=== PATIENT | male | born 1930 | race Hispanic/Latino ===

== ENCOUNTER 2017-02-25 09:17 | Emergency (ER) | payer MEDICARE, OTHER ==
[2017-02-25 09:44] VITALS: RESP 18; TEMP 98.2; BMI 28.3
--- NOTE | 2017-02-25 10:00 | ED PDOC ---
Arrival/HPI - General Chief Complaint: Abnormal Skin Integrity Time Seen by Provider: 02/25/17 09:42 Historian: Patient - History of Present Illness Narrative History of Present Illness (Text): 02/25/17 09:57 Patient presents to the emergency room complaining of a large mass to the posterior aspect of his neck which she has had for the past 50 years, states that initially the mass was small however over the years has grown to a significant size, currently it is the size of a baseball. He is here today in the emergency room because this morning he noticed that it is leaking of yellow serosanguineous fluid. Denies any fever, chills, headache, nausea, vomiting, trauma. Has no other complaints otherwise. Patient states that his PMD advised him to come to the emergency room and that Dr. Guzman, the surgeon, will evaluate him in the ER. PMD : Arsenio Seymour Past Medical History - Provider Review Nursing Documentation Reviewed: Yes - Infectious Disease Hx of Infectious Diseases: None - Tetanus Immunization Tetanus Immunization: Unknown - Cardiac Hx Hypertension: Yes - Pulmonary Hx Chronic Obstructive Pulmonary Disease (COPD): No - Neurological HX Cerebrovascular Accident: No - HEENT Hx Glaucoma: Yes (L) - Renal Hx Renal Failure: No - Endocrine/Metabolic Hx Diabetes Mellitus Type 1: No Hx Diabetes Mellitus Type 2: No - Hematological/Oncological Hx Blood Transfusions: Yes Hx Blood Transfusion Reaction: No - Integumentary Hx Dermatological Disorder: No - Musculoskeletal/Rheumatological Hx Arthritis: Yes Hx Rheumatoid Arthritis: No - Gastrointestinal Hx Gastroesophageal Reflux: No - Genitourinary/Gynecological Hx Genitourinary Disorders: No - Psychiatric Hx Depression: No Hx Emotional Abuse: No Hx Physical Abuse: No Hx Substance Use: No - Surgical History Other/Comment: left upper arm port removal - Anesthesia Hx Anesthesia: Yes Hx Anesthesia Reactions: No Hx Malignant Hyperthermia: No - Suicidal Assessment Feels Threatened In Home Enviroment: No Family/Social History - Physician Review Nursing Documentation Reviewed: Yes Family/Social History: No Known Family HX Smoking Status: Never Smoked Hx Alcohol Use: No Hx Substance Use: No Hx Substance Use Treatment: No Allergies/Home Meds Allergies/Adverse Reactions: Allergies No Known Allergies Allergy (Verified 11/28/16 18:05) Home Medications: Home Meds Medication Instructions Recorded Confirmed Carvedilol [Coreg] 6.25 mg PO DAILY 10/22/12 02/25/17 Levothyroxine [Synthroid] 0.025 mg PO DAILY 10/22/12 02/25/17 Tamsulosin [Flomax] 0.4 mg PO DAILY 10/22/12 02/25/17 Allopurinol [Zyloprim] 100 mg PO BID 02/25/17 02/25/17 Paricalcitol 1 mcg PO DAILY 02/25/17 02/25/17 Review of Systems - Review of Systems Constitutional: Normal. absent: Fatigue, Weight Change, Fevers ENT: Normal. absent: Hearing Changes, Tinnitus, TMJ Pain Respiratory: Normal. absent: SOB, Cough, Sputum Cardiovascular: Normal. absent: Chest Pain, Palpitations, Edema Musculoskeletal: Normal. absent: Arthralgias, Back Pain, Neck Pain Skin: Normal, Other (cyst to posterior neck x 50 years. ). absent: Rash, Pruritis, Skin Lesions Physical Exam - Physical Exam Narrative Physical Exam (Text): GENERAL APPEARANCE: Patient is awake, alert, oriented x 3, in mild painful distress. Skin: warm and dry, 10x10 cm large non-tender mass with no erythema, with areas of fluctuance, no d/c noted at this time, with no surrounding cellulitis to the posterior neck. Pulmonary: lungs clear, no rhonchi, no wheezing. Cardiac: regular rate and rhythm, no murmur, no gallop. Abdomen: soft nontender. Extremities: no deformity, full range of motion, no tenderness. Vital Signs Temp Pulse Resp BP Pulse Ox 02/25/17 13:00 84 18 143/92 H 95 02/25/17 11:13 85 18 137/66 95 02/25/17 09:20 98.2 F 84 18 140/90 94 L Medical Decision Making ED Course and Treatment: 02/25/17 10:03 86 yo M c/o large mass to the posterior neck x 50 years with d/c today. Case d/w Dr. Barnett, recommends that we call Dr. Devlin as Dr. Guzman is not available. Case d/w Dr. Devlin, who will evaluate the patient in the ER. Patient seen and evaluated by Dr. Devlin, prior imaging studies of the patient 's head and brain reviewed by him. Considering patient's PMH, will do an I&D at the bedside. Wound culture sent. Based on history, exam and diagnostic results plan will be for outpatient f/u with Dr. Devlin. Patient states he fully agrees with and understands discharge instructions. States that he agrees with the plan and disposition. Verbalized and repeated discharge instructions and plan. I have given the patient opportunity to ask any additional questions. Follow up with Dr. Devlin in 2 days without fail. Return to the emergency room at any time for any new or worsening symptoms. - Lab Interpretations Lab Results: 02/25/17 10:50 Lab Results 02/25/17 10:50: PT 15.5 H, INR 1.44 H, APTT 37.4 H 02/25/17 10:50: WBC 8.6, RBC 4.62, Hgb 12.9 L, Hct 40.4 L, MCV 87.4, MCH 27.9, MCHC 31.9, RDW 15.7 H, Plt Count 176, MPV 8.2, Gran % 70.8 H, Lymph % (Auto) 19.3 L, [place] % (Auto) 6.5 H, Eos % (Auto) 3.1, Baso % (Auto) 0.3, Gran # 6.07, Lymph # 1.7, [place] # 0.6, Eos # 0.3, Baso # 0.03 I have reviewed the lab results: Yes - RAD Interpretation Narrative RAD Interpretations (Text): 02/25/17 11:49 CXR : cardiomegaly, otherwise NAD, as read by [facility] Radiology Orders: 02/25/17 10:27 CHEST PORTABLE [RAD] Stat - EKG Interpretation EKG Interpretation (Text): 02/25/17 11:49 EKG: SR at 71 bpm w/ PVCs, (-) acute ST changes, as read by PA - Medication Orders Current Medication Orders: Discontinued Medications Lidocaine HCl (Lidocaine 1% (20ml)) Confirm Administered Dose 20 ml .ROUTE .STK- MED ONE Stop: 02/25/17 11:17 Last Admin: 02/25/17 11:31 Dose: - PA / BOTTOM WHEELER / Resident Statement / has reviewed & agrees with the documentation as recorded. Disposition/Present on Arrival - Present on Arrival Any Indicators Present on Arrival: No History of DVT/PE: No History of Uncontrolled Diabetes: No Urinary Catheter: No History of Decub. Ulcer: No History Surgical Site Infection Following: None - Disposition Have Diagnosis and Disposition been Completed?: Yes Diagnosis: Sebaceous cyst Disposition: HOME/ ROUTINE Disposition Time: 11:30 Patient Plan: Discharge Condition: GOOD Discharge Instructions (ExitCare): Incision and Drainage (ED), Cyst (ED) Print Language: DIVEHI Additional Instructions: Thank you for letting us take care of you today. You were treated for the patient's cyst status post incision and drainage. The emergency medical care you received today was directed at your acute symptoms. Return to the Emergency Department if your symptoms worsen, do not improve, or if you have any other problems. Please contact Dr. Devlin in 2 days for re-evaluation and follow up. Bring any paperwork you were given at discharge with you along with any medications you are taking to your follow up visit. Our treatment cannot replace ongoing medical care by a primary care provider (PCP) outside of the emergency department. Thank you for allowing the [facility] team to be part of your care today. Referrals: Arsenio Seymour MD [Primary Care Provider] - Follow up with primary Mart Devlin MD [Staff Provider] - Follow up with primary
[2017-02-25 10:59] LABS: ADD MANUAL DIFF? NO
[2017-02-25 11:04] LABS: BASO # 0.03 K/mm3 (0.0-2.0); BASO % 0.3 % (0.0-3.0); EOS # 0.3 (0.0-0.7); EOS % 3.1 % (1.5-5.0); GRAN # 6.07 (1.4-6.5); GRAN % 70.8 % (50.0-68.0); HEMATOCRIT 40.4 % (42.0-52.0); LYMPH # 1.7 (1.2-3.4); LYMPH % 19.3 % (22.0-35.0); MEAN CELL VOLUME 87.4 fL (80.0-105.0); MEAN CORPUSCULAR HEMOGLOBIN 27.9 pg (25.0-35.0); MEAN CORPUSCULAR HGB CONC 31.9 g/dl (31.0-37.0); MEAN PLATELET VOLUME 8.2 fl (7.0-11.0); MONO # 0.6 (0.1-0.6); MONO % 6.5 % (1.0-6.0); PLATELET COUNT 176 10^3/uL (120.0-450.0); RED CELL DISTRIBUTION WIDTH 15.7 % (11.5-14.5); WHITE BLOOD COUNT 8.6 10^3/ul (4.5-11.0)
[2017-02-25 11:13] VITALS: O2SAT 95
[2017-02-25] MEDS ORDERED: Lidocaine 1% Inj (20ml) ONE (11:16)
[2017-02-25 11:31] LABS: INR 1.44 (0.93-1.08); PARTIAL THROMBOPLASTIN TIME 37.4 Seconds (23.7-30.8)
--- NOTE | 2017-02-25 12:40 | RAD ---
HISTORY: for pre-op COMPARISON: 11/28/2016 FINDINGS: LUNGS: No active pulmonary disease. PLEURA: No significant pleural effusion identified, no pneumothorax apparent. CARDIOVASCULAR: Normal. OSSEOUS STRUCTURES: No significant abnormalities. VISUALIZED UPPER ABDOMEN: Normal. OTHER FINDINGS: Left-sided central line terminates in SVC IMPRESSION: No active disease.
[2017-02-25 14:18] VITALS: BP 143/92; PULSE 84
--- NOTE | 2017-02-25 22:02 | CARD ---
APPROVED REPORT EKG Measurement Heart [id number] [id number] <Conclusion> Sinus rhythm with premature supraventricular complexes Left axis deviation Pulmonary disease pattern Inferior infarct, age undetermined Abnormal ECG
== END 2017-02-25 12:35 | disposition home or self-care (01) ==
LOC: ED 09:17
DX: L72.3 Sebaceous cyst (principal); I10 Essential (primary) hypertension

== ENCOUNTER 2017-03-03 05:20 | Inpatient (IN) | payer MEDICARE, OTHER ==
[2017-03-03 05:37] VITALS: BMI 28.3
--- NOTE | 2017-03-03 05:40 | ED PDOC ---
Arrival/HPI - General Time Seen by Provider: 03/03/17 05:27 Historian: Patient - History of Present Illness Narrative History of Present Illness (Text): 03/03/17 05:40 Rey Sanchez is an 86 year old male, who past medical history includes hypertension, renal insufficiency, anemia, colon cancer, and Gout, who presents to the ED complaining of a large posterior head mass. Patient states he has had a mass to the posterior side of his head for the last 50 years, gradually worsening over the past few years. Patient was seen in the ED on 02/25/2017 for similar complaint and had an I&D done by surgery in the ER. Patient states the mass is now draining fluid with associated discomfort. Patient denies any fever , chills, headache, dizziness, chest pain, shortness of breath, nausea, vomiting , or any other complaints. PMD: Dr. Seymour Surgeon: Dr. Guzman Symptom Onset: Gradual Symptom Course: Unchanged Activities at Onset: Rest, Light Context: Home Past Medical History - Provider Review Nursing Documentation Reviewed: Yes - Infectious Disease Hx of Infectious Diseases: None - Tetanus Immunization Tetanus Immunization: Unknown - Cardiac Hx Hypertension: Yes - Pulmonary Hx Chronic Obstructive Pulmonary Disease (COPD): No - Neurological HX Cerebrovascular Accident: No - HEENT Hx Glaucoma: Yes (L) - Renal Hx Renal Failure: No - Endocrine/Metabolic Hx Diabetes Mellitus Type 1: No Hx Diabetes Mellitus Type 2: No - Hematological/Oncological Hx Blood Transfusions: Yes Hx Blood Transfusion Reaction: No - Integumentary Hx Dermatological Disorder: No - Musculoskeletal/Rheumatological Hx Arthritis: Yes Hx Rheumatoid Arthritis: No - Gastrointestinal Hx Gastroesophageal Reflux: No - Genitourinary/Gynecological Hx Genitourinary Disorders: No - Psychiatric Hx Depression: No Hx Emotional Abuse: No Hx Physical Abuse: No Hx Substance Use: No - Surgical History Other/Comment: left upper arm port removal - Anesthesia Hx Anesthesia: Yes Hx Anesthesia Reactions: No Hx Malignant Hyperthermia: No - Suicidal Assessment Feels Threatened In Home Enviroment: No Family/Social History - Physician Review Nursing Documentation Reviewed: Yes Family/Social History: No Known Family HX Smoking Status: Never Smoked Hx Alcohol Use: No Hx Substance Use: No Hx Substance Use Treatment: No Allergies/Home Meds Allergies/Adverse Reactions: Allergies No Known Allergies Allergy (Verified 03/03/17 05:37) Home Medications: Home Meds Medication Instructions Recorded Confirmed Carvedilol [Coreg] 6.25 mg PO DAILY 10/22/12 03/03/17 Levothyroxine [Synthroid] 0.025 mg PO DAILY 10/22/12 03/03/17 Tamsulosin [Flomax] 0.4 mg PO DAILY 10/22/12 03/03/17 Allopurinol [Zyloprim] 100 mg PO BID 02/25/17 03/03/17 Paricalcitol 1 mcg PO DAILY 02/25/17 03/03/17 Furosemide [Lasix] 40 mg PO DAILY 03/03/17 03/03/17 Potassium Chloride [K-Dur 20 mEq 20 meq PO DAILY 03/03/17 03/03/17 ER Tab] Review of Systems - Physician Review All systems were reviewed & negative as marked: Yes - Review of Systems Constitutional: Normal. absent: Fevers Eyes: Normal ENT: Normal Respiratory: Normal. absent: SOB, Cough Cardiovascular: Normal. absent: Chest Pain Gastrointestinal: Normal. absent: Abdominal Pain, Diarrhea, Nausea, Vomiting Genitourinary Male: Normal. absent: Frequency, Hematuria, Urinary Output Changes Musculoskeletal: Normal. absent: Back Pain, Neck Pain Skin: Other (+large posterior head mass) Neurological: Normal. absent: Headache, Dizziness Endocrine: Normal Hemo/Lymphatic: Normal Psychiatric: Normal Physical Exam Vital Signs Reviewed: Yes Vital Signs Temp Pulse Resp BP Pulse Ox 03/03/17 05:53 92 H 16 125/69 93 L 03/03/17 05:36 98.5 F Temperature: Afebrile Blood Pressure: Normal Pulse: Regular Respiratory Rate: Normal Appearance: Positive for: Well-Appearing, Non-Toxic, Comfortable Pain Distress: None Mental Status: Positive for: Alert and Oriented X 3 - Systems Exam Head: Present: Atraumatic, Other (Large mass to posterior head) Pupils: Present: PERRL Extroacular Muscles: Present: EOMI Conjunctiva: Present: Normal Mouth: Present: Moist Mucous Membranes Neck: Present: Normal Range of Motion Respiratory/Chest: Present: Clear to Auscultation, Good Air Exchange. No: Respiratory Distress, Accessory Muscle Use Cardiovascular: Present: Regular Rate and Rhythm, Normal S1, S2. No: Murmurs Abdomen: Present: Normal Bowel Sounds. No: Tenderness, Distention, Peritoneal Signs Upper Extremity: Present: Normal Inspection. No: Cyanosis, Edema Lower Extremity: Present: Normal Inspection. No: Edema Neurological: Present: GCS=15, CN II-XII Intact, Speech Normal Skin: Present: Warm, Dry, Normal Color. No: Rashes Psychiatric: Present: Alert, Oriented x 3, Normal Insight, Normal Concentration Medical Decision Making ED Course and Treatment: 03/03/17 05:40 Impression: 86 year old male c/o large posterior head mass with drainage and discomfort to the area. Plan: -- Labs, blood cultures - Reassess and disposition Progress Notes: Case discussed with Dr. Seymour, who is aware and agrees with plan. Accepts pt in to his service. Requests Dr. Guzman on consult. - Lab Interpretations Microbiology Results: Microbiology Results 03/03/17 06:00 Blood-Venous Blood Culture - Preliminary NO GROWTH AFTER 48 HOURS 03/03/17 06:00 Blood-Venous Blood Culture - Preliminary NO GROWTH AFTER 48 HOURS 03/04/17 14:30 Neck Gram Stain - Final Lab Results: 03/04/17 07:30 03/04/17 07:30 Lab Results 03/04/17 07:30: Sodium 140, Potassium 4.3, Chloride 101, Carbon Dioxide 34 H, Anion Gap 9 L, BUN 28 H, Creatinine 1.3, Est GFR ( Amer) > 60, Est GFR ( Non-Af Amer) 52, Random Glucose 90, Calcium 8.9, Total Bilirubin 0.6, AST 26, ALT 27, Alkaline Phosphatase 60, Total Protein 6.0, Albumin 2.9 L, Globulin 3.1 , Albumin/Globulin Ratio 0.9 L 03/04/17 07:30: WBC 7.5, RBC 4.15, Hgb 11.5 L, Hct 36.4 L, MCV 87.7, MCH 27.7, MCHC 31.6, RDW 15.7 H, Plt Count 193, MPV 7.9, Gran % 71.2 H, Lymph % (Auto) 17.8 L, [place] % (Auto) 6.8 H, Eos % (Auto) 3.9, Baso % (Auto) 0.3, Gran # 5.32, Lymph # 1.3, [place] # 0.5, Eos # 0.3, Baso # 0.02 03/04/17 07:30: Iron 30 L, TIBC 188 L, % Saturation 16 L 03/03/17 06:00: Sodium 139, Potassium 4.3, Chloride 100, Carbon Dioxide 33, Anion Gap 10, BUN 29 H, Creatinine 1.1, Est GFR ( Amer) > 60, Est GFR ( Non-Af Amer) > 60, Random Glucose 112 H, Calcium 9.3, Total Bilirubin 0.5, AST 26, ALT 26, Alkaline Phosphatase 72, Total Protein 6.5, Albumin 3.2, Globulin 3.3, Albumin/Globulin Ratio 1.0 L 03/03/17 06:00: WBC 8.8, RBC 4.55, Hgb 12.8 L, Hct 39.6 L, MCV 87.0, MCH 28.1, MCHC 32.3, RDW 15.4 H, Plt Count 207, MPV 8.1, Gran % 70.0 H, Lymph % (Auto) 18.4 L, [place] % (Auto) 8.0 H, Eos % (Auto) 3.4, Baso % (Auto) 0.2, Gran # 6.13, Lymph # 1.6, [place] # 0.7 H, Eos # 0.3, Baso # 0.02 - Medication Orders Current Medication Orders: Acetaminophen (Tylenol 325mg Tab) 650 mg PO Q4H PRN PRN Reason: Fever >100.5 F Allopurinol (Zyloprim) 100 mg PO BID [facility] Last Admin: 03/05/17 17:14 Dose: 100 mg Carvedilol (Coreg) 6.25 mg PO DAILY [facility] Last Admin: 03/05/17 09:07 Dose: 6.25 mg Furosemide (Lasix) 40 mg PO DAILY [facility] Last Admin: 03/05/17 09:07 Dose: 40 mg Heparin Sodium (Porcine) (Heparin) 5,000 units SC Q12 [facility] PRN Reason: Protocol Last Admin: 03/05/17 09:06 Dose: 5,000 units Linezolid (Zyvox 600mg/300ml D5w) 600 mg in 300 mls @ 200 mls/hr IVPB Q12 [facility] PRN Reason: Protocol Stop: 03/11/17 22:01 Last Admin: 03/05/17 09:06 Dose: 200 mls/hr Piperacillin Sod/Tazobactam Sod (Zosyn 3.375 In Ns 100ml) 100 mls @ 200 mls/hr IVPB Q6 [facility] PRN Reason: Protocol Stop: 03/11/17 18:01 Last Admin: 03/05/17 17:14 Dose: 200 mls/hr Latanoprost (Xalatan Opht) 0 ml OU HS [facility] Last Admin: 03/04/17 22:56 Dose: 2.5 ml Levothyroxine Sodium (Synthroid) 25 mcg PO ACB [facility] Last Admin: 03/05/17 08:55 Dose: 25 mcg Potassium Chloride (K-Dur 20 Meq Er Tab) 20 meq PO DAILY [facility] Last Admin: 03/05/17 09:08 Dose: 20 meq Tamsulosin HCl (Flomax) 0.4 mg PO DAILY [facility] Last Admin: 03/05/17 09:08 Dose: 0.4 mg Discontinued Medications Piperacillin Sod/Tazobactam Sod (Zosyn 3.375 In Ns 100ml) 100 mls @ 200 mls/hr IVPB STAT STA PRN Reason: Protocol Stop: 03/03/17 06:58 Last Admin: 03/03/17 07:00 Dose: 200 mls/hr Piperacillin Sod/Tazobactam Sod (Zosyn 3.375 In Ns 100ml) 100 mls @ 200 mls/hr IVPB Q6 [facility] PRN Reason: Protocol Stop: 03/04/17 00:29 Last Admin: 03/03/17 23:33 Dose: 200 mls/hr Pneumococcal Polyvalent Vaccine (Pneumovax 23 Vaccine) 0.5 ml IM .ONCE ONE Stop: 03/03/17 15:37 - Scribe Statement The provider has reviewed the documentation as recorded by the Cam Fagan Provider Attestation: All medical record entries made by the Cam were at my direction and personally dictated by me. I have reviewed the chart and agree that the record accurately reflects my personal performance of the history, physical exam, medical decision making, and the department course for this patient. I have also personally directed, reviewed, and agree with the discharge instructions and disposition. Disposition/Present on Arrival - Present on Arrival Any Indicators Present on Arrival: No History of DVT/PE: No History of Uncontrolled Diabetes: No Urinary Catheter: No History Surgical Site Infection Following: None - Disposition Have Diagnosis and Disposition been Completed?: Yes Diagnosis: Neck mass Disposition: HOSPITALIZED Disposition Time: 07:15 Condition: FAIR
[2017-03-03 06:18] LABS: ADD MANUAL DIFF? NO
[2017-03-03 06:23] LABS: BASO # 0.02 K/mm3 (0.0-2.0); BASO % 0.2 % (0.0-3.0); EOS # 0.3 (0.0-0.7); EOS % 3.4 % (1.5-5.0); GRAN # 6.13 (1.4-6.5); HEMATOCRIT 39.6 % (42.0-52.0); LYMPH # 1.6 (1.2-3.4); LYMPH % 18.4 % (22.0-35.0); MEAN CORPUSCULAR HEMOGLOBIN 28.1 pg (25.0-35.0); MEAN CORPUSCULAR HGB CONC 32.3 g/dl (31.0-37.0); MEAN PLATELET VOLUME 8.1 fl (7.0-11.0); MONO # 0.7 (0.1-0.6); PLATELET COUNT 207 10^3/uL (120.0-450.0); RED CELL DISTRIBUTION WIDTH 15.4 % (11.5-14.5); WHITE BLOOD COUNT 8.8 10^3/ul (4.5-11.0)
[2017-03-03] MEDS ORDERED: Piperacillin/Tazobact 3.375 gm 100 ML IVPB STA (06:29)
[2017-03-03 06:38] LABS: ALKALINE PHOSPHATASE 72 U/L (38-133); ALT/SGPT 26 U/L (7-56); AST/SGOT 26 U/L (15-59); BILIRUBIN,TOTAL 0.5 mg/dL (0.2-1.3); BLOOD UREA NITROGEN 29 mg/dL (7-21); CALCIUM 9.3 mg/dL (8.4-10.5); CARBON DIOXIDE 33 mmol/L (21-33); CHLORIDE 100 mmol/L (95-110); GFR AFRICAN-AMERICAN > 60; GLUCOSE,RANDOM 112 mg/dL (70-110); POTASSIUM 4.3 mmol/L (3.6-5.0); SODIUM 139 mmol/L (132-148); TOTAL PROTEIN 6.5 g/dL (5.8-8.3)
--- NOTE | 2017-03-03 07:34 | HP ---
HISTORY OF PRESENT ILLNESS: The patient is seen in the Emergency Room at [facility] in [place]. He has intractable pain in the back of his neck. He has a lump which seems to be the cause of the pain. It is a lump that he has had for many years, but apparently it is infected at this time and enlarging, with it being tense is causing the pain. The patient has no fever, but he has all other clinical signs of an infection in the site. ALLERGIES: The patient has no known allergies. ADVANCED DIRECTIVE: He does not have any advanced directive. PAST MEDICAL HISTORY: Significant. He has history of atherosclerotic heart disease, coronary artery disease, hypothyroidism, gout, benign prostatic hyperplasia, congestive heart failure, glaucoma, vitamin D deficiency. PHYSICAL EXAMINATION: The patient is seen in the Emergency Room. VITAL SIGNS: At the time of evaluation, pulse is 92, blood pressure 125/69, respirations are 16, O2 sat 93% on room air. HEAD: Normocephalic. The hair on the head is sparse. NECK: Within normal limit. Thyroid is not clinically enlarged. The carotid pulses are present. HEART: Normal sinus rhythm. S1, S2 present. ABDOMEN: Soft. Liver, spleen not palpable. No tenderness. LUNGS: Trachea central. Breath sounds vesicular. No adventitious sounds. CENTRAL NERVOUS SYSTEM: He has weakness of both legs, unable to walk. He has been in a wheelchair and bedridden for more than a year. LABORATORY DATA: The patient's blood work done in the Emergency Room: His white count is 8000, hemoglobin 12.8. Chemistries: The patient's BUN is 29, creatinine 1.1. His GFR is greater than 60. The patient's blood sugar 112. His sodium is 139, potassium is 4.3. The patient's admission is based on the fact that the patient has this lump in the back of the neck which is causing extreme pain as well as appears to be infected at this time. We will put him on antibiotic. Dr. Ulices Guzman, general surgeon, is going to evaluate the patient. This definitely has to be removed apparently from what it looks like. The patient's medications will be placed. He is going to be placed on the Synthroid that he was taking. He is going to be on Lasix 40 mg daily, potassium chloride 20 mEq daily. The patient is going to be on all his maintenance medications a this time. The patient is going to be on allopurinol 100 mg b.i.d. and Coreg 6.25 mg b.i.d. The patient' s condition is stable clinically, but he is being admitted and treated for the condition that is a localized problem. Will follow up. Ju Seymour MD cc: [id number] TT: 03/03/2017 07:33:43 sharmila OSULLIVAN
--- NOTE | 2017-03-03 09:48 | CP.PCM.CON ---
History of Present Illness - History of Present Illness History of Present Illness: General surgery consult note for Juan Carlos Corrigan PGY1 cc: Neck mass HPI: Patient is an 86yo male with past medical history of hypothyroidism, CAD, BPH, gout, history of colon ca that presents to the ED c/o posterior neck mass. Patient reports that he has a small lump on the back of his neck for the past 50 years however within the last year the mass has significantly grown. He reports that within the last couple months the mass have started to drain serosangenous fluid and been associated with significant pain, difficulty sleeping and difficuly with neck mobility. Patient stated that he was previously seen in the ED for the same complaint and was seen by Dr. Devlin who had drained a portion of the mass and instructed the patient to follow up in his office as an outpatient. The patient reports that he was unable to follow up due to difficulty ambulating. He denies fevers, chill, nausea, vomiting, abdominal pain, diarrhea, chest pain, palpitations, SOB. Surgery consulted for evaluation of posterior neck mass. 12point ROS as per HPI above, otherwise negative PMHx: Gout, BPH, CAD, hypothyroidism, CHF, glaucoma, history of colon ca PSHx: Colon ca s/p partial colectomy Allergies: NKDA Family Hx: Noncontributory Social Hx: Denies alcohol, tobacco and illicit drug use. Past Patient History - Infectious Disease Hx of Infectious Diseases: None - Tetanus Immunizations Tetanus Immunization: Unknown - Past Social History Smoking Status: Never Smoked - CARDIAC Hx Hypertension: Yes - PULMONARY Hx Chronic Obstructive Pulmonary Disease (COPD): No - NEUROLOGICAL HX Cerebrovascular Accident: No - HEENT Hx Glaucoma: Yes (L) - RENAL Hx Renal Failure: No - ENDOCRINE/METABOLIC Hx Diabetes Mellitus Type 1: No Hx Diabetes Mellitus Type 2: No - HEMATOLOGICAL/ONCOLOGICAL Hx Blood Transfusions: Yes Hx Blood Transfusion Reaction: No - INTEGUMENTARY Hx Dermatological Problems: No - MUSCULOSKELETAL/RHEUMATOLOGICAL Hx Arthritis: Yes Hx Rheumatoid Arthritis: No - GASTROINTESTINAL Hx Gastroesophageal Reflux: No - GENITOURINARY/GYNECOLOGICAL Hx Genitourinary Disorders: No - PSYCHIATRIC Hx Depression: No Hx Emotional Abuse: No Hx Physical Abuse: No Hx Substance Use: No - SURGICAL HISTORY Other/Comment: left upper arm port removal - ANESTHESIA Hx Anesthesia: Yes Hx Anesthesia Reactions: No Hx Malignant Hyperthermia: No Meds Allergies/Adverse Reactions: Allergies Allergy/AdvReac Type Severity Reaction Status Date / Time No Known Allergies Allergy Verified 03/03/17 05:37 - Medications Medications: Current Medications Acetaminophen (Tylenol 325mg Tab) 650 mg PO Q4H PRN PRN Reason: Fever >100.5 F Physical Exam - Constitutional Appears: Non-toxic, No Acute Distress - Head Exam Head Exam: ATRAUMATIC, NORMAL INSPECTION, NORMOCEPHALIC - Eye Exam Eye Exam: EOMI, PERRL - Neck Exam Additional comments: posterior [id number] fluctuant neck mass; - Respiratory Exam Respiratory Exam: Clear to Auscultation Bilateral. absent: Rales, Rhonchi, Wheezes - Cardiovascular Exam Cardiovascular Exam: RRR, +S1, +S2. absent: Gallop, Rubs - GI/Abdominal Exam GI & Abdominal Exam: Soft. absent: Distended, Firm, Guarding, Rebound, Tenderness - Neurological Exam Neurological exam: Alert, Oriented x3 - Skin Skin Exam: Dry, Intact, Normal Color, Warm Results - Vital Signs Recent Vital Signs: Last Vital Signs Temp 98.5 F 03/03/17 05:36 Pulse 92 H 03/03/17 05:53 Resp 16 03/03/17 05:53 BP 125/69 03/03/17 05:53 Pulse Ox 93 L 03/03/17 05:53 - Labs Result Diagrams: 03/03/17 06:00 03/04/17 07:30 Assessment & Plan - Assessment and Plan (Free Text) Plan: 86yo male with history of colon ca s/p partial colectomy, gout, hypothyroidism, CAD that presents c/o posterior 10cm x 12cm fluctuant neck mass -Fluctuant [id number] posterior neck mass -Patient to be evaluated by Dr. Guzman, pending further recommendations -Continue medical management as per primary team -afebrile, no leukocytosis Case discussed with attending, Dr. Thomas Campoverde PGY1 - Date & Time Date: 03/03/17 Time: 10:05
[2017-03-03] MEDS ORDERED: Pneumococcal 23-Valent Vaccine IM ONE (15:36)
[2017-03-03] MEDS: Piperacillin/Tazobact 3.375 gm 100 ML IVPB SCH ×2 (18:27→23:33)
[2017-03-03] MEDS: Latanoprost 2.5 ml Opht Soln OU SCH (22:04)
[2017-03-04 08:03] LABS: ADD MANUAL DIFF? NO
[2017-03-04] MEDS: Levothyroxine 25 MCG TAB PO SCH (08:13)
[2017-03-04 08:14] LABS: BASO # 0.02 K/mm3 (0.0-2.0); BASO % 0.3 % (0.0-3.0); EOS # 0.3 (0.0-0.7); EOS % 3.9 % (1.5-5.0); GRAN # 5.32 (1.4-6.5); GRAN % 71.2 % (50.0-68.0); HEMATOCRIT 36.4 % (42.0-52.0); LYMPH # 1.3 (1.2-3.4); LYMPH % 17.8 % (22.0-35.0); MEAN CELL VOLUME 87.7 fL (80.0-105.0); MEAN CORPUSCULAR HEMOGLOBIN 27.7 pg (25.0-35.0); MEAN CORPUSCULAR HGB CONC 31.6 g/dl (31.0-37.0); MEAN PLATELET VOLUME 7.9 fl (7.0-11.0); MONO # 0.5 (0.1-0.6); MONO % 6.8 % (1.0-6.0); PLATELET COUNT 193 10^3/uL (120.0-450.0); RED CELL DISTRIBUTION WIDTH 15.7 % (11.5-14.5); WHITE BLOOD COUNT 7.5 10^3/ul (4.5-11.0)
[2017-03-04 08:23] LABS: ALB/GLOB RATIO 0.9 (1.1-1.8); ALKALINE PHOSPHATASE 60 U/L (38-133); ALT/SGPT 27 U/L (7-56); AST/SGOT 26 U/L (15-59); BILIRUBIN,TOTAL 0.6 mg/dL (0.2-1.3); BLOOD UREA NITROGEN 28 mg/dL (7-21); CALCIUM 8.9 mg/dL (8.4-10.5); CARBON DIOXIDE 34 mmol/L (21-33); CHLORIDE 101 mmol/L (98-107); GFR AFRICAN-AMERICAN > 60; GLUCOSE,RANDOM 90 mg/dL (70-110); POTASSIUM 4.3 mmol/L (3.6-5.0); SODIUM 140 mmol/L (132-148)
[2017-03-04 08:47] LABS: IRON 30 ug/dL (45-180)
--- NOTE | 2017-03-04 09:05 | PN ---
DATE: 03/04/2017 The patient is in the [facility] in [place] in room 367, bed 1. The patient was admitted with a painful lump in the back of the neck, a large lump, about 20 cm in diameter. It was hard and indurated with tenderness on touch. The patient had evidence of clinical inflammation, infection. His past history is significant in that he has atherosclerotic heart disease. The patient has hypertension, hypothyroidism, gout. 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 He is bedridden and also mobile only by wheelchair. PHYSICAL EXAMINATION: VITAL SIGNS: This morning, his pulse is 89, blood pressure 147/85, respirations 20. The patient's temperature 97.3, O2 sat 97% on room air. HEENT: The patient's head is normocephalic. The lump is draining. It is open and it was excised and drained by Dr. Ulices Guzman. LUNGS: Clear. HEART: Normal sinus rhythm. ABDOMEN: Soft. Liver, spleen not palpable. CENTRAL NERVOUS SYSTEM: There is no focal neurological deficit. LABORATORY DATA: The patient's blood work shows that the hemoglobin is 12.8 and differential shows 70% granulocytes. The patient's chemistry shows blood sugar 112 and BUN of 29, potassium of 4.3. The patient is getting local treatment. Consultation has been placed with infectious disease. The patient's condition is clinically improving. We will follow up. Ju Seymour MD cc: [phone] TT: 03/04/2017 09:04:10 Confirmation # [id number] Dictation # [id number] rosaura OSULLIVAN
[2017-03-04] MEDS: Potassium Chloride 20 mEq ER Tab PO SCH (09:13)
--- NOTE | 2017-03-04 09:15 | CP.PCM.PN ---
Subjective - Date & Time of Evaluation Date of Evaluation: 03/04/17 Time of Evaluation: 08:38 - Subjective Subjective: General surgery progress note for Juan Carlos Corrigan PGY1 Patient seen and examined this morning in conjunction with surgical team. No acute overnight events or new complaints reported. Patient had some fluid drained at bedside yesterday by Dr. Guzman. Denies chest pain, palpitations, SOB. Objective - Vital Signs/Intake and Output Vital Signs (last 24 hours): Temp Pulse Resp BP Pulse Ox 97.3 F L 89 20 147/85 96 03/03/17 16:00 03/03/17 16:00 03/03/17 16:00 03/03/17 16:00 03/03/17 16:00 Intake and Output: 03/04/17 03/04/17 06:59 18:59 Intake Total 920 Balance 920 - Medications Medications: Current Medications Acetaminophen (Tylenol 325mg Tab) 650 mg PO Q4H PRN PRN Reason: Fever >100.5 F Allopurinol (Zyloprim) [address] [facility] Last Admin: 03/03/17 19:50 Dose: 100 mg Carvedilol (Coreg) 6.[address] [facility] Furosemide (Lasix) 40 mg PO DAILY [facility] Latanoprost (Xalatan Opht) [address] [facility] Last Admin: 03/03/17 22:04 Dose: 2.5 ml Levothyroxine Sodium (Synthroid) [address] [facility] Potassium Chloride (K-Dur 20 Meq Er Tab) 20 meq PO DAILY [facility] Tamsulosin HCl (Flomax) 0.[address] [facility] - Labs Labs: 03/04/17 07:30 - Constitutional Appears: Well, Non-toxic, No Acute Distress - Head Exam Head Exam: ATRAUMATIC, NORMAL INSPECTION, NORMOCEPHALIC - Eye Exam Eye Exam: EOMI, PERRL - ENT Exam ENT Exam: Mucous Membranes Moist - Neck Exam Additional comments: posterior fluctuant neck mass measuring ~[id number] - Respiratory Exam Respiratory Exam: Clear to Ausculation Bilateral. absent: Rales, Rhonchi, Wheezes - Cardiovascular Exam Cardiovascular Exam: RRR, +S1, +S2. absent: Gallop, Rubs - GI/Abdominal Exam GI & Abdominal Exam: Soft. absent: Distended, Firm, Guarding, Rigid, Tenderness , Rebound - Neurological Exam Neurological Exam: Alert, Awake, Oriented x3 - Skin Skin Exam: Dry, Intact, Normal Color, Warm Assessment and Plan - Assessment and Plan (Free Text) Plan: 86yo male with history of colon ca s/p partial colectomy, gout, hypothyroidism, CAD that presents c/o posterior 10cm x 12cm fluctuant neck mass -Fluctuant [id number] posterior neck mass, drained yesterday at bedside -Patient scheduled for OR intervention on 03/08/2017 -Continue medical management as per primary team -afebrile, no leukocytosis Case discussed with attending, Dr. Thomas Campoverde PGY1
--- NOTE | 2017-03-04 14:22 | CP.PCM.CON ---
History of Present Illness - History of Present Illness History of Present Illness: 86 year old male with PMH of left arm cellulitis probably related to venous catheter S/P removal, gout, history of subarachnoid hemorrhage, hypothyroidism, colon cancer S/P hemicolectomy, HTN, osteoarthritis, history of healthcare- associated pneumonia, osteoporosis was brought in to [facility] because of pain along his posterior neck area, associated with a fluctuant mass. Apparently the mass has been there for many decades now, but over the past year it has significantly grown and has become painful in the past 3-4 days , with some serosanguinous discharge from the area. He does not recall insect bites, no animal contacts. He also denies fever or chills, no nausea or vomiting , no chest pain, no SOB<no headache or dizziness, no abdominal pain, no cough or colds, no diarrhea or dysuria. Yesterday, surgery drained some serosanguinous fluid and Infectious Diseases consult is requested to further evaluate and manage. Review of Systems - Review of Systems All systems: reviewed and no additional remarkable complaints except (as per HPI ) Past Patient History - Infectious Disease Hx of Infectious Diseases: None - Tetanus Immunizations Tetanus Immunization: Unknown - Past Social History Smoking Status: Never Smoked - CARDIAC Hx Hypertension: Yes - PULMONARY Hx Bronchitis: Yes - NEUROLOGICAL Hx Neurological Disorder: Yes (hand tremors) - HEENT Hx HEENT Problems: Yes (eyeglasses) Hx Glaucoma: Yes (L) - RENAL Hx Renal Failure: No - ENDOCRINE/METABOLIC Hx Diabetes Mellitus Type 1: No Hx Diabetes Mellitus Type 2: No - HEMATOLOGICAL/ONCOLOGICAL Hx Anemia: Yes (blood transfusion) Hx Cancer: Yes (colon ca dx 2004) Hx Chemotherapy: Yes (and radiation completed) - INTEGUMENTARY Other/Comment: multiple age spots to back and chest, large 8cm x 7cm growth to back of neck red in color and draining bloody fluid was drained in ed today and i&d'd in er 02/25/17, multiple eccymotic skin discolorations to both arms,2cm x 2cm round hard brown growth to rfa, buttocks reddened, dry skin both feet - MUSCULOSKELETAL/RHEUMATOLOGICAL Hx Arthritis: Yes Hx Falls: Yes (fell 09/22/2016) Hx Fractures: Yes (r leg as a child) Hx Osteoporosis: Yes Hx Unsteady Gait: Yes Other/Comment: pt stated "I can't walk since I fell 09/22/16" fx r rib, 7 stiches to head went from [facility] back to [facility] then to [facility]." pt's uses a lift to get him oob to chair every day. pt used to use a cane/ walker. pt - GASTROINTESTINAL Hx Gastroesophageal Reflux: No - GENITOURINARY/GYNECOLOGICAL Hx Incontinence: Yes (urine and stool) - PSYCHIATRIC Hx Depression: No Hx Emotional Abuse: No Hx Physical Abuse: No Hx Substance Use: No - SURGICAL HISTORY Other/Comment: left upper arm port removal, r great toe hinge placement - ANESTHESIA Hx Anesthesia: Yes Hx Anesthesia Reactions: No Hx Malignant Hyperthermia: No Meds Allergies/Adverse Reactions: Allergies Allergy/AdvReac Type Severity Reaction Status Date / Time No Known Allergies Allergy Verified 03/03/17 05:37 - Medications Medications: Current Medications Acetaminophen (Tylenol 325mg Tab) 650 mg PO Q4H PRN PRN Reason: Fever >100.5 F Allopurinol (Zyloprim) 100 mg PO BID [facility] Carvedilol (Coreg) 6.25 mg PO DAILY [facility] Furosemide (Lasix) 40 mg PO DAILY [facility] Piperacillin Sod/Tazobactam Sod (Zosyn 3.375 In Ns 100ml) 100 mls @ 200 mls/hr IVPB Q6 [facility] PRN Reason: Protocol Stop: 03/04/17 00:29 Latanoprost (Xalatan Opht) 0 ml OU HS [facility] Levothyroxine Sodium (Synthroid) 25 mcg PO ACB [facility] Potassium Chloride (K-Dur 20 Meq Er Tab) 20 meq PO DAILY [facility] Tamsulosin HCl (Flomax) 0.4 mg PO DAILY [facility] Physical Exam - Constitutional Appears: Non-toxic, No Acute Distress - Head Exam Head Exam: NORMAL INSPECTION - ENT Exam ENT Exam: Mucous Membranes Moist - Neck Exam Neck exam: Negative for: Meningismus Additional comments: posterior neck with flucutant mass with dressings in place, noted blood and some serosanguinous fluid on the dressings - Respiratory Exam Respiratory Exam: Decreased Breath Sounds - Cardiovascular Exam Cardiovascular Exam: +S1, +S2 - GI/Abdominal Exam GI & Abdominal Exam: Soft. absent: Tenderness Results - Vital Signs Recent Vital Signs: Last Vital Signs Temp 98.5 F 03/03/17 15:06 Pulse 92 H 03/03/17 15:06 Resp 16 03/03/17 15:06 BP 125/69 03/03/17 15:06 Pulse Ox 93 L 03/03/17 05:53 - Labs Result Diagrams: 03/04/17 07:30 03/04/17 07:30 Assessment & Plan - Assessment and Plan (Free Text) Plan: asssessment left posterior neck mass, R/O bacterial infection R/O fungal or mycobacterial infection history of left arm cellulitis probably related to venous catheter S/P removal history of asymtpmatic bacteriuria with gram negative bacilli gout history of subarachnoid hemorrhage hypothyroidism colon cancer S/P hemicolectomy HTN osteoarthritis history of healthcare-associated pneumonia osteoporosis Plan started patient on Zyvox and Zosyn pending wound cx, blood cx, wound for AFB and fungi; follow up further surgical plans will monitor clinically
[2017-03-04] MEDS: Piperacillin/Tazobact 3.375 gm 100 ML IVPB SCH (17:15)
[2017-03-04] MEDS: Latanoprost 2.5 ml Opht Soln OU SCH (22:56)
[2017-03-04] MEDS: Linezolid 600 mg in D5W 300 ml 600 MG/300 ML BAG IVPB SCH (22:56)
[2017-03-05] MEDS: Piperacillin/Tazobact 3.375 gm 100 ML IVPB SCH ×4 (00:39→17:14)
--- NOTE | 2017-03-05 08:11 | CP.PCM.PN ---
Subjective - Date & Time of Evaluation Date of Evaluation: 03/05/17 Time of Evaluation: 07:45 - Subjective Subjective: Patient is seen this morning. He is feeling better. Less pain in the back of the neck. Objective - Vital Signs/Intake and Output Vital Signs (last 24 hours): Temp Pulse Resp BP Pulse Ox 97 F L 76 22 126/80 98 03/04/17 16:00 03/04/17 16:00 03/04/17 16:00 03/04/17 16:00 03/04/17 16:00 Intake and Output: 03/05/17 03/05/17 06:59 18:59 Intake Total 1020 Balance 1020 - Medications Medications: Current Medications Acetaminophen (Tylenol 325mg Tab) 650 mg PO Q4H PRN PRN Reason: Fever >100.5 F Allopurinol (Zyloprim) 100 mg PO BID [facility] Last Admin: 03/04/17 17:11 Dose: 100 mg Carvedilol (Coreg) 6.25 mg PO DAILY [facility] Last Admin: 03/04/17 09:13 Dose: 6.25 mg Furosemide (Lasix) 40 mg PO DAILY [facility] Last Admin: 03/04/17 09:13 Dose: 40 mg Heparin Sodium (Porcine) (Heparin) 5,000 units SC Q12 [facility] PRN Reason: Protocol Last Admin: 03/04/17 22:56 Dose: 5,000 units Linezolid (Zyvox 600mg/300ml D5w) 600 mg in 300 mls @ 200 mls/hr IVPB Q12 [facility] PRN Reason: Protocol Stop: 03/11/17 22:01 Last Admin: 03/04/17 22:56 Dose: 200 mls/hr Piperacillin Sod/Tazobactam Sod (Zosyn 3.375 In Ns 100ml) 100 mls @ 200 mls/hr IVPB Q6 [facility] PRN Reason: Protocol Stop: 03/11/17 18:01 Last Admin: 03/05/17 05:34 Dose: 200 mls/hr Latanoprost (Xalatan Opht) 0 ml OU HS [facility] Last Admin: 03/04/17 22:56 Dose: 2.5 ml Levothyroxine Sodium (Synthroid) 25 mcg PO ACB [facility] Last Admin: 03/04/17 08:13 Dose: 25 mcg Potassium Chloride (K-Dur 20 Meq Er Tab) 20 meq PO DAILY [facility] Last Admin: 03/04/17 09:13 Dose: 20 meq Tamsulosin HCl (Flomax) 0.4 mg PO DAILY [facility] Last Admin: 03/04/17 09:13 Dose: 0.4 mg - Constitutional Appears: No Acute Distress - Head Exam Head Exam: ATRAUMATIC, NORMOCEPHALIC - Respiratory Exam Respiratory Exam: Clear to Ausculation Bilateral, NORMAL BREATHING PATTERN - Cardiovascular Exam Cardiovascular Exam: +S1, +S2 - GI/Abdominal Exam GI & Abdominal Exam: Soft, Normal Bowel Sounds. absent: Tenderness - Neurological Exam Neurological Exam: Alert, Awake, Oriented x3 Assessment and Plan - Assessment and Plan (Free Text) Assessment: s/p drainage of neck mass HTN BPH Arthritis Muscle weakness with inability to walk hypothyroidism Plan: Patient is feeling better. Wound culture and pathology are pending. Infectious disease consult appreciated. Patient is currently on IV Zosyn and Zyvox PT evaluation
[2017-03-05] MEDS: Levothyroxine 25 MCG TAB PO SCH (08:55)
[2017-03-05] MEDS: Linezolid 600 mg in D5W 300 ml 600 MG/300 ML BAG IVPB SCH ×2 (09:06→23:48)
[2017-03-05] MEDS: Potassium Chloride 20 mEq ER Tab PO SCH (09:08)
--- NOTE | 2017-03-05 10:56 | CP.PCM.PN ---
Subjective - Date & Time of Evaluation Date of Evaluation: 03/05/17 Time of Evaluation: 08:00 - Subjective Subjective: Surgery: Dr. Guzman Pt seen and examined. No acute overnight events. States he feels better now that the neck mass isn't as big. Denies other complaints at this time. No F/C overnight. Objective - Vital Signs/Intake and Output Vital Signs (last 24 hours): Temp Pulse Resp BP Pulse Ox 98.1 F 69 22 136/71 96 03/05/17 04:00 03/05/17 09:07 03/05/17 04:00 03/05/17 09:07 03/05/17 04:00 Intake and Output: 03/05/17 03/05/17 06:59 18:59 Intake Total 1020 Balance 1020 - Medications Medications: Current Medications Acetaminophen (Tylenol 325mg Tab) 650 mg PO Q4H PRN PRN Reason: Fever >100.5 F Allopurinol (Zyloprim) 100 mg PO BID [facility] Last Admin: 03/05/17 09:07 Dose: 100 mg Carvedilol (Coreg) 6.25 mg PO DAILY [facility] Last Admin: 03/05/17 09:07 Dose: 6.25 mg Furosemide (Lasix) 40 mg PO DAILY [facility] Last Admin: 03/05/17 09:07 Dose: 40 mg Heparin Sodium (Porcine) (Heparin) 5,000 units SC Q12 [facility] PRN Reason: Protocol Last Admin: 03/05/17 09:06 Dose: 5,000 units Linezolid (Zyvox 600mg/300ml D5w) 600 mg in 300 mls @ 200 mls/hr IVPB Q12 [facility] PRN Reason: Protocol Stop: 03/11/17 22:01 Last Admin: 03/05/17 09:06 Dose: 200 mls/hr Piperacillin Sod/Tazobactam Sod (Zosyn 3.375 In Ns 100ml) 100 mls @ 200 mls/hr IVPB Q6 [facility] PRN Reason: Protocol Stop: 03/11/17 18:01 Last Admin: 03/05/17 05:34 Dose: 200 mls/hr Latanoprost (Xalatan Opht) 0 ml OU HS [facility] Last Admin: 03/04/17 22:56 Dose: 2.5 ml Levothyroxine Sodium (Synthroid) 25 mcg PO ACB [facility] Last Admin: 03/05/17 08:55 Dose: 25 mcg Potassium Chloride (K-Dur 20 Meq Er Tab) 20 meq PO DAILY [facility] Last Admin: 03/05/17 09:08 Dose: 20 meq Tamsulosin HCl (Flomax) 0.4 mg PO DAILY [facility] Last Admin: 03/05/17 09:08 Dose: 0.4 mg - Constitutional Appears: Well, No Acute Distress - Head Exam Head Exam: ATRAUMATIC, NORMOCEPHALIC - ENT Exam ENT Exam: Mucous Membranes Moist - Neck Exam Additional comments: 8x10 cm posterior neck mass, s/p drainage with packing in place - Respiratory Exam Respiratory Exam: NORMAL BREATHING PATTERN - Cardiovascular Exam Cardiovascular Exam: RRR - GI/Abdominal Exam GI & Abdominal Exam: Soft - Extremities Exam Extremities Exam: absent: Tenderness - Neurological Exam Neurological Exam: Alert, Awake, Oriented x3 - Skin Skin Exam: Dry, Warm Assessment and Plan - Assessment and Plan (Free Text) Assessment: 86M with posterior neck mass; likely sebaceous cyst Plan: - mass is likely not infectious in nature since no purulent output has been noted. No fevers or white count - if pt is still in the hospital on tuesday; will schedule for mass/cyst removal in OR - d/w Dr. Thomas Brown, PGY-2 Surgery
--- NOTE | 2017-03-05 14:13 | PN ---
DATE: 03/05/2017 The patient is in bed in no acute distress. PHYSICAL EXAMINATION: VITAL SIGNS: Temperature is 98, blood pressure is 130/70, respiratory rate of 16. HEENT: Unremarkable. NECK: Supple. LUNGS: Decreased breath sounds. HEART: Normal S1, S2. ABDOMEN: Soft, nontender. LABORATORY DATA: Reveals a white count of 7.5, hemoglobin 11, platelets of 193. BUN of 28, creatini ne of 1.3. Microbiology reveals the blood cultures are negative. Neck cultures are pending. Review of the orders reveals the patient to be on Zosyn and linezolid. ASSESSMENT AND PLAN: This is an 86-year-old male who is admitted now with a posterior neck mass. It has been there for many, many years. He states now it has gotten worse over the last few years and now with a possible bacterial superinfection, on Zyvox and Zosyn. Will check on the cultures. The p atient did have sepsis by definition, and respiratory rate of 22, heart rate of 94 and site of infect ion which was the neck, awaiting for culture results. Jonathan Wilkins MD cc: [id number] TT: 03/05/2017 14:12:51 Confirmation # [id number] Dictation # [id number] sophy
[2017-03-05] MEDS: Latanoprost 2.5 ml Opht Soln OU SCH (22:39)
[2017-03-06] MEDS: Piperacillin/Tazobact 3.375 gm 100 ML IVPB SCH ×4 (02:19→17:32)
--- NOTE | 2017-03-06 08:33 | CP.PCM.PN ---
Subjective - Date & Time of Evaluation Date of Evaluation: 03/06/17 Time of Evaluation: 08:00 - Subjective Subjective: Patient is seen this morning. He is feeling better since part of neck mass was drained. He is currently on antibiotics for superimposed infection. Objective - Vital Signs/Intake and Output Vital Signs (last 24 hours): Temp Pulse Resp BP Pulse Ox 98.1 F 69 22 136/71 96 03/05/17 04:00 03/05/17 09:07 03/05/17 04:00 03/05/17 09:07 03/05/17 04:00 Intake and Output: 03/06/17 03/06/17 06:59 18:59 Intake Total 600 Balance 600 - Medications Medications: Current Medications Acetaminophen (Tylenol 325mg Tab) 650 mg PO Q4H PRN PRN Reason: Fever >100.5 F Allopurinol (Zyloprim) 100 mg PO BID [facility] Last Admin: 03/05/17 17:14 Dose: 100 mg Carvedilol (Coreg) 6.25 mg PO DAILY [facility] Last Admin: 03/05/17 09:07 Dose: 6.25 mg Furosemide (Lasix) 40 mg PO DAILY [facility] Last Admin: 03/05/17 09:07 Dose: 40 mg Heparin Sodium (Porcine) (Heparin) 5,000 units SC Q12 [facility] PRN Reason: Protocol Last Admin: 03/05/17 22:39 Dose: 5,000 units Linezolid (Zyvox 600mg/300ml D5w) 600 mg in 300 mls @ 200 mls/hr IVPB Q12 [facility] PRN Reason: Protocol Stop: 03/11/17 22:01 Last Admin: 03/05/17 23:48 Dose: 200 mls/hr Piperacillin Sod/Tazobactam Sod (Zosyn 3.375 In Ns 100ml) 100 mls @ 200 mls/hr IVPB Q6 [facility] PRN Reason: Protocol Stop: 03/11/17 18:01 Last Admin: 03/06/17 06:10 Dose: 200 mls/hr Latanoprost (Xalatan Opht) 0 ml OU HS [facility] Last Admin: 03/05/17 22:39 Dose: 5 ml Levothyroxine Sodium (Synthroid) 25 mcg PO ACB [facility] Last Admin: 03/05/17 08:55 Dose: 25 mcg Potassium Chloride (K-Dur 20 Meq Er Tab) 20 meq PO DAILY [facility] Last Admin: 03/05/17 09:08 Dose: 20 meq Tamsulosin HCl (Flomax) 0.4 mg PO DAILY [facility] Last Admin: 03/05/17 09:08 Dose: 0.4 mg - Constitutional Appears: No Acute Distress - Neck Exam Additional comments: + posterior neck mass - Respiratory Exam Respiratory Exam: Clear to Ausculation Bilateral, NORMAL BREATHING PATTERN - Cardiovascular Exam Cardiovascular Exam: +S1, +S2 - GI/Abdominal Exam GI & Abdominal Exam: Soft, Normal Bowel Sounds. absent: Tenderness - Neurological Exam Neurological Exam: Alert, Awake, Oriented x3 Assessment and Plan - Assessment and Plan (Free Text) Assessment: s/p drainage of posterior neck mass BPH H/O colon CA HTN Hypothyroidism Arthritis inability to walk Plan: Patient with posterior neck mass with possible superimposed bacterial infection s/p drainage and now on IV Zosyn and Zyvox as per ID removal of neck mass possible Tuesday
[2017-03-06] MEDS: Levothyroxine 25 MCG TAB PO SCH (08:39)
--- NOTE | 2017-03-06 08:56 | CP.PCM.PN ---
Subjective - Date & Time of Evaluation Date of Evaluation: 03/06/17 Time of Evaluation: 08:54 - Subjective Subjective: Surgery: Dr. Guzman Pt seen and examined. No acute overnight events. States he feels fine and denies any pain. Tolerating diet, denies F/C overnight. Objective - Vital Signs/Intake and Output Vital Signs (last 24 hours): Temp Pulse Resp BP Pulse Ox 98.1 F 69 22 136/71 96 03/05/17 04:00 03/05/17 09:07 03/05/17 04:00 03/05/17 09:07 03/05/17 04:00 Intake and Output: 03/06/17 03/06/17 06:59 18:59 Intake Total 600 Balance 600 - Medications Medications: Current Medications Acetaminophen (Tylenol 325mg Tab) 650 mg PO Q4H PRN PRN Reason: Fever >100.5 F Allopurinol (Zyloprim) 100 mg PO BID [facility] Last Admin: 03/05/17 17:14 Dose: 100 mg Carvedilol (Coreg) 6.25 mg PO DAILY [facility] Last Admin: 03/05/17 09:07 Dose: 6.25 mg Furosemide (Lasix) 40 mg PO DAILY [facility] Last Admin: 03/05/17 09:07 Dose: 40 mg Heparin Sodium (Porcine) (Heparin) 5,000 units SC Q12 [facility] PRN Reason: Protocol Last Admin: 03/05/17 22:39 Dose: 5,000 units Linezolid (Zyvox 600mg/300ml D5w) 600 mg in 300 mls @ 200 mls/hr IVPB Q12 [facility] PRN Reason: Protocol Stop: 03/11/17 22:01 Last Admin: 03/05/17 23:48 Dose: 200 mls/hr Piperacillin Sod/Tazobactam Sod (Zosyn 3.375 In Ns 100ml) 100 mls @ 200 mls/hr IVPB Q6 [facility] PRN Reason: Protocol Stop: 03/11/17 18:01 Last Admin: 03/06/17 06:10 Dose: 200 mls/hr Latanoprost (Xalatan Opht) 0 ml OU HS [facility] Last Admin: 03/05/17 22:39 Dose: 5 ml Levothyroxine Sodium (Synthroid) 25 mcg PO ACB [facility] Last Admin: 03/06/17 08:39 Dose: 25 mcg Potassium Chloride (K-Dur 20 Meq Er Tab) 20 meq PO DAILY [facility] Last Admin: 03/05/17 09:08 Dose: 20 meq Tamsulosin HCl (Flomax) 0.4 mg PO DAILY [facility] Last Admin: 03/05/17 09:08 Dose: 0.4 mg - Constitutional Appears: Well, No Acute Distress - Eye Exam Eye Exam: Normal appearance - ENT Exam ENT Exam: Mucous Membranes Moist - Neck Exam Additional comments: minimal serosanguinous drainage from posterior neck cyst/mass; packing pulled out - Respiratory Exam Respiratory Exam: NORMAL BREATHING PATTERN - Cardiovascular Exam Cardiovascular Exam: RRR - GI/Abdominal Exam GI & Abdominal Exam: Soft. absent: Distended, Tenderness - Extremities Exam Extremities Exam: absent: Tenderness - Neurological Exam Neurological Exam: Alert, Awake, Oriented x3 - Skin Skin Exam: Dry, Warm Assessment and Plan - Assessment and Plan (Free Text) Assessment: 86M with posterior neck mass, likely sebaceous cyst Plan: - OR on tues for cyst excision - pre-op tomorrow night - d/w Dr. Thomas Brown, PGY-2 Surgery
[2017-03-06] MEDS: Linezolid 600 mg in D5W 300 ml 600 MG/300 ML BAG IVPB SCH ×2 (09:33→21:36)
[2017-03-06] MEDS: Potassium Chloride 20 mEq ER Tab PO SCH (09:34)
[2017-03-06 10:42] LABS: ADD MANUAL DIFF? NO
[2017-03-06 10:45] LABS: BASO # 0.02 K/mm3 (0.0-2.0); BASO % 0.3 % (0.0-3.0); EOS # 0.3 (0.0-0.7); EOS % 5.2 % (1.5-5.0); GRAN # 4.47 (1.4-6.5); GRAN % 70.9 % (50.0-68.0); HEMATOCRIT 35.9 % (42.0-52.0); LYMPH # 1.2 (1.2-3.4); LYMPH % 18.4 % (22.0-35.0); MEAN CELL VOLUME 87.6 fL (80.0-105.0); MEAN CORPUSCULAR HEMOGLOBIN 27.3 pg (25.0-35.0); MEAN CORPUSCULAR HGB CONC 31.2 g/dl (31.0-37.0); MEAN PLATELET VOLUME 8.2 fl (7.0-11.0); MONO # 0.3 (0.1-0.6); MONO % 5.2 % (1.0-6.0); PLATELET COUNT 179 10^3/uL (120.0-450.0); RED CELL DISTRIBUTION WIDTH 15.4 % (11.5-14.5); WHITE BLOOD COUNT 6.3 10^3/ul (4.5-11.0)
--- NOTE | 2017-03-06 11:11 | PN ---
DATE: 03/06/2017 The patient is in bed, in no acute distress, nontoxic. PHYSICAL EXAMINATION: VITAL SIGNS: Temperature is 98, blood pressure is 116/60, respiratory rate of 16. HEENT: Unremarkable. NECK: Supple. LUNGS: Have decreased breath sounds. HEART: Normal S1, S2. ABDOMEN: Soft, nontender. LABORATORY EXAMINATION: Reveals a white count of 7.5, hemoglobin of 11, platelets of 193. Chemistri es reveals the BUN of 28, creatinine of 1.3. Microbiology reveals the patient's blood cultures are n o growth and neck culture is still pending. The patient is currently on linezolid IV and Zosyn. note is reviewed. Dr. Seymour's no te is also reviewed. ASSESSMENT AND PLAN: An 86-year-old male admitted with a posterior neck mass and status post drainag e. However, patient is scheduled for OR on Tuesday. Case discussed with Dr. Guzman AT length. The patient with sepsis with neck infection and currently on Zyvox and Zosyn. Waiting for the OR on Tue morning. Jonathan Wilkins MD cc: 350 TT: 03/06/2017 11:11:05 Confirmation # [id number] Dictation # [id number]
[2017-03-06] MEDS: Latanoprost 2.5 ml Opht Soln OU SCH (21:58)
[2017-03-07] MEDS: Piperacillin/Tazobact 3.375 gm 100 ML IVPB SCH ×4 (01:45→17:19)
[2017-03-07 07:20] LABS: HEMATOCRIT 36.4 % (42.0-52.0); MEAN CELL VOLUME 87.5 fL (80.0-105.0); MEAN CORPUSCULAR HEMOGLOBIN 27.4 pg (25.0-35.0); MEAN CORPUSCULAR HGB CONC 31.3 g/dl (31.0-37.0); MEAN PLATELET VOLUME 8.2 fl (7.0-11.0); RED CELL DISTRIBUTION WIDTH 15.4 % (11.5-14.5); WHITE BLOOD COUNT 6.3 10^3/ul (4.5-11.0)
[2017-03-07 07:31] LABS: INR 1.14 (0.93-1.08); PARTIAL THROMBOPLASTIN TIME 35.2 Seconds (23.7-30.8)
[2017-03-07] MEDS: Levothyroxine 25 MCG TAB PO SCH (07:48)
[2017-03-07 07:50] LABS: BLOOD UREA NITROGEN 22 mg/dL (7-21); CALCIUM 8.6 mg/dL (8.4-10.5); CARBON DIOXIDE 28 mmol/L (21-33); CHLORIDE 102 mmol/L (98-107); GFR AFRICAN-AMERICAN > 60; GLUCOSE,RANDOM 88 mg/dL (70-110); POTASSIUM 3.7 mmol/L (3.6-5.0); SODIUM 135 mmol/L (132-148)
--- NOTE | 2017-03-07 07:54 | CP.PCM.PN ---
Subjective - Date & Time of Evaluation Date of Evaluation: 03/07/17 Time of Evaluation: 07:35 - Subjective Subjective: Patient is seen this morning. He has no complaints of pain. Objective - Vital Signs/Intake and Output Vital Signs (last 24 hours): Temp Pulse Resp BP Pulse Ox 98.0 F 74 20 116/63 96 03/06/17 06:00 03/06/17 09:34 03/06/17 06:00 03/06/17 09:34 03/06/17 06:00 Intake and Output: 03/07/17 03/07/17 06:59 18:59 Intake Total 720 Balance 720 - Medications Medications: Current Medications Acetaminophen (Tylenol 325mg Tab) 650 mg PO Q4H PRN PRN Reason: Fever >100.5 F Allopurinol (Zyloprim) 100 mg PO BID [facility] Last Admin: 03/06/17 17:32 Dose: 100 mg Carvedilol (Coreg) 6.25 mg PO DAILY [facility] Last Admin: 03/06/17 09:34 Dose: 6.25 mg Furosemide (Lasix) 40 mg PO DAILY [facility] Last Admin: 03/06/17 09:34 Dose: 40 mg Heparin Sodium (Porcine) (Heparin) 5,000 units SC Q12 [facility] PRN Reason: Protocol Last Admin: 03/06/17 21:35 Dose: 5,000 units Linezolid (Zyvox 600mg/300ml D5w) 600 mg in 300 mls @ 200 mls/hr IVPB Q12 [facility] PRN Reason: Protocol Stop: 03/11/17 22:01 Last Admin: 03/06/17 21:36 Dose: 200 mls/hr Piperacillin Sod/Tazobactam Sod (Zosyn 3.375 In Ns 100ml) 100 mls @ 200 mls/hr IVPB Q6 [facility] PRN Reason: Protocol Stop: 03/11/17 18:01 Last Admin: 03/07/17 05:49 Dose: 200 mls/hr Latanoprost (Xalatan Opht) 0 ml OU HS [facility] Last Admin: 03/06/17 21:58 Dose: 2.5 ml Levothyroxine Sodium (Synthroid) 25 mcg PO ACB [facility] Last Admin: 03/07/17 07:48 Dose: 25 mcg Potassium Chloride (K-Dur 20 Meq Er Tab) 20 meq PO DAILY [facility] Last Admin: 03/06/17 09:34 Dose: 20 meq Tamsulosin HCl (Flomax) 0.4 mg PO DAILY [facility] Last Admin: 03/06/17 09:34 Dose: 0.4 mg - Labs Labs: 03/07/17 06:00 PT 12.3 Seconds (9.9-11.8) H 03/07/17 06:00 INR 1.14 (0.93-1.08) H 03/07/17 06:00 APTT 35.2 Seconds (23.7-30.8) H 03/07/17 06:00 - Constitutional Appears: No Acute Distress - Respiratory Exam Respiratory Exam: Clear to Ausculation Bilateral, NORMAL BREATHING PATTERN - Cardiovascular Exam Cardiovascular Exam: +S1, +S2 - GI/Abdominal Exam GI & Abdominal Exam: Soft, Normal Bowel Sounds. absent: Tenderness - Neurological Exam Neurological Exam: Alert, Awake, Oriented x3 Assessment and Plan - Assessment and Plan (Free Text) Assessment: Posterior Neck mass HTN BPH Arthritis Hypothyroidism Plan: Wound culture growing gram positive cocci. continue antibiotics as per infectious disease for removal of posterior neck mass tomorrow labs are pending
--- NOTE | 2017-03-07 08:58 | CP.PCM.PN ---
Subjective - Date & Time of Evaluation Date of Evaluation: 03/07/17 Time of Evaluation: 08:55 - Subjective Subjective: General Surgery Progress note for Dr. Guzman This 86M was seen and examined this morning at bedside. He reports no acute overnight events. States he feels fine and denies any pain. Tolerating diet, denies F/C overnight. His nurse reports continued drainage from his cyst. Objective - Vital Signs/Intake and Output Vital Signs (last 24 hours): Temp Pulse Resp BP Pulse Ox 98.0 F 74 20 116/63 96 03/06/17 06:00 03/06/17 09:34 03/06/17 06:00 03/06/17 09:34 03/06/17 06:00 Intake and Output: 03/07/17 03/07/17 06:59 18:59 Intake Total 720 Balance 720 - Medications Medications: Current Medications Acetaminophen (Tylenol 325mg Tab) 650 mg PO Q4H PRN PRN Reason: Fever >100.5 F Allopurinol (Zyloprim) 100 mg PO BID [facility] Last Admin: 03/06/17 17:32 Dose: 100 mg Carvedilol (Coreg) 6.25 mg PO DAILY [facility] Last Admin: 03/06/17 09:34 Dose: 6.25 mg Furosemide (Lasix) 40 mg PO DAILY [facility] Last Admin: 03/06/17 09:34 Dose: 40 mg Heparin Sodium (Porcine) (Heparin) 5,000 units SC Q12 [facility] PRN Reason: Protocol Last Admin: 03/06/17 21:35 Dose: 5,000 units Linezolid (Zyvox 600mg/300ml D5w) 600 mg in 300 mls @ 200 mls/hr IVPB Q12 [facility] PRN Reason: Protocol Stop: 03/11/17 22:01 Last Admin: 03/06/17 21:36 Dose: 200 mls/hr Piperacillin Sod/Tazobactam Sod (Zosyn 3.375 In Ns 100ml) 100 mls @ 200 mls/hr IVPB Q6 [facility] PRN Reason: Protocol Stop: 03/11/17 18:01 Last Admin: 03/07/17 05:49 Dose: 200 mls/hr Latanoprost (Xalatan Opht) 0 ml OU HS [facility] Last Admin: 03/06/17 21:58 Dose: 2.5 ml Levothyroxine Sodium (Synthroid) 25 mcg PO ACB [facility] Last Admin: 03/07/17 07:48 Dose: 25 mcg Potassium Chloride (K-Dur 20 Meq Er Tab) 20 meq PO DAILY [facility] Last Admin: 03/06/17 09:34 Dose: 20 meq Tamsulosin HCl (Flomax) 0.4 mg PO DAILY [facility] Last Admin: 03/06/17 09:34 Dose: 0.4 mg - Labs Labs: 03/07/17 06:00 03/07/17 06:00 PT 12.3 Seconds (9.9-11.8) H 03/07/17 06:00 INR 1.14 (0.93-1.08) H 03/07/17 06:00 APTT 35.2 Seconds (23.7-30.8) H 03/07/17 06:00 - Constitutional Appears: Well, No Acute Distress - Eye Exam Eye Exam: Normal appearance - ENT Exam ENT Exam: Mucous Membranes Moist - Neck Exam Additional comments: minimal serosanguinous drainage from posterior neck cyst/mass - Respiratory Exam Respiratory Exam: NORMAL BREATHING PATTERN - Cardiovascular Exam Cardiovascular Exam: RRR - GI/Abdominal Exam GI & Abdominal Exam: Soft. absent: Distended, Tenderness - Extremities Exam Extremities Exam: absent: Tenderness - Neurological Exam Neurological Exam: Alert, Awake, Oriented x3 - Skin Skin Exam: Dry, Warm
[2017-03-07] MEDS: Linezolid 600 mg in D5W 300 ml 600 MG/300 ML BAG IVPB SCH ×2 (09:50→21:29)
[2017-03-07] MEDS: Potassium Chloride 20 mEq ER Tab PO SCH (09:53)
--- NOTE | 2017-03-07 13:09 | PN ---
DATE: 03/07/2017 The patient is in bed in no acute distress, seen earlier this morning. PHYSICAL EXAMINATION: VITAL SIGNS: Temperature is 97, blood pressure is 140/80, respiratory rate of 16. HEENT: Unremarkable. NECK: Supple. LUNGS: Have decreased breath sounds. HEART: Normal S1, S2. ABDOMEN: Soft, nontender. LABORATORY DATA: Reveals the patient's white count of 6.3, hemoglobin of 11, platelets of 143. BUN of 22, creatinine of 1.3. Microbiology is noted. The neck culture is Staph haemolyticus, most proba kate a colonizer, not a pathogen. ASSESSMENT AND PLAN: This is an 86-year-old male admitted with a posterior neck mass status post flaca inage with Staphylococcus haemolyticus, most likely a colonizer. The patient is scheduled for OR georgette orrow for neck surgery. Currently on Zyvox and Zosyn, awaiting for OR tomorrow. Recommend sending O R specimen for AFB smears and cultures, fungal smears and cultures, Gram stain and routine cultures i n addition to pathology. Jonathan Wilkins MD cc: 350 TT: 03/07/2017 13:08:13 Confirmation # [id number] Dictation # [id number]
[2017-03-07] MEDS: Latanoprost 2.5 ml Opht Soln OU SCH (21:30)
[2017-03-08] MEDS: Piperacillin/Tazobact 3.375 gm 100 ML IVPB SCH ×4 (00:43→18:03)
[2017-03-08 07:14] LABS: ADD MANUAL DIFF? NO
[2017-03-08 07:26] LABS: BASO # 0.02 K/mm3 (0.0-2.0); BASO % 0.3 % (0.0-3.0); EOS # 0.3 (0.0-0.7); EOS % 3.8 % (1.5-5.0); GRAN # 4.86 (1.4-6.5); GRAN % 70.7 % (50.0-68.0); HEMATOCRIT 34.2 % (42.0-52.0); LYMPH # 1.3 (1.2-3.4); LYMPH % 18.8 % (22.0-35.0); MEAN CELL VOLUME 86.4 fL (80.0-105.0); MEAN CORPUSCULAR HEMOGLOBIN 28.3 pg (25.0-35.0); MEAN CORPUSCULAR HGB CONC 32.7 g/dl (31.0-37.0); MEAN PLATELET VOLUME 7.9 fl (7.0-11.0); MONO # 0.4 (0.1-0.6); MONO % 6.4 % (1.0-6.0); PLATELET COUNT 162 10^3/uL (120.0-450.0); RED CELL DISTRIBUTION WIDTH 14.9 % (11.5-14.5); WHITE BLOOD COUNT 6.9 10^3/ul (4.5-11.0)
[2017-03-08 07:33] LABS: INR 1.1 (0.93-1.08); PARTIAL THROMBOPLASTIN TIME 34.7 Seconds (23.7-30.8)
[2017-03-08 07:41] LABS: ALB/GLOB RATIO 0.9 (1.1-1.8); ALKALINE PHOSPHATASE 45 U/L (38-133); ALT/SGPT 28 U/L (7-56); AST/SGOT 24 U/L (15-59); BILIRUBIN,TOTAL 0.5 mg/dL (0.2-1.3); BLOOD UREA NITROGEN 19 mg/dL (7-21); CALCIUM 8.4 mg/dL (8.4-10.5); CARBON DIOXIDE 32 mmol/L (21-33); CHLORIDE 99 mmol/L (98-107); GFR AFRICAN-AMERICAN > 60; GLUCOSE,RANDOM 85 mg/dL (70-110); POTASSIUM 3.9 mmol/L (3.6-5.0); SODIUM 136 mmol/L (132-148); TOTAL PROTEIN 5.8 g/dL (5.8-8.3)
--- NOTE | 2017-03-08 08:42 | PN ---
DATE: 03/08/2017 The patient is in the [facility] in [place], room 367, bed 1. The patient was admitted with an infected lump in the back of the neck which is large and also extruding purulent fluid. The patient was treated with antibiotic and part of the lump was drained by Dr. Ulices Guzman, general surgeon. PHYSICAL EXAMINATION: VITAL SIGNS: This morning, the pulse is 65, blood pressure 115/75, respirations are 19. The patient's temperature 99.2. LUNGS: Clear. HEART: Normal sinus rhythm. ABDOMEN: Soft. Liver, spleen not palpable. CENTRAL NERVOUS SYSTEM: There is no focal deficit. The patient's lump is draining. He is scheduled for surgery today to excise the lump. The procedure will be done in the operating room. MEDICATIONS: Consists of carvedilol 6.25 mg daily. The patient is on Flomax 0.4 mg daily. The patient is on heparin for prophylaxis, Lasix 40 mg daily, Synthroid 25 mcg daily. The patient is on eyedrops for glaucoma and the patient is also being treated with Zosyn 3.375 mg q. 6 hours and Zyvox 600 mg daily, allopurinol 100 mg for gout. The patient's condition is clinically stable now, waiting for the surgery. After the surgery, plans will be made for the patient's followup. Ju Seymour MD cc: [phone] TT: 03/08/2017 08:41:34 Confirmation # [id number] Dictation # [id number]
--- NOTE | 2017-03-08 09:10 | RAD ---
HISTORY: PreOp COMPARISON: 02/25/2017 FINDINGS: LUNGS: No active pulmonary disease. PLEURA: There is pleural thickening on the right. This is unchanged CARDIOVASCULAR: Mild cardiomegaly OSSEOUS STRUCTURES: No significant abnormalities. VISUALIZED UPPER ABDOMEN: Normal. OTHER FINDINGS: None. IMPRESSION: No active disease.
[2017-03-08] MEDS: Linezolid 600 mg in D5W 300 ml 600 MG/300 ML BAG IVPB SCH ×2 (11:37→22:19)
[2017-03-08] MEDS ORDERED: Lidocaine 1% Inj (20ml) ONE (12:39)
[2017-03-08] MEDS ORDERED: Bupivacaine 0.5% Inj(30mL) ONE (12:39)
[2017-03-08] MEDS ORDERED: Midazolam 2 MG/2 ML VIAL ONE (13:24)
--- NOTE | 2017-03-08 13:51 | CP.PCM.PN ---
Subjective - Date & Time of Evaluation Date of Evaluation: 03/08/17 Time of Evaluation: 10:50 - Subjective Subjective: Comfortable, afebrile. Patient is for OR today. Objective - Vital Signs/Intake and Output Vital Signs (last 24 hours): Temp Pulse Resp BP Pulse Ox 97.6 F 76 20 130/65 93 L 03/08/17 13:13 03/08/17 13:13 03/08/17 13:13 03/08/17 13:13 03/08/17 13:13 Intake and Output: 03/08/17 03/08/17 06:59 18:59 Intake Total 1100 1000 Balance 1100 1000 - Medications Medications: Current Medications Acetaminophen (Tylenol 325mg Tab) 650 mg PO Q4H PRN PRN Reason: Fever >100.5 F Allopurinol (Zyloprim) 100 mg PO BID [facility] Last Admin: 03/08/17 11:38 Dose: Not Given Carvedilol (Coreg) 6.25 mg PO DAILY [facility] Last Admin: 03/08/17 11:32 Dose: 6.25 mg Furosemide (Lasix) 40 mg PO DAILY [facility] Last Admin: 03/07/17 09:52 Dose: 40 mg Heparin Sodium (Porcine) (Heparin) 5,000 units SC Q12 [facility] PRN Reason: Protocol Last Admin: 03/07/17 21:27 Dose: 5,000 units Linezolid (Zyvox 600mg/300ml D5w) 600 mg in 300 mls @ 200 mls/hr IVPB Q12 [facility] PRN Reason: Protocol Stop: 03/11/17 22:01 Last Admin: 03/08/17 11:37 Dose: 200 mls/hr Piperacillin Sod/Tazobactam Sod (Zosyn 3.375 In Ns 100ml) 100 mls @ 200 mls/hr IVPB Q6 [facility] PRN Reason: Protocol Stop: 03/11/17 18:01 Last Admin: 03/08/17 12:51 Dose: 200 mls/hr Latanoprost (Xalatan Opht) 0 ml OU HS [facility] Last Admin: 03/07/17 21:30 Dose: 2.5 ml Levothyroxine Sodium (Synthroid) 25 mcg PO ACB [facility] Last Admin: 03/07/17 07:48 Dose: 25 mcg Potassium Chloride (K-Dur 20 Meq Er Tab) 20 meq PO DAILY [facility] Last Admin: 03/07/17 09:53 Dose: 20 meq Tamsulosin HCl (Flomax) 0.4 mg PO DAILY [facility] Last Admin: 03/07/17 09:53 Dose: 0.4 mg - Labs Labs: 03/08/17 06:45 03/08/17 06:45 PT 11.9 Seconds (9.9-11.8) H 03/08/17 06:45 INR 1.10 (0.93-1.08) H 03/08/17 06:45 APTT 34.7 Seconds (23.7-30.8) H 03/08/17 06:45 - Constitutional Appears: Non-toxic, No Acute Distress - Head Exam Head Exam: NORMAL INSPECTION - ENT Exam ENT Exam: Mucous Membranes Moist - Neck Exam Neck Exam: absent: Lymphadenopathy, Meningismus - Respiratory Exam Respiratory Exam: Decreased Breath Sounds - Cardiovascular Exam Cardiovascular Exam: +S1, +S2 - GI/Abdominal Exam GI & Abdominal Exam: Soft. absent: Tenderness Assessment and Plan - Assessment and Plan (Free Text) Plan: asssessment left posterior neck mass, R/O bacterial infection R/O fungal or mycobacterial infection history of left arm cellulitis probably related to venous catheter S/P removal history of asymtpmatic bacteriuria with gram negative bacilli gout history of subarachnoid hemorrhage hypothyroidism colon cancer S/P hemicolectomy HTN osteoarthritis history of healthcare-associated pneumonia osteoporosis Plan continue Zyvox and Zosyn; patient is for OR today and should follow up OR pathology and wound cx for bacteria, AFB and fungi (we have put the orders in and will await for the samples) will continue to monitor clinically
[2017-03-08] MEDS ORDERED: Lactated Ringer's 1,000 ML IV SCH (14:33)
[2017-03-08] MEDS ORDERED: Morphine 2 mg/ml ISec IVP PRN (14:33)
--- NOTE | 2017-03-08 14:36 | PCM.SURG1 ---
Surgeon's Initial Post Op Note - Surgeon's Notes Surgeon: Dr. Guzman Client Support Manager: Dr. Brown PGY-2 Type of Anesthesia: IV Sedation Anesthesia Administered By: Dr. Leo Pre-Operative Diagnosis: Posterior neck mass Operative Findings: See operative report Post-Operative Diagnosis: Posterior neck sebaceous cyst Operation Performed: Excision of posterior neck sebaceous cyst Specimen/Specimens Removed: sebaceous cyst Estimated Blood Loss: EBL {In ML}: 20 Blood Products Given: N/A Drains Used: No Drains Post-Op Condition: Good Date of Surgery/Procedure: 03/08/17 Time of Surgery/Procedure: 14:35
[2017-03-08] MEDS: Potassium Chloride 20 mEq ER Tab PO SCH (18:00)
[2017-03-08] MEDS: Levothyroxine 25 MCG TAB PO SCH (18:01)
[2017-03-08] MEDS: Oxycodone/Acetaminophen 5/325 mg Tab PO PRN (22:19)
[2017-03-08] MEDS: Latanoprost 2.5 ml Opht Soln OU SCH (22:20)
[2017-03-09] MEDS: Piperacillin/Tazobact 3.375 gm 100 ML IVPB SCH ×3 (00:23→11:38)
--- NOTE | 2017-03-09 01:42 | CARD ---
APPROVED REPORT EKG Measurement Heart [id number] <Conclusion> Sinus rhythm with premature atrial complexes Inferior infarct, age undetermined Abnormal ECG
[2017-03-09] MEDS: Oxycodone/Acetaminophen 5/325 mg Tab PO PRN ×2 (05:38→14:48)
[2017-03-09 07:23] LABS: ADD MANUAL DIFF? NO
[2017-03-09 07:30] LABS: BASO # 0.03 K/mm3 (0.0-2.0); BASO % 0.3 % (0.0-3.0); EOS # 0.3 (0.0-0.7); EOS % 2.9 % (1.5-5.0); GRAN % 82.3 % (50.0-68.0); HEMATOCRIT 35.5 % (42.0-52.0); LYMPH % 9.5 % (22.0-35.0); MEAN CELL VOLUME 87.7 fL (80.0-105.0); MEAN CORPUSCULAR HEMOGLOBIN 27.7 pg (25.0-35.0); MEAN CORPUSCULAR HGB CONC 31.5 g/dl (31.0-37.0); MEAN PLATELET VOLUME 8.1 fl (7.0-11.0); MONO # 0.5 (0.1-0.6); PLATELET COUNT 164 10^3/uL (120.0-450.0); RED CELL DISTRIBUTION WIDTH 15.1 % (11.5-14.5); WHITE BLOOD COUNT 10.4 10^3/ul (4.5-11.0)
--- NOTE | 2017-03-09 08:12 | CP.PCM.PN ---
Subjective - Date & Time of Evaluation Date of Evaluation: 03/09/17 Time of Evaluation: 07:45 - Subjective Subjective: Patient seen this morning. Posterior neck mass removed yesterday. Patient says early this morning, he had some pain which was relieved with pain medication. Objective - Vital Signs/Intake and Output Vital Signs (last 24 hours): Temp Pulse Resp BP Pulse Ox 98 F 80 19 112/55 L 96 03/09/17 07:53 03/09/17 07:53 03/09/17 07:53 03/09/17 07:53 03/09/17 07:53 Intake and Output: 03/09/17 03/09/17 06:59 18:59 Intake Total 300 650 Balance 300 650 - Medications Medications: Current Medications Acetaminophen (Tylenol 325mg Tab) 650 mg PO Q4H PRN PRN Reason: Fever >100.5 F Last Admin: 03/09/17 00:23 Dose: 650 mg Allopurinol (Zyloprim) 100 mg PO BID [facility] Last Admin: 03/08/17 18:01 Dose: 100 mg Carvedilol (Coreg) 6.25 mg PO DAILY [facility] Last Admin: 03/08/17 11:32 Dose: 6.25 mg Furosemide (Lasix) 40 mg PO DAILY [facility] Last Admin: 03/08/17 18:01 Dose: 40 mg Heparin Sodium (Porcine) (Heparin) 5,000 units SC Q12 [facility] PRN Reason: Protocol Last Admin: 03/07/17 21:27 Dose: 5,000 units Linezolid (Zyvox 600mg/300ml D5w) 600 mg in 300 mls @ 200 mls/hr IVPB Q12 [facility] PRN Reason: Protocol Stop: 03/11/17 22:01 Last Admin: 03/08/17 22:19 Dose: 200 mls/hr Piperacillin Sod/Tazobactam Sod (Zosyn 3.375 In Ns 100ml) 100 mls @ 200 mls/hr IVPB Q6 [facility] PRN Reason: Protocol Stop: 03/11/17 18:01 Last Admin: 03/09/17 05:39 Dose: 200 mls/hr Latanoprost (Xalatan Opht) 0 ml OU HS [facility] Last Admin: 03/08/17 22:20 Dose: 2.5 ml Levothyroxine Sodium (Synthroid) 25 mcg PO ACB [facility] Last Admin: 03/08/17 18:01 Dose: 25 mcg Metoclopramide HCl (Reglan) 10 mg IV ONCE PRN PRN Reason: Nausea/Vomiting Oxycodone/Acetaminophen (Percocet 5/325 Mg Tab) 1 tab PO Q4H PRN PRN Reason: Pain, moderate (4-7) Stop: 03/11/17 14:33 Last Admin: 03/09/17 05:38 Dose: 1 tab Potassium Chloride (K-Dur 20 Meq Er Tab) 20 meq PO DAILY [facility] Last Admin: 03/08/17 18:00 Dose: 20 meq Tamsulosin HCl (Flomax) 0.4 mg PO DAILY [facility] Last Admin: 03/08/17 18:00 Dose: 0.4 mg - Labs Labs: 03/09/17 07:00 03/08/17 06:45 PT 11.9 Seconds (9.9-11.8) H 03/08/17 06:45 INR 1.10 (0.93-1.08) H 03/08/17 06:45 APTT 34.7 Seconds (23.7-30.8) H 03/08/17 06:45 - Constitutional Appears: No Acute Distress - Head Exam Head Exam: ATRAUMATIC, NORMOCEPHALIC - Respiratory Exam Respiratory Exam: Clear to Ausculation Bilateral, NORMAL BREATHING PATTERN - Cardiovascular Exam Cardiovascular Exam: +S1, +S2 - GI/Abdominal Exam GI & Abdominal Exam: Soft, Normal Bowel Sounds. absent: Tenderness - Neurological Exam Neurological Exam: Alert, Awake, Oriented x3 Assessment and Plan - Assessment and Plan (Free Text) Assessment: Posterior neck mass HTN BPH Arthritis Plan: Patient had posterior neck mass removed yesterday. Surgical wound is covered; some blood is evident through the bandage. Patient is currently on Zyvox and Zosyn for superimposed bacterial infection Wound culture growing Staph Patient to be discharged home once cleared by surgery and infectious disease
--- NOTE | 2017-03-09 08:51 | CP.PCM.PN ---
Subjective - Date & Time of Evaluation Date of Evaluation: 03/09/17 Time of Evaluation: 07:00 - Subjective Subjective: Surgery: Dr. Guzman Pt seen and examined. No acute overnight events. States he had some incisional pain but otherwise denies complaints. Tolerating diet. Denies F/C. Objective - Vital Signs/Intake and Output Vital Signs (last 24 hours): Temp Pulse Resp BP Pulse Ox 98 F 80 19 112/55 L 96 03/09/17 07:53 03/09/17 07:53 03/09/17 07:53 03/09/17 07:53 03/09/17 07:53 Intake and Output: 03/09/17 03/09/17 06:59 18:59 Intake Total 300 650 Balance 300 650 - Medications Medications: Current Medications Acetaminophen (Tylenol 325mg Tab) 650 mg PO Q4H PRN PRN Reason: Fever >100.5 F Last Admin: 03/09/17 00:23 Dose: 650 mg Allopurinol (Zyloprim) 100 mg PO BID [facility] Last Admin: 03/08/17 18:01 Dose: 100 mg Carvedilol (Coreg) 6.25 mg PO DAILY [facility] Last Admin: 03/08/17 11:32 Dose: 6.25 mg Furosemide (Lasix) 40 mg PO DAILY [facility] Last Admin: 03/08/17 18:01 Dose: 40 mg Heparin Sodium (Porcine) (Heparin) 5,000 units SC Q12 [facility] PRN Reason: Protocol Last Admin: 03/07/17 21:27 Dose: 5,000 units Linezolid (Zyvox 600mg/300ml D5w) 600 mg in 300 mls @ 200 mls/hr IVPB Q12 [facility] PRN Reason: Protocol Stop: 03/11/17 22:01 Last Admin: 03/08/17 22:19 Dose: 200 mls/hr Piperacillin Sod/Tazobactam Sod (Zosyn 3.375 In Ns 100ml) 100 mls @ 200 mls/hr IVPB Q6 [facility] PRN Reason: Protocol Stop: 03/11/17 18:01 Last Admin: 03/09/17 05:39 Dose: 200 mls/hr Latanoprost (Xalatan Opht) 0 ml OU HS [facility] Last Admin: 03/08/17 22:20 Dose: 2.5 ml Levothyroxine Sodium (Synthroid) 25 mcg PO ACB [facility] Last Admin: 03/08/17 18:01 Dose: 25 mcg Metoclopramide HCl (Reglan) 10 mg IV ONCE PRN PRN Reason: Nausea/Vomiting Oxycodone/Acetaminophen (Percocet 5/325 Mg Tab) 1 tab PO Q4H PRN PRN Reason: Pain, moderate (4-7) Stop: 03/11/17 14:33 Last Admin: 03/09/17 05:38 Dose: 1 tab Potassium Chloride (K-Dur 20 Meq Er Tab) 20 meq PO DAILY [facility] Last Admin: 03/08/17 18:00 Dose: 20 meq Tamsulosin HCl (Flomax) 0.4 mg PO DAILY [facility] Last Admin: 03/08/17 18:00 Dose: 0.4 mg - Labs Labs: 03/09/17 07:00 03/08/17 06:45 PT 11.9 Seconds (9.9-11.8) H 03/08/17 06:45 INR 1.10 (0.93-1.08) H 03/08/17 06:45 APTT 34.7 Seconds (23.7-30.8) H 03/08/17 06:45 - Constitutional Appears: Well, No Acute Distress - ENT Exam ENT Exam: Mucous Membranes Moist - Neck Exam Additional comments: Posterior neck incision with guy and sutures in place; packing slightly pulled out. New dressing applied - Respiratory Exam Respiratory Exam: NORMAL BREATHING PATTERN - Cardiovascular Exam Cardiovascular Exam: RRR - GI/Abdominal Exam GI & Abdominal Exam: Soft. absent: Tenderness - Extremities Exam Extremities Exam: absent: Tenderness - Neurological Exam Neurological Exam: Alert, Awake, Oriented x3 - Skin Skin Exam: Dry, Intact, Warm Assessment and Plan - Assessment and Plan (Free Text) Assessment: 86M with large posterior neck sebaceous cyst s/p excision; POD#1 Plan: - dressing changes PRN - Ok to DC from surgical standpoint; packing, guy & sutures can be removed outpt - d/w Dr. Thomas Brown, PGY-2 Surgery
[2017-03-09] MEDS: Levothyroxine 25 MCG TAB PO SCH (09:07)
[2017-03-09] MEDS: Potassium Chloride 20 mEq ER Tab PO SCH (09:07)
[2017-03-09] MEDS: Linezolid 600 mg in D5W 300 ml 600 MG/300 ML BAG IVPB SCH (09:08)
[2017-03-09 18:07] VITALS: BP 109/61; PULSE 54; RESP 20; TEMP 98.7; O2SAT 97
--- NOTE | 2017-03-09 18:55 | CP.PCM.PN ---
Subjective - Date & Time of Evaluation Date of Evaluation: 03/09/17 Time of Evaluation: 11:10 - Subjective Subjective: Comfortable, afebrile, had the removal of the sebaceous cyst from his posterior neck yesterday. Objective - Vital Signs/Intake and Output Vital Signs (last 24 hours): Temp Pulse Resp BP Pulse Ox 98.7 F 54 L 20 109/61 97 03/09/17 16:00 03/09/17 16:00 03/09/17 16:00 03/09/17 16:00 03/09/17 16:00 Intake and Output: 03/09/17 03/09/17 06:59 18:59 Intake Total 300 1450 Balance 300 1450 - Labs Labs: 03/09/17 07:00 03/08/17 06:45 PT 11.9 Seconds (9.9-11.8) H 03/08/17 06:45 INR 1.10 (0.93-1.08) H 03/08/17 06:45 APTT 34.7 Seconds (23.7-30.8) H 03/08/17 06:45 - Constitutional Appears: Non-toxic, No Acute Distress - Head Exam Head Exam: NORMAL INSPECTION - ENT Exam ENT Exam: Mucous Membranes Moist - Neck Exam Neck Exam: absent: Lymphadenopathy, Meningismus Additional comments: posterior neck with dry dressings in place - Respiratory Exam Respiratory Exam: Decreased Breath Sounds - Cardiovascular Exam Cardiovascular Exam: +S1, +S2 - GI/Abdominal Exam GI & Abdominal Exam: Soft. absent: Tenderness Assessment and Plan - Assessment and Plan (Free Text) Plan: asssessment left posterior neck mass, sebaceous cyst S/P surgical excision POD #1 history of left arm cellulitis probably related to venous catheter S/P removal history of asymtpmatic bacteriuria with gram negative bacilli gout history of subarachnoid hemorrhage hypothyroidism colon cancer S/P hemicolectomy HTN osteoarthritis history of healthcare-associated pneumonia osteoporosis Plan as discussed with Surgery, the sebaceous cyst did not look infected and the Staph that was isolated previously is a skin colonizer - will d/c antibiotics and observe off antibiotics while the patient is in the hospital
--- NOTE | 2017-03-18 07:54 | OP ---
PROCEDURE DATE: 03/08/2017 PREOPERATIVE DIAGNOSIS: Abscess of the back of the neck and scalp. POSTOPERATIVE DIAGNOSIS: Abscess of the back of the neck and scalp. OPERATION PERFORMED: Excision debridement and partial closure. DESCRIPTION OF PROCEDURE: In the operating room, the patient was identified by name, number, procedu re, laterality, my milady and with IV sedation the area was shaved. It seemed to be a massive sebaceou s cyst, bigger than I have ever actually seen. It is already draining some sebaceous material. An e llipse was made which was excised later and the ellipse from the sac. Blunt dissection wa s used to excise this mass from the scalp. The wall was circumferentially dissected. There was a fa ir amount of bleeding that required cautery pressure and a suture with cautery. The area was packed. The skin was trimmed down. There was considerable amount of bleeding that required cautery. The s kin was then closed with mattress stitches 0 Vicryl, packed and pressure dressing applied. The patie nt taken to recovery room in good condition after sponge and needle counts declared correct. Ulices Guzman MD cc: [phone] TT: 03/17/2017 21:59:20 jn
--- NOTE | 2017-03-22 17:02 | DS ---
BRIEF HISTORY: This is an 86-year-old male with history of atherosclerotic heart disease, coronary artery disease, hypothyroidism, gout, BPH, chronic systolic and diastolic congestive heart failure, glaucoma, and vitamin D deficiency, who presented with intractable pain in the back of his neck. The patient has a lump on the back of his neck which had been present for many years, but was now draining discharge and appeared to be infected. PHYSICAL EXAMINATION: VITAL SIGNS: On admission, pulse 92, blood pressure 125/69, respirations 16, oxygen saturation 98% on room air. HEAD: Normocephalic. HEART: Normal sinus rhythm. S1, S2 present. ABDOMEN: Soft. Liver, spleen not palpable. LUNGS: Breath sounds vesicular. No adventitious sounds. CENTRAL NERVOUS SYSTEM: Weakness of both legs, unable to walk. The patient has been in a wheelchair and bedridden for more than a year. LABORATORY DATA: White count was 8000, hemoglobin 12.8, BUN 29, creatinine 1.1 , sodium 139, potassium 4.3. HOSPITAL COURSE: Dr. Guzman who is a general surgeon was called to evaluate the patient. He was also placed on IV antibiotics and continued on his maintenance medications. A large mass on the neck was drained and sent for culture and to the pathologist for analysis. Wound cultures grew Staph haemolyticus. The patient was also seen by infectious disease, Dr. Warren and Dr. Wilkins. He was started on IV Zosyn and Zyvox. The patient was taken to the operating room to remove the rest of the cyst. Upon surgery, it was seen that it was a sebaceous cyst. Patient was then discharged home in improved condition. He no longer complained of pain and was able to lie down. DISCHARGE DIAGNOSES: Sebaceous cyst, neck pain, hypertension, chronic congestive heart failure, BPH, glaucoma. DISCHARGE MEDICATIONS: Coreg 6.25 mg once a day, Flomax 0.4 mg once a day, potassium 20 mEq daily, Lasix 40 mg once a day, paricalcitol 1 mcg daily, Synthroid 25 mcg daily, allopurinol 100 mg twice a day, Xalatan eyedrops to the right eye at night. FOLLOWUP: The patient will be followed up as a house call. Zamzam Seymour MD cc: [phone] TT: 03/22/2017 17:02:41 ln ABRAN
--- NOTE | 2017-05-04 15:34 | OP ---
Dr. Guzman Preoperative Diagnosis: Sebaceous cyst to the posterior neck Postoperative Diagnosis: Sebaceous cyst to the posterior neck Procedure: Excision and IV Sedation Operative findings: In the operating room, patient identified with name number, laterality, planned operation and his name, number, and wristband. The area that was previously marked was mapped out in lips. The area was prepped with xylocaine and the entire lips removed with the sebaceous cyst attached. Subcutaneous tissues were irrigated and dried using heavy use of Xylocaine. The wound was approximated with vicryl followed by subcuticular biosyn. Light dressings applied over the terminal bump. Patient was taken to recovery room in good condition. Count was correct. MTDD
== END 2017-03-09 18:12 | disposition home health service (06) | DRG 571 ==
LOC: ED 05:20 → ERH 06:40 → 3RNO 09:35 → OBSVTOIN 03-04 15:30
PROVIDERS: ADMIT Internal Medicine; ATTEND Internal Medicine
PROC: 0HB4XZZ Excision of Neck Skin, External Approach (ICD-10-PCS; principal; 2017-03-08 14:30)
DX: L72.3 Sebaceous cyst (principal); L02.11 Cutaneous abscess of neck; I50.9 Heart failure, unspecified; D64.9 Anemia, unspecified; I11.0 Hypertensive heart disease with heart failure; L02.811 Cutaneous abscess of head [any part, except face]; N40.0 Benign prostatic hyperplasia without lower urinary tract symptoms; I25.10 Atherosclerotic heart disease of native coronary artery without angina pectoris; E03.9 Hypothyroidism, unspecified; E55.9 Vitamin D deficiency, unspecified; M81.0 Age-related osteoporosis without current pathological fracture; M19.90 Unspecified osteoarthritis, unspecified site; R26.2 Difficulty in walking, not elsewhere classified; M10.9 Gout, unspecified; N28.9 Disorder of kidney and ureter, unspecified; M62.81 Muscle weakness (generalized); H40.9 Unspecified glaucoma; Z85.038 Personal history of other malignant neoplasm of large intestine; Z74.01 Bed confinement status; Z99.3 Dependence on wheelchair; Z90.49 Acquired absence of other specified parts of digestive tract

== ENCOUNTER 2017-03-15 18:02 | Inpatient (IN) | payer MEDICARE, OTHER ==
--- NOTE | 2017-03-15 18:31 | ED PDOC ---
Arrival/HPI - General Chief Complaint: Shortness Of Breath Time Seen by Provider: 03/15/17 18:04 Historian: Patient - History of Present Illness Narrative History of Present Illness (Text): 03/15/17 18:21 A 86 year old male, who past medical history includes CAD, CHF, hypertension, renal insufficiency, anemia, colon cancer, and gout, presents to the emergency department complaining of a non productive cough for the past week. He states the cough worsened today. Patient denies any chest pain, shortness of breath, fever, nausea, vomiting, headache, dizziness, appetite changes, abdominal pain, lower extremity swelling, or any other complaints at this time. PMD: Dr. Seymour Time/Duration: 1 week Symptom Onset: Gradual Symptom Course: Worsening Quality: Other Activities at Onset: Rest Context: Home Past Medical History - Provider Review Nursing Documentation Reviewed: Yes - Infectious Disease Hx of Infectious Diseases: None - Tetanus Immunization Tetanus Immunization: Unknown - Cardiac Hx Cardiac Disorders: Yes (CAD) Hx Congestive Heart Failure: Yes Hx Hypertension: Yes - Pulmonary Hx Chronic Obstructive Pulmonary Disease (COPD): No - Neurological HX Cerebrovascular Accident: No - HEENT Hx Glaucoma: Yes (L) - Renal Hx Renal Failure: No - Endocrine/Metabolic Hx Diabetes Mellitus Type 1: No Hx Diabetes Mellitus Type 2: No - Hematological/Oncological Hx Blood Transfusions: Yes Hx Blood Transfusion Reaction: No - Integumentary Hx Dermatological Disorder: No - Musculoskeletal/Rheumatological Hx Musculoskeletal Disorders: Yes (RT FOOT TOE WITH HINGE PLACEMENT) - Gastrointestinal Hx Gastroesophageal Reflux: No - Genitourinary/Gynecological Hx Genitourinary Disorders: No - Psychiatric Hx Emotional Abuse: No Hx Physical Abuse: No Hx Substance Use: No - Surgical History Other/Comment: Unspecified neck skin surgery - Anesthesia Hx Anesthesia: No Hx Anesthesia Reactions: No Hx Malignant Hyperthermia: No - Suicidal Assessment Feels Threatened In Home Enviroment: No Family/Social History - Physician Review Nursing Documentation Reviewed: Yes Family/Social History: Unknown Family HX Smoking Status: Never Smoked Hx Alcohol Use: No Hx Substance Use: No Hx Substance Use Treatment: No Allergies/Home Meds Allergies/Adverse Reactions: Allergies No Known Allergies Allergy (Verified 03/15/17 18:10) Home Medications: Home Meds Medication Instructions Recorded Confirmed Carvedilol [Coreg] 6.25 mg PO DAILY 10/22/12 03/15/17 Levothyroxine [Synthroid] 0.025 mg PO DAILY 10/22/12 03/15/17 Tamsulosin [Flomax] 0.4 mg PO DAILY 10/22/12 03/15/17 Allopurinol [Zyloprim] 100 mg PO BID 02/25/17 03/15/17 Paricalcitol 1 mcg PO DAILY 02/25/17 03/15/17 Furosemide [Lasix] 40 mg PO DAILY 03/03/17 03/15/17 Potassium Chloride [K-Dur 20 mEq 20 meq PO DAILY 03/03/17 03/15/17 ER Tab] Review of Systems - Physician Review All systems were reviewed & negative as marked: Yes - Review of Systems Constitutional: absent: Fevers Eyes: absent: Vision Changes Respiratory: Cough. absent: SOB, Sputum Cardiovascular: absent: Chest Pain Gastrointestinal: absent: Abdominal Pain, Diarrhea, Nausea, Vomiting, Appetite Changes Genitourinary Male: absent: Dysuria Neurological: absent: Dizziness Physical Exam Vital Signs Reviewed: Yes (intermittent hypoxia) Vital Signs Temp Pulse Resp BP Pulse Ox 03/15/17 18:16 98.3 F 86 18 142/77 96 03/15/17 18:10 18 Temperature: Afebrile Blood Pressure: Normal Pulse: Regular Respiratory Rate: Tachypneic (on exertion) Appearance: Positive for: Well-Appearing, Non-Toxic, Comfortable Pain Distress: None Mental Status: Positive for: Alert and Oriented X 3 - Systems Exam Head: Present: Atraumatic, Normocephalic Pupils: Present: PERRL Conjunctiva: Present: Normal Mouth: Present: Moist Mucous Membranes Pharnyx: Present: Normal. No: ERYTHEMA, EXUDATE Neck: Present: Normal Range of Motion Respiratory/Chest: Present: Good Air Exchange, Wheezes (diffuse). No: Respiratory Distress, Accessory Muscle Use Cardiovascular: Present: Regular Rate and Rhythm, Normal S1, S2. No: Murmurs Abdomen: Present: Normal Bowel Sounds. No: Tenderness, Distention, Peritoneal Signs Back: Present: Normal Inspection Upper Extremity: Present: Normal Inspection. No: Cyanosis, Edema Lower Extremity: Present: Normal Inspection. No: Edema Neurological: Present: GCS=15, CN II-XII Intact, Speech Normal Skin: Present: Warm, Dry, Normal Color. No: Rashes Psychiatric: Present: Alert, Oriented x 3, Normal Insight, Normal Concentration Medical Decision Making ED Course and Treatment: 03/15/17 18:21 Impression: A 86 year old male with a non productive cough. Differential Diagnosis included but are not limited to: Bronchitis vs. Pneumonia vs CHF Plan: -- EKG -- Chest X-ray -- Bilateral lower extremity duplex -- Labs -- Urinalysis -- Xopenex, Solu-Medrol, Robitussin, and Atrovent -- Reassess and disposition Prior Visits: Notes and results from previous visits were reviewed. The patient last presented to the emergency department on 03/03/17 for evaluation of lare posterior head mass. Progress Notes: 03/15/17 18:31 Patient with noted history who comes to the emergency department with cough and diffuse wheezing on exam - findings concerning for above. Given steroids and nebs and feeling much better though hypoxia continuing to be intermittent. Labs showing elevated BNP consistent with CHF and troponin is above normal suggesting possible nstemi. Will give asa and lasix additionally. Patient with no chest pain. Given recent surgery and hospitalization, concern for PE exists. LE doppler will be done. Will also start lovenox to cover for nstemi and possible PE. 03/15/17 20:49 Case was discussed with Dr. Watts for placement on his service. - Lab Interpretations Lab Results: 03/15/17 17:56 03/15/17 19:31 Lab Results 03/15/17 19:31: Sodium 137, Potassium 4.4, Chloride 100, Carbon Dioxide 33, Anion Gap 8 L, BUN 33 H, Creatinine 1.4, Est GFR ( Amer) 58, Est GFR (Non -Af Amer) 48, Random Glucose 115 H, Calcium 8.6, Magnesium 2.1, Total Bilirubin 0.4, AST 29, ALT 33, Alkaline Phosphatase 56, Lactate Dehydrogenase 470, Total Creatine Kinase < 20 L, Troponin I 0.45 H*, NT-Pro-B Natriuret Pep 72467 H, Total Protein 6.1, Albumin 2.9 L, Globulin 3.2, Albumin/Globulin Ratio 0.9 L, Lipase 30 03/15/17 17:56: PT 11.9 H, INR 1.10 H, APTT 31.5 H 03/15/17 17:56: WBC 11.3 H, RBC 4.23, Hgb 11.8 L, Hct 37.4 L, MCV 88.4, MCH 27.9 , MCHC 31.6, RDW 16.2 H, Plt Count 188, MPV 8.2, Gran % 74.5 H, Lymph % (Auto) 13.1 L, Williams % (Auto) 9.3 H, Eos % (Auto) 2.8, Baso % (Auto) 0.3, Gran # 8.39 H , Lymph # 1.5, Williams # 1.1 H, Eos # 0.3, Baso # 0.03 I have reviewed the lab results: Yes - RAD Interpretation Narrative RAD Interpretations (Text): 03/15/17 20:50 CXR: nad Radiology Orders: 03/15/17 18:32 DUPLEX LOWER EXTRM VEIN BILAT [US] Stat 03/15/17 18:33 CHEST PORTABLE [RAD] Stat - EKG Interpretation EKG Interpretation (Text): 03/15/17 20:50 NSR @ 88; no ST/T changes; borderline left axis. Normal intervals. No change compared with previous on 03/08/17. Interpreted by ED Physician: Yes Type: 12 lead EKG Comparison: Similar to previous EKG - Medication Orders Current Medication Orders: Discontinued Medications Aspirin (Aspirin Chewable) 324 mg PO STAT STA Stop: 03/15/17 20:11 Enoxaparin Sodium (Lovenox) 75 mg SC ONCE STA PRN Reason: Protocol Stop: 03/15/17 20:11 Furosemide (Lasix) 40 mg IVP STAT STA Stop: 03/15/17 20:10 Guaifenesin (Robitussin) 400 mg PO ONCE STA Stop: 03/15/17 18:36 Ipratropium [place] (Atrovent) 0.5 mg IH STAT STA Stop: 03/15/17 18:37 Ipratropium [place] (Atrovent) 0.5 mg IH STAT STA Stop: 03/15/17 18:37 Levalbuterol HCl (Xopenex) 1.25 mg IH STAT STA Stop: 03/15/17 18:36 Levalbuterol HCl (Xopenex) 1.25 mg IH STAT STA Stop: 03/15/17 18:37 Methylprednisolone (Solu-Medrol) 125 mg IVP STAT STA Stop: 03/15/17 18:36 - Scribe Statement The provider has reviewed the documentation as recorded by the Scribe Dimpal Cervantes Provider Cam Attestation: All medical record entries made by the Cam were at my direction and personally dictated by me. I have reviewed the chart and agree that the record accurately reflects my personal performance of the history, physical exam, medical decision making, and the department course for this patient. I have also personally directed, reviewed, and agree with the discharge instructions and disposition. Disposition/Present on Arrival - Present on Arrival Any Indicators Present on Arrival: No History of DVT/PE: No History of Uncontrolled Diabetes: No Urinary Catheter: No History of Decub. Ulcer: No History Surgical Site Infection Following: None - Disposition Have Diagnosis and Disposition been Completed?: Yes Diagnosis: Cough, Congestive heart failure (CHF) Disposition: HOSPITALIZED Disposition Time: 20:10 Patient Plan: Admission, Telemetry Condition: FAIR
[2017-03-15] MEDS ORDERED: Levalbuterol 1.25 MG/3 ML Inhal Soln UD IH STA ×2 (18:35→18:36)
[2017-03-15] MEDS ORDERED: guaiFENesin 200 mg/10 ml Syrup UD PO STA (18:35)
[2017-03-15] MEDS ORDERED: Ipratropium 0.02% Inhal Soln (0.5 mg/2.5 ml) UD IH STA ×2 (18:36)
[2017-03-15 19:51] LABS: ALB/GLOB RATIO 0.9 (1.1-1.8); ALKALINE PHOSPHATASE 56 U/L (38-133); ALT/SGPT 33 U/L (7-56); AST/SGOT 29 U/L (15-59); BILIRUBIN,TOTAL 0.4 mg/dL (0.2-1.3); BLOOD UREA NITROGEN 33 mg/dL (7-21); CALCIUM 8.6 mg/dL (8.4-10.5); CARBON DIOXIDE 33 mmol/L (21-33); CHLORIDE 100 mmol/L (98-107); GFR AFRICAN-AMERICAN 58; GLUCOSE,RANDOM 115 mg/dL (70-110); LIPASE 30 U/L (23-300); MAGNESIUM 2.1 mg/dL (1.7-2.2); POTASSIUM 4.4 mmol/L (3.6-5.0); SODIUM 137 mmol/L (132-148); TOTAL PROTEIN 6.1 g/dL (5.8-8.3)
[2017-03-15 20:03] LABS: ADD MANUAL DIFF? NO
[2017-03-15 20:04] LABS: TROPONIN I 0.45 ng/mL
[2017-03-15] MEDS ORDERED: Enoxaparin 80 mg Syringe SC STA (20:10)
[2017-03-15 20:11] LABS: BASO # 0.03 K/mm3 (0.0-2.0); BASO % 0.3 % (0.0-3.0); EOS # 0.3 (0.0-0.7); EOS % 2.8 % (1.5-5.0); GRAN # 8.39 (1.4-6.5); GRAN % 74.5 % (50.0-68.0); HEMATOCRIT 37.4 % (42.0-52.0); LYMPH # 1.5 (1.2-3.4); LYMPH % 13.1 % (22.0-35.0); MEAN CELL VOLUME 88.4 fL (80.0-105.0); MEAN CORPUSCULAR HEMOGLOBIN 27.9 pg (25.0-35.0); MEAN CORPUSCULAR HGB CONC 31.6 g/dl (31.0-37.0); MEAN PLATELET VOLUME 8.2 fl (7.0-11.0); MONO # 1.1 (0.1-0.6); MONO % 9.3 % (1.0-6.0); PLATELET COUNT 188 10^3/uL (120.0-450.0); RED CELL DISTRIBUTION WIDTH 16.2 % (11.5-14.5); WHITE BLOOD COUNT 11.3 10^3/ul (4.5-11.0)
[2017-03-15 20:18] LABS: INR 1.1 (0.93-1.08); PARTIAL THROMBOPLASTIN TIME 31.5 Seconds (23.7-30.8)
--- NOTE | 2017-03-15 20:51 | HP ---
HISTORY OF PRESENT ILLNESS: I am seeing a patient in the [facility] here in [place] in the Emergency Room. The patient is seen. He was brought in by ambulance for shortness of breath and cough. The patient's history is significant. He has no chest pain. PAST MEDICAL HISTORY: History significant in that he has had recent surgery on the back of his neck for a large sebaceous cyst. He has past history of inability to walk, weakness of both legs. He is bedridden and he has a wheelchair. The patient also has past history of congestive heart failure, atherosclerotic heart disease, gout. The patient has history of hypothyroidism , history of cellulitis, and sepsis in the past. PHYSICAL EXAMINATION: GENERAL: The patient is being examined and treated in the Emergency Room and patient needs to be admitted for further treatment and evaluation for respiratory distress, wheezing, bronchitis, possible pneumonia. VITAL SIGNS: The pulse of 86, temperature 98.3, patient's blood pressure 142/ 77 at the time of admission, the patient's O2 sat is 96% on room air, respiratory rate is 18. HEAD: Normocephalic. There is a marked recession of the hair on the head. NECK: The patient's neck is short and constricted. He has evidence of prior surgery on a lump that was removed from the back of his neck. The neck does not show any lymph nodes in the anterior clavicular fossa. LUNGS: Trachea central. The patient has wheezing and diminished breath sounds with occasional crepitations. HEART: Normal sinus rhythm, sinus tachycardia. ABDOMEN: Soft. Liver, spleen not palpable. The patient has no tenderness, no masses. CENTRAL NERVOUS SYSTEM: He is conscious. He is being treated with respiratory treatments with a mask to give him bronchodilators and steroid. MEDICATIONS: The patient's home medications consist of Synthroid. The patient is on 25 mcg of Synthroid. The patient is on Flomax for BPH. The patient is on vitamin D, Lasix 40 mg daily. The patient is on latanoprost for glaucoma, Coreg 6.25 mg for atherosclerotic heart disease, hypertension, and Zyloprim 100 mg b.i.d. for gout. LABORATORY DATA: Is not ready at this time. PLAN: However, the patient will be treated with frequent respiratory treatments. The patient will be provided with antibiotic and we will have the patient evaluated by the assembly leader in the morning and his wound in the back of the neck will be cared for in the hospital by the surgeon who operated on the patient for the cyst. Ju Seymour MD cc: [phone] TT: 03/15/2017 20:50:21 brenton OSULLIVAN
[2017-03-16 00:41] VITALS: BMI 29.0
[2017-03-16] MEDS: Albuterol-Ipratrop 3 mg / 0.5 (3 ml) UD IH SCH ×4 (02:30→19:55)
--- NOTE | 2017-03-16 07:28 | RAD ---
HISTORY: shortness of breath COMPARISON: 03/08/2017 FINDINGS: LUNGS: Shallow lung volumes as before. Visualization of the left lung base is limited. No interval change here is perceived PLEURA: The right and probably lesser left inferolateral pleural thickening is similar in appearance in comment small pleural effusions are not excluded. No change here is perceived CARDIOVASCULAR: Cardiomegaly -left ventricular enlargement -unchanged. Aortic knob atherosclerotic vascular calcifications. The relative prominence to the right hilum similar in appearance this may be due to crowding of vessels in this exam shallow lung volumes. Pulmonary vasculature probably top-normal OSSEOUS STRUCTURES: Thoracic spondylosis VISUALIZED UPPER ABDOMEN: Normal. OTHER FINDINGS: Left PICC line tip in/near superior vena cava IMPRESSION: Limited exam-shallow lung volumes -especially limit evaluation of the left lung base. Cardiomegaly-left ventricular enlargement -as before Pleural thickening right greater than left similar in appearance
--- NOTE | 2017-03-16 08:04 | CP.PCM.PN ---
Subjective - Date & Time of Evaluation Date of Evaluation: 03/16/17 Time of Evaluation: 07:40 - Subjective Subjective: Patient is seen this morning. He says his breathing is much better. He was brought to the ER last night for SOB and cough. Objective - Vital Signs/Intake and Output Vital Signs (last 24 hours): Temp Pulse Resp BP Pulse Ox 98.4 F 88 20 141/73 94 L 03/16/17 06:00 03/16/17 06:00 03/16/17 06:00 03/16/17 06:00 03/16/17 06:00 Intake and Output: 03/16/17 03/16/17 06:59 18:59 Intake Total 0 Balance 0 - Medications Medications: Current Medications Albuterol/Ipratropium (Duoneb 3 Mg/0.5 Mg (3 Ml) Ud) 3 ml IH [id number] TRACY Last Admin: 03/16/17 02:30 Dose: 3 ml Allopurinol (Zyloprim) 100 mg PO DAILY TRACY Carvedilol (Coreg) 6.25 mg PO BID TRACY Furosemide (Lasix) 40 mg PO BID TRACY Latanoprost (Xalatan Opht) 0 ml OU HS TRACY Levothyroxine Sodium (Synthroid) 25 mcg PO ACB TRACY Nystatin (Nystop Topical Powder) 0 gm TOP BID TRACY Potassium Chloride (Klor-Con 10) 10 meq PO BRK TRACY Tamsulosin HCl (Flomax) 0.4 mg PO DAILY TRACY - Labs Labs: PT 11.9 Seconds (9.9-11.8) H 03/15/17 17:56 INR 1.10 (0.93-1.08) H 03/15/17 17:56 APTT 31.5 Seconds (23.7-30.8) H 03/15/17 17:56 - Constitutional Appears: No Acute Distress - Head Exam Head Exam: ATRAUMATIC, NORMOCEPHALIC - Respiratory Exam Respiratory Exam: Decreased Breath Sounds, NORMAL BREATHING PATTERN - Cardiovascular Exam Cardiovascular Exam: +S1, +S2 - GI/Abdominal Exam GI & Abdominal Exam: Soft, Normal Bowel Sounds. absent: Tenderness - Neurological Exam Neurological Exam: Alert, Awake, Oriented x3 Assessment and Plan - Assessment and Plan (Free Text) Assessment: Congestive Heart Failure Elevated troponin s/p removal of sebaceous cyst HTN Hypothyroidism Arthritis Generalized weakness H/O colon cancer Plan: Patient came in last night with SOB and BNP found to be over 10,000 with troponin of 0.45 Patient was given extra dose of Lasix last night. Consult Dr. Ferguson, cardiology. continue respiratory treatments and oxygen continue synthroid for hypothyroidism U/S LE pending
[2017-03-16] MEDS: Levothyroxine 25 MCG TAB PO SCH (09:13)
[2017-03-16] MEDS: Potassium Chloride 10 mEq ER Tab PO SCH (09:13)
[2017-03-16] MEDS: Nystatin 100,000 Units/gm Topical Pow(15 gm) TOP SCH (09:28)
--- NOTE | 2017-03-16 09:51 | US ---
HISTORY: Leg pain and swelling. Evaluate for DVT PHYSICIAN(S): Parth Courtney MD. TECHNIQUE: Duplex sonography and color-flow Doppler with graded compression were used to evaluate the deep venous systems of both lower extremities. The exam is limited by edema. FINDINGS: The visualized deep venous systems of both lower extremities are sonographically normal and compressible. Normal wave forms and augmentation are seen. There is no sonographic evidence for deep venous thrombosis in the visualized segments of both lower extremities. IMPRESSION: No sonographic evidence for deep venous thrombosis in the visualized segments of both lower extremities.
--- NOTE | 2017-03-16 14:29 | CARD ---
APPROVED REPORT EKG Measurement Heart [id number] <Conclusion> Normal sinus rhythm Inferior infarct, age undetermined PRWP STTW changes
--- NOTE | 2017-03-16 17:10 | CON ---
DATE: 03/16/2017 REQUESTING PHYSICIAN: Dr. Seymour. REASON FOR CONSULTATION: Cough, dyspnea. HISTORY OF PRESENT ILLNESS: This is an 86-year-old man known to us from prior admissions with a history of hypertension, who was brought to the Emergency Room via ambulance with complaints of cough and dyspnea. He was admitted for evaluation. He denies any chest pain. He is currently lying in bed on telemetry. He has had no chest pain. His cough is improved. He was treated with bronchodilators and diuretic therapy in the Emergency Room. PAST MEDICAL HISTORY: He does have a history of coronary artery disease and remote congestive heart failure, as well as recent surgery for a large sebaceous cyst on his neck. He has undergone prior foot surgery, as well. He has a history of anemia, colon cancer, and renal insufficiency, as well as gout. MEDICATIONS: At home include carvedilol 6.25 mg b.i.d., Synthroid, Flomax, Zyloprim, Lasix 40 mg daily, and potassium supplement. ALLERGIES: He has no reported allergies. SOCIAL HISTORY: He does not smoke or drink. FAMILY HISTORY: Both parents , cause unknown. REVIEW OF SYSTEMS: Ten-point review of systems is notable mainly for the problems mentioned above. He is extremely debilitated and gets around with the use of a wheelchair at home. He lives with his . PHYSICAL EXAMINATION: GENERAL: He is a frail-appearing, very elderly man. VITAL SIGNS: His blood pressure is 146/90 with a pulse of 80, in sinus, respirations are 16. He is afebrile. HEENT: Mild temporal wasting noted. NECK: A large dressing is present on his posterior scalp. No JVD noted. CHEST: Bilateral coarse rhonchi heard. HEART: PMI displaced laterally with a systolic murmur in the left sternal border. ABDOMEN: Soft, nontender, normoactive bowel sounds. EXTREMITIES: Mild stasis changes noted. No edema present. SKIN: Warm and dry. PSYCHIATRIC: Normal mood and affect. NEUROLOGIC: No gross motor or sensory deficits appreciable, although generalized weakness is present. DIAGNOSTIC DATA: White count is 11.3; hemoglobin and hematocrit 11.8 and 37.4; with a platelet count of 188,000. PT and PTT 11.9 and 31.5. Potassium 4.4, BUN and creatinine are 33 and 1.4, glucose 115. CK negative. Troponin 0.45. BNP 10,200. Electrocardiogram reveals sinus rhythm with nonspecific ST and T abnormalities. Chest x-ray reveals a poor inspiratory effort with cardiac silhouette enlargement and mild congestive changes. IMPRESSION: 1. Cough, dyspnea. May have some component of decompensating congestive heart failure, although chest x-ray is fairly unimpressive. 2. Coronary artery disease, details unavailable. 3. Status post recent sebaceous cyst removal. 4. Rest of problems as noted. 5. Elevated troponin with negative CK and no complaints of chest pain or EKG changes. Probably of no significance. RECOMMENDATIONS: Telemetry monitoring will continue. Followup enzymes will be obtained. Electrocardiogram will be repeated, as well. An echocardiogram has been ordered, as well. Bronchodilator therapy should continue, as well. His diuretic dose has been increased to b.i.d. dosing and his clinical status will be monitored. We will be happy to follow him through his hospital course and make further recommendations as appropriate. Kike Arias MD cc: [id number] TT: 03/16/2017 17:08:56 Confirmation # [id number] Dictation # [id number] brenton OSULLIVAN
[2017-03-16] MEDS: Latanoprost 2.5 ml Opht Soln OU SCH (21:33)
[2017-03-17] MEDS: Albuterol-Ipratrop 3 mg / 0.5 (3 ml) UD IH SCH ×4 (02:21→20:12)
[2017-03-17 06:46] LABS: ADD MANUAL DIFF? NO
[2017-03-17 07:07] LABS: BASO # 0.01 K/mm3 (0.0-2.0); BASO % 0.1 % (0.0-3.0); EOS % 0.3 % (1.5-5.0); GRAN # 7.62 (1.4-6.5); GRAN % 79.9 % (50.0-68.0); HEMATOCRIT 31.5 % (42.0-52.0); LYMPH # 1.2 (1.2-3.4); LYMPH % 12.7 % (22.0-35.0); MEAN CELL VOLUME 87.7 fL (80.0-105.0); MEAN CORPUSCULAR HEMOGLOBIN 27.6 pg (25.0-35.0); MEAN CORPUSCULAR HGB CONC 31.4 g/dl (31.0-37.0); MEAN PLATELET VOLUME 7.9 fl (7.0-11.0); MONO # 0.7 (0.1-0.6); PLATELET COUNT 194 10^3/uL (120.0-450.0); RED CELL DISTRIBUTION WIDTH 16.2 % (11.5-14.5); WHITE BLOOD COUNT 9.5 10^3/ul (4.5-11.0)
[2017-03-17 07:11] LABS: BILIRUBIN,TOTAL 0.3 mg/dL (0.2-1.3); CALCIUM 8.4 mg/dL (8.4-10.5); TOTAL PROTEIN 5.3 g/dL (5.8-8.3)
--- NOTE | 2017-03-17 08:19 | CP.PCM.PN ---
Subjective - Date & Time of Evaluation Date of Evaluation: 03/17/17 Time of Evaluation: 08:00 - Subjective Subjective: Patient is seen this morning. He is complaining of cough. SOB improved. Objective - Vital Signs/Intake and Output Vital Signs (last 24 hours): Temp Pulse Resp BP Pulse Ox 98 F 82 20 112/68 96 03/16/17 18:00 03/17/17 02:00 03/16/17 18:00 03/16/17 18:00 03/16/17 18:00 Intake and Output: 03/17/17 03/17/17 06:59 18:59 Intake Total 420 Balance 420 - Medications Medications: Current Medications Albuterol/Ipratropium (Duoneb 3 Mg/0.5 Mg (3 Ml) Ud) 3 ml IH [id number] [facility] Last Admin: 03/17/17 02:21 Dose: Not Given Allopurinol (Zyloprim) 100 mg PO DAILY [facility] Last Admin: 03/16/17 09:27 Dose: 100 mg Carvedilol (Coreg) 6.25 mg PO BID TRACY Last Admin: 03/16/17 18:05 Dose: 6.25 mg Furosemide (Lasix) 40 mg PO DAILY TRACY Latanoprost (Xalatan Opht) 0 ml OU HS TRACY Last Admin: 03/16/17 21:33 Dose: 2.5 ml Levothyroxine Sodium (Synthroid) 25 mcg PO ACB TRACY Last Admin: 03/16/17 09:13 Dose: 25 mcg Methylprednisolone (Solu-Medrol) 20 mg IVP Q12 TRACY Nystatin (Nystop Topical Powder) 0 gm TOP BID TRACY Last Admin: 03/16/17 09:28 Dose: 1 % Potassium Chloride (Klor-Con 10) 10 meq PO BRK TRACY Last Admin: 03/16/17 09:13 Dose: 10 meq Tamsulosin HCl (Flomax) 0.4 mg PO DAILY [facility] Last Admin: 03/16/17 09:27 Dose: 0.4 mg - Labs Labs: 03/17/17 05:30 03/17/17 05:30 PT 11.9 Seconds (9.9-11.8) H 03/15/17 17:56 INR 1.10 (0.93-1.08) H 03/15/17 17:56 APTT 31.5 Seconds (23.7-30.8) H 03/15/17 17:56 - Constitutional Appears: No Acute Distress - Head Exam Head Exam: ATRAUMATIC, NORMOCEPHALIC - Respiratory Exam Respiratory Exam: Wheezes - Cardiovascular Exam Cardiovascular Exam: +S1, +S2 - GI/Abdominal Exam GI & Abdominal Exam: Soft, Normal Bowel Sounds. absent: Tenderness - Neurological Exam Neurological Exam: Alert, Awake, Oriented x3 Assessment and Plan - Assessment and Plan (Free Text) Assessment: SOB - CHF vs Bronchitis Elevated troponin HTN Hypothyroidism Generalized weakness H/O colon cancer Plan: Patient's SOB is improving, but he still complains of cough and wheezing is heard on auscultation. Will add Solumedrol 20mg IV Q12h, continue respiratory treatments, repeat CXR Appreciate cardiology consult. continue diuresis, strict I's and O's Echocardiogram is pending OOB to chair with assistance
--- NOTE | 2017-03-17 08:20 | CP.PCM.PN ---
Subjective - Date & Time of Evaluation Date of Evaluation: 03/17/17 Time of Evaluation: 07:00 - Subjective Subjective: Stable on 2R. Still cough. No CP or SOB. V/S noted. RSR PE: Lungs: clear Cor.: S1S2 Abd.: soft Ext.: no edema Neuro.: alert Labs noted: H/H 9.9/31.5 BC x2 NG at 24 hrs. Objective - Vital Signs/Intake and Output Vital Signs (last 24 hours): Temp Pulse Resp BP Pulse Ox 98 F 82 20 112/68 96 03/16/17 18:00 03/17/17 02:00 03/16/17 18:00 03/16/17 18:00 03/16/17 18:00 Intake and Output: 03/17/17 03/17/17 06:59 18:59 Intake Total 420 Balance 420 - Medications Medications: Current Medications Albuterol/Ipratropium (Duoneb 3 Mg/0.5 Mg (3 Ml) Ud) 3 ml IH [id number] [facility] Last Admin: 03/17/17 02:21 Dose: Not Given Allopurinol (Zyloprim) 100 mg PO DAILY [facility] Last Admin: 03/16/17 09:27 Dose: 100 mg Carvedilol (Coreg) 6.25 mg PO BID [facility] Last Admin: 03/16/17 18:05 Dose: 6.25 mg Furosemide (Lasix) 40 mg PO BID [facility] Last Admin: 03/16/17 18:00 Dose: 40 mg Latanoprost (Xalatan Opht) 0 ml OU HS [facility] Last Admin: 03/16/17 21:33 Dose: 2.5 ml Levothyroxine Sodium (Synthroid) 25 mcg PO ACB [facility] Last Admin: 03/16/17 09:13 Dose: 25 mcg Nystatin (Nystop Topical Powder) 0 gm TOP BID [facility] Last Admin: 03/16/17 09:28 Dose: 1 % Potassium Chloride (Klor-Con 10) 10 meq PO BRK [facility] Last Admin: 03/16/17 09:13 Dose: 10 meq Tamsulosin HCl (Flomax) 0.4 mg PO DAILY [facility] Last Admin: 03/16/17 09:27 Dose: 0.4 mg - Labs Labs: 03/17/17 05:30 03/17/17 05:30 PT 11.9 Seconds (9.9-11.8) H 03/15/17 17:56 INR 1.10 (0.93-1.08) H 03/15/17 17:56 APTT 31.5 Seconds (23.7-30.8) H 03/15/17 17:56 Assessment and Plan - Assessment and Plan (Free Text) Plan: Assessment: Dyspnea/Cough + trop/Uncertain significance HBP CAD CHF S/P surgery for sebaceous cyst/neck Anemia Colon cancer s/p resection/XRT/Chemo CKD Gout Hypothyroidism CVD Plan: Reduce Lasix to daily. Check ECG and trop today Echo Pulm tx. Surg. F/U OOB to chair as rohan.
[2017-03-17] MEDS: Levothyroxine 25 MCG TAB PO SCH (09:03)
--- NOTE | 2017-03-17 09:15 | RAD ---
HISTORY: cough, SOB COMPARISON: 03/15/2017 FINDINGS: LUNGS: No active pulmonary disease. PLEURA: No significant pleural effusion identified, no pneumothorax apparent. CARDIOVASCULAR: Mild cardiomegaly. Mild vascular congestion OSSEOUS STRUCTURES: No significant abnormalities. VISUALIZED UPPER ABDOMEN: Normal. OTHER FINDINGS: None. IMPRESSION: No active disease.
[2017-03-17] MEDS: Potassium Chloride 10 mEq ER Tab PO SCH (09:22)
[2017-03-17] MEDS: MethylPREDNISolone 40 mg Vial IVP SCH ×2 (09:27→23:15)
[2017-03-17] MEDS: Nystatin 100,000 Units/gm Topical Pow(15 gm) TOP SCH ×2 (10:02→17:02)
--- NOTE | 2017-03-17 13:27 | CARD ---
APPROVED REPORT EKG Measurement Heart [id number] AL [id number] [id number] <Conclusion> Normal sinus rhythm PRWP Inferior infarct, age undetermined NSSTW changes
[2017-03-17] MEDS ORDERED: Promethazine 6.25 MG/5 ML CUP PO PRN (16:49)
[2017-03-17] MEDS: Latanoprost 2.5 ml Opht Soln OU SCH (23:15)
[2017-03-18] MEDS: Albuterol-Ipratrop 3 mg / 0.5 (3 ml) UD IH SCH ×4 (01:06→20:07)
[2017-03-18 06:10] LABS: ADD MANUAL DIFF? NO
[2017-03-18 06:37] LABS: CALCIUM 8.4 mg/dL (8.4-10.5); POTASSIUM 4.5 mmol/L (3.6-5.0)
[2017-03-18 06:39] LABS: BASO # 0.01 K/mm3 (0.0-2.0); BASO % 0.1 % (0.0-3.0); EOS % 0.1 % (1.5-5.0); GRAN # 6.89 (1.4-6.5); GRAN % 88.7 % (50.0-68.0); HEMATOCRIT 33.3 % (42.0-52.0); LYMPH # 0.8 (1.2-3.4); LYMPH % 9.8 % (22.0-35.0); MEAN CELL VOLUME 89.3 fL (80.0-105.0); MEAN CORPUSCULAR HEMOGLOBIN 27.6 pg (25.0-35.0); MEAN CORPUSCULAR HGB CONC 30.9 g/dl (31.0-37.0); MEAN PLATELET VOLUME 7.8 fl (7.0-11.0); MONO # 0.1 (0.1-0.6); MONO % 1.3 % (1.0-6.0); PLATELET COUNT 200 10^3/uL (120.0-450.0); RED CELL DISTRIBUTION WIDTH 16.6 % (11.5-14.5); WHITE BLOOD COUNT 7.8 10^3/ul (4.5-11.0)
--- NOTE | 2017-03-18 07:49 | CP.PCM.PN ---
Subjective - Date & Time of Evaluation Date of Evaluation: 03/18/17 Time of Evaluation: 07:00 - Subjective Subjective: Stable on 2R. Still cough. No CP or SOB. V/S noted. RSR PE: Lungs: few rhonchi Cor.: S1S2 Abd.: soft Ext.: no edema Neuro.: alert Labs noted: Cr.= 1.4, K+= 4.5. trop. 03/17 = 0.25 BC x2 NG at 48 hrs. CXR 03/17 noted. NAD Echo 10/26 noted. ECG 03/17: RSR, IMI, old, NSSTW changes Objective - Vital Signs/Intake and Output Vital Signs (last 24 hours): Temp Pulse Resp BP Pulse Ox 97.8 F 80 20 134/82 96 03/18/17 05:26 03/18/17 05:26 03/18/17 05:26 03/18/17 05:26 03/18/17 05:26 Intake and Output: 03/18/17 03/18/17 06:59 18:59 Intake Total 420 Output Total 400 Balance 20 - Medications Medications: Current Medications Albuterol/Ipratropium (Duoneb 3 Mg/0.5 Mg (3 Ml) Ud) 3 ml IH [id number] [facility] Last Admin: 03/18/17 01:06 Dose: 3 ml Allopurinol (Zyloprim) 100 mg PO DAILY [facility] Last Admin: 03/17/17 09:22 Dose: 100 mg Carvedilol (Coreg) 6.25 mg PO BID [facility] Last Admin: 03/17/17 17:23 Dose: 6.25 mg Furosemide (Lasix) 40 mg PO DAILY [facility] Last Admin: 03/17/17 09:21 Dose: 40 mg Latanoprost (Xalatan Opht) 0 ml OU HS [facility] Last Admin: 03/17/17 23:15 Dose: 2.5 ml Levothyroxine Sodium (Synthroid) 25 mcg PO ACB [facility] Last Admin: 03/17/17 09:03 Dose: 25 mcg Methylprednisolone (Solu-Medrol) 20 mg IVP Q12 [facility] Last Admin: 03/17/17 23:15 Dose: 20 mg Nystatin (Nystop Topical Powder) 0 gm TOP BID [facility] Last Admin: 03/17/17 17:02 Dose: 1 applic Potassium Chloride (Klor-Con 10) 10 meq PO BRK [facility] Last Admin: 03/17/17 09:22 Dose: 10 meq Promethazine HCl (Phenergan Syrup) 6.25 mg PO Q6H PRN PRN Reason: Cough Last Admin: 03/17/17 17:23 Dose: 6.25 mg Tamsulosin HCl (Flomax) 0.4 mg PO DAILY [facility] Last Admin: 03/17/17 09:23 Dose: 0.4 mg - Labs Labs: 03/18/17 05:15 03/18/17 05:15 PT 11.9 Seconds (9.9-11.8) H 03/15/17 17:56 INR 1.10 (0.93-1.08) H 03/15/17 17:56 APTT 31.5 Seconds (23.7-30.8) H 03/15/17 17:56 Assessment and Plan - Assessment and Plan (Free Text) Plan: Assessment: Dyspnea/Cough + trop/Uncertain significance, R/O DE HBP CAD CHF S/P surgery for sebaceous cyst/neck Anemia Colon cancer s/p resection/XRT/Chemo CKD Gout Hypothyroidism CVD Plan: Continue PO Lasix. Pulm tx. Surg. F/U OOB to chair as rohan. PT TCU eval.
--- NOTE | 2017-03-18 08:23 | CP.PCM.PN ---
Subjective - Date & Time of Evaluation Date of Evaluation: 03/18/17 Time of Evaluation: 08:00 - Subjective Subjective: Patient is seen this morning. He is still complaining of cough. Objective - Vital Signs/Intake and Output Vital Signs (last 24 hours): Temp Pulse Resp BP Pulse Ox 97.8 F 80 20 134/82 96 03/18/17 05:26 03/18/17 05:26 03/18/17 05:26 03/18/17 05:26 03/18/17 05:26 Intake and Output: 03/18/17 03/18/17 06:59 18:59 Intake Total 420 Output Total 400 Balance 20 - Medications Medications: Current Medications Albuterol/Ipratropium (Duoneb 3 Mg/0.5 Mg (3 Ml) Ud) 3 ml IH [id number] [facility] Last Admin: 03/18/17 01:06 Dose: 3 ml Allopurinol (Zyloprim) 100 mg PO DAILY [facility] Last Admin: 03/17/17 09:22 Dose: 100 mg Benzonatate (Tessalon Perles) 100 mg PO TID PRN PRN Reason: Cough Carvedilol (Coreg) 6.25 mg PO BID [facility] Last Admin: 03/17/17 17:23 Dose: 6.25 mg Furosemide (Lasix) 40 mg PO DAILY [facility] Last Admin: 03/17/17 09:21 Dose: 40 mg Latanoprost (Xalatan Opht) 0 ml OU HS [facility] Last Admin: 03/17/17 23:15 Dose: 2.5 ml Levothyroxine Sodium (Synthroid) 25 mcg PO ACB [facility] Last Admin: 03/17/17 09:03 Dose: 25 mcg Methylprednisolone (Solu-Medrol) 20 mg IVP Q12 [facility] Last Admin: 03/17/17 23:15 Dose: 20 mg Nystatin (Nystop Topical Powder) 0 gm TOP BID [facility] Last Admin: 03/17/17 17:02 Dose: 1 applic Potassium Chloride (Klor-Con 10) 10 meq PO BRK [facility] Last Admin: 03/17/17 09:22 Dose: 10 meq Tamsulosin HCl (Flomax) 0.4 mg PO DAILY [facility] Last Admin: 03/17/17 09:23 Dose: 0.4 mg - Labs Labs: 03/18/17 05:15 03/18/17 05:15 PT 11.9 Seconds (9.9-11.8) H 03/15/17 17:56 INR 1.10 (0.93-1.08) H 03/15/17 17:56 APTT 31.5 Seconds (23.7-30.8) H 03/15/17 17:56 - Constitutional Appears: No Acute Distress - Head Exam Head Exam: ATRAUMATIC, NORMOCEPHALIC - Respiratory Exam Respiratory Exam: Wheezes, NORMAL BREATHING PATTERN - Cardiovascular Exam Cardiovascular Exam: +S1, +S2 - GI/Abdominal Exam GI & Abdominal Exam: Soft, Normal Bowel Sounds. absent: Tenderness - Neurological Exam Neurological Exam: Alert, Awake, Oriented x3 Assessment and Plan - Assessment and Plan (Free Text) Assessment: CHF elevated troponin Hypothyroidism Arthritis H/O colon cancer Plan: Patient still complains of cough. He does not like the taste of the cough medicine. Will discontinue phenergan and start Tessalon perles. continue IV Solumedrol and respiratory treatments. OOB to chair once a day; PT evaluation ordered to mobilize patient. TRCU Evaluation echocardiogram pending
[2017-03-18] MEDS: Levothyroxine 25 MCG TAB PO SCH (09:20)
[2017-03-18] MEDS: Potassium Chloride 10 mEq ER Tab PO SCH (09:20)
[2017-03-18] MEDS: MethylPREDNISolone 40 mg Vial IVP SCH ×2 (09:21→22:21)
[2017-03-18] MEDS: Nystatin 100,000 Units/gm Topical Pow(15 gm) TOP SCH ×2 (10:27→17:25)
[2017-03-18] MEDS: Latanoprost 2.5 ml Opht Soln OU SCH (22:37)
[2017-03-19] MEDS: Albuterol-Ipratrop 3 mg / 0.5 (3 ml) UD IH SCH ×4 (02:20→20:00)
[2017-03-19] MEDS: Levothyroxine 25 MCG TAB PO SCH (07:55)
[2017-03-19] MEDS: Potassium Chloride 10 mEq ER Tab PO SCH (08:55)
--- NOTE | 2017-03-19 09:23 | PN ---
DATE: 03/19/2017 The patient is in room 365, bed 2. The patient was admitted with symptoms of shortness of breath, cough, weakness, and patient had respiratory difficulty associated with congestive heart failure. This morning he is lying in bed, comfortable. PHYSICAL EXAMINATION: VITAL SIGNS: His pulse is 73, blood pressure 133/82, O2 sat is 96%, respirations are 20. HEAD: Normocephalic. He has scarce hair on scalp. NECK: Within normal limits, except for the wound in the back of his neck. He had a surgical procedure to remove a large cyst. HEART: Normal sinus rhythm. S1, S2 present. No murmurs. ABDOMEN: Soft. Liver, spleen not palpable. No tenderness. LUNGS: Trachea central. Breath sounds vesicular. Crepitations are present bilaterally. Breath sounds are diminished. The patient also has rhonchi. CENTRAL NERVOUS SYSTEM: Conscious. He has weakness of his muscles in both legs and unable to walk. He needs a total assistance to get out of bed. He has a hoist system in the house to get him out of bed into the chair. MEDICATIONS: Consists of carvedilol 6.25 mg b.i.d. He is on albuterol, DuoNeb treatment q. 6 hours. He is on Flomax 0.4 mg daily, potassium chloride 10 mEq daily, Lasix 40 mg daily, p.o. daily, methylprednisone 20 mg IV q. 12, Synthroid 25 mcg daily. He is on a heart healthy diet, but he can only eat thickened food. He is not able to eat solid pieces of food because he had difficulty in swallowing. The patient's condition is improving slowly and his congestive failure is also improving. The patient is getting current treatment for acute congestive heart failure and respiratory infection. He has a cough and it seems to subside with the current management. We will continue current, present treatment and his overall condition is stable, but the overall prognosis is guarded. Ju Seymour MD cc: [phone] TT: 03/19/2017 09:22:52 Confirmation # [id number] Dictation # [id number] jn MTDD
[2017-03-19] MEDS: MethylPREDNISolone 40 mg Vial IVP SCH ×2 (09:52→21:24)
[2017-03-19] MEDS: Nystatin 100,000 Units/gm Topical Pow(15 gm) TOP SCH ×2 (09:56→17:46)
[2017-03-19] MEDS: Latanoprost 2.5 ml Opht Soln OU SCH (21:25)
[2017-03-20] MEDS: Albuterol-Ipratrop 3 mg / 0.5 (3 ml) UD IH SCH ×4 (01:05→20:45)
[2017-03-20] MEDS: Potassium Chloride 10 mEq ER Tab PO SCH (08:19)
[2017-03-20] MEDS: Levothyroxine 25 MCG TAB PO SCH (08:19)
[2017-03-20] MEDS: Nystatin 100,000 Units/gm Topical Pow(15 gm) TOP SCH ×2 (10:18→17:51)
--- NOTE | 2017-03-20 10:51 | PN ---
DATE: 03/20/2017 The patient is in the [facility] in [place], room 265, bed 2. The patient was admitted with congestive heart failure, asthmatic bronchitis, and shortness of breath. The patient is seen this morning. He is on the 3rd floor, room 265 as mentioned. He is comfortable. He is able to converse, and he has no fever. PHYSICAL EXAMINATION: VITAL SIGNS: The pulse is 65, blood pressure 120/67. Respirations are 20. O2 sat is 93% on room air. LUNGS: There are diminished breath sounds and occasional rhonchi. HEART: Normal sinus rhythm. S1, S2 present. ABDOMEN: Soft. Liver and spleen not palpable. No tenderness. CENTRAL NERVOUS SYSTEM: He is conscious, rational, oriented. He has difficulty in swallowing. He has to eat food that is pureed and thickened liquids. LABORATORY DATA: His blood work is stable. MEDICATIONS: Respiratory treatment with DuoNeb. The patient is on prednisone, which will be made oral 10 mg today daily. The patient is going to be on Lasix 40 mg daily, potassium chloride 10 mEq daily, Flomax 0.4 mg daily, carvedilol 6.25 mg b.i.d. DIET: A 2-gram sodium heart-healthy diet. The patient's progress is much improved. We will follow up with the surgeon. Surgery has not removed the guy on the lesion on the back of the neck, and if conditions are stable by tomorrow, we will be able to plan for discharge. Ju Seymour MD cc: [phone] TT: 03/20/2017 10:50:40 Confirmation # [id number] Dictation # [id number] jn MTDD
--- NOTE | 2017-03-20 17:10 | CP.PCM.CON ---
<AldenTanisha - Last Filed: 03/20/17 17:11> History of Present Illness - History of Present Illness History of Present Illness: GENERAL SURGERY CONSULT NOTE FOR DR. DEVLIN (covering for Dr. Guzman) 86yo M with PMHx of CAD, CHF, HTN, renal insufficiency, anemia, colon cancer, gout presented to the ED on 03/15 for cough for 1 week. He was wheezing and had elevated BNP and elevated troponin. Dr. Guzman removed a sebaceous cyst from the back of the neck on 03/08/17. Surgery is consulted for possible staple removal. Patient reports that there was some drainage from the wound when he came into the hospital. Review of Systems - Review of Systems All systems: reviewed and no additional remarkable complaints except (as per HPI ) Past Patient History - Infectious Disease Hx of Infectious Diseases: None - Tetanus Immunizations Tetanus Immunization: Unknown - Past Social History Smoking Status: Never Smoked - CARDIAC Hx Cardiac Disorders: Yes (CAD) Hx Congestive Heart Failure: Yes Hx Hypertension: Yes - PULMONARY Hx Chronic Obstructive Pulmonary Disease (COPD): No - NEUROLOGICAL HX Cerebrovascular Accident: No - HEENT Hx Glaucoma: Yes (L) - RENAL Hx Renal Failure: No - ENDOCRINE/METABOLIC Hx Diabetes Mellitus Type 1: No Hx Diabetes Mellitus Type 2: No - HEMATOLOGICAL/ONCOLOGICAL Hx Anemia: Yes (blood transfusion) Hx Cancer: Yes (colon ca dx 2004) Hx Chemotherapy: Yes (and radiation completed) - INTEGUMENTARY Hx Dermatological Problems: No - MUSCULOSKELETAL/RHEUMATOLOGICAL Hx Musculoskeletal Disorders: Yes (RT FOOT TOE WITH HINGE PLACEMENT) Hx Arthritis: Yes (left arm) Hx Falls: Yes - GASTROINTESTINAL Hx Gastroesophageal Reflux: No - GENITOURINARY/GYNECOLOGICAL Hx Prostate Problems: Yes Other/Comment: bph - PSYCHIATRIC Hx Emotional Abuse: No Hx Physical Abuse: No - SURGICAL HISTORY Hx Surgeries: Yes Other/Comment: Unspecified neck skin surgery--last week,colon surgery - ANESTHESIA Hx Anesthesia: No Hx Anesthesia Reactions: No Hx Malignant Hyperthermia: No Meds Allergies/Adverse Reactions: Allergies Allergy/AdvReac Type Severity Reaction Status Date / Time No Known Allergies Allergy Verified 03/15/17 18:10 - Medications Medications: Current Medications Albuterol/Ipratropium (Duoneb 3 Mg/0.5 Mg (3 Ml) Ud) 3 ml IH [id number] [facility] Last Admin: 03/20/17 14:03 Dose: 3 ml Allopurinol (Zyloprim) 100 mg PO DAILY [facility] Last Admin: 03/20/17 10:17 Dose: 100 mg Benzonatate (Tessalon Perles) 100 mg PO TID PRN PRN Reason: Cough Carvedilol (Coreg) 6.25 mg PO BID [facility] Last Admin: 03/20/17 10:29 Dose: 6.25 mg Furosemide (Lasix) 40 mg PO DAILY [facility] Last Admin: 03/20/17 10:17 Dose: 40 mg Latanoprost (Xalatan Opht) 0 ml OU HS [facility] Last Admin: 03/19/17 21:25 Dose: 2.5 ml Levothyroxine Sodium (Synthroid) 25 mcg PO ACB [facility] Last Admin: 03/20/17 08:19 Dose: 25 mcg Nystatin (Nystop Topical Powder) 0 gm TOP BID [facility] Last Admin: 03/20/17 10:18 Dose: 1 applic Potassium Chloride (Klor-Con 10) 10 meq PO BRK [facility] Last Admin: 03/20/17 08:19 Dose: 10 meq Prednisone (Prednisone Tab) 10 mg PO DAILY [facility] Last Admin: 03/20/17 10:17 Dose: 10 mg Tamsulosin HCl (Flomax) 0.4 mg PO DAILY [facility] Last Admin: 03/20/17 10:17 Dose: 0.4 mg Physical Exam - Constitutional Appears: Well, Non-toxic, No Acute Distress - Head Exam Head Exam: ATRAUMATIC, NORMAL INSPECTION - Eye Exam Eye Exam: EOMI, Normal appearance - Neck Exam Additional comments: Posterior neck incision with sutures in place, no erythema or tenderness - Respiratory Exam Respiratory Exam: NORMAL BREATHING PATTERN. absent: Respiratory Distress - Cardiovascular Exam Cardiovascular Exam: +S1, +S2 - GI/Abdominal Exam GI & Abdominal Exam: Soft. absent: Diminished Bowel Sounds, Tenderness - Neurological Exam Neurological exam: Alert, CN II-XII Intact, Oriented x3 - Psychiatric Exam Psychiatric exam: Normal Affect, Normal Mood - Skin Skin Exam: Dry, Normal Color, Warm Results - Vital Signs Recent Vital Signs: Last Vital Signs Temp 98.5 F 03/20/17 06:00 Pulse 67 03/20/17 10:29 Resp 18 03/20/17 06:00 BP 110/68 03/20/17 10:29 Pulse Ox 95 03/20/17 06:00 - Labs Result Diagrams: 03/18/17 05:15 06/09/17 05:15 Assessment & Plan - Assessment and Plan (Free Text) Assessment: 86yo M with PMHx of CAD, CHF, HTN, renal insufficiency, anemia, colon cancer, gout presented to the ED on 03/15 for cough. He is s/p sebaceous cyst removal from posterior neck on 03/08/17. - Will leave guy in for at least a couple more days - Discussed plan with Dr. Claus Ruano PGY-2 <Mart Devlin - Last Filed: 03/20/17 21:56> Meds - Medications Medications: Current Medications Albuterol/Ipratropium (Duoneb 3 Mg/0.5 Mg (3 Ml) Ud) 3 ml IH [id number] [facility] Last Admin: 03/20/17 20:45 Dose: 3 ml Allopurinol (Zyloprim) 100 mg PO DAILY [facility] Last Admin: 03/20/17 10:17 Dose: 100 mg Benzonatate (Tessalon Perles) 100 mg PO TID PRN PRN Reason: Cough Carvedilol (Coreg) 6.25 mg PO BID [facility] Last Admin: 03/20/17 17:49 Dose: 6.25 mg Furosemide (Lasix) 40 mg PO DAILY [facility] Last Admin: 03/20/17 10:17 Dose: 40 mg Latanoprost (Xalatan Opht) 0 ml OU HS [facility] Last Admin: 03/20/17 21:36 Dose: 2.5 ml Levothyroxine Sodium (Synthroid) 25 mcg PO ACB [facility] Last Admin: 03/20/17 08:19 Dose: 25 mcg Nystatin (Nystop Topical Powder) 0 gm TOP BID [facility] Last Admin: 03/20/17 17:51 Dose: 1 applic Potassium Chloride (Klor-Con 10) 10 meq PO BRK [facility] Last Admin: 03/20/17 08:19 Dose: 10 meq Prednisone (Prednisone Tab) 10 mg PO DAILY [facility] Last Admin: 03/20/17 10:17 Dose: 10 mg Tamsulosin HCl (Flomax) 0.4 mg PO DAILY [facility] Last Admin: 03/20/17 10:17 Dose: 0.4 mg Results - Vital Signs Recent Vital Signs: Last Vital Signs Temp 97.8 F 03/20/17 17:00 Pulse 69 03/20/17 17:49 Resp 17 03/20/17 17:00 BP 130/81 03/20/17 17:49 Pulse Ox 95 03/20/17 17:00 - Labs Result Diagrams: 03/18/17 05:15 03/18/17 05:15 Assessment & Plan - Assessment and Plan (Free Text) Plan: Dx: Recent NSTEMI-(Troponins dropping w/o SOB-angina) Recent giant inflamed post neck cyst w drainage Dysphagia-will get new swallowing eval-Pt very anxious to restart some solid foods This consultarion done under my direct supervision Elvia Devlin MD FACS
[2017-03-20] MEDS: Latanoprost 2.5 ml Opht Soln OU SCH (21:36)
[2017-03-21] MEDS: Albuterol-Ipratrop 3 mg / 0.5 (3 ml) UD IH SCH ×4 (04:08→20:03)
[2017-03-21 08:34] VITALS: RESP 18; O2SAT 96
[2017-03-21] MEDS: Levothyroxine 25 MCG TAB PO SCH (09:20)
[2017-03-21] MEDS: Nystatin 100,000 Units/gm Topical Pow(15 gm) TOP SCH ×2 (09:20→17:10)
[2017-03-21] MEDS: Potassium Chloride 10 mEq ER Tab PO SCH (09:20)
--- NOTE | 2017-03-21 10:59 | PN ---
DATE: 03/21/2017 The patient was admitted to the hospital for shortness of breath, cough, congestive heart failure. The patient has past history of hypothyroidism, degenerative arthritis, weakness of both legs, inability to walk, benign prostatic hyperplasia, chronic lung disease. The patient is currently being treated for the respiratory difficulty and the congestive heart failure. He also has a post-surgical wound on the back of his neck. A large cyst was removed. The patient is not on any antibiotic currently. PHYSICAL EXAMINATION: VITAL SIGNS: His pulse is 69, blood pressure 130/80. The patient's O2 sat 95% on room air. His temperature 97.8. LUNGS: Clear. Occasional rhonchi heard. Crepitations also present. HEART: NSR. S1, S2 present. No murmurs. ABDOMEN: Soft. Liver, spleen not palpable. CENTRAL NERVOUS SYSTEM: He is conscious, rational, oriented, but he has weakness of his muscles of the lower leg and the patient has difficulty in walking. At home, he has a hoist to lift him out of bed into the wheelchair. Currently, the patient is being followed up regarding the respiratory status and request for a swallowing evaluation has been done because the patient had difficulty in swallowing. He also has wound care for the neck wound on the back of his neck. MEDICATIONS: Consist of Flomax 0.4 mg daily. He is on respiratory treatment with DuoNeb, Coreg 6.25 mg b.i.d., Lasix 40 mg daily. The patient is on prednisone 10 mg daily and Synthroid 25 mcg daily. He is on a heart healthy diet, which is thickened so that he can swallow. The patient's overall prognosis is guarded. Condition is improving. We will continue current management. Ju Seymour MD cc: [phone] TT: 03/21/2017 10:58:11 Confirmation # [id number] Dictation # [id number] MTDD
--- NOTE | 2017-03-21 16:04 | CP.PCM.PCO ---
Physician Communication Note - Physician Communication Note Physician Communication Note: Dysphagia 3 diet started-leaving sutures in for now
[2017-03-21 18:51] VITALS: BP 116/72; PULSE 66; TEMP 98
--- NOTE | 2017-03-22 11:08 | PQF CHF ---
03/22/17 Dr. Barnett, You document CHF in one of your notes. Please indicate whether this is acte/ chronic, diastolic, systolic, or both. Thank you. Clarification of your documentation is requested to better reflect the severity of illness and intensity of treatment of your patient. Indicators present [x] Diagnosis of CHF and/or history of CHF [x] BNP > 200 [] Imaging Finding of Pulmonary Edema /Pleural Effusions [] Fluid/Volume Overload [] Pitting edema [] Ejection Fraction < 40% (Indicative of Systolic Heart Failure) [x] Ejection Fraction > 40% (Indicative of Diastolic Heart Failure) [x] Dyspnea / Orthopenea / Paroxysmal Nocturnal Dyspnea [] Other: Location in the medical record that reflects the above clinical findings: [ Patient was admitted with SOB, high BNP, and vascular congestion on CXR. ] Treatment Provided: [Patient's Lasix was increased to twice a day. ] PHYSICIAN'S RESPONSE Based on your medical judgment of the clinical indicators outlined above, are you treating this patient for a known or suspected: [] Acute CHF [] Systolic [] Diastolic [] Combined [] Chronic CHF [] Systolic [] Diastolic [] Combined [x] Acute on Chronic CHF []Systolic [] Diastolic [x] Combined [] CHF due hypertension [] Acute systolic []Chronic systolic [] Acute/ chronic systolic [] Other, please indicate: [] [] If Unable to Determine, please check the box, sign and date. Present On Admission (POA) Indicator: [x] Present at the time of admission [] Not present at the time of admission [] Clinically Undetermined In responding to this query, please exercise your independent professional judgment. The fact that a question is asked does not imply that any particular answer is desired or expected. Thank you for your clarification on this documentation. If you have any questions please call:[ ] * Thank you, [ ] seamless tube drawer ABRAN
--- NOTE | 2017-03-22 17:45 | DS ---
This is an 86-year-old male with history of recent surgery on the back of his neck for a la rge sebaceous cyst, inability to walk, weakness of both legs, congestive heart failure, atherosclerot ic heart disease, gout and hypothyroidism who presented to the hospital with severe shortness of donna th and cough. The patient was unable to catch his breath and was brought to the Emergency Room by levi dunbar. PHYSICAL EXAMINATION: VITAL SIGNS: Pulse 86, temperature 98.3, blood pressure 142/77, 96% on room air. HEAD: Normocephalic. NECK: The patient's neck is short and restricted. LUNGS: Trachea central. Positive wheezing. Diminished breath sounds with occasional crepitations. HEART: Normal sinus rhythm, sinus tachycardia. ABDOMEN: Soft. Liver, spleen not palpable. No tenderness, no masses. CENTRAL NERVOUS SYSTEM: The patient is conscious. HOSPITAL COURSE: The patient was admitted for shortness of breath, rule out acute bronchitis, COPD v ersus congestive heart failure. Cardiology with Dr. Ferguson and Dr. Arias was consulted. The paul ent's chest x-ray did show venous congestion. His Lasix was increased to twice a day. With this, th e patient did diurese well. Extremity ultrasound was done, which was negative for DVT. The patient also was started on respiratory treatments. He stilled complained of a cough and was started on IV S madalyn-Medrol. With this, his cough did seem to subside. He was tapered off the steroids to prednisone and discharged home in improved condition. DISCHARGE DIAGNOSES: Chronic obstructive pulmonary disease, acute diastolic heart failure, hypothyro idism, BPH and arthritis. DISCHARGE MEDICATIONS: Coreg 6.25 mg once a day, Flomax 0.4 mg once a day, potassium chloride 20 mEq daily, Lasix 40 mg once a day, Synthroid 25 mcg daily, allopurinol 100 mg twice a day, levothyroxine 25 mcg daily, DuoNeb q. 6 hours. Zamzam Seymour MD cc: [phone] TT: 03/22/2017 17:44:25 sharmila
== END 2017-03-21 21:00 | disposition home or self-care (01) | DRG 291 ==
LOC: ED 18:02 → ERH 20:12 → 2RNO 23:00 → 3RNO 03-18 14:30
PROVIDERS: ADMIT Internal Medicine; ATTEND Internal Medicine
DX: I13.0 Hypertensive heart and chronic kidney disease with heart failure and stage 1 through stage 4 chronic kidney disease, or unspecified chronic kidney disease (principal); I50.43 Acute on chronic combined systolic (congestive) and diastolic (congestive) heart failure; D64.9 Anemia, unspecified; R13.10 Dysphagia, unspecified; E03.9 Hypothyroidism, unspecified; N18.9 Chronic kidney disease, unspecified; H40.9 Unspecified glaucoma; I25.10 Atherosclerotic heart disease of native coronary artery without angina pectoris; J45.909 Unspecified asthma, uncomplicated; M10.9 Gout, unspecified; M19.90 Unspecified osteoarthritis, unspecified site; N40.0 Benign prostatic hyperplasia without lower urinary tract symptoms; Z85.038 Personal history of other malignant neoplasm of large intestine; Z92.3 Personal history of irradiation; Z92.21 Personal history of antineoplastic chemotherapy; I25.2 Old myocardial infarction; R40.2412 Glasgow coma scale score 13-15, at arrival to emergency department; R53.1 Weakness; J98.8 Other specified respiratory disorders; R26.2 Difficulty in walking, not elsewhere classified

== ENCOUNTER 2017-08-29 10:09 | Inpatient (IN) | payer MEDICARE, OTHER ==
[2017-08-29 10:16] VITALS: BMI 35.5
--- NOTE | 2017-08-29 11:16 | ED PDOC ---
Arrival/HPI - General Chief Complaint: Shortness Of Breath Time Seen by Provider: 08/29/17 10:20 Historian: Patient, Family, EMS - History of Present Illness Narrative History of Present Illness (Text): 08/29/17 11:05 Rey Sanchez is an 86 year old male, whose past medical history includes CHF , COPD, CAD, hypertension, CKD, anemia, and colon cancer, is brought in by EMS for shortness of breath and AMS noticed by his this morning. According to , patient was breathing rapidly and not making sense when asked questions. Patient was placed on oxygen and brought to emergency department and states he now appears improved. Patient is asymptomatic and unsure why he is here. Patient denies fever, chest pain, dysuria, or other complaints. PMD: Dr. Seymour Time/Duration: Prior to Arrival Symptom Onset: Sudden Symptom Course: Improving Past Medical History - Provider Review Nursing Documentation Reviewed: Yes - Infectious Disease Hx of Infectious Diseases: None - Tetanus Immunization Tetanus Immunization: Unknown - Cardiac Hx Cardiac Disorders: Yes - Pulmonary Hx Chronic Obstructive Pulmonary Disease (COPD): No - Neurological HX Cerebrovascular Accident: No - HEENT Hx Glaucoma: Yes (L) - Renal Hx Renal Failure: No - Endocrine/Metabolic Hx Hypothyroidism: Yes - Hematological/Oncological Hx Anemia: Yes (blood transfusion) Hx Cancer: Yes (colon ca dx 2004) Hx Chemotherapy: Yes (and radiation completed) - Integumentary Hx Dermatological Disorder: No - Musculoskeletal/Rheumatological Hx Musculoskeletal Disorders: Yes (RT FOOT TOE WITH HINGE PLACEMENT) Hx Arthritis: Yes (left arm) Hx Falls: Yes - Gastrointestinal Hx Gastroesophageal Reflux: No - Genitourinary/Gynecological Hx Prostate Problems: Yes Other/Comment: bph - Psychiatric Hx Emotional Abuse: No Hx Physical Abuse: No Hx Substance Use: No - Surgical History Other/Comment: Unspecified neck skin surgery--last week,colon surgery - Anesthesia Hx Anesthesia: No Hx Anesthesia Reactions: No Hx Malignant Hyperthermia: No - Suicidal Assessment Feels Threatened In Home Enviroment: No Family/Social History - Physician Review Nursing Documentation Reviewed: Yes Family/Social History: Unknown Family HX Smoking Status: Never Smoked Hx Alcohol Use: No Hx Substance Use: No Hx Substance Use Treatment: No Allergies/Home Meds Allergies/Adverse Reactions: Allergies No Known Allergies Allergy (Verified 03/15/17 18:10) Home Medications: Home Meds Medication Instructions Recorded Confirmed Carvedilol [Coreg] 6.25 mg PO DAILY 10/22/12 08/29/17 Levothyroxine [Synthroid] 25 mcg PO DAILY 10/22/12 08/29/17 Tamsulosin [Flomax] 0.4 mg PO DAILY 10/22/12 08/29/17 Allopurinol [Zyloprim] 100 mg PO BID 02/25/17 08/29/17 Paricalcitol 1 mcg PO DAILY 02/25/17 08/29/17 Furosemide [Lasix] 40 mg PO DAILY 03/03/17 08/29/17 Potassium Chloride [K-Dur 20 mEq 20 meq PO DAILY 03/03/17 08/29/17 ER Tab] Cholecalciferol [Vitamin D] 50,000 unit PO SUN 08/29/17 08/29/17 Review of Systems - Physician Review All systems were reviewed & negative as marked: Yes - Review of Systems Systems not reviewed;Unavailable: Altered Mental Status Constitutional: absent: Fevers Respiratory: SOB Cardiovascular: absent: Chest Pain Physical Exam - Physical Exam Narrative Physical Exam (Text): 08/29/17 Constitutional: No acute distress. Head: Normocephalic. Atraumatic. Eyes: PERRL. ENT: (+) Dry mucous membranes. Neck: Supple. Cardiovascular: Tachycardia Chest: No tenderness. Respiratory: (+) Bibasilar crackles. Pulse oxymetry 80% GI: Soft. Nontender. Nondistended. Back: No CVA tenderness. Musculoskeletal: No tenderness or swelling of extremities. Skin: No rash. Neurologic: Alert, no focal deficit. Vital Signs Reviewed: Yes Vital Signs Temp Pulse Resp BP Pulse Ox 08/29/17 11:53 97 H 27 H 116/75 96 08/29/17 11:43 98 08/29/17 10:16 97.4 F L 104 H 22 99/77 L 91 L Medical Decision Making ED Course and Treatment: 08/29/17 Progress Notes: EKG: Ordered, reviewed, and independently interpreted the EKG. Rate : 114 BPM Rhythm : NSR Interpretation : No obvious ST elevations. Poor baseline. 08/29/17 13:05 Chest X-ray: Creator : Larry Bhatt MD COMPARISON: Comparison is made to 03/17/2017 FINDINGS: LUNGS: Interval worsening of heterogeneous densities at the lower lungs left more than right. The differential diagnosis includes pulmonary congestion/ edema. The possibility of pneumonia in the left lower lobe is not totally excluded. PLEURA: Small bilateral pleural effusions are noted. CARDIOVASCULAR: Cardiomegaly is again noted. OSSEOUS STRUCTURES: No significant abnormalities. VISUALIZED UPPER ABDOMEN: Normal. OTHER FINDINGS: None. IMPRESSION: Cardiomegaly and pulmonary vascular congestion. Heterogeneous opacities at the lower lobes larger on the left. Correlate clinically for pneumonia. Small bilateral pleural effusions. Aspirin, Lasix administered. Dr. Barnett accepts patient to telemetry. Evaluated by ICU, not recommended for ICU admission at this time. Will add antibiotics for CXR opacities despite no fever or leukocytosis. Will place on slow IV hydration given history of CHF. Will send for CT for transaminitis, Dr. Barnett will follow up. On re-examination, no abdominal tenderness and patient denies abdominal pain. - Lab Interpretations Lab Results: 08/29/17 11:55 08/29/17 11:55 Lab Results 08/29/17 12:49: Urine Color Yellow, Urine Appearance Cloudy, Urine pH 5.5, Ur Specific [place] >= 1.030, Urine Protein 30 H, Urine Glucose (UA) Negative, Urine Ketones Trace H, Urine Blood Large H, Urine Nitrate Negative, Urine Bilirubin Negative, Urine Urobilinogen 0.2, Ur Leukocyte Esterase Negative, Urine RBC 2 - 5, Urine WBC Negative, Ur Epithelial Cells 3 - 4, Urine Bacteria Trace 08/29/17 11:55: PT 12.8 H, INR 1.16 H, APTT 23.9 L 08/29/17 11:55: WBC 7.8, RBC 4.89, Hgb 13.8 L, Hct 45.8, MCV 93.7, MCH 28.2, MCHC 30.1 L, RDW 17.4 H, Plt Count 167, MPV 8.8, Gran % 81.1 H, Lymph % (Auto) 12.6 L, [place] % (Auto) 6.1 H, Eos % (Auto) 0.1 L, Baso % (Auto) 0.1, Gran # 6.29 , Lymph # 1.0 L, [place] # 0.5, Eos # 0.0, Baso # 0.01 08/29/17 11:55: Sodium 143, Potassium 5.9 H* D, Chloride 99, Carbon Dioxide 37 H , Anion Gap 13, BUN 44 H, Creatinine 1.8 H, Est GFR ( Amer) 43, Est GFR ( Non-Af Amer) 36, Random Glucose 115 H, Calcium 9.7, Total Bilirubin 0.8, AST 694 H, ALT 532 H, Alkaline Phosphatase 72, Total Creatine Kinase 30 L, Troponin I 0.46 H* D, NT-Pro-B Natriuret Pep 70618 H, Total Protein 7.5, Albumin 3.8, Globulin 3.7, Albumin/Globulin Ratio 1.0 L, Lipase 42 I have reviewed the lab results: Yes - RAD Interpretation Radiology Orders: 08/29/17 11:12 CHEST PORTABLE [RAD] Stat [place] Soaping Machine Operator: Radiologist - EKG Interpretation Interpreted by ED Physician: Yes Type: 12 lead EKG - Medication Orders Current Medication Orders: Allopurinol (Zyloprim) 100 mg PO BID TRACY Carvedilol (Coreg) 6.25 mg PO DAILY TRACY Sodium Chloride (Sodium Chloride 0.9%) 1,000 mls @ 60 mls/hr IV .[id number] STA Stop: 08/30/17 06:25 Last Admin: 08/29/17 14:55 Dose: 60 mls/hr eMAR Start Stop Document 08/29/17 14:55 LA (Rec: 08/29/17 14:55 LA [id number]) Intravenous Solution Start Date 08/29/17 Start Time 14:55 Latanoprost (Xalatan Opht) 0 ml OU HS TRACY Levothyroxine Sodium (Synthroid) 25 mcg PO DAILY TRACY Tamsulosin HCl (Flomax) 0.4 mg PO DAILY TRACY Discontinued Medications Aspirin (Aspirin) 325 mg PO STAT STA Stop: 08/29/17 12:53 Furosemide (Lasix) 20 mg IVP STAT STA Stop: 08/29/17 12:54 Ceftriaxone Sodium (Rocephin 1 Gram Ivpb) 1 gm in 100 mls @ 200 mls/hr IVPB STAT STA PRN Reason: Protocol Stop: 08/29/17 14:16 Last Admin: 08/29/17 14:54 Dose: 200 mls/hr eMAR Start Stop Document 08/29/17 14:54 LA (Rec: 08/29/17 14:54 LA [id number]) Intravenous Solution Start Date 08/29/17 Start Time 14:54 Azithromycin (Zithromax 500mg In Ns) 500 mg in 250 mls @ 167 mls/hr IVPB STAT STA PRN Reason: Protocol Stop: 08/29/17 15:16 - Scribe Statement The provider has reviewed the documentation as recorded by the Scribe Marie Ackerman Provider Scribe Attestation: All medical record entries made by the Scribe were at my direction and personally dictated by me. I have reviewed the chart and agree that the record accurately reflects my personal performance of the history, physical exam, medical decision making, and the department course for this patient. I have also personally directed, reviewed, and agree with the discharge instructions and disposition. Disposition/Present on Arrival - Present on Arrival Any Indicators Present on Arrival: No History of DVT/PE: No History of Uncontrolled Diabetes: No Urinary Catheter: No History of Decub. Ulcer: No History Surgical Site Infection Following: None - Disposition Have Diagnosis and Disposition been Completed?: Yes Diagnosis: CHF exacerbation, NSTEMI (non-ST elevated myocardial infarction), Dehydration, Transaminitis Disposition: HOSPITALIZED Disposition Time: 12:54 Patient Plan: Admission, Telemetry Condition: GUARDED
[2017-08-29 12:14] LABS: BASO # 0.01 K/mm3 (0.0-2.0); BASO % 0.1 % (0.0-3.0); EOS % 0.1 % (1.5-5.0); GRAN # 6.29 (1.4-6.5); GRAN % 81.1 % (50.0-68.0); HEMATOCRIT 45.8 % (42.0-52.0); LYMPH % 12.6 % (22.0-35.0); MEAN CELL VOLUME 93.7 fl (80.0-105.0); MEAN CORPUSCULAR HEMOGLOBIN 28.2 pg (25.0-35.0); MEAN CORPUSCULAR HGB CONC 30.1 g/dl (31.0-37.0); MEAN PLATELET VOLUME 8.8 fl (7.0-11.0); MONO # 0.5 (0.1-0.6); MONO % 6.1 % (1.0-6.0); RED CELL DISTRIBUTION WIDTH 17.4 % (11.5-14.5); WHITE BLOOD COUNT 7.8 10^3/ul (4.5-11.0)
[2017-08-29 12:22] LABS: INR 1.16 (0.93-1.08); PARTIAL THROMBOPLASTIN TIME 23.9 Seconds (25.1-36.5)
[2017-08-29 12:36] LABS: BILIRUBIN,TOTAL 0.8 mg/dL (0.2-1.3); CALCIUM 9.7 mg/dL (8.4-10.5); TOTAL PROTEIN 7.5 g/dL (5.8-8.3)
[2017-08-29 12:51] LABS: POTASSIUM 5.9 mmol/L (3.6-5.0)
--- NOTE | 2017-08-29 13:02 | RAD ---
HISTORY: dyspnea, hypoxia COMPARISON: Comparison is made to 03/17/2017 FINDINGS: LUNGS: Interval worsening of heterogeneous densities at the lower lungs left more than right. The differential diagnosis includes pulmonary congestion/ edema. The possibility of pneumonia in the left lower lobe is not totally excluded. PLEURA: Small bilateral pleural effusions are noted. CARDIOVASCULAR: Cardiomegaly is again noted. OSSEOUS STRUCTURES: No significant abnormalities. VISUALIZED UPPER ABDOMEN: Normal. OTHER FINDINGS: None. IMPRESSION: Cardiomegaly and pulmonary vascular congestion. Heterogeneous opacities at the lower lobes larger on the left. Correlate clinically for pneumonia. Small bilateral pleural effusions.
[2017-08-29 13:06] LABS: TROPONIN I 0.46 ng/mL
[2017-08-29 13:31] LABS: PH,URINE 5.5 (4.7-8.0); URINE BILIRUBIN NEGATIVE (NEGATIVE); URINE BLOOD LARGE (NEGATIVE); URINE GLUCOSE (UA) NEGATIVE (NEGATIVE); URINE KETONE TRACE mg/dL (NEGATIVE); URINE LEUKOCYTE ESTERASE NEGATIVE Leu/uL (NEGATIVE); URINE PROTEIN 30 mg/dL (<30 mg/dL); URINE UROBILINOGEN 0.2 E.U./dL (<1 E.U./dL)
[2017-08-29 13:33] LABS: URINE APPEARANCE CLOUDY (CLEAR); URINE COLOR YELLOW (YELLOW)
[2017-08-29] MEDS ORDERED: Sodium Chloride 0.9% 1,000 ML IV STA (13:46)
[2017-08-29] MEDS ORDERED: cefTRIAXone 1 gm 1 GM/100 ML BAG IVPB STA (13:47)
[2017-08-29] MEDS ORDERED: Azithromycin 500MG/NS 250ml 500 MG/250 ML BAG IVPB STA (13:47)
[2017-08-29 13:56] LABS: URINE BACTERIA TRACE (NEG); URINE WBC NEGATIVE /hpf (0-6)
--- NOTE | 2017-08-29 14:51 | CP.PCM.CON ---
History of Present Illness - History of Present Illness History of Present Illness: MICU Consult Note HPI:Pt is 86yo male with PMHx of CHF, COPD, CAD, HTN, CKD, baseline Cr 1.2, anemia, colon ca, brought in by EMS for SOB and AMS. As per the this morning she noted him to be SOB and confused. Pt's denies fever, chills, chest pain, palpitations AGUILA, dizziness. Pt endorses cough dry non productive for 2-3 days, with associated SOB. No other constitutional symptoms. As per the patient is currently at baseline, conversing. In the ER aferile, HD stable, comfortable on 2LNC, sat 99%. PMHx as above PSHx as above Allergies NKDA Meds as per EMR ROS as above FHx NC Review of Systems - Review of Systems Review of Systems: as per HPI Past Patient History - Infectious Disease Hx of Infectious Diseases: None - Tetanus Immunizations Tetanus Immunization: Unknown - Past Social History Smoking Status: Never Smoked - CARDIAC Hx Cardiac Disorders: Yes - PULMONARY Hx Chronic Obstructive Pulmonary Disease (COPD): No - NEUROLOGICAL HX Cerebrovascular Accident: No - HEENT Hx Glaucoma: Yes (L) - RENAL Hx Renal Failure: No - ENDOCRINE/METABOLIC Hx Hypothyroidism: Yes - HEMATOLOGICAL/ONCOLOGICAL Hx Anemia: Yes (blood transfusion) Hx Cancer: Yes (colon ca dx 2004) Hx Chemotherapy: Yes (and radiation completed) - INTEGUMENTARY Hx Dermatological Problems: No - MUSCULOSKELETAL/RHEUMATOLOGICAL Hx Musculoskeletal Disorders: Yes (RT FOOT TOE WITH HINGE PLACEMENT) Hx Arthritis: Yes (left arm) Hx Falls: Yes - GASTROINTESTINAL Hx Gastroesophageal Reflux: No - GENITOURINARY/GYNECOLOGICAL Hx Prostate Problems: Yes Other/Comment: bph - PSYCHIATRIC Hx Emotional Abuse: No Hx Physical Abuse: No Hx Substance Use: No - SURGICAL HISTORY Other/Comment: Unspecified neck skin surgery--last week,colon surgery - ANESTHESIA Hx Anesthesia: No Hx Anesthesia Reactions: No Hx Malignant Hyperthermia: No Meds Allergies/Adverse Reactions: Allergies Allergy/AdvReac Type Severity Reaction Status Date / Time No Known Allergies Allergy Verified 03/15/17 18:10 - Medications Medications: Current Medications Sodium Chloride (Sodium Chloride 0.9%) 1,000 mls @ 60 mls/hr IV .[id number] STA Stop: 08/30/17 06:25 Azithromycin (Zithromax 500mg In Ns) 500 mg in 250 mls @ 167 mls/hr IVPB STAT STA PRN Reason: Protocol Stop: 08/29/17 15:16 Physical Exam - Head Exam Head Exam: ATRAUMATIC, NORMAL INSPECTION - Eye Exam Eye Exam: EOMI, Normal appearance - ENT Exam ENT Exam: Mucous Membranes Dry - Neck Exam Neck exam: Positive for: Normal Inspection - Respiratory Exam Respiratory Exam: NORMAL BREATHING PATTERN Additional comments: decreased breath sounds at bases L>R - Cardiovascular Exam Cardiovascular Exam: REGULAR RHYTHM, +S1, +S2 - GI/Abdominal Exam GI & Abdominal Exam: Normal Bowel Sounds, Soft - Extremities Exam Extremities exam: Positive for: full ROM - Neurological Exam Neurological exam: Alert, Oriented x3 Results - Vital Signs Recent Vital Signs: Last Vital Signs Temp 97.4 F L 08/29/17 10:16 Pulse 97 H 08/29/17 11:53 Resp 27 H 08/29/17 11:53 BP 116/75 08/29/17 11:53 Pulse Ox 96 08/29/17 11:53 - Labs Result Diagrams: 08/29/17 11:55 08/29/17 11:55 - Imaging and Cardiology Chest x-ray Status: Image reviewed by me Assessment & Plan - Assessment and Plan (Free Text) Assessment: 86yo male a/w SOB SOB AMS, resolved Acute on CKD Hyperkalemia Cough - currently afebrile, HD stable, comfortable on 2LNC, sat 99%, in no resp distress - on exam has decreased breath sounds at bases, and dry MM - Labs with worsening renal function, elevated, and hyperkalemia - EKG with no acute ischemic changes Recommend: - supp o2 as needed - would treat for CAP, Rocephin, Azithro - Duonebs PRN - would hold off further IV diureses - would gently hydrate, clinically dry, Cr 1.8 - obtain Renal and cardiology consult - FS control - GI ppx, DVT ppx - monitor on telemetry
--- NOTE | 2017-08-29 15:10 | CT ---
PROCEDURE: CT Abdomen and Pelvis without intravenous contrast HISTORY: LFTs COMPARISON: Chest, abdomen and pelvis CT without contrast 11/05/2016. TECHNIQUE: Helical CT of the abdomen and pelvis was performed without oral or intravenous contrast as per referring physician request. Contrast Dose: None. Radiation dose: Total exam DLP = 1880.43 mGy-cm. This CT exam was performed using one or more of the following dose reduction techniques: Automated exposure control, adjustment of the mA and/or kV according to patient size, and/or use of iterative reconstruction technique. FINDINGS: LOWER THORAX: Cardiomegaly is again appreciated with dense coronary artery calcifications and upper limits normal caliber ascending thoracic aorta at 3.9 cm. Mild bilateral pleural effusions are identified exerting compression atelectasis at the bilateral lower lobes. No pericardial effusion. LIVER: Unremarkable. No gross lesion or ductal dilatation. GALLBLADDER AND BILE DUCTS: Cholelithiasis identified within the gallbladder with sludge question within the lumen increased in density in the interval. There may be vicarious excretion of iodinated contrast material if there was a recent intravenous contrast injection. No pericholecystic fluid collection or definitive mural thickening appreciated although the gallbladder does appear distended. No definite dilatation of the common bile duct appreciable. PANCREAS: Unremarkable. No gross lesion or ductal dilatation. SPLEEN: Unremarkable. ADRENALS: Unremarkable. No mass. KIDNEYS AND URETERS: A stable exophytic cyst seen related to the lower pole right kidney and multiple left renal cysts are identified stable in appearance with a dominant cyst remaining for point 6 cm greatest dimension exophytic off the upper pole left kidney. No obstructive uropathy is identified in the interval or significant perinephric reaction. . VASCULATURE: No aortic aneurysm. 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 BOWEL: Surgical clips are identified in the right upper quadrant abdomen once again. The stomach is collapsed completely. There is no bowel obstruction pattern appreciated which surgical clips also identified in the right flank/right lower quadrant. Small bowel loops appear grossly nonfocal. A distal rectosigmoid anastomosis appears unremarkable once again. APPENDIX: A normal appendix is identified. PERITONEUM: Unremarkable. No free fluid. No free air. Multiple tiny supraumbilical ventral abdominal hernias are appreciated containing primarily fat, with the largest and most inferior containing a minimal segment of unincarcerated transverse colon. Prior left abdominal wall hematoma has resolved. LYMPH NODES: Unremarkable. No enlarged lymph nodes. BLADDER: A decompressed urinary bladder is appreciated with somewhat inhomogeneous mural density which could reflect cystitis. Clinically correlate. Prior Decker catheter has been removed. REPRODUCTIVE: Prostate gland remains normal size. BONES: No acute fracture. OTHER FINDINGS: None. IMPRESSION: 1. No overt CT sign of biliary tree dilatation with cholecystitis again seen in the gallbladder. No overt CT sign of cholecystitis, however, increased sludge or vicarious excretion of iodinated contrast material is seen in the lumen separate from the calculi. 2. Stable bilateral renal cystic changes. 3. Postop changes seen in the an including the right flank surgical clips and a retrocolic anastomosis, which appears stable once again. 4. Resolution of prior left abdominal wall hematoma. Further, multiple small ventral abdominal hernia is are identified with not and concentrated segment of mid transverse colon again seen involved in the most inferior. 5. Lesser additional findings as discussed above including incidental bilateral pleural effusion exerting compression atelectasis at the bilateral lower lobes.
[2017-08-29 16:06] LABS: VENOUS BLOOD PH 7.24 (7.32-7.43)
--- NOTE | 2017-08-29 17:54 | CT ---
PROCEDURE: CT scan brain dated 08/29/2017 HISTORY: sudden altered mental status COMPARISON: Comparison made with prior study dated 09/19/2016. TECHNIQUE: Axial computed tomography images were obtained through the head/brain without intravenous contrast. Radiation dose: Total exam DLP = 726.57 mGy-cm. This CT exam was performed using one or more of the following dose reduction techniques: Automated exposure control, adjustment of the mA and/or kV according to patient size, and/or use of iterative reconstruction technique. FINDINGS: HEMORRHAGE: No acute parenchymal, subarachnoid or extra-axial hemorrhage. Previously noted small amount of hemorrhage that was seen layering in the occipital horns on prior exam has resolved. BRAIN: Moderate to significant diffuse/confluent chronic white matter ischemic changes seen extending peripherally into the deep and subcortical white matter both cerebral hemispheres. Significant volume loss. Vascular calcifications are again seen. VENTRICLES: No obstructive hydrocephalus. Previously noted small amount CALVARIUM: There are no acute calvarial fractures. PARANASAL SINUSES: Unremarkable as visualized. No significant inflammatory changes. MASTOID AIR CELLS: Unremarkable as visualized. No inflammatory changes. OTHER FINDINGS: Interval removal large elliptical shaped soft tissue mass within the mid and right parasagittal subcutaneous soft tissues. IMPRESSION: No acute intracranial hemorrhage. Moderate to significant chronic white matter ischemic changes. Significant volume loss
[2017-08-29] MEDS ORDERED: Influenza Vaccine 60 mcg/0.5 mL SYR (4YR UP) IM ONE (18:03)
[2017-08-29] MEDS ORDERED: Pneumococcal 23-Valent Vaccine IM ONE (18:03)
[2017-08-30] MEDS: Latanoprost 2.5 ml Opht Soln OU SCH ×2 (00:15→21:51)
--- NOTE | 2017-08-30 00:50 | CP.PCM.PN ---
Subjective - Date & Time of Evaluation Date of Evaluation: 08/29/17 Time of Evaluation: 09:45 - Subjective Subjective: Patient seen at the request of his RN who stated pt came to the ER for c/o SOB and change in mental status.She requested me to evaluate and document NIHSS scale for pt. Chart reviewed,Code Stroke was activated in the ER when pt was noted to unresponsive,appropriate work up was done. Subsequenly,pt woke up with a sternal rub and was not able to recall what happened. He was admitted for NSTEMI and CHF,however there is no documentation of NIHSS scale. Pt seen,he is comfortable in bed,offers no complaints. VS:BP 100/65 P 80 RR 21 T 97.4 O2 sat 92% on 2l/Min by NC. PMH: CHF,COPD,CAD,ANEMIA COLON CA,CKD. Objective - Vital Signs/Intake and Output Vital Signs (last 24 hours): Temp Pulse Resp BP Pulse Ox 97.4 F L 86 16 123/76 98 08/29/17 10:16 08/29/17 22:00 08/29/17 20:49 08/29/17 20:49 08/29/17 20:49 - Medications Medications: Current Medications Allopurinol (Zyloprim) 100 mg PO BID [facility] Last Admin: 08/29/17 20:39 Dose: Not Given Carvedilol (Coreg) 6.25 mg PO DAILY [facility] Sodium Chloride (Sodium Chloride 0.9%) 1,000 mls @ 60 mls/hr IV .[id number] STA Stop: 08/30/17 06:25 Last Admin: 08/29/17 14:55 Dose: 60 mls/hr Ceftriaxone Sodium (Rocephin 1 Gram Ivpb) 1 gm in 100 mls @ 100 mls/hr IVPB DAILY [facility] PRN Reason: Protocol Azithromycin (Zithromax 500mg In Ns) 500 mg in 250 mls @ 167 mls/hr IVPB DAILY [facility] PRN Reason: Protocol Latanoprost (Xalatan Opht) 0 ml OU HS [facility] Last Admin: 08/30/17 00:15 Dose: 2.5 ml Levothyroxine Sodium (Synthroid) 25 mcg PO DAILY [facility] Tamsulosin HCl (Flomax) 0.4 mg PO DAILY [facility] - Labs Labs: PT 12.8 SECONDS (9.4-12.5) H 11/20/17 11:55 INR 1.16 (0.93-1.08) H 08/29/17 11:55 APTT 23.9 Seconds (25.1-36.5) L 08/29/17 11:55 - Constitutional Appears: No Acute Distress - Head Exam Head Exam: ATRAUMATIC, NORMAL INSPECTION, NORMOCEPHALIC - Eye Exam Eye Exam: PERRL Pupil Exam: PERRL - ENT Exam ENT Exam: Mucous Membranes Moist - Neck Exam Neck Exam: Normal Inspection - Respiratory Exam Respiratory Exam: Clear to Ausculation Bilateral - Cardiovascular Exam Cardiovascular Exam: REGULAR RHYTHM - GI/Abdominal Exam GI & Abdominal Exam: Soft, Hypoactive Bowel Sounds. absent: Tenderness - Extremities Exam Extremities Exam: absent: Calf Tenderness - Neurological Exam Neurological Exam: Alert, Awake, Oriented x3 Additional comments: Speech clear,no gross deficit. - Psychiatric Exam Psychiatric exam: Normal Affect - Skin Skin Exam: Dry, Normal Color, Warm Assessment and Plan - Assessment and Plan (Free Text) Assessment: CHF NSTEMI Syncope CKD Hyperkalemia Plan: Close observation Neuro watch q 2 h X 2 ,then Q 4 h x 5. Labs ordered for the AM Cardiology consult was requested. Neuro was consulted. NIHSS Scale ([place]) Time Performed: 21:45 - How Severe is the Stoke Baseline Level of Consciousness: 0=Alert LOC to Questions: 0=Both comments correct LOC to commands: 0=Obeys both correctly Best Gaze: 0=Normal Visual: 0=No visual loss Facial: 0=Normal Motor Arm - Left: 0=No drift Motor Arm - Right: 0=No drift Motor Leg - Left: 0=No drift Motor Leg - Right: 0=No drift Limb Ataxia: 0=Absent Sensory: 0=Normal Best Language: 0=No aphasia Dysarthia: 0=Normal articulation Extinction & Inattention (Neglect): 0=Normal, no object Score: 0 Risk Level: No Stroke Risk - Notes Notes: pt is not considered a candidate for TPA,as he has no evidence of ischemic stroke.
--- NOTE | 2017-08-30 02:13 | CON ---
DATE: I was asked to see the consult, but looking at the electronic record, the patient was seen by Dr. Ferguson in 03/2017, so we will transfer the care to Dr. Ferguson. I will write the consult for Dr. Ferguson. I will sign off for myself and inform Dr. Seymour. Asmita Coronado MD
--- NOTE | 2017-08-30 03:40 | HP ---
HISTORY OF PRESENT ILLNESS: This is an 86-year-old white male. The patient is seen in the emergency room. He was found by his this morning. He was unresponsive, breathing shallow respirations. The patient's color was rosado. The patient's called the emergency services 911 and the patient was brought to the emergency room by ambulance. The patient was unresponsive to start with. The patient was checked in the emergency room and put on oxygen. The patient was given IV fluids and the patient regained somewhat his activity, his breathing improved and his O2 saturation remained 90% on room air. When I saw the patient in the Emergency Room, he was still not responsive. He was not able to answer questions. PAST MEDICAL HISTORY: The patient's past history is significant. The patient has had history of similar event in the past. The patient had history of being treated for syncope in the past and head injury in the past. The patient has had history of atherosclerotic heart disease with congestive heart failure. The patient has history of degenerative arthritis with nonfunctioning lower extremities. The patient has been bed-ridden and from bed to wheelchair in the house. The patient also has past history of colorectal cancer for which he has had surgery and radiation, chemotherapy. The patient has history of benign prostatic hyperplasia and hyperuricemia. The patient has history of sepsis in the past. The patient had been treated with antibiotics and subsequently in skilled nursing care for infection. ALLERGIES: THE PATIENT HAS NO ALLERGIES FAR THE RECORDS REFLECT. PHYSICAL EXAMINATION: GENERAL: The patient is evaluated in the emergency room. He is not responsive when I saw the patient. He opens his eyes, but he does not respond verbally. The patient's color is pink. He is on oxygen. VITAL SIGNS: His pulse is 97, blood pressure 116/75, respirations are 27, and his O2 saturation is 96% on 5 liters of oxygen. CHEST: On clinical exam, there are some adventitious sounds, but no localizing signs. ABDOMEN: Soft and tender on the right side of the abdomen. No localizing signs and no rebound tenderness. EXTREMITIES: The patient's examination of the legs, there is evidence of weakness, but no other pathology is noted at this time. CENTRAL NERVOUS SYSTEM: The patient is unresponsive somewhat. There are no focal neurological deficits that I can elicit that will contribute to stroke-like event. LABORATORY DATA: The patient's blood work that is done in the hospital shows a white count of 7800, differential shows 81% neutrophils, there is shift to the left consistent with septic process. Chemistry: The potassium is 5.9, questionable hemolysis. The patient's BUN is 44, creatinine is 1.8, and GFR is 43. He has a stage III-IV chronic renal insufficiency. The patient has hypoglycemia with a sugar of 115. His liver enzymes are elevated. His AST is 694, ALT is 532, and his alkaline phosphatase is within normal limits. Troponin is elevated 0.46. His BNP is 23,700 which is consistent with chronic congestive heart disease. ASSESSMENT AND PLAN: The patient will be admitted to telemetry. The patient has possible [id number] elevation myocardial infarction with abnormal troponin. The patient has possible sepsis; elevated liver enzymes, lead to the patient having some hepatitis like process going on. The patient's hemoglobin is stable at this time. The patient will be seen by Cardiology Dr. Ferguson for his cardiac condition. We will have an Infectious Disease consult to see the patient for possible generalized infection, maybe originating in the abdomen. The patient's overall prognosis is guarded. At this time, his clinical condition is unstable. He will be treated with antibiotics, IV fluids and we will have all modalities of treatment afforded to him as needed. The will be aware of and we will talk to her about his condition and further management. ADDENDUM: I am reporting on his chest x-ray. There is evidence of infiltrate in the lung with pleural effusion. The possibility of pneumonia has to be considered seriously. Of course, the patient is being treated with antibiotics at this time. Ju Seymour MD [facility]
[2017-08-30 06:39] LABS: BASO # 0.01 K/mm3 (0.0-2.0); BASO % 0.1 % (0.0-3.0); EOS # 0.1 (0.0-0.7); EOS % 0.6 % (1.5-5.0); GRAN # 6.38 (1.4-6.5); GRAN % 76.2 % (50.0-68.0); HEMATOCRIT 43.4 % (42.0-52.0); LYMPH # 1.3 (1.2-3.4); LYMPH % 15.7 % (22.0-35.0); MEAN CELL VOLUME 96.9 fl (80.0-105.0); MEAN CORPUSCULAR HEMOGLOBIN 27.7 pg (25.0-35.0); MEAN CORPUSCULAR HGB CONC 28.6 g/dl (31.0-37.0); MEAN PLATELET VOLUME 8.7 fl (7.0-11.0); MONO # 0.6 (0.1-0.6); MONO % 7.4 % (1.0-6.0); RED CELL DISTRIBUTION WIDTH 17.4 % (11.5-14.5); WHITE BLOOD COUNT 8.4 10^3/ul (4.5-11.0)
[2017-08-30 07:03] LABS: BILIRUBIN,TOTAL 0.5 mg/dL (0.2-1.3); CALCIUM 9.1 mg/dL (8.4-10.5); POTASSIUM 5.4 mmol/L (3.6-5.0); TOTAL PROTEIN 6.2 g/dL (5.8-8.3); TROPONIN I 0.47 ng/mL
[2017-08-30] MEDS ORDERED: Sod Polystyrene Sulf 15 gm/60 ml Susp PO ONE (08:47)
--- NOTE | 2017-08-30 08:47 | CP.PCM.PN ---
Subjective - Date & Time of Evaluation Date of Evaluation: 08/30/17 Time of Evaluation: 08:20 - Subjective Subjective: Overnight, patient was lethargic and unresponsive. He was admitted yesterday with altered mental state. This morning, he is more awake and alert. Objective - Vital Signs/Intake and Output Vital Signs (last 24 hours): Temp Pulse Resp BP Pulse Ox 98.4 F 92 H 20 103/68 93 L 08/30/17 06:00 08/30/17 06:00 08/30/17 06:00 08/30/17 06:00 08/30/17 06:00 Intake and Output: 08/30/17 08/30/17 06:59 18:59 Intake Total 0 Output Total 0 Balance 0 - Medications Medications: Current Medications Allopurinol (Zyloprim) 100 mg PO BID [facility] Last Admin: 08/29/17 20:39 Dose: Not Given Carvedilol (Coreg) 6.25 mg PO DAILY [facility] Ceftriaxone Sodium (Rocephin 1 Gram Ivpb) 1 gm in 100 mls @ 100 mls/hr IVPB DAILY [facility] PRN Reason: Protocol Azithromycin (Zithromax 500mg In Ns) 500 mg in 250 mls @ 167 mls/hr IVPB DAILY [facility] PRN Reason: Protocol Latanoprost (Xalatan Opht) 0 ml OU HS [facility] Last Admin: 08/30/17 00:15 Dose: 2.5 ml Levothyroxine Sodium (Synthroid) 25 mcg PO DAILY [facility] Tamsulosin HCl (Flomax) 0.4 mg PO DAILY [facility] - Labs Labs: 08/30/17 05:45 08/30/17 05:45 PT 12.8 SECONDS (9.4-12.5) H 08/29/17 11:55 INR 1.16 (0.93-1.08) H 08/29/17 11:55 APTT 23.9 Seconds (25.1-36.5) L 08/29/17 11:55 - Head Exam Head Exam: ATRAUMATIC, NORMOCEPHALIC - Respiratory Exam Respiratory Exam: Decreased Breath Sounds, NORMAL BREATHING PATTERN - Cardiovascular Exam Cardiovascular Exam: +S1, +S2 - GI/Abdominal Exam GI & Abdominal Exam: Soft, Normal Bowel Sounds. absent: Tenderness - Neurological Exam Neurological Exam: Alert, Awake Assessment and Plan - Assessment and Plan (Free Text) Assessment: AMS r/o sepsis, pneumonia elevated troponin acute renal insufficiency chronic heart failure cholelithiasis with sludge Plan: Patient is awake and alert this morning. CT Head shows no acute changes. continue gentle IV hydration as patient has history of heart failure. Repeat troponin still elevated. Awaiting cardiology consultation with Dr. Ferguson. BUN/Cr trending upward despite IV hydration. Will consult nephrology with Dr. Izquierdo. Potassium has come down but still elevated at 5.4. Will order one dose of kayexelate. CT abd/pelvis shows cholelithiasis with gallbladder sludge. Abdomen is nontender this morning. Liver enzymes are still elevated. Will consult Dr. Rehman for GI evaluation. Infectious disease consultation appreciated. continue antibiotics as per ID.
--- NOTE | 2017-08-30 09:09 | CP.PCM.CON ---
<Michelle Cheema - Last Filed: 08/30/17 18:03> History of Present Illness - History of Present Illness History of Present Illness: PGY-2 neurology consult note for Dr. Abraham's service 86yo male with PMHx of CHF, COPD, CAD, HTN, CKD, anemia, colon ca presents to ED for SOB and AMS. Patient does not recall yesterdays events, history was taken from ED note. As per the yesterday morning she noted him to be breathing rapidly and confused. I ED patient was placed on O2. While in ED patient would not follow commends or speak. Code stroke was activated, after CT scan patient was alert and awake and responding to questions. This morning patient is alert and oriented to person, place and time. Pt's denies fever, chills, chest pain, palpitations headache, dizziness. He reports dry cough for 2 -3 days. No other constitutional symptoms. PMH: CHF, COPD, CAD, HTN, CKD, anemia, colon ca PSH: colon surgery social history: denies smoking, alcohol use and illicit drug use Allergies NKDA Meds as per EMR Review of Systems - Review of Systems All systems: reviewed and no additional remarkable complaints except (as stated in HPI) Past Patient History - Infectious Disease Hx of Infectious Diseases: None - Tetanus Immunizations Tetanus Immunization: Unknown - Past Social History Smoking Status: Never Smoked - CARDIAC Hx Cardiac Disorders: Yes (cad) Hx Congestive Heart Failure: Yes Hx Hypertension: Yes Hx Peripheral Edema: Yes (ble +1 pitting) - PULMONARY Hx Chronic Obstructive Pulmonary Disease (COPD): No - NEUROLOGICAL Hx Neurological Disorder: (syncope,weakness,hand tremors) HX Cerebrovascular Accident: No - HEENT Hx HEENT Problems: Yes (eyeglasses) Hx Glaucoma: Yes (L) - RENAL Hx Chronic Kidney Disease: Yes Hx Renal Failure: No - ENDOCRINE/METABOLIC Hx Hypothyroidism: Yes - HEMATOLOGICAL/ONCOLOGICAL Hx Anemia: Yes (blood transfusion) Hx Cancer: Yes (colon ca dx 2004) Hx Chemotherapy: Yes (and radiation completed) - INTEGUMENTARY Hx Dermatological Problems: Yes Other/Comment: dry thin eccymotic skin both arms, dry lips to mouth, right great toe points upward, buttocks reddened, dry skin both feet, multiple age spots to back and chest, neck cyst excised and is healed - MUSCULOSKELETAL/RHEUMATOLOGICAL Hx Falls: Yes (past) - GASTROINTESTINAL Hx Gastrointestinal Disorders: Yes (obese) Hx Gastroesophageal Reflux: No - GENITOURINARY/GYNECOLOGICAL Hx Incontinence: Yes (urine and stool) Hx Prostate Problems: Yes (bph) - PSYCHIATRIC Hx Substance Use: No - SURGICAL HISTORY Other/Comment: Unspecified neck skin surgery--last week,colon surgery - ANESTHESIA Hx Anesthesia: No Hx Anesthesia Reactions: No Hx Malignant Hyperthermia: No Meds Allergies/Adverse Reactions: Allergies Allergy/AdvReac Type Severity Reaction Status Date / Time No Known Allergies Allergy Verified 03/15/17 18:10 - Medications Medications: Current Medications Allopurinol (Zyloprim) 100 mg PO BID [facility] Last Admin: 08/29/17 20:39 Dose: Not Given Carvedilol (Coreg) 6.25 mg PO DAILY [facility] Ceftriaxone Sodium (Rocephin 1 Gram Ivpb) 1 gm in 100 mls @ 100 mls/hr IVPB DAILY [facility] PRN Reason: Protocol Azithromycin (Zithromax 500mg In Ns) 500 mg in 250 mls @ 167 mls/hr IVPB DAILY [facility] PRN Reason: Protocol Latanoprost (Xalatan Opht) 0 ml OU HS [facility] Last Admin: 08/30/17 00:15 Dose: 2.5 ml Levothyroxine Sodium (Synthroid) 25 mcg PO DAILY [facility] Tamsulosin HCl (Flomax) 0.4 mg PO DAILY [facility] Physical Exam - Constitutional Appears: Well, No Acute Distress - Head Exam Head Exam: ATRAUMATIC, NORMAL INSPECTION, NORMOCEPHALIC - ENT Exam ENT Exam: Mucous Membranes Dry - Respiratory Exam Respiratory Exam: Clear to Auscultation Bilateral, NORMAL BREATHING PATTERN. absent: Decreased Breath Sounds, Rales, Rhonchi, Wheezes, Respiratory Distress - Cardiovascular Exam Cardiovascular Exam: REGULAR RHYTHM. absent: Tachycardia, Diastolic murmur, Systolic Murmur - GI/Abdominal Exam GI & Abdominal Exam: Normal Bowel Sounds, Soft. absent: Distended, Firm, Tenderness - Extremities Exam Extremities exam: Positive for: normal inspection. Negative for: pedal edema Additional comments: chronic arthritis in bilateral shoulder - Neurological Exam Neurological exam: Alert, CN II-XII Intact, Oriented x3 - Skin Skin Exam: Dry Results - Vital Signs Recent Vital Signs: Last Vital Signs Temp 98.4 F 08/30/17 06:00 Pulse 92 H 08/30/17 06:00 Resp 20 08/30/17 06:00 BP 103/68 08/30/17 06:00 Pulse Ox 93 L 08/30/17 06:00 - Labs Result Diagrams: 08/30/17 05:45 08/30/17 05:45 Labs: Laboratory Results - last 24 hr 08/29/17 08/29/17 08/29/17 15:44 15:47 17:08 WBC RBC Hgb Hct MCV MCH MCHC RDW Plt Count MPV Gran % Lymph % (Auto) [place] % (Auto) Eos % (Auto) Baso % (Auto) Gran # Lymph # [place] # Eos # Baso # pO2 156 H VBG pH 7.24 L VBG pCO2 94.0 H* VBG HCO3 40.3 H VBG Total CO2 43.2 H VBG O2 Sat (Calc) 99.1 H VBG Base Excess 9.0 H VBG Potassium 5.6 H Sodium 142.0 Chloride 105.0 Glucose 110 Lactate 0.9 FiO2 21.0 Potassium Carbon Dioxide Anion Gap BUN Creatinine Est GFR ( Amer) Est GFR (Non-Af Amer) POC Glucose (mg/dL) 79 Random Glucose Calcium Total Bilirubin AST ALT Alkaline Phosphatase Lactate Dehydrogenase Total Creatine Kinase Troponin I Total Protein Albumin Globulin Albumin/Globulin Ratio Venous Blood Potassium 5.6 H Blood Type A POSITIVE Antibody Screen Negative BBK History Checked Patient has bt 08/30/17 08/30/17 05:45 05:45 WBC 8.4 RBC 4.48 Hgb 12.4 L Hct 43.4 MCV 96.9 D MCH 27.7 MCHC 28.6 L RDW 17.4 H Plt Count 163 MPV 8.7 Gran % 76.2 H Lymph % (Auto) 15.7 L [place] % (Auto) 7.4 H Eos % (Auto) 0.6 L Baso % (Auto) 0.1 Gran # 6.38 Lymph # 1.3 [place] # 0.6 Eos # 0.1 Baso # 0.01 pO2 VBG pH VBG pCO2 VBG HCO3 VBG Total CO2 VBG O2 Sat (Calc) VBG Base Excess VBG Potassium Sodium 144 Chloride 101 Glucose Lactate FiO2 Potassium 5.4 H Carbon Dioxide 36 H Anion Gap 12 BUN 56 H Creatinine 2.2 H Est GFR ( Amer) 34 Est GFR (Non-Af Amer) 28 POC Glucose (mg/dL) Random Glucose 80 Calcium 9.1 Total Bilirubin 0.5 AST 640 H ALT 629 H Alkaline Phosphatase 61 Lactate Dehydrogenase 1557 H Total Creatine Kinase 23 L Troponin I 0.47 H* Total Protein 6.2 Albumin 3.2 Globulin 3.1 Albumin/Globulin Ratio 1.0 L Venous Blood Potassium Blood Type Antibody Screen BBK History Checked Assessment & Plan - Assessment and Plan (Free Text) Assessment: 86yo male with PMHx of CHF, COPD, CAD, HTN, CKD, anemia, colon ca presents to ED for AMS most likely secondary to transient cerebral hypoperfusion with underlying metabolic derangements including electrolyte abnormalities and possible PNE. 1. AMS 2. NSTEMI 3. Hyperkalemia 4. JENNIFER 5. PNE 6. transaminitis - CT head showed no acute infarcts - MRI negative for infarction - avoid systolic blood pressure drops - asa 81 - Lipitor 40 - monitor electrolytes, replace as needed - follow up cardiology recommendation case reviewed and discussed with attending, Dr. Abraham. <Hector Abraham - Last Filed: 08/31/17 09:20> Meds - Medications Medications: Current Medications Allopurinol (Zyloprim) 100 mg PO BID [facility] Last Admin: 08/30/17 17:41 Dose: 100 mg Aspirin (Aspirin Chewable) 81 mg PO DAILY [facility] Atorvastatin Calcium (Lipitor) 40 mg PO DIN [facility] Last Admin: 08/30/17 17:41 Dose: 40 mg Carvedilol (Coreg) 6.25 mg PO DAILY [facility] Last Admin: 08/30/17 10:43 Dose: 6.25 mg Ceftriaxone Sodium (Rocephin 1 Gram Ivpb) 1 gm in 100 mls @ 100 mls/hr IVPB DAILY [facility] PRN Reason: Protocol Last Admin: 08/30/17 10:39 Dose: 100 mls/hr Azithromycin (Zithromax 500mg In Ns) 500 mg in 250 mls @ 167 mls/hr IVPB DAILY [facility] PRN Reason: Protocol Last Admin: 08/30/17 10:38 Dose: 167 mls/hr Latanoprost (Xalatan Opht) 0 ml OU HS [facility] Last Admin: 08/30/17 21:51 Dose: 2.5 ml Levothyroxine Sodium (Synthroid) 25 mcg PO DAILY [facility] Last Admin: 08/30/17 10:43 Dose: 25 mcg Tamsulosin HCl (Flomax) 0.4 mg PO DAILY [facility] Last Admin: 08/30/17 10:43 Dose: 0.4 mg Results - Vital Signs Recent Vital Signs: Last Vital Signs Temp 98 F 08/31/17 06:00 Pulse 82 08/31/17 06:00 Resp 20 08/31/17 06:00 BP 103/57 L 08/31/17 06:00 Pulse Ox 96 08/31/17 06:00 - Labs Result Diagrams: 08/31/17 06:00 08/31/17 06:00 Labs: Laboratory Results - last 24 hr 08/29/17 08/30/17 08/31/17 22:30 23:55 06:00 WBC RBC Hgb Hct MCV MCH MCHC RDW Plt Count MPV Gran % Lymph % (Auto) [place] % (Auto) Eos % (Auto) Baso % (Auto) Gran # Lymph # [place] # Eos # Baso # Sodium Potassium Chloride Carbon Dioxide Anion Gap BUN Creatinine Est GFR ( Amer) Est GFR (Non-Af Amer) Random Glucose Calcium Phosphorus Magnesium Total Bilirubin Direct Bilirubin AST ALT Alkaline Phosphatase Total Protein Albumin Globulin Albumin/Globulin Ratio Procalcitonin 0.16 L Thyroxine (T4) 4.9 L TSH 3rd Generation 3.88 Stool Occult Blood Positive H 08/31/17 08/31/17 06:00 06:00 WBC 10.1 D RBC 4.29 Hgb 11.9 L Hct 41.9 L MCV 97.7 MCH 27.7 MCHC 28.4 L RDW 17.5 H Plt Count 166 MPV 9.0 Gran % 78.8 H Lymph % (Auto) 14.0 L [place] % (Auto) 6.3 H Eos % (Auto) 0.7 L Baso % (Auto) 0.2 Gran # 7.95 H Lymph # 1.4 [place] # 0.6 Eos # 0.1 Baso # 0.02 Sodium 145 Potassium 3.9 Chloride 102 Carbon Dioxide 35 H Anion Gap 12 BUN 67 H Creatinine 2.7 H Est GFR ( Amer) 27 Est GFR (Non-Af Amer) 22 Random Glucose 104 Calcium 8.6 Phosphorus 8.2 H Magnesium 2.5 H Total Bilirubin 0.4 Direct Bilirubin 0.4 AST 268 H D ALT 476 H Alkaline Phosphatase 57 Total Protein 6.1 Albumin 3.1 Globulin 3.0 Albumin/Globulin Ratio 1.0 L Procalcitonin Thyroxine (T4) TSH 3rd Generation Stool Occult Blood Attending/Attestation - Attestation I have personally seen and examined this patient.: Yes I have fully participated in the care of the patient.: Yes I have reviewed all pertinent clinical information: Yes
--- NOTE | 2017-08-30 09:51 | CARD ---
APPROVED REPORT EKG Measurement Heart [id number] <Conclusion> Poor ECG trace with baseline artifact S. tachycardia NSSTW changes Possible IMI, old No change
--- NOTE | 2017-08-30 10:02 | CARD ---
APPROVED REPORT EKG Measurement Heart [id number] <Conclusion> Normal sinus rhythm Inferior infarct, old PRWP Possible septal SD, age unknown NSSTW changes Prolonged QTc No change
[2017-08-30] MEDS: Azithromycin 500MG/NS 250ml 500 MG/250 ML BAG IVPB SCH (10:38)
[2017-08-30] MEDS: cefTRIAXone 1 gm 1 GM/100 ML BAG IVPB SCH (10:39)
[2017-08-30] MEDS: Levothyroxine 25 MCG TAB PO SCH (10:43)
--- NOTE | 2017-08-30 11:41 | CARD ---
APPROVED REPORT EKG Measurement Heart [id number] <Conclusion> Normal sinus rhythm Inferior infarct, age undetermined PRWP Possible septal [place], age unknown NSSTW changes No change
--- NOTE | 2017-08-30 13:37 | CARD ---
APPROVED REPORT EXAM: Two-dimensional and M-mode echocardiogram with Doppler and color Doppler. INDICATION Dyspnea 2D DIMENSIONS IVSd1.7 (0.7-1.1cm)LVDd3.2 (3.9-5.9cm) PWd1.9 (0.7-1.1cm)LVDs2.3 (2.5-4.0cm) FS (%) 29.1 %LVEF (%)57.3 (>50%) M-Mode DIMENSIONS Aortic Root3.20 (2.2-3.7cm)Aortic Cusp Exc.1.20 (1.5-2.0cm) Aortic Valve AoV Peak Tinojrdp184.0cm/[place] Peak GR.10mmHg Mitral Valve MV E Eybdqtrw62.1cm/sMV A Reddyjfj10.8cm/sE/A ratio0.7 TDI E/Lateral E'0.0E/Medial E'0.0 Tricuspid Valve TR Peak [id number] [id number] Peak Gr.40mmHg [id number] LEFT VENTRICLE The left ventricle is normal size. There is moderate concentric left ventricular hypertrophy. The left ventricular function is normal. The left ventricular ejection fraction is within the normal range. There is normal LV segmental wall motion. RIGHT VENTRICLE The right ventricle is normal size. The right ventricular systolic function is normal. ATRIA The left atrium size is normal. The right atrium is mildly dilated. The interatrial septum is intact with no evidence for an atrial septal defect. AORTIC VALVE The aortic valve is moderately calcified. There is mild aortic regurgitation. Hemodynamically significant valvular aortic stenosis cannot be excluded. MITRAL VALVE The mitral valve is normal in structure. There is no mitral valve regurgitation noted. TRICUSPID VALVE The tricuspid valve is normal in structure. There is moderate tricuspid regurgitation. PULMONIC VALVE The pulmonary valve is normal in structure. GREAT VESSELS The aortic root is normal in size. The IVC is normal in size and collapses >50% with inspiration. PERICARDIAL EFFUSION There is no pleural effusion. There is no pericardial effusion. <Conclusion> Dilated LA. Moderate concentric LVH. Normal LV systolic function. Aortic valve is calcified with restricted leaflet excursion. Visualizatin is suboptimal. Probable mild . Mild AI. Moderate TR.
--- NOTE | 2017-08-30 13:56 | MRI ---
PROCEDURE: MRI BRAIN WITHOUT CONTRAST HISTORY: code stroke COMPARISON: None. TECHNIQUE: Multiplanar, multisequence MR images of the brain were obtained without intravenous contrast enhancement. FINDINGS: HEMORRHAGE: None DWI: No evidence of an acute or early subacute infarction. BRAIN PARENCHYMA: No mass effect or edema. Chronic microvascular changes are seen in the periventricular white matter. There is mild to moderate atrophy. VENTRICLES: Unremarkable. No hydrocephalus. CRANIUM: Unremarkable. ORBITS: Grossly unremarkable. PARANASAL SINUSES/MASTOIDS: Clear VASCULAR SYSTEM: Skull base flow voids intact. OTHER FINDINGS: None. IMPRESSION: No acute intracranial findings
--- NOTE | 2017-08-30 18:24 | CP.PCM.CON ---
<Cecilia Marcano - Last Filed: 08/30/17 18:26> History of Present Illness - History of Present Illness History of Present Illness: Seen and examined at bedside earlier this afternoon, chart reviewed. Request for GI consult is for elevated LFT. HPI: This is an 86-year-old male with a PMH of syncope, CHF, atherosclerotic heart disease, degenerative arthritis with nonfunctioning lower extremities, patient is bedridden and wheelchair bound in-house, and h/o colon cancer w/s/p hemicolectomy and chemotherapy. the patient was found by his yesterday morning unresponsive with shallow breathing. The patient was brought to the ER by ambulance, the patient was placed on oxygen, given IV fluids and respiratory status improved but the patient was unresponsive. Currently the patient is awake and alert, he had a CT scan of the head which was negative for acute hemorrhage or infarct. Also, had CT scan of abdomen and pelvis which reports postop changes including right flank surgical and red show red O retro-colic anastomosis that is stable. The patient left abdominal wall hematoma is resolved but does show multiple small ventral abdominal hernia no obstruction, also noted to have cholelithiasis and questionable sl, no dilatation or evidence of cholecystitis. See [facility] for full CT scan report. The patient and review of labs is noted to have elevated LFT, mainly AST/ALT. The patient [place] [address] and elevated troponin and LDH. The patient denies nausea, vomiting, or abdominal pain. No S OB or chest pain. CXR results reviewed: pulmonary/vascular congestion, bilateral infiltrates. PMH: HTN, Colon/rectal cancer w/ chemotherapy, OA, hypothyroid, gout, CHF, AAA, Degenerative arthiritis,atherosclerotic heart disease, gallstones PSH: hemicolectomy, last colon 2-3 years ago Allergies: NKDA Meds: MAR reviewed Family hx: noncontributory Social hx: denies smoking, etoh, drugs ROS: systems reviewed with positive findings, see HPI Past Patient History - Infectious Disease Hx of Infectious Diseases: None - Tetanus Immunizations Tetanus Immunization: Unknown - Past Social History Smoking Status: Never Smoked - CARDIAC Hx Cardiac Disorders: Yes (cad) Hx Congestive Heart Failure: Yes Hx Hypertension: Yes Hx Peripheral Edema: Yes (ble +1 pitting) - PULMONARY Hx Chronic Obstructive Pulmonary Disease (COPD): No - NEUROLOGICAL Hx Neurological Disorder: (syncope,weakness,hand tremors) HX Cerebrovascular Accident: No - HEENT Hx HEENT Problems: Yes (eyeglasses) Hx Glaucoma: Yes (L) - RENAL Hx Chronic Kidney Disease: Yes Hx Renal Failure: No - ENDOCRINE/METABOLIC Hx Hypothyroidism: Yes - HEMATOLOGICAL/ONCOLOGICAL Hx Anemia: Yes (blood transfusion) Hx Cancer: Yes (colon ca dx 2004) Hx Chemotherapy: Yes (and radiation completed) - INTEGUMENTARY Hx Dermatological Problems: Yes Other/Comment: dry thin eccymotic skin both arms, dry lips to mouth, right great toe points upward, buttocks reddened, dry skin both feet, multiple age spots to back and chest, neck cyst excised and is healed - MUSCULOSKELETAL/RHEUMATOLOGICAL Hx Falls: Yes (past) - GASTROINTESTINAL Hx Gastrointestinal Disorders: Yes (obese) Hx Gastroesophageal Reflux: No - GENITOURINARY/GYNECOLOGICAL Hx Incontinence: Yes (urine and stool) Hx Prostate Problems: Yes (bph) - PSYCHIATRIC Hx Substance Use: No - SURGICAL HISTORY Other/Comment: Unspecified neck skin surgery--last week,colon surgery - ANESTHESIA Hx Anesthesia: No Hx Anesthesia Reactions: No Hx Malignant Hyperthermia: No Meds Allergies/Adverse Reactions: Allergies Allergy/AdvReac Type Severity Reaction Status Date / Time No Known Allergies Allergy Verified 03/15/17 18:10 - Medications Medications: Current Medications Allopurinol (Zyloprim) 100 mg PO BID [facility] Last Admin: 08/30/17 17:41 Dose: 100 mg Aspirin (Aspirin Chewable) 81 mg PO DAILY [facility] Atorvastatin Calcium (Lipitor) 40 mg PO DIN [facility] Last Admin: 08/30/17 17:41 Dose: 40 mg Carvedilol (Coreg) 6.25 mg PO DAILY [facility] Last Admin: 08/30/17 10:43 Dose: 6.25 mg Ceftriaxone Sodium (Rocephin 1 Gram Ivpb) 1 gm in 100 mls @ 100 mls/hr IVPB DAILY [facility] PRN Reason: Protocol Last Admin: 08/30/17 10:39 Dose: 100 mls/hr Azithromycin (Zithromax 500mg In Ns) 500 mg in 250 mls @ 167 mls/hr IVPB DAILY [facility] PRN Reason: Protocol Last Admin: 08/30/17 10:38 Dose: 167 mls/hr Latanoprost (Xalatan Opht) 0 ml OU HS [facility] Last Admin: 08/30/17 00:15 Dose: 2.5 ml Levothyroxine Sodium (Synthroid) 25 mcg PO DAILY [facility] Last Admin: 08/30/17 10:43 Dose: 25 mcg Tamsulosin HCl (Flomax) 0.4 mg PO DAILY [facility] Last Admin: 08/30/17 10:43 Dose: 0.4 mg Physical Exam - Constitutional Appears: No Acute Distress - Eye Exam Eye Exam: Normal appearance. absent: Scleral icterus - ENT Exam ENT Exam: Mucous Membranes Moist - Neck Exam Neck exam: Positive for: Normal Inspection - Respiratory Exam Respiratory Exam: Decreased Breath Sounds, NORMAL BREATHING PATTERN. absent: Respiratory Distress - Cardiovascular Exam Cardiovascular Exam: +S1, +S2 - GI/Abdominal Exam GI & Abdominal Exam: Distended, Normal Bowel Sounds, Soft. absent: Guarding, Rebound, Tenderness - Extremities Exam Extremities exam: Positive for: pedal pulses present. Negative for: calf tenderness, pedal edema - Neurological Exam Neurological exam: Alert, Oriented x3 - Skin Skin Exam: Dry, Warm Results - Vital Signs Recent Vital Signs: Last Vital Signs Temp 98.1 F 08/30/17 12:00 Pulse 75 08/30/17 12:00 Resp 18 08/30/17 12:00 BP 88/59 L 08/30/17 12:00 Pulse Ox 93 L 08/30/17 06:00 - Labs Result Diagrams: 08/30/17 05:45 08/30/17 05:45 Labs: Laboratory Results - last 24 hr 08/29/17 08/29/17 08/30/17 15:44 22:30 05:45 WBC 8.4 RBC 4.48 Hgb 12.4 L Hct 43.4 MCV 96.9 D MCH 27.7 MCHC 28.6 L RDW 17.4 H Plt Count 163 MPV 8.7 Gran % 76.2 H Lymph % (Auto) 15.7 L Elbert % (Auto) 7.4 H Eos % (Auto) 0.6 L Baso % (Auto) 0.1 Gran # 6.38 Lymph # 1.3 Elbert # 0.6 Eos # 0.1 Baso # 0.01 Sodium Potassium Chloride Carbon Dioxide Anion Gap BUN Creatinine Est GFR ( Amer) Est GFR (Non-Af Amer) Random Glucose Calcium Total Bilirubin AST ALT Alkaline Phosphatase Lactate Dehydrogenase Total Creatine Kinase Troponin I Total Protein Albumin Globulin Albumin/Globulin Ratio Procalcitonin 0.16 L Blood Type A POSITIVE Antibody Screen Negative 08/30/17 05:45 WBC RBC Hgb Hct MCV MCH MCHC RDW Plt Count MPV Gran % Lymph % (Auto) Elbert % (Auto) Eos % (Auto) Baso % (Auto) Gran # Lymph # Elbert # Eos # Baso # Sodium 144 Potassium 5.4 H Chloride 101 Carbon Dioxide 36 H Anion Gap 12 BUN 56 H Creatinine 2.2 H Est GFR ( Amer) 34 Est GFR (Non-Af Amer) 28 Random Glucose 80 Calcium 9.1 Total Bilirubin 0.5 AST 640 H ALT 629 H Alkaline Phosphatase 61 Lactate Dehydrogenase 1557 H Total Creatine Kinase 23 L Troponin I 0.47 H* Total Protein 6.2 Albumin 3.2 Globulin 3.1 Albumin/Globulin Ratio 1.0 L Procalcitonin Blood Type Antibody Screen Assessment & Plan - Assessment and Plan (Free Text) Assessment: ASSESSMENT: AMS r/o Sepsis Elevated LFT, differentials to consider, hepatic congestion, cholelithiasis,low flow state CHF Cholelithiasis, now s/ sludge Elevated troponin ARF PLAN: trend LFT abdominal US avoid if possible hepatotoxic medication cardiology FU on IV antibiotics as per ID on Aspirin clear liquids, advance as tolerated. Thank you for this consult and for allowing us to participate in your patient care, veronicahter recommendation based upon clinical course. Seen and discussed w/ Dr. Rehman. <Luiza Rehman V - Last Filed: 08/30/17 21:02> Meds - Medications Medications: Current Medications Allopurinol (Zyloprim) 100 mg PO BID [facility] Last Admin: 08/30/17 17:41 Dose: 100 mg Aspirin (Aspirin Chewable) 81 mg PO DAILY [facility] Atorvastatin Calcium (Lipitor) 40 mg PO DIN [facility] Last Admin: 08/30/17 17:41 Dose: 40 mg Carvedilol (Coreg) 6.25 mg PO DAILY [facility] Last Admin: 08/30/17 10:43 Dose: 6.25 mg Ceftriaxone Sodium (Rocephin 1 Gram Ivpb) 1 gm in 100 mls @ 100 mls/hr IVPB DAILY [facility] PRN Reason: Protocol Last Admin: 08/30/17 10:39 Dose: 100 mls/hr Azithromycin (Zithromax 500mg In Ns) 500 mg in 250 mls @ 167 mls/hr IVPB DAILY [facility] PRN Reason: Protocol Last Admin: 08/30/17 10:38 Dose: 167 mls/hr Latanoprost (Xalatan Opht) 0 ml OU HS [facility] Last Admin: 08/30/17 00:15 Dose: 2.5 ml Levothyroxine Sodium (Synthroid) 25 mcg PO DAILY [facility] Last Admin: 08/30/17 10:43 Dose: 25 mcg Tamsulosin HCl (Flomax) 0.4 mg PO DAILY [facility] Last Admin: 08/30/17 10:43 Dose: 0.4 mg Results - Vital Signs Recent Vital Signs: Last Vital Signs Temp 97 F L 08/30/17 18:00 Pulse 80 08/30/17 18:00 Resp 18 08/30/17 18:00 BP 97/57 L 08/30/17 18:00 Pulse Ox 93 L 08/30/17 06:00 - Labs Result Diagrams: 08/30/17 05:45 08/30/17 05:45 Labs: Laboratory Results - last 24 hr 08/29/17 08/30/17 08/30/17 22:30 05:45 05:45 WBC 8.4 RBC 4.48 Hgb 12.4 L Hct 43.4 MCV 96.9 D MCH 27.7 MCHC 28.6 L RDW 17.4 H Plt Count 163 MPV 8.7 Gran % 76.2 H Lymph % (Auto) 15.7 L Elbert % (Auto) 7.4 H Eos % (Auto) 0.6 L Baso % (Auto) 0.1 Gran # 6.38 Lymph # 1.3 Elbert # 0.6 Eos # 0.1 Baso # 0.01 Sodium 144 Potassium 5.4 H Chloride 101 Carbon Dioxide 36 H Anion Gap 12 BUN 56 H Creatinine 2.2 H Est GFR ( Amer) 34 Est GFR (Non-Af Amer) 28 Random Glucose 80 Calcium 9.1 Total Bilirubin 0.5 AST 640 H ALT 629 H Alkaline Phosphatase 61 Lactate Dehydrogenase 1557 H Total Creatine Kinase 23 L Troponin I 0.47 H* Total Protein 6.2 Albumin 3.2 Globulin 3.1 Albumin/Globulin Ratio 1.0 L Procalcitonin 0.16 L Attending/Attestation - Attestation I have personally seen and examined this patient.: Yes I have fully participated in the care of the patient.: Yes I have reviewed all pertinent clinical information: Yes Notes (Text): this is an addendum to the GI consultation report dictated by Cecilia Yeung. on examination abdomen soft nontender A liver liver enzymes are mainly transaminases with a normal alkaline phosphatase, LDH significantly elevated . non-ST segment CT The most likely cause for the elevated LFTs probably secondary to hepatic congestion Follow-up with LFTs and amylase level , history of cholelithiasis. thank you very much for allowing us to precipitate in the care of the patient 08/30/17 21:00
--- NOTE | 2017-08-30 19:28 | CON ---
DATE: 08/30/2017 INDICATIONS: Shortness of breath, cough, altered mental status. HISTORY OF PRESENT ILLNESS: This is an 86-year-old man known to me from prior [facility] admissions, who was admitted through the emergency yesterday. Apparently, he was found to have an altered mental status, lethargic, also complaining of shortness of breath and cough. He came to the emergency room where he was found to be lethargic. A code stroke was called. He was admitted to telemetry after he woke up and his mental status improved. Presumed diagnoses include congestive heart failure and pneumonia based on abnormal chest x-ray. Also his troponin levels were elevated. He denies chest pain. This morning, there was shortness of breath, there was cough. There were no palpitations, claudication, edema, fever, chills, hemoptysis, abdominal pain, nausea, vomiting, diarrhea, constipation, melena. PAST MEDICAL HISTORY: Notable for coronary artery disease, congestive heart failure, hypertension, remote syncope, colon cancer with surgical resection, radiation therapy and chemotherapy, chronic kidney disease, anemia, gout, hypothyroidism. An echocardiogram, 10/2015, revealed normal LV function with left ventricular hypertrophy and aortic sclerosis. MEDICATIONS: At the time of admission, Coreg, Flomax, potassium chloride, Lasix, paricalcitol, Synthroid, vitamin D, Xalatan, and Zyloprim. ALLERGIES: NO MEDICATION ALLERGIES. FAMILY HISTORY: Noncontributory. SOCIAL HISTORY: He lives in home with his . He does not smoke or drink. REVIEW OF SYSTEMS: A 10-point review of systems otherwise unremarkable. PHYSICAL EXAMINATION: GENERAL: He is a well-developed elderly man lying in bed on telemetry, in no acute distress. VITAL SIGNS: He is in sinus rhythm at 92 beats per minute. He is afebrile. Blood pressure 103/68, respirations 16 to 21, O2 sat 92% to 98% on nasal cannula. HEENT: Reveals no neck vein distention, thyromegaly or carotid bruits. Mucous membranes moist. Conjunctivae pink. NECK: Supple. LUNGS: Lung raymundo clear. HEART: Reveals normal first and second heart sounds. There is a soft systolic murmur along the left sternal border. PMI not palpable. ABDOMEN: Soft, bowel sounds present. No mass, organomegaly, tenderness, rebound, guarding, CVA tenderness or palpable abdominal aortic aneurysm. EXTREMITIES: Reveal no cyanosis, clubbing or edema. NEUROLOGIC: He is awake, alert and oriented. SKIN: Warm and dry. No rash or cellulitis. PSYCHIATRIC: Normal as to mood and affect. LABORATORY DATA AND IMAGING: EKG demonstrates sinus rhythm. Poor R wave progression. Baseline artifact. Nonspecific ST-T wave changes. I do not see acute ST changes. Portable chest x-ray reveals cardiomegaly with pulmonary vascular congestion, heterogenous opacities at the lower lobes, larger on the left and small bilateral pleural effusions. Abdomen and pelvis CT is noted. No advanced cholecystitis, etc. CT scan of the head was unremarkable, see report. White count normal. Platelet count normal. Hemoglobin 12.4, hematocrit 43.4. PT 12.8, INR 1.16, and PTT 23.9. Blood gas is noted. Electrolytes initially show a potassium of 5.9, BUN 44, creatinine 1.8. Repeat potassium 5.4, BUN 56, creatinine 2.2. CK 30 and 23. Troponin 0.46 and 0.47. Elevated liver function tests are noted. BNP 23,700. Urinalysis noted. IMPRESSION AND PLAN: Rey Sanchez is an 86-year-old man with shortness of breath, cough and abnormal chest x-ray, alerted mental status, which has improved. History of coronary artery disease. His troponins are elevated, but consistent with renal dysfunction. I do not think that this is due to acute myocardial infarction. He is admitted to telemetry. He will have neurologic evaluation, GI evaluation, ID evaluation, renal evaluation. He is on Coreg, aspirin, Flomax, Rocephin, Synthroid, Xalatan, azithromycin, and Zyloprim. I will repeat his EKG today. I will order an echocardiogram. I will review his old records. We will monitor I's and O's. Stool for occult blood. I will follow along with you and make additional recommendations based on his clinical course. Overall conservative course of cardiac care is anticipated. Robert Ferguson MD [facility]
--- NOTE | 2017-08-30 20:12 | CON ---
DATE: 08/30/2017 LOCATION: The patient is seen early this morning in room 271, bed 2. CHIEF COMPLAINT: Weakness times several days. HISTORY OF PRESENT ILLNESS: This is an 86-year-old male with a history of subarachnoid hemorrhage, hypothyroidism, colon cancer, hypertension, gout with a history of left arm cellulitis secondary to venous catheter, which was removed, history of osteoarthritis, healthcare-associated pneumonia, history of neck mass, and who in 02/2017 had a neck mass biopsy, which was more billing representative of a cyst and a hyperkeratotic material was found who was admitted through the emergency room yesterday, and in the emergency room, the patient was seen by Dr. Kike Bazzi yesterday who states the patient has CHF, COPD, coronary artery disease, colon cancer, and was brought in with shortness of breath, but no fevers or chills. No chest pain. The patient has had a history of chemotherapy and radiation for colon cancer. PAST MEDICAL HISTORY: Significant for subarachnoid hemorrhage, hypothyroidism, chronic obstructive lung disease, congestive heart failure, coronary artery disease, colon cancer with history of chemotherapy and radiation, and osteoarthritis. PAST SURGICAL HISTORY: Significant for right foot surgery. ALLERGIES: THE PATIENT HAS NO KNOWN ALLERGIES. MEDICATIONS AT HOME: Include Flomax, potassium, Synthroid, Lasix, vitamins, Coreg, and allopurinol. PHYSICAL EXAMINATION: GENERAL: The patient is in bed, appearing chronically ill, debilitated, and weak. VITAL SIGNS: Temperature of 97.4, heart rate of 92, which is up to 104, respiratory rate of 21, which is up to 27 with a blood pressure of 100/60, O2 saturation 91% saturation, and the patient has a BMI of 35. HEENT: Unremarkable. NECK: Supple. LUNGS: Have decreased breath sounds. HEART: Normal S1 and S2. ABDOMEN: Soft and nontender. No rebound or guarding. No masses. LABORATORY EXAMINATION: Reveals a white count of 8.4, hemoglobin of 12, and platelets of 163. Chemistries reveals a BUN of 56 and creatinine of 2.2. Alkaline phosphatase is normal. LFTs; AST of 640 and ALT of 629. Troponins are elevated at 0.46 and 0.47. Urinalysis reveals WBCs negative and microbiology is pending. consultation is reviewed and progress note is reviewed and then the patient had a chest x-ray, which is noted. CAT scan of the abdomen and pelvis, cardiomegaly is noted. Cholelithiasis is noted. CAT scan of the head is noted. Blood cultures ordered. Urine cultures are ordered. Sputum cultures are ordered. Urine for Legionella antigen is ordered. Procalcitonin is ordered. EKG results are nonspecific findings, accelerated junctional rhythm. ASSESSMENT AND PLAN: An 86-year-old male with history of subarachnoid hemorrhage, hypothyroidism, colon cancer, history of chemotherapy and radiation, history of coronary artery disease, chronic obstructive lung disease, congestive heart failure, hypertension, gout, osteoarthritis, history of left arm cellulitis, and port that has been removed, now presenting with tachycardia and dyspnea and weakness and found to have systemic inflammatory response syndrome with a non-ST elevation myocardial infarction with elevated troponins and with nonspecific EKG findings with acute kidney injury on chronic kidney disease. The patient's creatinine in March was 1.4 and on admission it was 1.8, which has gone up to 2.2 and we will check on the blood, urine culture, and reviewed the x-rays and currently on ceftriaxone and azithromycin and we will make further recommendations upon availability of initial results. We will follow closely with you. Overall prognosis is quite poor. Pending pancultures, procalcitonin, urine Legionella antigen, and we will make further recommendations. Jonathan Wilkins MD
--- NOTE | 2017-08-31 00:18 | CON ---
DATE: 08/30/2017 REFERRING MD: Dr. Barnett. REASON FOR CONSULTATION: Evaluation of the patient known to me who presents with an increased BUN and creatinine in the setting of CHF, possible pneumonia. HISTORY OF PRESENT ILLNESS: The patient is an 86-year-old white male, nonambulatory, lives at home with his , history of chronic kidney disease stage III with a baseline creatinine in the 1.3 range with a baseline BUN of 20, history of coronary artery disease, history of CHF, history of hypertension, hypothyroidism, history of colorectal cancer status post surgery and radiation therapy, history of severe degenerative osteoarthritis, seen by us earlier this year for left upper extremity wound infection with pseudomonas UTI and acute renal failure. His BUN and creatinine have fallen back to baseline levels. Echocardiogram done shows an ejection fraction of 57%, LVH, possible aortic stenosis with aortic insufficiency and tricuspid regurgitation. The patient was admitted to the hospital after having had a possible unresponsive episode at home according to his . He had become more short of breath. The patient at home had been on Lasix therapy with potassium tablets. He was noted to be mildly hyperkalemic on admission. His BUN on admission was 44 with a creatinine of 1.8. Today's BUN is 56, creatinine of 2.2, potassium was 5.9. It is currently 5.4. He did receive one dose of Kayexalate. The patient remained on mild IV fluid hydration. This was discontinued because his BNP level was 23,700 and his chest x-ray was positive for CHF and pulmonary vascular congestion. The patient at present is not receiving diuretic therapy. He remains on IV antibiotic therapy for possible pneumonia. The patient was evaluated by Neurology. He had a head CT and brain MRI which showed no acute findings. We are asked to evaluate the patient for his rising BUN and creatinine. PAST MEDICAL HISTORY: Significant for that of chronic kidney disease stage III with a baseline creatinine in the mid 1 range. History of ASHD with history of CHF, history of hypertension, history of hypothyroidism, history of colorectal cancer status post surgery and radiation therapy, history of osteoarthritis, DJD, the patient is essentially bedridden. Past history of pseudomonas UTI. History of mild anemia. 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 MEDICATIONS AT HOME: Include that of Flomax, potassium, vitamin D, Synthroid, eyedrops, oral Lasix, Coreg, and Zyloprim. ALLERGIES: THE PATIENT HAS NO KNOWN ALLERGIES TO MEDICATIONS. PRESENT MEDICATIONS IN HOSPITAL: Include that of aspirin, Coreg, Flomax, Lipitor, Rocephin, Synthroid, Xalatan ophthalmic ointment, Zithromax, and Zyloprim. SOCIAL HISTORY: The patient lives at home with his . No history of cigarette smoking. No history of alcohol use. FAMILY HISTORY: Father of old age. Mother of cancer, type unknown to the patient. REVIEW OF SYSTEMS: Mostly supplied by his . GENERAL: The patient's states appetite has been decent and no significant weight loss. ENT: Denies any hearing or visual problems. PULMONARY: Increased shortness of breath as noted above. No history of COPD. No history of emphysema. No history of bronchitis or asthma. CARDIAC: No chest pains. No palpitations. GI: No history of diarrhea. No history of nausea or vomiting. No history of abdominal pain, no history of constipation. : History of chronic kidney disease stage III. ENDOCRINE: No history of diabetes. MUSCULOSKELETAL: According to , joint pains allover, low back pain secondary to osteoarthritis and degenerative joint disease. NEUROLOGIC: No past history of CVA, TIA, seizures, or syncope. HEMATOLOGY/ONCOLOGY: History of mild anemia in the past, history of colorectal cancer. PSYCHIATRIC HISTORY: Negative. PHYSICAL EXAMINATION: GENERAL: The patient is currently seen on telemetry. He is in the room with his . The patient's is doing most of the answering of questions. The patient is responsive but is not answering on a timely manner. VITAL SIGNS: Blood pressure ranging from 88-103 systolic, diastolics ranging from 59-68. Pulse of 75 down from 92. Temperature 98.1. Respiratory rate is 18. HEENT: Exam shows him to be normocephalic, atraumatic. Conjunctivae are pink. Sclerae are nonicteric. Pupils appeared to be equal and reactive to light and accommodation. Posterior pharynx appears normal. NECK: Supple. No neck vein distention or thyromegaly. No lymphadenopathy. No bruits. CHEST: Clear to auscultation and percussion with decreased breath sounds at the bases and scattered basilar rhonchi. No rales or wheezing. CARDIOVASCULAR: Shows irregular rate and rhythm with no audible murmurs. The patient does have /AI/TR. No S3. No S4. No rub. ABDOMEN: Soft. Bowel sounds normal. No rebound, no guarding or masses. EXTREMITIES: Show no pitting edema. No cyanosis or clubbing. Diminished lower extremity pulses bilaterally. BACK: No CVAT. No spinal tenderness. NEUROLOGIC: Shows him to be alert. Orientation is difficult to assess. There are no gross focal motor or sensory deficits. LABORATORY DATA AND IMAGING: Admitting chest x-ray showed mild pulmonary vascular congestion with CHF, left greater than right infiltrates, possible underlying pneumonia with cardiomegaly. Abdominal CT scan showed bilateral renal cysts which appeared to be stable. No obstructive uropathy. Bilateral pleural effusions. Bilateral lower lobe lung infiltrates. Gallstones with sludge. No obstruction of the biliary tract. Head CT showed chronic white matter changes, no acute findings. Brain MRI showed no acute findings. EKG on admission showed a normal sinus rhythm. Labs, CBC, white blood cell count 8.4 today, hemoglobin 12.4 with a platelet count of 163,000. Coags, PT 12.8 with an INR of 1.16, PTT of 23.9. Blood gas on admission, CO2 of 156, venous blood gas pH 7.24, venous blood gas pCO2 of 94 with a bicarb of 40.3. Lactate level was normal at 0.9. This was on room air. Chemistries: On admission sodium was 143, today 144; potassium had dropped from 5.9 to 5.4 with mild hydration and Kayexalate. CO2 was elevated at 36. Chloride is 101. BUN is up from 44 to 56. His baseline BUN is around 20. Creatinine is up from 1.8 to 2.2; baseline creatinine is in the 1.3 to 1.5 range. Glucose is 80. Calcium is 9.1. Mild elevation of his liver enzymes. CPK level was normal. Mild elevation of troponin, but stable. BNP was elevated 22,700. Albumin was 3.2. Microbiology, urine cultures were negative. Blood cultures are negative at 24 hours. ASSESSMENT: 1. Acute renal failure superimposed on chronic kidney disease stage III. This is in the setting of possible pneumonia, congestive heart failure. The patient had been on diuretic therapy at home. During the first 24 hours of his hospitalization, he was given IV fluid hydration which had no positive effect on lowering his BUN and creatinine. Because of the clinical diagnosis of congestive heart failure, IV fluids were discontinued. The patient's family appropriately asked me if his kidney function worsens, what are the options. We did discuss the possibility of dialysis for fluid removal and for lowering his poison levels and for treating his hyperkalemia. There wishes are for him not to have any form of dialysis. The patient is 86 years old, soon to be 87. 2. History of chronic kidney disease stage III. 3. Possible pneumonia. The patient will continue on appropriate IV antibiotic therapy. 4. Congestive heart failure. The patient had been on diuretic therapy at home. I would hold diuretic therapy at this point in time as he appears to be comfortable, and I am worried about significant worsening of his BUN and creatinine. 5. Possible atherosclerotic heart disease. Valvular heart disease. Ejection fraction noted to be 57%. In all likelihood, there is no role here for ionotropic therapy to help improve cardiac output. 6. Elevated liver function tests. The patient had done this before. Evaluation of the biliary tract shows gallstones with sludge. No obstructive findings seen. 7. History of hypertension. The patient's blood pressure is currently in the low normal range, off blood pressure medication but continuing on low-dose Coreg. 8. History of hypothyroidism. The patient is started back on thyroid replacement therapy. 9. Past history of colorectal cancer. This appears to be stable. 10. History of severe osteoarthritis. The patient should avoid using any anti-inflammatories in light of his acute renal failure superimposed on chronic kidney disease stage III. PLAN: 1. As discussed with the patient's family, this is a difficult situation. IV fluid hydration cannot be given liberally in light of the fact that he is in CHF and presented to the hospital in congestive heart failure. The patient's urine output is not being adequately charted; it is charted as 0 mL for the first 24 hours. Presently, the patient does not have a Decker catheter. Perhaps, placement of a Decker catheter to more accurately monitor I's and O's. I will leave that decision up to Dr. Barnett in light of the fact that the patient is an elderly 86, almost 87-year-old patient; and perhaps placement of a catheter would not be accepted by the patient and family. 2. Need to monitor accurate I's and O's. 3. Follow daily labs. 4. Complete course of antibiotic therapy for his possible pneumonia. No evidence of UTI at this point in time. 5. Check thyroid function levels in light of his history of hypothyroidism. 6. Await recommendations of Cardiology. Perhaps, the patient has significant aortic stenosis which is responsible for renal hypoperfusion and low cardiac output. 7. Avoid all nephrotoxic agents. The patient should receive no anti-inflammatories in light of his elevated BUN and creatinine. 8. If over the next 24 hours BUN and creatinine continue to elevate, perhaps a very cautious IV fluid hydration if oral p.o. intake is not adequate. 9. Discussed with family the possibility of dialysis should his hyperkalemia be difficult to treat, CHF be difficult to control, and urine output would remain negligible. They do not want the patient to have any dialysis. Thank you for letting me partake and share in the care of your patient. Oral León MD
[2017-08-31 06:18] LABS: BASO # 0.02 K/mm3 (0.0-2.0); BASO % 0.2 % (0.0-3.0); EOS # 0.1 (0.0-0.7); EOS % 0.7 % (1.5-5.0); GRAN # 7.95 (1.4-6.5); GRAN % 78.8 % (50.0-68.0); HEMATOCRIT 41.9 % (42.0-52.0); LYMPH # 1.4 (1.2-3.4); MEAN CELL VOLUME 97.7 fl (80.0-105.0); MEAN CORPUSCULAR HEMOGLOBIN 27.7 pg (25.0-35.0); MEAN CORPUSCULAR HGB CONC 28.4 g/dl (31.0-37.0); MONO # 0.6 (0.1-0.6); MONO % 6.3 % (1.0-6.0); RED CELL DISTRIBUTION WIDTH 17.5 % (11.5-14.5); WHITE BLOOD COUNT 10.1 10^3/ul (4.5-11.0)
[2017-08-31 06:49] LABS: T4 4.9 ug/dL (5.5-11.0)
[2017-08-31 06:54] LABS: BILIRUBIN,DIRECT 0.4 mg/dL (0.0-0.4); BILIRUBIN,TOTAL 0.4 mg/dL (0.2-1.3); CALCIUM 8.6 mg/dL (8.4-10.5); MAGNESIUM 2.5 mg/dL (1.7-2.2); PHOSPHOROUS 8.2 mg/dL (2.5-4.5); POTASSIUM 3.9 mmol/L (3.6-5.0); TOTAL PROTEIN 6.1 g/dL (5.8-8.3)
[2017-08-31 07:03] LABS: THYROID STIMULATING HORMONE 3.88 mIU/mL (0.46-4.68)
--- NOTE | 2017-08-31 08:18 | CP.PCM.PN ---
Subjective - Date & Time of Evaluation Date of Evaluation: 08/31/17 Time of Evaluation: 07:45 - Subjective Subjective: Patient is seen this morning in room 271 bed 2. He is more awake and alert today. He denies abdominal pain. Objective - Vital Signs/Intake and Output Vital Signs (last 24 hours): Temp Pulse Resp BP Pulse Ox 98 F 82 20 103/57 L 96 08/31/17 06:00 08/31/17 06:00 08/31/17 06:00 08/31/17 06:00 08/31/17 06:00 Intake and Output: 08/31/17 08/31/17 06:59 18:59 Intake Total 670 Balance 670 - Medications Medications: Current Medications Allopurinol (Zyloprim) 100 mg PO BID [facility] Last Admin: 08/30/17 17:41 Dose: 100 mg Aspirin (Aspirin Chewable) 81 mg PO DAILY [facility] Atorvastatin Calcium (Lipitor) 40 mg PO DIN [facility] Last Admin: 08/30/17 17:41 Dose: 40 mg Carvedilol (Coreg) 6.25 mg PO DAILY [facility] Last Admin: 08/30/17 10:43 Dose: 6.25 mg Ceftriaxone Sodium (Rocephin 1 Gram Ivpb) 1 gm in 100 mls @ 100 mls/hr IVPB DAILY [facility] PRN Reason: Protocol Last Admin: 08/30/17 10:39 Dose: 100 mls/hr Azithromycin (Zithromax 500mg In Ns) 500 mg in 250 mls @ 167 mls/hr IVPB DAILY [facility] PRN Reason: Protocol Last Admin: 08/30/17 10:38 Dose: 167 mls/hr Latanoprost (Xalatan Opht) 0 ml OU HS [facility] Last Admin: 08/30/17 21:51 Dose: 2.5 ml Levothyroxine Sodium (Synthroid) 25 mcg PO DAILY [facility] Last Admin: 08/30/17 10:43 Dose: 25 mcg Tamsulosin HCl (Flomax) 0.4 mg PO DAILY [facility] Last Admin: 08/30/17 10:43 Dose: 0.4 mg - Labs Labs: 08/31/17 06:00 08/31/17 06:00 PT 12.8 SECONDS (9.4-12.5) H 08/29/17 11:55 INR 1.16 (0.93-1.08) H 08/29/17 11:55 APTT 23.9 Seconds (25.1-36.5) L 08/29/17 11:55 - Constitutional Appears: No Acute Distress - Head Exam Head Exam: ATRAUMATIC, NORMOCEPHALIC - Respiratory Exam Respiratory Exam: Decreased Breath Sounds, NORMAL BREATHING PATTERN - Cardiovascular Exam Cardiovascular Exam: +S1, +S2 - GI/Abdominal Exam GI & Abdominal Exam: Soft, Normal Bowel Sounds. absent: Tenderness - Neurological Exam Neurological Exam: Alert, Awake Assessment and Plan - Assessment and Plan (Free Text) Assessment: AMS Acute on chronic kidney disease Elevated troponin Acute on chronic diastolic heart failure Elevated LFTs r/o sepsis, pneumonia Hypothyroidism Cholelithiasis with sludge Plan: Patient's mental state has improved. He is awake and alert this morning. Patient's BUN and creatinine are trending upward; however potassium has normalized after dose of kayexelate. Discussed with nurse. Patient is incontinent of urine. We will place a irwin catheter in order to monitor his urine output. continue IV antibiotics as per infectious disease liver enzymes are trending downward. Possibly secondary to hepatic congestion U/S abdomen is pending. Patient received one dose of IV lasix in the ER. He is currently off Lasix due to acute on chronic kidney disease. Patient denies shortness of breath at this time. Elevated troponin likely due to CKD GI, Nephrology, ID, and Cardiology consults appreciated
--- NOTE | 2017-08-31 10:17 | US ---
HISTORY: Elevated LFt h/o gallstone COMPARISON: None. TECHNIQUE: Sonographic evaluation of the abdomen. FINDINGS: LIVER: Measures 13.7 cm. Increased echogenicity of the liver parenchyma. No mass. No intrahepatic bile duct dilatation. GALLBLADDER: Gallstones and sludge in the gallbladder. No focal tenderness or wall thickening COMMON BILE DUCT: Measures 3.3 mm. No stones. No dilatation. PANCREAS: Not visualized due to bowel gas RIGHT KIDNEY: Measures 7.7 x 4.2 x 5.3cm. Normal echogenicity. No calculus, mass, or hydronephrosis. LEFT KIDNEY: Measures 8.4 x 4.2 x 5.2cm. Normal echogenicity. No calculus, mass, or hydronephrosis. There is an upper pole cyst measuring 4 cm. There is a centrally located cyst measuring 3 cm. SPLEEN: Normal in size and contour. No mass. 8.7 x 4.0 x 5.4 cm AORTA: No aneurysmal dilatation. IVC: Unremarkable. OTHER FINDINGS: Left-sided pleural effusion IMPRESSION: Gallstones and sludge in the gallbladder. Left pleural effusion.
[2017-08-31] MEDS: Levothyroxine 25 MCG TAB PO SCH (10:30)
[2017-08-31] MEDS: Azithromycin 500MG/NS 250ml 500 MG/250 ML BAG IVPB SCH (10:31)
[2017-08-31] MEDS: cefTRIAXone 1 gm 1 GM/100 ML BAG IVPB SCH (10:31)
--- NOTE | 2017-08-31 13:17 | PN ---
DATE: 08/31/2017 SUBJECTIVE: The patient is seen sitting in bed on telemetry. He is currently comfortable. He denies any dyspnea at present. CURRENT MEDICATIONS: Include aspirin, carvedilol 6.25 mg daily, Flomax 0.4 mg daily, Lipitor 40 mg daily, Rocephin, Synthroid, Zithromax, Zyloprim, and Xalatan eyedrops. OBJECTIVE: GENERAL: He is a very elderly man who appears comfortable at rest. VITAL SIGNS: His blood pressure is 122/70, pulse of 86 and sinus, respirations are 16. He is afebrile. HEENT: No JVD. CHEST: Few scattered rhonchi heard. HEART: PMI normal position. Systolic murmur is noted at the base as well as at the lower left sternal border. ABDOMEN: Soft, nontender. Normoactive bowel sounds. EXTREMITIES: No edema. DIAGNOSTIC DATA: White count 10.1, hemoglobin and hematocrit 11.9 and 41.9 with platelet count of 166,000. Potassium 3.9, BUN and creatinine 67 and 2.7. AST and ALT 268 and 476, which is improving. TSH 3.8. Stools guaiac positive. Echocardiogram reveals left atrial enlargement with moderate concentric LVH, normal LV systolic function, and probable mild aortic stenosis as well as moderate tricuspid regurgitation. Imaging is suboptimal. IMPRESSION 1. Recent dyspnea, likely due to sepsis. Mildly decompensated congestive heart failure. 2. Coronary artery disease, doubt acute infarct at this time. 3. Elevated transaminases, now improving. 4. Cholelithiasis and sludge noted in gallbladder 5. Rest of problems as noted. RECOMMENDATIONS: His current medications should continue. Carvedilol can be increased to b.i.d. dosing, which would be appropriate. Hopefully, conservative management will be adequate in stabilization of his condition. If any surgical interventions were to be necessary, he would be at significantly increased risk given his age and comorbidities. We will be happy to follow along his hospital course and make further recommendations as appropriate. Kike Arias MD [facility]
--- NOTE | 2017-08-31 14:32 | CP.PCM.PN ---
<Cecilia Marcano - Last Filed: 08/31/17 14:34> Subjective - Date & Time of Evaluation Date of Evaluation: 08/31/17 Time of Evaluation: 09:50 - Subjective Subjective: Seen and examined at the bedside earlier today, the chart was reviewed. Patient had abdominal ultrasound earlier today and found to have gallstones and sludge, common bile duct measured 3.3 mm. Patient denies nausea, vomiting, or abdominal pain. Tolerating soft diet, patient positive stool guaiac. No reports of melena or bright red blood per rectum. Objective - Vital Signs/Intake and Output Vital Signs (last 24 hours): Temp Pulse Resp BP Pulse Ox 98 F 86 20 123/69 96 08/31/17 06:00 08/31/17 10:31 08/31/17 06:00 08/31/17 10:31 08/31/17 06:00 Intake and Output: 08/31/17 08/31/17 06:59 18:59 Intake Total 670 Balance 670 - Medications Medications: Current Medications Allopurinol (Zyloprim) 100 mg PO BID [facility] Last Admin: 08/31/17 10:30 Dose: 100 mg Aspirin (Aspirin Chewable) 81 mg PO DAILY [facility] Last Admin: 08/31/17 10:30 Dose: 81 mg Atorvastatin Calcium (Lipitor) 40 mg PO DIN [facility] Last Admin: 08/30/17 17:41 Dose: 40 mg Carvedilol (Coreg) 6.25 mg PO DAILY [facility] Last Admin: 08/31/17 10:31 Dose: 6.25 mg Ceftriaxone Sodium (Rocephin 1 Gram Ivpb) 1 gm in 100 mls @ 100 mls/hr IVPB DAILY [facility] PRN Reason: Protocol Last Admin: 08/31/17 10:31 Dose: 100 mls/hr Azithromycin (Zithromax 500mg In Ns) 500 mg in 250 mls @ 167 mls/hr IVPB DAILY [facility] PRN Reason: Protocol Last Admin: 08/31/17 10:31 Dose: 167 mls/hr Latanoprost (Xalatan Opht) 0 ml OU HS [facility] Last Admin: 08/30/17 21:51 Dose: 2.5 ml Levothyroxine Sodium (Synthroid) 25 mcg PO DAILY [facility] Last Admin: 08/31/17 10:30 Dose: 25 mcg Tamsulosin HCl (Flomax) 0.4 mg PO DAILY [facility] Last Admin: 08/31/17 10:30 Dose: 0.4 mg - Labs Labs: 08/31/17 06:00 08/31/17 06:00 PT 12.8 SECONDS (9.4-12.5) H 08/29/17 11:55 INR 1.16 (0.93-1.08) H 08/29/17 11:55 APTT 23.9 Seconds (25.1-36.5) L 08/29/17 11:55 - Constitutional Appears: No Acute Distress - Head Exam Head Exam: NORMOCEPHALIC - Eye Exam Eye Exam: Normal appearance. absent: Scleral icterus - ENT Exam ENT Exam: Mucous Membranes Moist - Respiratory Exam Respiratory Exam: NORMAL BREATHING PATTERN. absent: Respiratory Distress - Cardiovascular Exam Cardiovascular Exam: +S1, +S2 - GI/Abdominal Exam GI & Abdominal Exam: Soft, Normal Bowel Sounds. absent: Guarding, Tenderness, Rebound - Extremities Exam Extremities Exam: absent: Calf Tenderness - Neurological Exam Neurological Exam: Awake, Oriented x3 - Skin Skin Exam: Dry, Warm Assessment and Plan - Assessment and Plan (Free Text) Assessment: ASSESSMENT: AMS r/o Sepsis Elevated LFTmay likely be secondary to hepatic congestion, LFT trending down mainly elevation in his AST/ALT alkaline phosphatase normal Positive guaiac CHF Cholelithiasis, now with sludge Elevated troponin ARF PLAN: trend LFT avoid if possible hepatotoxic medication cardiology FU on IV antibiotics as per ID on Aspirin on soft diet Monitor H&H Start Pepcid 20mg BID Seen and discussed w/ Dr. Rehman <Luiza Rehman V - Last Filed: 09/01/17 00:08> Objective - Vital Signs/Intake and Output Vital Signs (last 24 hours): Temp Pulse Resp BP Pulse Ox 98.6 F 74 18 115/78 96 09/01/17 00:01 09/01/17 00:01 09/01/17 00:01 09/01/17 00:01 09/01/17 00:01 Intake and Output: 08/31/17 09/01/17 18:59 06:59 Intake Total 720 Balance 720 - Medications Medications: Current Medications Allopurinol (Zyloprim) 100 mg PO BID [facility] Last Admin: 08/31/17 17:30 Dose: 100 mg Aspirin (Aspirin Chewable) 81 mg PO DAILY [facility] Last Admin: 08/31/17 10:30 Dose: 81 mg Atorvastatin Calcium (Lipitor) 40 mg PO DIN [facility] Last Admin: 08/31/17 17:34 Dose: Not Given Carvedilol (Coreg) 6.25 mg PO DAILY [facility] Last Admin: 08/31/17 10:31 Dose: 6.25 mg Famotidine (Pepcid) 20 mg PO 1000,2200 [facility] Last Admin: 08/31/17 21:14 Dose: 20 mg Ceftriaxone Sodium (Rocephin 1 Gram Ivpb) 1 gm in 100 mls @ 100 mls/hr IVPB DAILY [facility] PRN Reason: Protocol Last Admin: 08/31/17 10:31 Dose: 100 mls/hr Azithromycin (Zithromax 500mg In Ns) 500 mg in 250 mls @ 167 mls/hr IVPB DAILY [facility] PRN Reason: Protocol Last Admin: 08/31/17 10:31 Dose: 167 mls/hr Sodium Chloride (Sodium Chloride 0.45%) 1,000 mls @ 80 mls/hr IV .[id number] [facility] Last Admin: 08/31/17 19:50 Dose: 80 mls/hr Latanoprost (Xalatan Opht) 0 ml OU HS [facility] Last Admin: 08/31/17 21:15 Dose: 2.5 ml Levothyroxine Sodium (Synthroid) 25 mcg PO DAILY [facility] Last Admin: 08/31/17 10:30 Dose: 25 mcg Tamsulosin HCl (Flomax) 0.4 mg PO DAILY [facility] Last Admin: 08/31/17 10:30 Dose: 0.4 mg - Labs Labs: 08/31/17 16:20 08/31/17 06:00 PT 12.8 SECONDS (9.4-12.5) H 08/29/17 11:55 INR 1.16 (0.93-1.08) H 08/29/17 11:55 APTT 23.9 Seconds (25.1-36.5) L 08/29/17 11:55 Attending/Attestation - Attestation I have personally seen and examined this patient.: Yes I have fully participated in the care of the patient.: Yes I have reviewed all pertinent clinical information, including history, physical exam and plan: Yes Notes (Text): this is an addendum to the GE progress report dictated by Cecilia Marcano APN. The patient was seen and evaluated here earlier On examination abdomen soft nontender Transaminases shows downward trend The most likely cause for the elevated transaminases probably due to hepatic congestion Sonogram showed gallstones and sludge but CBD normal Would recommend to follow up LFT and the LDH Thank you very much for allowing us to participate in the care of the patient 09/01/17 00:07
--- NOTE | 2017-08-31 15:23 | CP.PCM.PN ---
Subjective - Date & Time of Evaluation Date of Evaluation: 08/31/17 Time of Evaluation: 11:00 - Subjective Subjective: Comfortable in bed, no fevers overnight, no abdominal pain currently, no vomiting. Objective - Vital Signs/Intake and Output Vital Signs (last 24 hours): Temp Pulse Resp BP Pulse Ox 98 F 82 20 103/57 L 96 08/31/17 06:00 08/31/17 06:00 08/31/17 06:00 08/31/17 06:00 08/31/17 06:00 Intake and Output: 08/31/17 08/31/17 06:59 18:59 Intake Total 670 Balance 670 - Medications Medications: Current Medications Allopurinol (Zyloprim) 100 mg PO BID [facility] Last Admin: 08/30/17 17:41 Dose: 100 mg Aspirin (Aspirin Chewable) 81 mg PO DAILY [facility] Atorvastatin Calcium (Lipitor) 40 mg PO DIN [facility] Last Admin: 08/30/17 17:41 Dose: 40 mg Carvedilol (Coreg) 6.25 mg PO DAILY [facility] Last Admin: 08/30/17 10:43 Dose: 6.25 mg Ceftriaxone Sodium (Rocephin 1 Gram Ivpb) 1 gm in 100 mls @ 100 mls/hr IVPB DAILY [facility] PRN Reason: Protocol Last Admin: 08/30/17 10:39 Dose: 100 mls/hr Azithromycin (Zithromax 500mg In Ns) 500 mg in 250 mls @ 167 mls/hr IVPB DAILY [facility] PRN Reason: Protocol Last Admin: 08/30/17 10:38 Dose: 167 mls/hr Latanoprost (Xalatan Opht) 0 ml OU HS [facility] Last Admin: 08/30/17 21:51 Dose: 2.5 ml Levothyroxine Sodium (Synthroid) 25 mcg PO DAILY [facility] Last Admin: 08/30/17 10:43 Dose: 25 mcg Tamsulosin HCl (Flomax) 0.4 mg PO DAILY [facility] Last Admin: 08/30/17 10:43 Dose: 0.4 mg - Labs Labs: 08/31/17 06:00 08/31/17 06:00 PT 12.8 SECONDS (9.4-12.5) H 08/29/17 11:55 INR 1.16 (0.93-1.08) H 08/29/17 11:55 APTT 23.9 Seconds (25.1-36.5) L 08/29/17 11:55 - Constitutional Appears: Non-toxic, No Acute Distress - Head Exam Head Exam: NORMAL INSPECTION - ENT Exam ENT Exam: Mucous Membranes Moist - Respiratory Exam Respiratory Exam: Decreased Breath Sounds - Cardiovascular Exam Cardiovascular Exam: +S1, +S2 - GI/Abdominal Exam GI & Abdominal Exam: Soft. absent: Tenderness Assessment and Plan - Assessment and Plan (Free Text) Plan: asssessment systemic inflammatory response Syndrome, R/O sepsis due to left lower lobe community-acquired pneumonia with possible CHF history of left posterior neck mass, sebaceous cyst S/P surgical excision history of left arm cellulitis probably related to venous catheter S/P removal history of asymtpmatic bacteriuria with gram negative bacilli gout history of subarachnoid hemorrhage hypothyroidism colon cancer S/P hemicolectomy HTN osteoarthritis history of healthcare-associated pneumonia osteoporosis Plan continue Rocephin and Zithromax day 2 pending final blood, sputum cx; PCT is low at 0.16; follow up urine Legionella Ag will continue to monitor clinically
[2017-08-31 16:33] LABS: HEMATOCRIT 40.3 % (42.0-52.0); MEAN CELL VOLUME 96.9 fl (80.0-105.0); MEAN CORPUSCULAR HEMOGLOBIN 27.6 pg (25.0-35.0); MEAN CORPUSCULAR HGB CONC 28.5 g/dl (31.0-37.0); MEAN PLATELET VOLUME 8.8 fl (7.0-11.0); RED CELL DISTRIBUTION WIDTH 17.3 % (11.5-14.5); WHITE BLOOD COUNT 9.6 10^3/ul (4.5-11.0)
[2017-08-31] MEDS: Sodium Chloride 0.45% 1,000 ML IV SCH (19:50)
[2017-08-31] MEDS: Latanoprost 2.5 ml Opht Soln OU SCH (21:15)
--- NOTE | 2017-08-31 23:51 | PN ---
DATE: 08/31/2017 SUBJECTIVE: The patient is seen lying in bed. He is not in any kind of physical distress, but he is confused. He does not know that he is in the hospital. PHYSICAL EXAMINATION: GENERAL: Elderly male lying in bed. VITAL SIGNS: Blood pressure 105/64, heart rate 84, respiratory rate 18, temperature 98.1. HEENT: Normocephalic, atraumatic, positive pallor. NECK: Supple, no JVD. LUNGS: Bilateral equal air entry, poor air entry at bases, equal expansion. CARDIAC: S1 and S2, regular rate and rhythm. No murmur, no rub. ABDOMEN: Obese, distended, soft, nontender, bowel sounds present. EXTREMITIES: No lower extremity edema. INTAKE AND OUTPUT: 1750/not charted. LABORATORY DATA: WBC 9.6, hemoglobin 11.5, hematocrit 40, platelets 146. Sodium 145, potassium 3.9, chloride 102, CO2 of 35, BUN 67, creatinine 2.7, glucose 104, calcium 8.2, phosphorus 8.2, magnesium 2.5. AST 268, ALT 476, troponin 0.47, and albumin 3.1. Urinalysis; yellow, cloudy, pH 5.5, specific gravity 1.030, protein 30, ketones trace, leukocyte esterase negative, blood large, urine sodium 5, and urine creatinine 146. Urine culture, no growth. Blood culture, no growth. Abdominal ultrasound; liver is 13.7 cm, right kidney 7.7 cm, left kidney 8.4 cm, left-sided pleural effusion. Echocardiogram; dilated LA, moderate concentric LVH, normal systolic function, mild AI, moderate TR. MRI of the brain, no acute intracranial findings. CURRENT MEDICATIONS: Aspirin, Coreg 6.25 daily, Flomax 0.4, Lipitor 40, Pepcid 20, Rocephin 1 g daily, Synthroid 25, Xalatan, Zithromax, and allopurinol. ASSESSMENT: 1. Acute kidney injury, 2. Underlying chronic kidney disease, stage III. 3. Resolved hyperkalemia. 4.. History of colon cancer, status post surgery and radiation. 5. Elevated liver function tests. 6. Elevated troponin, likely secondary to renal failure. 7. Hyperphosphatemia. 8. Atrophic kidneys. 9. Possible pneumonia. PLAN: 1. Workup shows prerenal state, urine sodium is less than 5, specific gravity is 1.030, hence I will start the patient on IV fluids. 2. No clinical evidence of CHF. 3. Antibiotics to cover community-acquired pneumonia, dose all antibiotics for creatinine clearance 10-30 mL/minute. 4. Monitor LFTs closely. 5. No plans for renal replacement therapy. 6. Will discuss with family. Ave Izquierdo MD
[2017-09-01 07:15] LABS: ALB/GLOB RATIO 1.1 (1.1-1.8); BILIRUBIN,DIRECT 0.4 mg/dL (0.0-0.4); BILIRUBIN,TOTAL 0.4 mg/dL (0.2-1.3); TOTAL PROTEIN 6.2 g/dL (5.8-8.3)
--- NOTE | 2017-09-01 08:21 | PN ---
DATE: 09/01/2017 LOCATION: The patient seen in room 271, bed 2 this morning. SUBJECTIVE: Case discussed with the nursing staff who took care of the patient last night, no overnight events. The patient has no fevers and no chills. OBJECTIVE: VITAL SIGNS: Temperature is 98, blood pressure is 112/60, respiratory rate of 16. HEENT: Unremarkable. NECK: Supple. LUNGS: Have decreased breath sounds. HEART: Normal S1, S2. ABDOMEN: Soft, nontender. No organomegaly. No rebound or guarding. No masses. LABORATORY DATA: Reveals a white count 9.6, hemoglobin of 11, platelets of 146 and hemoglobin is 11. Chemistries are noted with creatinine of 2.7. LFTs are improving. Procalcitonin is 0.16. Urinalysis is noted. Stool for occult blood is positive. Blood culture, urine cultures are no growth. Review of orders reveals the patient to be on ceftriaxone and azithromycin. The patient had abdominal ultrasound which showed a left pleural effusion and gallstones and sludge in the gallbladder. The patient also had an MRI of the head and no acute findings. Dr. Izquierdo's progress note is reviewed. The patient's chest x-ray from the is also reviewed. Cecilia Marcano' progress note from yesterday is reviewed. ASSESSMENT/PLAN: He is a 86-year-old male, past medical history of subarachnoid hemorrhage, hypothyroidism, colon cancer, hypertension, gout, history of left arm cellulitis and was admitted with tachycardia, dyspnea and weakness with negative blood cultures, negative urine cultures, negative procalcitonin with systemic inflammatory response syndrome, possibly a left lower lobe community-acquired pneumonia, possible congestive heart failure, history of left posterior neck mass, sebaceous cyst, day #3 of ceftriaxone and Zithromax. We will check on the urine for Legionella antigen, final culture results. Overall, prognosis is poor. Jonathan Wilkins MD
--- NOTE | 2017-09-01 08:27 | CP.PCM.PN ---
Subjective - Date & Time of Evaluation Date of Evaluation: 09/01/17 Time of Evaluation: 08:00 - Subjective Subjective: Patient is seen this morning. He is awake and alert and eating breakfast. Denies shortness of breath. Objective - Vital Signs/Intake and Output Vital Signs (last 24 hours): Temp Pulse Resp BP Pulse Ox 98.4 F 77 18 112/64 97 09/01/17 06:00 09/01/17 06:00 09/01/17 06:00 09/01/17 06:00 09/01/17 06:00 Intake and Output: 09/01/17 09/01/17 06:59 18:59 Intake Total 1100 Output Total 125 Balance 975 - Medications Medications: Current Medications Allopurinol (Zyloprim) 100 mg PO BID [facility] Last Admin: 08/31/17 17:30 Dose: 100 mg Aspirin (Aspirin Chewable) 81 mg PO DAILY [facility] Last Admin: 08/31/17 10:30 Dose: 81 mg Atorvastatin Calcium (Lipitor) 40 mg PO DIN [facility] Last Admin: 08/31/17 17:34 Dose: Not Given Carvedilol (Coreg) 6.25 mg PO DAILY [facility] Last Admin: 08/31/17 10:31 Dose: 6.25 mg Famotidine (Pepcid) 20 mg PO 1000,2200 [facility] Last Admin: 08/31/17 21:14 Dose: 20 mg Ceftriaxone Sodium (Rocephin 1 Gram Ivpb) 1 gm in 100 mls @ 100 mls/hr IVPB DAILY [facility] PRN Reason: Protocol Last Admin: 08/31/17 10:31 Dose: 100 mls/hr Azithromycin (Zithromax 500mg In Ns) 500 mg in 250 mls @ 167 mls/hr IVPB DAILY [facility] PRN Reason: Protocol Last Admin: 08/31/17 10:31 Dose: 167 mls/hr Sodium Chloride (Sodium Chloride 0.45%) 1,000 mls @ 80 mls/hr IV .[id number] [facility] Last Admin: 08/31/17 19:50 Dose: 80 mls/hr Latanoprost (Xalatan Opht) 0 ml OU HS [facility] Last Admin: 08/31/17 21:15 Dose: 2.5 ml Levothyroxine Sodium (Synthroid) 25 mcg PO DAILY [facility] Last Admin: 08/31/17 10:30 Dose: 25 mcg Tamsulosin HCl (Flomax) 0.4 mg PO DAILY [facility] Last Admin: 08/31/17 10:30 Dose: 0.4 mg - Labs Labs: 08/31/17 16:20 08/31/17 06:00 PT 12.8 SECONDS (9.4-12.5) H 08/29/17 11:55 INR 1.16 (0.93-1.08) H 08/29/17 11:55 APTT 23.9 Seconds (25.1-36.5) L 08/29/17 11:55 - Constitutional Appears: No Acute Distress - Head Exam Head Exam: ATRAUMATIC, NORMOCEPHALIC - Respiratory Exam Respiratory Exam: Decreased Breath Sounds, NORMAL BREATHING PATTERN - Cardiovascular Exam Cardiovascular Exam: +S1, +S2 - GI/Abdominal Exam GI & Abdominal Exam: Soft, Normal Bowel Sounds. absent: Tenderness - Extremities Exam Additional comments: BL SCDs - Neurological Exam Neurological Exam: Alert, Awake Assessment and Plan - Assessment and Plan (Free Text) Assessment: Acute on chronic kidney disease SIRS secondary to community acquired pneumonia Elevated liver enzymes Elevated troponin chronic diastolic heart failure hypothyroidism severe degenerative arthritis Plan: Patient is on antibiotics as per infectious disease for community acquired pneumonia. Liver enzymes trending down. Cholelithiasis with gallbladder sludge seen on CT abdomen. GI on case. Decker catheter inserted yesterday in order to monitor output. Output is only 125 ml. Nephrology on case. continue IV fluids as per nephrology. Patient's mental state improved since admission. He is now awake and alert, although confused at times. MRI Brain with no acute abnormalities. Elevated troponin most likely secondary to renal failure.
--- NOTE | 2017-09-01 08:29 | CP.PCM.PN ---
Subjective - Date & Time of Evaluation Date of Evaluation: 09/01/17 Time of Evaluation: 07:00 - Subjective Subjective: Stable on 2R. Int confusion. Now has Decker. No CP or SOB V/S noted. RSR PE: Lungs: rhonchi Cor.: S1S2, FRANCIS Abd.: soft Ext.: mild edema Neuro.: confused I/O= N/A due to incont. > Decker inserted. Echo: Nl. LV with LVH, Prob. mild , mild AI, moderate MR Labs: 08/31: Cr.= 2.7, K+= 3.9, Abn. LFT's Objective - Vital Signs/Intake and Output Vital Signs (last 24 hours): Temp Pulse Resp BP Pulse Ox 98.4 F 77 18 112/64 97 09/01/17 06:00 09/01/17 06:00 09/01/17 06:00 09/01/17 06:00 09/01/17 06:00 Intake and Output: 09/01/17 09/01/17 06:59 18:59 Intake Total 1100 Output Total 125 Balance 975 - Medications Medications: Current Medications Allopurinol (Zyloprim) 100 mg PO BID [facility] Last Admin: 08/31/17 17:30 Dose: 100 mg Aspirin (Aspirin Chewable) 81 mg PO DAILY [facility] Last Admin: 08/31/17 10:30 Dose: 81 mg Atorvastatin Calcium (Lipitor) 40 mg PO DIN [facility] Last Admin: 08/31/17 17:34 Dose: Not Given Carvedilol (Coreg) 6.25 mg PO DAILY [facility] Last Admin: 08/31/17 10:31 Dose: 6.25 mg Famotidine (Pepcid) 20 mg PO 1000,2200 [facility] Last Admin: 08/31/17 21:14 Dose: 20 mg Ceftriaxone Sodium (Rocephin 1 Gram Ivpb) 1 gm in 100 mls @ 100 mls/hr IVPB DAILY [facility] PRN Reason: Protocol Last Admin: 08/31/17 10:31 Dose: 100 mls/hr Azithromycin (Zithromax 500mg In Ns) 500 mg in 250 mls @ 167 mls/hr IVPB DAILY [facility] PRN Reason: Protocol Last Admin: 08/31/17 10:31 Dose: 167 mls/hr Sodium Chloride (Sodium Chloride 0.45%) 1,000 mls @ 80 mls/hr IV .[id number] [facility] Last Admin: 08/31/17 19:50 Dose: 80 mls/hr Latanoprost (Xalatan Opht) 0 ml OU HS [facility] Last Admin: 08/31/17 21:15 Dose: 2.5 ml Levothyroxine Sodium (Synthroid) 25 mcg PO DAILY [facility] Last Admin: 08/31/17 10:30 Dose: 25 mcg Tamsulosin HCl (Flomax) 0.4 mg PO DAILY [facility] Last Admin: 08/31/17 10:30 Dose: 0.4 mg - Labs Labs: 08/31/17 16:20 08/31/17 06:00 PT 12.8 SECONDS (9.4-12.5) H 08/29/17 11:55 INR 1.16 (0.93-1.08) H 08/29/17 11:55 APTT 23.9 Seconds (25.1-36.5) L 08/29/17 11:55 Assessment and Plan - Assessment and Plan (Free Text) Assessment: Dyspnea/Cough R/O Sepsis AMS/Confusion CAD CHF HBP Syncope hx. Echo: Nl LV fx with LVH, probably mild , mild AI, mod. TR Colon cancer s/p resection, chemo, XRT Anemia Gout Hypothyroidism Gall Stones with sludge Plan: Await Am labs. As per Renal, ID, GI, Neuro., Uro. and Drs. Barnett. Monitor I/O, labs, sats., etc Make Coreg BID dosing Will follow
[2017-09-01] MEDS: Sodium Chloride 0.45% 1,000 ML IV SCH ×2 (08:30→23:51)
[2017-09-01 09:09] LABS: CALCIUM 8.4 mg/dL (8.4-10.5); POTASSIUM 4.4 mmol/L (3.6-5.0)
[2017-09-01] MEDS: cefTRIAXone 1 gm 1 GM/100 ML BAG IVPB SCH (10:00)
[2017-09-01] MEDS: Levothyroxine 25 MCG TAB PO SCH (10:00)
[2017-09-01] MEDS: Azithromycin 500MG/NS 250ml 500 MG/250 ML BAG IVPB SCH (11:00)
--- NOTE | 2017-09-01 19:36 | PN ---
DATE: 09/01/2017 SUBJECTIVE: This patient was seen and evaluated earlier today. The patient has now some difficulty in swallowing noticed by the nurse. The difficulty in swallowing food. The swallowing evaluation is pending. PHYSICAL EXAMINATION: VITAL SIGNS: Temperature is 97.4, pulse 71, blood pressure is 90/60. HEENT: Atraumatic, anicteric. NECK: Supple. HEART: S1 and S2 heard. LUNGS: Bilateral air entry present. ABDOMEN: Soft. There is no tenderness. EXTREMITIES: Mild edema present. NEUROLOGIC: Oriented and alert. LABORATORY DATA: Hemoglobin is 11.5, hematocrit 40.3, WBC is 9.6, and platelets 140. LFTs still show a downward trend. AST is 161; it was 640 initially and ALT has come down to 409; it was 629. Significant improvement. IMPRESSION: This 86-year-old patient admitted with non-ST segment myocardial infarction, pneumonia, diastolic heart failure, hypothyroidism, has elevated LFTs probably secondary to the hepatic congestion, it is slowly improving. The patient does have some gallstones and sludge, less likely related to the gallstone. Common bile duct is normal. The patient has some new-onset difficulty in swallowing. The patient has poor dentition. May be he is not able to chew all of the food and also may be the patient's oral cavity is dry. This could also be contributory. RECOMMENDATIONS: We would recommend: 1. Change of the diet to puree diet with thickened liquid. 2. Swallowing evaluation. 3. Discussed with the nurse and advised her to have the feeding only with assistance. 4. Followup of the LFTs. Thank you very much for allowing us to participate in the care of the patient. Luiza Rehman MD
[2017-09-01] MEDS: Latanoprost 2.5 ml Opht Soln OU SCH (21:53)
[2017-09-02] MEDS: Sodium Chloride 0.45% 1,000 ML IV SCH ×2 (02:00→17:18)
--- NOTE | 2017-09-02 06:48 | PN ---
DATE: 09/02/2017 SUBJECTIVE: The patient is seen lying in bed on telemetry. He is currently comfortable. He denies any chest pain or dyspnea. MEDICATIONS: His current medications include aspirin, carvedilol, Flomax, Lipitor, Pepcid, Rocephin, Synthroid, Zithromax and Zyloprim. OBJECTIVE: GENERAL: He is a very elderly man, appears comfortable at the present time. VITAL SIGNS: His blood pressure is 118/60 with a pulse of 70 and sinus, respirations are 16. He is afebrile. HEENT: No JVD. CHEST: Few scattered rhonchi heard. HEART: PMI displaced laterally with systolic murmur present at the base and apex. ABDOMEN: Soft, nontender. Normoactive bowel sounds. EXTREMITIES: With trace ankle edema. DIAGNOSTIC DATA: No blood work pending from this morning. Last BUN and creatinine were 72 and 2.9. IMPRESSION: 1. Dyspnea, clinically improved. 2. Mild aortic stenosis and moderate mitral regurgitation. 3. Normal left ventricular systolic function. 4. Altered mental status clinically improved. 5. History of coronary artery disease and congestive heart failure. 6. Remote colon cancer, status post resection. RECOMMENDATIONS: Current management will continue. Conservative cardiac management is planned. We will be happy to follow along. Kike Arias MD
[2017-09-02 06:50] LABS: BILIRUBIN,DIRECT 0.4 mg/dL (0.0-0.4); BILIRUBIN,TOTAL 0.4 mg/dL (0.2-1.3); CALCIUM 8.1 mg/dL (8.4-10.5); POTASSIUM 4.2 mmol/L (3.6-5.0); TOTAL PROTEIN 5.7 g/dL (5.8-8.3)
--- NOTE | 2017-09-02 07:58 | CP.PCM.PN ---
Subjective - Date & Time of Evaluation Date of Evaluation: 09/02/17 Time of Evaluation: 07:40 - Subjective Subjective: Patient is seen this morning in room 271 bed 2. He is awake and oriented to person and place, but confused. Objective - Vital Signs/Intake and Output Vital Signs (last 24 hours): Temp Pulse Resp BP Pulse Ox 97.9 F 70 18 118/62 96 09/02/17 05:59 09/02/17 05:59 09/02/17 05:59 09/02/17 05:59 09/02/17 05:59 Intake and Output: 09/02/17 09/02/17 06:59 18:59 Intake Total 1080 Output Total 175 Balance 905 - Medications Medications: Current Medications Allopurinol (Zyloprim) 100 mg PO BID [facility] Last Admin: 09/01/17 17:33 Dose: 100 mg Aspirin (Aspirin Chewable) 81 mg PO DAILY [facility] Last Admin: 09/01/17 10:00 Dose: 81 mg Atorvastatin Calcium (Lipitor) 40 mg PO DIN [facility] Last Admin: 09/01/17 17:33 Dose: 40 mg Carvedilol (Coreg) 3.125 mg PO BID [facility] Last Admin: 09/01/17 17:33 Dose: Not Given Famotidine (Pepcid) 20 mg PO 1000,2200 [facility] Last Admin: 09/01/17 21:53 Dose: 20 mg Ceftriaxone Sodium (Rocephin 1 Gram Ivpb) 1 gm in 100 mls @ 100 mls/hr IVPB DAILY [facility] PRN Reason: Protocol Last Admin: 09/01/17 10:00 Dose: 100 mls/hr Azithromycin (Zithromax 500mg In Ns) 500 mg in 250 mls @ 167 mls/hr IVPB DAILY [facility] PRN Reason: Protocol Last Admin: 09/01/17 11:00 Dose: 167 mls/hr Sodium Chloride (Sodium Chloride 0.45%) 1,000 mls @ 80 mls/hr IV .[id number] [facility] Last Admin: 09/02/17 02:00 Dose: 80 mls/hr Latanoprost (Xalatan Opht) 0 ml OU HS [facility] Last Admin: 09/01/17 21:53 Dose: 2.5 ml Levothyroxine Sodium (Synthroid) 25 mcg PO DAILY [facility] Last Admin: 09/01/17 10:00 Dose: 25 mcg Tamsulosin HCl (Flomax) 0.4 mg PO DAILY [facility] Last Admin: 09/01/17 10:00 Dose: 0.4 mg - Labs Labs: 08/31/17 16:20 09/02/17 05:30 PT 12.8 SECONDS (9.4-12.5) H 08/29/17 11:55 INR 1.16 (0.93-1.08) H 08/29/17 11:55 APTT 23.9 Seconds (25.1-36.5) L 08/29/17 11:55 - Constitutional Appears: No Acute Distress - Head Exam Head Exam: ATRAUMATIC, NORMOCEPHALIC - Respiratory Exam Respiratory Exam: Decreased Breath Sounds, NORMAL BREATHING PATTERN - Cardiovascular Exam Cardiovascular Exam: +S1, +S2 - GI/Abdominal Exam GI & Abdominal Exam: Soft, Normal Bowel Sounds. absent: Tenderness - Neurological Exam Neurological Exam: Alert, Awake Assessment and Plan - Assessment and Plan (Free Text) Assessment: Acute on chronic renal failure SIRS, r/o sepsis secondary to pneumonia elevated liver enzymes elevated troponin chronic diastolic heart failure hypothyroidism severe degenerative arthritis Plan: Patient's BUN slightly decreased this morning. Creatinine gianluca to 3. low urine output, consider ATN? on IV fluids as per nephrology. continue antibiotics as per infectious disease for pneumonia elevated troponin likely due to renal failure Patient is stable off Lasix. Will repeat CXR today. check ultrasound bladder
--- NOTE | 2017-09-02 08:19 | CON ---
DATE: 08/31/2017 CONSULTATION/PROCEDURE NOTE CHIEF COMPLAINT: The patient found unresponsive. HISTORY OF PRESENT ILLNESS: This is an 86-year-old male seen in [facility]. He was found to be unresponsive with shallow breathing at home. EMS was called and the patient was brought to the hospital. The patient has a significant past medical history including syncope with a head injury, atherosclerotic heart disease, congestive heart failure, arthritis, lower extremity paralysis. The patient has been bedridden for some time, history of colorectal cancer, history of BPH and hyperuricemia, history of sepsis in the past. The patient was admitted and treated. He appears to have had a myocardial infarction and possible sepsis. During this admission, the patient was noted to be making poor urine. Nursing attempted to place a Decker catheter unsuccessfully, and a consultation was then requested. PAST MEDICAL HISTORY: As per the HPI. MEDICATIONS: Include aspirin, Coreg, Flomax, Lipitor, Pepcid, Rocephin, Synthroid, Xalatan, Zithromax, and Zyloprim. ALLERGIES: NO KNOWN DRUG ALLERGIES. FAMILY HISTORY: Noncontributory. SOCIAL HISTORY: Denies any current smoking or EtOH use. REVIEW OF SYSTEMS: A 12-point review of systems was obtained from the patient, who is responsive, but he currently denies anything other than shortness of breath and feeling tired. PHYSICAL EXAMINATION: GENERAL: The patient is awake and responsive, although somewhat lethargic. VITAL SIGNS: He is afebrile, blood pressure 123/69, pulse of 86, and respirations 18. NECK: Supple. There is no adenopathy. ABDOMEN: Soft, nontender, and nondistended. There is no CVA tenderness. His bladder is not palpably distended. CHEST: Revealed a somewhat decreased inspiratory effort. CARDIAC: Exam shows positive S1, S2. There is positive upper and lower extremity edema noted. GENITOURINARY: Phallus has a phimotic foreskin. Scrotum is normal. Testes bilaterally descended, nontender, no masses. Epididymides are normal. EXTREMITIES: There is some mild cyanosis and edema noted. LABORATORY EXAMINATION: WBC count of 10.1. GFR of 22. Urine output is 0 for yesterday. RADIOLOGIC EXAMINATION: His abdominal ultrasound done yesterday which showed right kidney normal echogenicity. No mass or hydronephrosis. Left kidney, no calculus, mass, or hydronephrosis. There has been upper pole cyst and a central cyst. Bladder was not measured. IMPRESSION: This is an 86-year-old male with multiple medical issues. Urologically, the patient does not appear distended, poor urine output likely from poor perfusion to his kidneys. On exam, the patient has a phimotic foreskin. I was able to adequately visualize meatus and I attempted to place a Decker catheter. The patient has a sub-meatal stenosis. Using urethral sounds, I was able to dilate the stenosis and then able to pass a 16-Sami Decker catheter. Approximately, 100 mL of darkly concentrated urine were drained and the Decker catheter was left to straight drainage. PLAN: For now is to continue the Decker catheter and the patient should continue with medical treatment for his underlying problems including a recent myocardial infarction. Would have Nephrology see the patient regarding renal failure. Gareth Staton MD
--- NOTE | 2017-09-02 08:57 | PN ---
DATE: 09/02/2017 LOCATION: The patient seen in room 271, bed 2. SUBJECTIVE: No fevers and no chills and is comfortable. PHYSICAL EXAMINATION VITAL SIGNS: On exam, temperature is 97, blood pressure 118/60, respiratory rate of 18, heart rate of 70. HEENT: Examination is unremarkable. NECK: Supple. LUNGS: Have decreased breath sounds. HEART: Normal S1, S2. ABDOMEN: Examination is soft, nontender. LABORATORY DATA: Examination reveals a white count of 9.6, hemoglobin of 11, platelets of 146. Chemistries reveals a BUN of 69, creatinine of 3.0, AST is 293. Urinalysis is noted and stool for occult blood is positive. Urine for Legionella antigen is negative. Microbiology reveals urine and blood cultures are negative. Review of orders reveals the patient to be on ceftriaxone and IV azithromycin. Dr. Barnett's note from today is reviewed. ASSESSMENT AND PLAN: This is an 86-year-old male with past medical history of subarachnoid hemorrhage, hypothyroidism, colon cancer, hypertension, gout, history of left arm cellulitis, admitted with tachycardia, dyspnea, weakness and negative urine culture, negative blood cultures, negative procalcitonin with sepsis with a left lower lobe community-acquired pneumonia and congestive heart failure in a patient with history of left posterior neck mass and sebaceous cyst, day #4 of Zithromax and ceftriaxone with a negative urine Legionella antigen. We will discontinue the ceftriaxone and now the patient has received 4 days and change the Zithromax to p.o. to complete a short course of antibiotics. We will discontinue ceftriaxone after this morning's 10:00 a.m. dose. Jonathan Wilkins MD
--- NOTE | 2017-09-02 09:33 | PN ---
DATE: 09/01/2017 The patient is being monitored at bedside. He is awake, he is alert. He does not appear to be in any kind of distress. PHYSICAL EXAMINATION: GENERAL: Obese elderly male lying in bed. VITAL SIGNS: Blood pressure 90/60, heart rate ____. LUNGS: Equal air entry, basal rales? CARDIAC: S1 and S2, regular rate and rhythm, no murmur, no rub. ABDOMEN: Obese, distended, soft, nontender, bowel sounds present. EXTREMITIES: No lower extremity edema. INTAKE AND OUTPUT: 1820/125. LABORATORY DATA: WBC 9.6, hemoglobin 11.5, hematocrit 40, platelets 146. Sodium 144, potassium 4.4, chloride 102, CO2 31, BUN 72, creatinine 2.9, glucose 106, calcium 8.4, AST 161, ALT 409. Urine culture, no growth. CURRENT MEDICATIONS: Aspirin, Coreg 3.125 b.i.d., Flomax, Lipitor, Pepcid, ceftriaxone, half-normal saline at 80, Synthroid, Zithromax, allopurinol. ASSESSMENT: 1. Acute kidney injury superimposed on chronic kidney disease stage III. 2. Prerenal azotemia. 3. Suspected pneumonia. 4. History of hypertension. 5. History of colon cancer. 6. Obesity. PLAN: 1. Continue hypotonic IV fluids. 2. Continue antibiotics for community-acquired pneumonia. 3. Monitor daily electrolytes. 4. Monitor urine output. 5. Hold antihypertensives. Ave Izquierdo MD
[2017-09-02] MEDS: Levothyroxine 25 MCG TAB PO SCH (10:26)
[2017-09-02] MEDS: cefTRIAXone 1 gm 1 GM/100 ML BAG IVPB SCH (10:27)
--- NOTE | 2017-09-02 21:24 | US ---
EXAM: US Retroperitoneal Limited, bladder CLINICAL HISTORY: 86 years old, male; Signs and symptoms; Bladder and retention of urine; Urine retention; Additional info: Urinary retention TECHNIQUE: Real-time ultrasound of the bladder (limited) with image documentation. COMPARISON: CT - ABD PELVIS W/O PO OR IV CONT 2017-08-29 14:16 FINDINGS: Bladder: Decker catheter within collapsed bladder. IMPRESSION: 1. Empty bladder.
[2017-09-02] MEDS: Latanoprost 2.5 ml Opht Soln OU SCH (21:30)
--- NOTE | 2017-09-02 23:20 | PN ---
DATE: 09/02/2017 SUBJECTIVE: This patient was seen and evaluated earlier today. The patient is now tolerating the pureed diet. No problems now swallowing. PHYSICAL EXAMINATION VITAL SIGNS: Temperature afebrile, blood pressure 122/73, pulse 75 and O2 saturation is . HEENT: Atraumatic, anicteric. NECK: Supple. HEART: S1 and S2 heard. LUNGS: Bilateral air entry present. ABDOMEN: Soft. Bowel sounds present. EXTREMITIES: No cyanosis. No clubbing. NEUROLOGIC: Alert. LABORATORY DATA: Hemoglobin 11.5, hematocrit 40.3, WBC is 9.6 and platelets 146. BUN 69, creatinine 3.0. This patient's LFTs showing downward trend. IMPRESSION: This 86-year-old patient admitted with congestive heart failure, possible pneumonia, has elevated liver function tests, mainly transaminases, showing downward trend. The patient did have complaints of difficulty in swallowing yesterday, now able to tolerate the pureed diet. The patient has a poor dentition and also mouth appears to be dry. Probably, the patient is also on diuretics. We would recommend the patient to continue the pureed diet, empiric therapy with PPI. We will continue to closely follow up her care and suggest further management based on the clinical course. Luiza Rehman MD
[2017-09-03 06:58] LABS: BILIRUBIN,DIRECT 0.4 mg/dL (0.0-0.4); BILIRUBIN,TOTAL 0.4 mg/dL (0.2-1.3); CALCIUM 8.1 mg/dL (8.4-10.5); POTASSIUM 4.1 mmol/L (3.6-5.0); TOTAL PROTEIN 5.7 g/dL (5.8-8.3)
[2017-09-03] MEDS: Sodium Chloride 0.45% 1,000 ML IV SCH ×4 (07:43→22:44)
--- NOTE | 2017-09-03 08:25 | CP.PCM.PN ---
Subjective - Date & Time of Evaluation Date of Evaluation: 09/03/17 Time of Evaluation: 07:00 - Subjective Subjective: Stable on 2R. Int confusion. No CP or SOB V/S noted. RSR PE: Lungs: rhonchi Cor.: S1S2, FRANCIS Abd.: soft Ext.: mild edema Neuro.: confused I/O= N/A Echo: Nl. LV with LVH, Prob. mild , mild AI, moderate MR Labs: Cr.= 2.8, K+= 4.1, Abn. LFT's- improved BC x2 NG at 4 days. CXR 09/02: Limited Study. Await Reading. Objective - Vital Signs/Intake and Output Vital Signs (last 24 hours): Temp Pulse Resp BP Pulse Ox 97.7 F 77 18 116/74 98 09/03/17 06:00 09/03/17 06:00 09/03/17 06:00 09/03/17 06:00 09/03/17 06:00 Intake and Output: 09/03/17 09/03/17 06:59 18:59 Intake Total 30 Output Total 250 Balance -220 - Medications Medications: Current Medications Allopurinol (Zyloprim) 100 mg PO BID [facility] Last Admin: 09/02/17 17:18 Dose: 100 mg Aspirin (Aspirin Chewable) 81 mg PO DAILY [facility] Last Admin: 09/02/17 10:25 Dose: 81 mg Atorvastatin Calcium (Lipitor) 40 mg PO DIN [facility] Last Admin: 09/02/17 17:17 Dose: 40 mg Azithromycin (Zithromax) 500 mg PO DAILY [facility] PRN Reason: Protocol Stop: 09/09/17 10:01 Last Admin: 09/02/17 10:25 Dose: 500 mg Carvedilol (Coreg) 3.125 mg PO BID [facility] Last Admin: 09/02/17 17:17 Dose: 3.125 mg Famotidine (Pepcid) 20 mg PO 1000,2200 [facility] Last Admin: 09/02/17 21:29 Dose: 20 mg Sodium Chloride (Sodium Chloride 0.45%) 1,000 mls @ 80 mls/hr IV .[id number] [facility] Last Admin: 09/03/17 07:43 Dose: 80 mls/hr Latanoprost (Xalatan Opht) 0 ml OU HS [facility] Last Admin: 09/02/17 21:30 Dose: 2.5 ml Levothyroxine Sodium (Synthroid) 25 mcg PO DAILY [facility] Last Admin: 09/02/17 10:26 Dose: 25 mcg Tamsulosin HCl (Flomax) 0.4 mg PO DAILY [facility] Last Admin: 09/02/17 10: Dose: 0.4 mg - Labs Labs: 08/31/17 16:20 09/03/17 05:45 PT 12.8 SECONDS (9.4-12.5) H 08/29/17 11:55 INR 1.16 (0.93-1.08) H 08/29/17 11:55 APTT 23.9 Seconds (25.1-36.5) L 08/29/17 11:55 Assessment and Plan - Assessment and Plan (Free Text) Assessment: Dyspnea/Cough R/O Sepsis AMS/Confusion CAD CHF HBP Syncope hx. Echo: Nl LV fx with LVH, probably mild , mild AI, mod. TR Colon cancer s/p resection, chemo, XRT Anemia Gout Hypothyroidism Gall Stones with sludge Abn. LFT's Plan: As per Renal, ID, GI, Neuro., Uro. and Drs. Barnett. Monitor I/O, labs, sats., etc Make Coreg BID dosing Will follow
[2017-09-03 08:58] LABS: BASO # 0.01 K/mm3 (0.0-2.0); BASO % 0.1 % (0.0-3.0); EOS # 0.2 (0.0-0.7); EOS % 2.2 % (1.5-5.0); GRAN # 8.22 (1.4-6.5); GRAN % 82.2 % (50.0-68.0); HEMATOCRIT 37.1 % (42.0-52.0); LYMPH # 0.9 (1.2-3.4); LYMPH % 9.3 % (22.0-35.0); MEAN CELL VOLUME 93.7 fl (80.0-105.0); MEAN CORPUSCULAR HGB CONC 29.9 g/dl (31.0-37.0); MEAN PLATELET VOLUME 9.2 fl (7.0-11.0); MONO # 0.6 (0.1-0.6); MONO % 6.2 % (1.0-6.0); RED CELL DISTRIBUTION WIDTH 16.7 % (11.5-14.5)
[2017-09-03 09:02] LABS: URINE BILIRUBIN NEGATIVE (NEGATIVE); URINE BLOOD LARGE (NEGATIVE); URINE GLUCOSE (UA) NEGATIVE (NEGATIVE); URINE KETONE NEGATIVE (NEGATIVE); URINE LEUKOCYTE ESTERASE MODERATE Leu/uL (NEGATIVE); URINE PROTEIN 100 mg/dL (<30 mg/dL); URINE UROBILINOGEN 0.2 E.U./dL (<1 E.U./dL)
--- NOTE | 2017-09-03 09:02 | RAD ---
HISTORY: pneumonia, CHF COMPARISON: 08/29/2017 TECHNIQUE: Chest PA and lateral FINDINGS: LUNGS: There is an infiltrate at the left lung base that obscures the diaphragm. There is a minimal linear infiltrate at the right lung base. PLEURA: Small pleural effusions CARDIOVASCULAR: Moderate cardiomegaly OSSEOUS STRUCTURES: No significant abnormalities. VISUALIZED UPPER ABDOMEN: Normal. OTHER FINDINGS: None. IMPRESSION: Infiltrate at the left lung base that obscures the diaphragm. Small pleural effusions
[2017-09-03 09:03] LABS: URINE APPEARANCE SLIGHT-CLOUDY (CLEAR); URINE COLOR LIGHT YELLOW (YELLOW)
[2017-09-03 09:18] LABS: URINE RBC 0 - 2 /hpf (0-2); URINE WBC 0 - 2 /hpf (0-6)
[2017-09-03 09:29] LABS: URINE BACTERIA TRACE (NEG)
[2017-09-03] MEDS: Levothyroxine 25 MCG TAB PO SCH (10:01)
[2017-09-03] MEDS: Cefpodoxime (Vantin) 200 mg Tab PO SCH ×2 (10:03→22:39)
--- NOTE | 2017-09-03 12:29 | PN ---
DATE: LOCATION: Room 271, bed 2. SUBJECTIVE: The patient was admitted with unresponsive state and on evaluation, the patient had pneumonia and the patient also had liver dysfunction at the time of admission. The question of sepsis was entertained at that time. The patient seen this morning, he is awake, but he does have multiple other medical problems. At this point, he has phimosis with swelling of his penis. The patient has a Decker catheter indwelling placed in the bladder at this time. The patient also has some marked swelling of his left arm. He has an abrasion in the right side of his neck, these appear to show some erythema and inflammation. PHYSICAL EXAMINATION: VITAL SIGNS: The pulse is 77, blood pressure 116/74, respirations 18, O2 saturation 98% on 2 liters of oxygen. HEENT: The patient's head is normocephalic. He has *------* around the scalp. NECK: The patient's neck, as mentioned earlier, there is evidence of abrasion on the right side of the neck. Probably, the IV site was present there before. The patient's thyroid is not enlarged. LUNGS: Trachea is central. Breath sounds are vesicular. There were crepitations heard on the left side of the lung. HEART: The patient's heart has normal sinus rhythm. S1 and S2 present. ABDOMEN: Soft; nontender. The patient's Decker catheter shows draining clear urine. EXTREMITIES: The patient's legs, both sides are weak due to prior degenerative arthritis. The patient had been disabled and unable to walk for years. LABORATORY DATA: The patient's CBC is not done. The patient's chemistry is evaluated this morning. The BUN is 65, creatinine 2.8. The patient's liver enzymes are improving. His AST is 53, ALT is 217. The patient's total protein is 5.7. Sodium is 135 and potassium 4.1. ASSESSMENT AND PLAN: He is treated with Zithromax p.o. The patient is also going to be given Augmentin 250 mg b.i.d. We will start the patient on penicillin at this time because he has superficial infection in the skin involving the penile area as well as the right side of the neck and the left forearm. His overall prognosis is guarded. Condition is somewhat improved from his initial status, but he still has an infiltrate in his lung, which will be treated and his renal failure has been attended to. Ju Seymour MD [facility]
[2017-09-03] MEDS: Bacitracin Ointment 30 GM TUBE TOP SCH ×2 (13:17→17:39)
--- NOTE | 2017-09-03 19:59 | PN ---
DATE: 09/03/2017 SUBJECTIVE: The patient is seen, lying in bed. He is sleeping comfortably. He does not appear to be in any kind of distress. PHYSICAL EXAMINATION: GENERAL: An obese, elderly male lying in bed. VITAL SIGNS: Blood pressure 118/71, heart rate 75, respiratory rate 16, and temperature 98.6. HEENT: Normocephalic and atraumatic. NECK: Supple. No JVD. LUNGS: Bilateral equal air entry, no rales. CARDIAC: S1 and S2. Normal regular rate and rhythm. No murmurs, no rubs. ABDOMEN: Obese, distended, soft, nontender, and bowel sounds present. EXTREMITIES: Trace lower extremity edema. INTAKE AND OUTPUT: Not charted. LABORATORY DATA: WBC 10, hemoglobin 11, hematocrit 37, and platelets 132. Sodium 135, potassium 4.1, chloride 99, CO2 of 28, BUN 65, creatinine 2.8, glucose 107, calcium 8.1, total protein 5.7, albumin 2.9, and BNP 10,600. CURRENT MEDICATIONS: Aspirin, bacitracin, Coreg, Flomax, Lipitor, Pepcid, half normal saline on hold, Synthroid, Xalatan, and Zithromax. ASSESSMENT: 1. Acute kidney injury superimposed on chronic kidney disease stage III. 2. Pneumonia. 3. Altered mental status secondary to sepsis. 4. History of hypertension. 5. History of colorectal cancer. PLAN: 1. Continue current antibiotics. 2. Monitor urine output closely. 3. Monitor electrolytes daily. 4. Avoid nephrotoxics. Ave Izquierdo MD
[2017-09-03] MEDS: Latanoprost 2.5 ml Opht Soln OU SCH (22:41)
--- NOTE | 2017-09-04 02:39 | PN ---
DATE: 09/03/2017 SUBJECTIVE: This patient was seen and evaluated earlier today. Tolerating the pureed diet. PHYSICAL EXAMINATION: VITAL SIGNS: Afebrile. Blood pressure is 120/76, pulse 81, respirations 20. HEENT: Atraumatic, anicteric. NECK: Supple. HEART: S1 and S2 heard. LUNGS: Bilateral air entry present. ABDOMEN: Soft. No tenderness. EXTREMITIES: No cyanosis. No clubbing. LABORATORY DATA: Hemoglobin 11.1, hematocrit 37.1, WBC is 10, and platelets 132. Chemistry: BUN 65 and creatinine 2.8. Albumin is 2.9. IMPRESSION: This 86-year-old patient was admitted with shortness of breath, has congestive heart failure, possible pneumonia. The patient also has elevated LFTs which has been showing downward trend. The patient has episodes of difficulty in swallowing. The patient has a poor dentition. The patient was also diuretics. The patient was probably not able to swallow the food because of the dryness, could be a combination. The diet has been switched over to pureed diet, the patient is tolerating well. We will continue that. The patient will follow up the LFTs. The patient's AST has normalized and ALT also continues to be downward, it is 217, ALT level. Thank you very much for allowing us to participate in the care of the patient. We will continue to closely follow up his care and suggest further management based on the clinical course. Luiza Rehman MD
[2017-09-04] MEDS: Cefpodoxime (Vantin) 200 mg Tab PO SCH ×2 (09:47→21:47)
[2017-09-04] MEDS: Levothyroxine 25 MCG TAB PO SCH (09:50)
[2017-09-04] MEDS: Bacitracin Ointment 30 GM TUBE TOP SCH ×2 (09:53→17:08)
[2017-09-04] MEDS: Ciprofloxacin 0.3% OPTH SOLN OU SCH ×2 (09:54→17:07)
--- NOTE | 2017-09-04 09:55 | PN ---
DATE: 09/04/2017 SUBJECTIVE: The patient is in bed in no acute distress, nontoxic. PHYSICAL EXAMINATION: VITAL SIGNS: Temperature is 98, blood pressure is 130/50, respiratory rate is 20, and heart rate of 76. HEENT: Unremarkable. NECK: Supple. LUNG: Have decreased breath sounds. HEART: Normal S1 and S2. ABDOMEN: Soft and nontender. LABORATORY DATA: Reveals white count of 10,000, hemoglobin of 11, and platelets of 132. Chemistries reveals BUN of 65 and creatinine of 2.8. Urinalysis is noted and urine for Legionella antigen is negative. Blood and urine cultures are negative. Review of orders reveals the patient to be on p.o. cefpodoxime started by Dr. Barentt. The patient is also on p.o. Zithromax. ASSESSMENT AND PLAN: This is an 86-year-old with past medical history of subarachnoid hemorrhage, hypothyroidism, colon cancer, hypertension, gout, and history of left arm cellulitis who is admitted with tachycardia, dyspnea, weakness, and had negative blood cultures, negative urine cultures, negative procalcitonin. The patient did have sepsis with left lower community-acquired pneumonia and congestive heart failure and history of posterior neck mass with sebaceous cyst #5 of Zithromax and now on p.o. cefpodoxime started by Dr. Barnett for soft tissue infection who had completed a short course of antibiotics. Jonathan Wilkins MD
[2017-09-04] MEDS: Sodium Chloride 0.45% 1,000 ML IV SCH (10:48)
--- NOTE | 2017-09-04 12:53 | RAD ---
HISTORY: CHF COMPARISON: 09/02/2017 FINDINGS: LUNGS: Minimal infiltrate at the right lung base. Infiltrate at the left lung base obscures the diaphragm. Small pleural effusions. No change PLEURA: No significant pleural effusion identified, no pneumothorax apparent. CARDIOVASCULAR: Moderate cardiomegaly. Mild vascular congestion. OSSEOUS STRUCTURES: No significant abnormalities. VISUALIZED UPPER ABDOMEN: Normal. OTHER FINDINGS: Left-sided catheter remnant unchanged IMPRESSION: Minimal infiltrate at the right lung base. Infiltrate at the left lung base obscures the diaphragm. Small pleural effusions. No change
--- NOTE | 2017-09-04 13:49 | PN ---
DATE: LOCATION: The patient is in the [facility] in [place]. He is in room 271, bed 2. SUBJECTIVE: The patient was admitted with being unresponsive. The patient had infection - pneumonia. The patient has phimosis with difficult catheterization of the penis, which was done by Dr. Palmer. The patient has a Decker catheter and the urine seemed to be clear, but there is diminished amount of urine produced by the patient. PHYSICAL EXAMINATION: VITAL SIGNS: Pulse is 84, blood pressure is 117/60, temperature is 98.1, his O2 sat is 94% on 2 L of oxygen. HEENT: Head is normocephalic. Eyes, there is an element of discharge from both eyes with crust. The patient complains of some discomfort in the eye. The patient's discharge from the eye will be cultured. We will place the patient on Cipro eyedrops twice a day on both eyes. LUNGS: Crepitations are heard on the left and the right. HEART: Normal sinus rhythm. ABDOMEN: Soft. Liver and spleen not palpable. CENTRAL NERVOUS SYSTEM: The patient has no neurological deficits. The patient has difficulty in walking, chronic degenerative arthritis, and disability associated with arthritis. MEDICATIONS: Consist of aspirin 81 mg daily, the patient is on Coreg 3.125 mg b.i.d. with cut off for blood pressure; the medicine to be held if the patient's systolic pressure is less than 110. The patient is on Flomax 0.4 mg daily, Lipitor 40 mg daily, and Pepcid 20 mg daily. The patient is on a heart-healthy diet. The patient is also getting Zithromax, Vantin 200 mg q.12 hours, and Synthroid 25 mcg daily. ASSESSMENT AND PLAN: The patient is getting a heart-healthy diet as tolerated. Condition is unstable; the patient still needs acute care. We will continue current management. He has renal evaluation by Dr. Izquierdo and Dr. León, cardiac evaluation by Dr. Haddad and Dr. Leiva, and Infectious Disease consultation with Dr. Wilkins. We will continue current management. Ju Seymour MD [facility] # [id number]
--- NOTE | 2017-09-04 17:06 | PN ---
DATE: SUBJECTIVE: This patient was seen and evaluated earlier today. The patient's family was at bedside. The patient appears to have some slightly labored breathing. Respiratory rate was slightly rare, but breathing. PHYSICAL EXAMINATION: VITAL SIGNS: Respiratory rate was about 20, blood pressure was 105/58, and O2 saturation 84%. HEENT: Atraumatic, anicteric. NECK: Supple. HEART: S1 and S2 heard. LUNGS: Bilateral air entry present. There are few basal crepitations that is seen bilaterally. ABDOMEN: Soft and distended. EXTREMITIES: Mild edema present. LABORATORY DATA: There are no recent labs today. IMPRESSION: This 86-year-old patient was admitted with shortness of breath, congestive heart failure, and possible pneumonia. Her elevated LFTs had shown downward trend. The patient did have some difficulty swallowing, which she improved after changing the diet to puree diet. The patient today has some increased shortness of breath and O2 saturation 84%. I did discuss with the nurse taking care of the patient and also with Dr. Barnett. The patient was on , IV fluids, which has been discontinued and after discussion with Dr. Barnett, given Lasix 40 mg. Chest x-ray was ordered and need a close followup. I have advised the nurse to call if there is further worsening of the clinical situation and reviewing the x-ray. We will continue to closely followup with LFTs, continue the antibiotics as per ID. Thank you very much for allowing us to participate in the care of the patient. Luiza Rehman MD
--- NOTE | 2017-09-04 19:06 | CT ---
EXAM: CT Head Without Intravenous Contrast CLINICAL HISTORY: 86 years old, male; Signs and symptoms; Alteration of consciousness; Transient alteration of awareness; Patient HX: Change in mental status TECHNIQUE: Axial computed tomography images of the head/brain without intravenous contrast. All CT scans at this facility use one or more dose reduction techniques, viz.: automated exposure control; ma/kV adjustment per patient size (including targeted exams where dose is matched to indication; i.e. head); or iterative reconstruction technique. COMPARISON: CT - HEAD W/O CONTRAST 2017-08-29 17:23 FINDINGS: Limitations: Motion artifact - mild. Brain: Moderate atrophy. No definite intracranial hemorrhage. No mass. Several scattered foci of decreased attenuation within periventricular/subcortical white matter. No definite edema. Ventricles: No hydrocephalus. Bones/joints: No acute fracture. Soft tissues: Unremarkable. Vasculature: Atherosclerotic disease of intracranial arteries. Sinuses: Scattered minimal mucosal thickening. Mastoid air cells: No mastoid effusion. Orbits: Unremarkable as visualized. IMPRESSION: 1. Nonspecific white matter changes. Acute infarction may be CT occult within first 24 hours. If a focal deficit persists, consider followup CT or MRI for further evaluation. 2. Incidental/non-acute findings are described above.
[2017-09-04] MEDS: Latanoprost 2.5 ml Opht Soln OU SCH (21:47)
--- NOTE | 2017-09-05 08:22 | CP.PCM.PN ---
Subjective - Date & Time of Evaluation Date of Evaluation: 09/05/17 Time of Evaluation: 07:50 - Subjective Subjective: Patient is seen this morning in room 271 bed 2. Patient became lethargic yesterday mid-morning and according to the nurse was lethargic all day long. This morning, he is awake and talking. Objective - Vital Signs/Intake and Output Vital Signs (last 24 hours): Temp Pulse Resp BP Pulse Ox 97.5 F L 90 20 92/52 L 94 L 09/05/17 06:00 09/05/17 06:00 09/05/17 06:00 09/05/17 06:00 09/05/17 06:00 Intake and Output: 09/05/17 09/05/17 06:59 18:59 Intake Total 0 Output Total 100 Balance -100 - Medications Medications: Current Medications Allopurinol (Zyloprim) 100 mg PO BID [facility] Last Admin: 09/04/17 17:08 Dose: Not Given Aspirin (Aspirin Chewable) 81 mg PO DAILY [facility] Last Admin: 09/04/17 09:49 Dose: 81 mg Atorvastatin Calcium (Lipitor) 40 mg PO DIN [facility] Last Admin: 09/04/17 17:08 Dose: Not Given Azithromycin (Zithromax) 500 mg PO DAILY [facility] PRN Reason: Protocol Stop: 09/09/17 10:01 Last Admin: 09/04/17 09:46 Dose: 500 mg Bacitracin (Bacitracin) 1 gm TOP BID [facility] Last Admin: 09/04/17 17:08 Dose: Not Given Carvedilol (Coreg) 3.125 mg PO BID [facility] Last Admin: 09/04/17 17:19 Dose: Not Given Cefpodoxime Proxetil (Vantin) 250 mg PO Q12 [facility] PRN Reason: Protocol Last Admin: 09/04/17 21:47 Dose: Not Given Ciprofloxacin (Ciloxan 0.3% Ophth Soln) 1 drop OU BID [facility] Last Admin: 09/04/17 17:07 Dose: Not Given Famotidine (Pepcid) 20 mg PO 1000,2200 [facility] Last Admin: 09/04/17 21:47 Dose: Not Given Latanoprost (Xalatan Opht) 0 ml OU HS [facility] Last Admin: 09/04/17 21:47 Dose: Not Given Levothyroxine Sodium (Synthroid) 25 mcg PO DAILY [facility] Last Admin: 09/04/17 09:50 Dose: 25 mcg Tamsulosin HCl (Flomax) 0.4 mg PO DAILY [facility] Last Admin: 09/04/17 09:50 Dose: 0.4 mg - Labs Labs: 09/03/17 06:00 09/03/17 05:45 PT 12.8 SECONDS (9.4-12.5) H 08/29/17 11:55 INR 1.16 (0.93-1.08) H 08/29/17 11:55 APTT 23.9 Seconds (25.1-36.5) L 08/29/17 11:55 - Constitutional Appears: No Acute Distress - Head Exam Head Exam: ATRAUMATIC, NORMOCEPHALIC - Respiratory Exam Respiratory Exam: Clear to Ausculation Bilateral, NORMAL BREATHING PATTERN - Cardiovascular Exam Cardiovascular Exam: +S1, +S2 - GI/Abdominal Exam GI & Abdominal Exam: Soft, Normal Bowel Sounds. absent: Tenderness - Neurological Exam Neurological Exam: Alert, Awake Assessment and Plan - Assessment and Plan (Free Text) Assessment: AMS SIRS, pneumonia Acute kidney injury on chronic kidney disease Chronic heart failure severe degenerative arthritis Plan: Patient is awake and alert this morning. Yesterday, he became lethargic and short of breath. CXR showed mild venous congestion, and infiltrate left lobe. One dose of IV Lasix was given and patient's breathing improved. CT HEAD negative for acute abnormalities, chronic white matter changes. BUN/creatinine rising. Awaiting today's labs. urine output improving.
[2017-09-05 08:35] LABS: CALCIUM 8.6 mg/dL (8.4-10.5); POTASSIUM 4.8 mmol/L (3.6-5.0)
--- NOTE | 2017-09-05 09:31 | PN ---
DATE: 09/03/2017 SUBJECTIVE: The patient is in bed, in no acute distress, nontoxic. The patient is seen earlier. No fevers and chills. PHYSICAL EXAMINATION: VITAL SIGNS: Temperature is 97, blood pressure is 110/60, respiratory rate of 18. HEENT: Examination of HEENT is unremarkable. NECK: Supple. LUNGS: Have decreased breath sounds. HEART: Normal S1, S2. ABDOMEN: Soft, nontender. LABORATORY DATA: Reveals a white count is 9.6, hemoglobin of 11 and platelets of 146. Coagulation is noted. Blood gases are reviewed. Chemistries reveals a BUN of 65, creatinine of 2.8. Urinalysis is noted and stool occult blood is positive. Serology, urine for Legionella antigen is negative. Microbiology reveals the blood cultures and urine cultures negative. Review of orders reveals the patient to be on p.o. Zithromax. Dr. Rehman's note is reviewed. ASSESSMENT AND PLAN: An 86-year-old male with history of subarachnoid hemorrhage, hypothyroidism, colon cancer, hypertension, gout, history of left arm cellulitis who is admitted with tachycardia, dyspnea, weakness and negative urine cultures, negative blood cultures, negative procalcitonin with sepsis with left lower lobe community-acquired pneumonia in face of congestive heart failure, history of left posterior neck mass with a sebaceous cyst. Today is day #5 of Zithromax. We will discontinue the Zithromax in 5-7 days. Jonathan Wilkins MD
--- NOTE | 2017-09-05 09:36 | PN ---
DATE: 09/02/2017 SUBJECTIVE: The patient is seen lying in bed. He is awake, he is alert. He is complaining of some cough. He denies any chest pain. Denies any palpitations. PHYSICAL EXAMINATION GENERAL: Lying in bed in no acute distress at this time. VITAL SIGNS: Blood pressure 125/76, heart rate 83, respiratory rate 18, temperature 98.1. HEENT: Normocephalic, atraumatic. NECK: Supple, no JVD. LUNGS: Bilateral equal air entry, bilateral equal expansion, basilar rales. CARDIAC: S1 and S2. Regular rate and rhythm, no murmur, no rub. ABDOMEN: Obese, distended, soft, nontender, bowel sounds present. EXTREMITIES: No lower extremity edema. Intake and output 2630/275. LABORATORY DATA: WBC 9.6, hemoglobin 11.5, hematocrit 40, platelets 146. Sodium 137, potassium 4.2, chloride 99, CO2 31, BUN 69, creatinine 3.0, glucose 96, calcium 8.1, AST 95, ALT 293, albumin 2.8, corrected calcium is 9.0. The cultures no growth so far. CURRENT MEDICATIONS: Aspirin, Coreg 3.125 b.i.d., Flomax, Lipitor, Pepcid, half-normal saline at 80, Synthroid, Xalatan, Zithromax, allopurinol, and cefepime 1 g daily. ASSESSMENT AND PLAN: 1. Acute kidney injury superimposed on chronic kidney disease stage III. 2. Aspiration pneumonia? 3. History of hypertension. 4. History of colorectal cancer. 5. Osteoarthritis. 6. Hypernatremia, resolved. 7. Dehydration. PLAN: 1. Continue hypotonic IV fluids. 2. Push p.o. intake. 3. Continue antibiotics for community-acquired pneumonia. 4. Monitor urine output closely. 5. Monitor daily labs. Ave Izquierdo MD
[2017-09-05] MEDS: Levothyroxine 25 MCG TAB PO SCH (10:25)
[2017-09-05] MEDS: Bacitracin Ointment 30 GM TUBE TOP SCH ×2 (10:26→18:39)
[2017-09-05] MEDS: Ciprofloxacin 0.3% OPTH SOLN OU SCH ×2 (10:27→18:39)
[2017-09-05] MEDS ORDERED: Cefpodoxime (Vantin) 200 mg Tab PO ONE (10:45)
--- NOTE | 2017-09-05 12:20 | CP.PCM.PN ---
Subjective - Date & Time of Evaluation Date of Evaluation: 09/05/17 Time of Evaluation: 10:20 - Subjective Subjective: Comfortable, no fevers, not in distress. Objective - Vital Signs/Intake and Output Vital Signs (last 24 hours): Temp Pulse Resp BP Pulse Ox 97.5 F L 90 20 92/52 L 94 L 09/05/17 06:00 09/05/17 06:00 09/05/17 06:00 09/05/17 06:00 09/05/17 06:00 Intake and Output: 09/05/17 09/05/17 06:59 18:59 Intake Total 0 Output Total 100 Balance -100 - Medications Medications: Current Medications Allopurinol (Zyloprim) 100 mg PO BID [facility] Last Admin: 09/04/17 17:08 Dose: Not Given Aspirin (Aspirin Chewable) 81 mg PO DAILY [facility] Last Admin: 09/04/17 09:49 Dose: 81 mg Atorvastatin Calcium (Lipitor) 40 mg PO DIN [facility] Last Admin: 09/04/17 17:08 Dose: Not Given Azithromycin (Zithromax) 500 mg PO DAILY [facility] PRN Reason: Protocol Stop: 09/09/17 10:01 Last Admin: 09/04/17 09:46 Dose: 500 mg Bacitracin (Bacitracin) 1 gm TOP BID [facility] Last Admin: 09/04/17 17:08 Dose: Not Given Carvedilol (Coreg) 3.125 mg PO BID [facility] Last Admin: 09/04/17 17:19 Dose: Not Given Cefpodoxime Proxetil (Vantin) 250 mg PO Q12 [facility] PRN Reason: Protocol Last Admin: 09/04/17 21:47 Dose: Not Given Ciprofloxacin (Ciloxan 0.3% Ophth Soln) 1 drop OU BID [facility] Last Admin: 09/04/17 17:07 Dose: Not Given Famotidine (Pepcid) 20 mg PO 1000,2200 [facility] Last Admin: 09/04/17 21:47 Dose: Not Given Latanoprost (Xalatan Opht) 0 ml OU HS [facility] Last Admin: 09/04/17 21:47 Dose: Not Given Levothyroxine Sodium (Synthroid) 25 mcg PO DAILY [facility] Last Admin: 09/04/17 09:50 Dose: 25 mcg Tamsulosin HCl (Flomax) 0.4 mg PO DAILY [facility] Last Admin: 09/04/17 09:50 Dose: 0.4 mg - Labs Labs: 09/03/17 06:00 09/05/17 08:05 PT 12.8 SECONDS (9.4-12.5) H 08/29/17 11:55 INR 1.16 (0.93-1.08) H 08/29/17 11:55 APTT 23.9 Seconds (25.1-36.5) L 08/29/17 11:55 - Constitutional Appears: Non-toxic - Head Exam Head Exam: NORMAL INSPECTION - Neck Exam Neck Exam: absent: Meningismus - Respiratory Exam Respiratory Exam: Decreased Breath Sounds - Cardiovascular Exam Cardiovascular Exam: +S1, +S2 - GI/Abdominal Exam GI & Abdominal Exam: Soft. absent: Tenderness Assessment and Plan - Assessment and Plan (Free Text) Plan: asssessment consider sepsis due to left lower lobe community-acquired pneumonia with possible CHF, clinically improving left eye discharge history of left posterior neck mass, sebaceous cyst S/P surgical excision history of left arm cellulitis probably related to venous catheter S/P removal history of asymtpmatic bacteriuria with gram negative bacilli gout history of subarachnoid hemorrhage hypothyroidism colon cancer S/P hemicolectomy HTN osteoarthritis history of healthcare-associated pneumonia osteoporosis Plan on Zithromax day 6, and Cefpodoxime; blood cx are negative; PCT is low at 0.16 left eye discharge is growing gram positive cocci - follow up final identification and sensitivities - will switch Zithromax to Doxycycline will continue to monitor clinically
--- NOTE | 2017-09-05 13:14 | CP.PCM.PN ---
Subjective - Date & Time of Evaluation Date of Evaluation: 09/05/17 Time of Evaluation: 09:30 - Subjective Subjective: PGY-2 Neurology consult note for Dr. Abraham's service Patient seen and examined at bedside. No acute distress. Patient is alert and oriented to person and place. He denies any headache, dizziness, he reports pain in his arms and legs due to arthritis Objective - Vital Signs/Intake and Output Vital Signs (last 24 hours): Temp Pulse Resp BP Pulse Ox 97 F L 94 H 18 103/56 L 94 L 09/05/17 12:00 09/05/17 12:00 09/05/17 12:00 09/05/17 12:00 09/05/17 06:00 Intake and Output: 09/05/17 09/05/17 06:59 18:59 Intake Total 0 Output Total 100 Balance -100 - Medications Medications: Current Medications Allopurinol (Zyloprim) 100 mg PO BID [facility] Last Admin: 09/05/17 10:25 Dose: 100 mg Aspirin (Aspirin Chewable) 81 mg PO DAILY [facility] Last Admin: 09/05/17 10:25 Dose: 81 mg Atorvastatin Calcium (Lipitor) 40 mg PO DIN [facility] Last Admin: 09/04/17 17:08 Dose: Not Given Bacitracin (Bacitracin) 1 gm TOP BID [facility] Last Admin: 09/05/17 10:26 Dose: 1 applic Carvedilol (Coreg) 3.125 mg PO BID [facility] Last Admin: 09/05/17 10:46 Dose: Not Given Cefpodoxime Proxetil (Vantin) 200 mg PO Q12 [facility] PRN Reason: Protocol Ciprofl[facility]) 1 drop OU BID [facility] Last Admin: 09/05/17 10:27 Dose: 1 drop Doxycycline Hyclate (Doryx) 100 mg PO Q12 [facility] PRN Reason: Protocol Famotidine (Pepcid) 20 mg PO 1000,2200 [facility] Last Admin: 09/05/17 10:25 Dose: 20 mg Latanoprost (Xalatan Opht) 0 ml OU HS [facility] Last Admin: 09/04/17 21:47 Dose: Not Given Levothyroxine Sodium (Synthroid) 25 mcg PO DAILY [facility] Last Admin: 09/05/17 10:25 Dose: 25 mcg Tamsulosin HCl (Flomax) 0.4 mg PO DAILY [facility] Last Admin: 09/05/17 10:25 Dose: 0.4 mg - Labs Labs: 09/03/17 06:00 09/05/17 08:05 PT 12.8 SECONDS (9.4-12.5) H 08/29/17 11:55 INR 1.16 (0.93-1.08) H 08/29/17 11:55 APTT 23.9 Seconds (25.1-36.5) L 08/29/17 11:55 - Constitutional Appears: No Acute Distress - Head Exam Head Exam: ATRAUMATIC, NORMAL INSPECTION, NORMOCEPHALIC - Eye Exam Eye Exam: EOMI, Normal appearance - ENT Exam ENT Exam: Mucous Membranes Moist - Respiratory Exam Respiratory Exam: Clear to Ausculation Bilateral, NORMAL BREATHING PATTERN. absent: Rhonchi, Wheezes, Respiratory Distress - Cardiovascular Exam Cardiovascular Exam: REGULAR RHYTHM - Neurological Exam Neurological Exam: Alert, Awake, CN II-XII Intact - Skin Skin Exam: Dry, Intact, Normal Color, Warm Assessment and Plan - Assessment and Plan (Free Text) Assessment: 86yo male with PMHx of CHF, COPD, CAD, HTN, CKD, anemia, colon ca presents to ED for AMS most likely secondary to transient cerebral hypoperfusion with underlying metabolic derangements including electrolyte abnormalities and possible PNE. 1. AMS 2. NSTEMI 3. Hyperkalemia 4. JENNIFER 5. sepsis due to pneumonia with left eye discharge 6. transaminitis - CT head showed no acute infarcts - MRI negative for infarction - avoid systolic blood pressure drops - asa 81 - Lipitor 40 - monitor electrolytes, replace as needed - follow up cardiology recommendation case reviewed and discussed with attending, Dr. Abraham.
[2017-09-05] MEDS ORDERED: Cefpodoxime (Vantin) 200 mg Tab PO SCH (22:00)
[2017-09-05] MEDS: Latanoprost 2.5 ml Opht Soln OU SCH (22:29)
--- NOTE | 2017-09-06 00:19 | PN ---
DATE: 09/05/2017 SUBJECTIVE: The patient is seen lying in bed. He is lethargic. As per the nursing staff, he is in and out. He is confused at times. Awake and alert at times. PHYSICAL EXAMINATION: GENERAL: Obese elderly male lying in bed. VITAL SIGNS: Blood pressure 96/60, heart rate 94, respiratory rate 18, temperature 98.1. HEENT: Normocephalic, atraumatic. NECK: Supple, no JVD. LUNGS: Bilateral rhonchi, decreased breath sounds at bases. CARDIAC: S1, S2. Regular rate and rhythm, no murmur, no rub. ABDOMEN: Obese, distended, soft, nontender, bowel sounds present. EXTREMITIES: 1+ pitting edema of the lower extremities. INTAKE AND OUTPUT: Not charted. LABORATORY DATA: No CBC. Sodium 33, potassium 4.8, chloride 97, CO2 28, BUN 71, creatinine 2.3, glucose 113, calcium 8.6. BNP 10,600, albumin 2.9. Left eye culture, gram-positive cocci. CT of the head, nonspecific white matter changes. CURRENT MEDICATIONS: Aspirin, bacitracin, ciprofloxacin, Coreg, D5W at 30, doxycycline 100 q. 12 h., Flomax, Lipitor, Pepcid, Synthroid, Vantin, and Zyloprim. ASSESSMENT AND PLAN: 1. Acute kidney injury superimposed on chronic kidney disease stage III. 2. Sepsis, ?pneumonia. 3. History of hypertension. 4. History of colon cancer. 5. Anemia. 6. Hyponatremia. 7. Elevated BNP. PLAN: 1. Agree with discontinuation of IV fluids. 2. Continue antibiotics. 3. Dose all antibiotics for creatinine clearance 10-30 mL/minute. 4. No plans for renal replacement therapy Ave Izquierdo MD
--- NOTE | 2017-09-06 03:13 | PN ---
DATE: 09/05/2017 SUBJECTIVE: This patient was seen and evaluated earlier today. Patient appears much more comfortable than yesterday. PHYSICAL EXAMINATION: GENERAL: This is an 86-year-old patient; patient appears much more. VITAL SIGNS: Temperature is 98.1, blood pressure is 105/64, pulse 93, respirations 18. HEENT: Atraumatic, anicteric. NECK: Supple. HEART: S1 and S2 heard. LUNGS: Bilateral air entry present. There are a few crackles present at the base. ABDOMEN: Soft. There is no tenderness. EXTREMITIES: No cyanosis, no clubbing. LABORATORY DATA: Hemoglobin is 11.1, hematocrit is 37.1, WBC is 10, platelets 132. Chemistry is BUN 7.1, creatinine 3.3. IMPRESSION: Congestive heart failure, chronic obstructive pulmonary disease, abnormal liver function tests. Liver function test shows downward trend probably secondary to the hepatic congestion. History of gallstone, appears asymptomatic. RECOMMENDATIONS: 1. Followup of the hemoglobin, hematocrit, and followup of the LFTs. 2. Continue the antibiotics as per ID and cardiological followup. 3. Follow up with an ID and also a steam turbine operator. Thank you very much for allowing us to participate in the care of the patient. Luiza Rehman MD
[2017-09-06 07:30] LABS: CALCIUM 8.3 mg/dL (8.4-10.5); POTASSIUM 4.4 mmol/L (3.6-5.0)
[2017-09-06 10:08] LABS: BILIRUBIN,DIRECT 0.5 mg/dL (0.0-0.4); BILIRUBIN,TOTAL 0.5 mg/dL (0.2-1.3); TOTAL PROTEIN 5.6 g/dL (5.8-8.3)
[2017-09-06] MEDS: Levothyroxine 25 MCG TAB PO SCH (10:59)
[2017-09-06] MEDS: Cefpodoxime (Vantin) 200 mg Tab PO SCH (11:00)
[2017-09-06] MEDS: Bacitracin Ointment 30 GM TUBE TOP SCH ×2 (11:01→17:33)
[2017-09-06] MEDS: Ciprofloxacin 0.3% OPTH SOLN OU SCH ×2 (11:01→17:33)
--- NOTE | 2017-09-06 11:06 | PN ---
DATE: SUBJECTIVE: The patient is in [facility] in [place], room 271, bed 2. The patient was admitted with unresponsive state, has pneumonia, congestive heart failure. The patient is acutely ill yet. He is confused this morning. The patient is hallucinating. The patient has past history of hyperuricemia, benign prostatic hyperplasia, congestive heart failure, chronic lung disease. The patient also has hypothyroidism and the patient has glaucoma. The patient is awake, but hallucinating and the urine output is minimal. The patient is maintained on 30 mL of D5NS IV. The patient is given Lasix. PHYSICAL EXAMINATION: VITAL SIGNS: The patient's pulse is 91, blood pressure is 146/74 with temperature 98.2, respirations are 18. LUNGS: Bilateral crepitations are heard. HEART: Normal sinus rhythm. S1 and S2 present. ABDOMEN: Soft. No tenderness. No enlargement of liver or spleen. FACILITY MECHANIC: The patient is confused, hallucinating. No focal neurological deficits are noted. LABORATORY DATA: BUN was 71, creatinine 3.3 yesterday. The patient's hemoglobin is 11.1, white count is 10,000, within normal limits. The patient's chemistry, the BUN as mentioned is 79 and the creatinine is 3.6 today. The patient's calcium is 8.3. BNP has been elevated to 10,600; it was over 20,000 when he was first admitted to the hospital. MEDICATIONS: His list of medications consist of aspirin 81 mg daily; the patient is on ciprofloxacin eyedrops because of discharge from both eyes. The patient is on Coreg 3.125 mg b.i.d., doxycycline 100 mg q.12 hours, Flomax 0.4 mg daily, Vantin 200 mg b.i.d., Synthroid 25 mcg daily, Pepcid 20 mg p.o. daily, Lipitor 40 mg daily, and Xalatan eyedrops daily. The patient is on a modified consistency, 2 g sodium, heart-healthy diet. PLAN: The patient's condition is not stable. The patient's overall prognosis is guarded. We will continue current management. The patient is on IV fluid as mentioned, 30 mL of dextrose IV every hour. The patient is also getting Lasix one dose today 40 mg. The urine is clear, but it is very minimal. The patient has consultations with police captain and frame sample and pattern supervisor. We will follow up. Ju Seymour MD [facility]
--- NOTE | 2017-09-06 11:15 | CP.PCM.PN ---
Subjective - Date & Time of Evaluation Date of Evaluation: 09/06/17 Time of Evaluation: 09:40 - Subjective Subjective: Patient is not short of breath at rest, no fevers overnight, no nausea or vomiting, no diarrhea, left eye feels ok. Objective - Vital Signs/Intake and Output Vital Signs (last 24 hours): Temp Pulse Resp BP Pulse Ox 98.2 F 91 H 18 146/74 94 L 09/06/17 06:00 09/06/17 06:00 09/06/17 06:00 09/06/17 06:00 09/06/17 06:00 Intake and Output: 09/05/17 09/06/17 18:59 06:59 Intake Total 860 Output Total 150 Balance 710 - Medications Medications: Current Medications Allopurinol (Zyloprim) 100 mg PO BID [facility] Last Admin: 09/05/17 18:28 Dose: 100 mg Aspirin (Aspirin Chewable) 81 mg PO DAILY [facility] Last Admin: 09/05/17 10:25 Dose: 81 mg Atorvastatin Calcium (Lipitor) 40 mg PO DIN [facility] Last Admin: 09/05/17 18:28 Dose: 40 mg Bacitracin (Bacitracin) 1 gm TOP BID [facility] Last Admin: 09/05/17 18:39 Dose: 1 applic Carvedilol (Coreg) 3.125 mg PO BID [facility] Last Admin: 09/05/17 19:50 Dose: Not Given Cefpodoxime Proxetil (Vantin) 200 mg PO Q12 [facility] PRN Reason: Protocol Last Admin: 09/05/17 22:27 Dose: 200 mg Ciprofloxacin (Ciloxan 0.3% Ophth Soln) 1 drop OU BID [facility] Last Admin: 09/05/17 18:39 Dose: 1 drop Doxycycline Hyclate (Doryx) 100 mg PO Q12 [facility] PRN Reason: Protocol Last Admin: 09/05/17 22:27 Dose: 100 mg Famotidine (Pepcid) 20 mg PO 1000,2200 [facility] Last Admin: 09/05/17 22:28 Dose: 20 mg Dextrose (Dextrose 5% In Water 1000 Ml) 1,000 mls @ 30 mls/hr IV .Q24H [facility] Last Admin: 09/05/17 18:53 Dose: 30 mls/hr Latanoprost (Xalatan Opht) 0 ml OU HS [facility] Last Admin: 09/05/17 22:29 Dose: 2.5 ml Levothyroxine Sodium (Synthroid) 25 mcg PO DAILY [facility] Last Admin: 09/05/17 10:25 Dose: 25 mcg Tamsulosin HCl (Flomax) 0.4 mg PO DAILY [facility] Last Admin: 09/05/17 10:25 Dose: 0.4 mg - Labs Labs: 09/03/17 06:00 09/05/17 08:05 PT 12.8 SECONDS (9.4-12.5) H 08/29/17 11:55 INR 1.16 (0.93-1.08) H 08/29/17 11:55 APTT 23.9 Seconds (25.1-36.5) L 08/29/17 11:55 - Constitutional Appears: Non-toxic, Chronically Ill - Head Exam Head Exam: NORMAL INSPECTION - ENT Exam ENT Exam: Mucous Membranes Moist - Neck Exam Neck Exam: absent: Meningismus - Respiratory Exam Respiratory Exam: Decreased Breath Sounds - Cardiovascular Exam Cardiovascular Exam: +S1, +S2 - GI/Abdominal Exam GI & Abdominal Exam: Soft. absent: Tenderness Assessment and Plan - Assessment and Plan (Free Text) Plan: asssessment consider sepsis due to left lower lobe community-acquired pneumonia with possible CHF, clinically improving left eye discharge with gram positive cocci history of left posterior neck mass, sebaceous cyst S/P surgical excision history of left arm cellulitis probably related to venous catheter S/P removal history of asymtpmatic bacteriuria with gram negative bacilli gout history of subarachnoid hemorrhage hypothyroidism colon cancer S/P hemicolectomy HTN osteoarthritis history of healthcare-associated pneumonia osteoporosis Plan on Doxycycline and Cefpodoxime day 7, to complete 7-10 days of therapy; blood cx are negative; PCT is low at 0.16 left eye discharge is growing gram positive cocci - follow up final identification and sensitivities - continue bactroban ointment as well will continue to monitor clinically
--- NOTE | 2017-09-06 12:38 | CP.PCM.PN ---
<Cecilia Marcano - Last Filed: 09/06/17 12:38> Subjective - Date & Time of Evaluation Date of Evaluation: 09/06/17 Time of Evaluation: 09:45 - Subjective Subjective: Seen and examined at bedside earlier today, patient confused but pleasant, denies nausea, vomiting, or abdominal pain. No acute overnight events reported. No reports of overt GI bleed. Objective - Vital Signs/Intake and Output Vital Signs (last 24 hours): Temp Pulse Resp BP Pulse Ox 98.2 F 94 H 18 126/66 94 L 09/06/17 06:00 09/06/17 11:21 09/06/17 06:00 09/06/17 11:21 09/06/17 06:00 Intake and Output: 09/06/17 09/06/17 06:59 18:59 Intake Total 860 Output Total 150 Balance 710 - Medications Medications: Current Medications Albuterol/Ipratropium (Duoneb 3 Mg/0.5 Mg (3 Ml) Ud) 3 ml IH [id number] [facility] Allopurinol (Zyloprim) 100 mg PO BID [facility] Last Admin: 09/06/17 11:00 Dose: 100 mg Aspirin (Aspirin Chewable) 81 mg PO DAILY [facility] Last Admin: 09/06/17 10:59 Dose: 81 mg Atorvastatin Calcium (Lipitor) 40 mg PO DIN [facility] Last Admin: 09/05/17 18:28 Dose: 40 mg Bacitracin (Bacitracin) 1 gm TOP BID [facility] Last Admin: 09/06/17 11:01 Dose: 1 applic Carvedilol (Coreg) 3.125 mg PO BID [facility] Last Admin: 09/06/17 11:21 Dose: 3.125 mg Cefpodoxime Proxetil (Vantin) 200 mg PO DAILY [facility] PRN Reason: Protocol Last Admin: 09/06/17 11:00 Dose: 200 mg Ciprofloxacin (Ciloxan 0.3% Ophth Soln) 1 drop OU BID [facility] Last Admin: 09/06/17 11:01 Dose: 1 drop Doxycycline Hyclate (Doryx) 100 mg PO Q12 [facility] PRN Reason: Protocol Last Admin: 09/06/17 11:22 Dose: 100 mg Famotidine (Pepcid) 20 mg PO 1000,2200 [facility] Last Admin: 09/06/17 11:00 Dose: 20 mg Dextrose (Dextrose 5% In Water 1000 Ml) 1,000 mls @ 30 mls/hr IV .Q24H [facility] Last Admin: 09/05/17 18:53 Dose: 30 mls/hr Latanoprost (Xalatan Opht) 0 ml OU HS [facility] Last Admin: 09/05/17 22:29 Dose: 2.5 ml Levothyroxine Sodium (Synthroid) 25 mcg PO DAILY [facility] Last Admin: 09/06/17 10:59 Dose: 25 mcg Tamsulosin HCl (Flomax) 0.4 mg PO DAILY [facility] Last Admin: 09/06/17 10:59 Dose: 0.4 mg - Labs Labs: 09/03/17 06:00 09/06/17 06:00 PT 12.8 SECONDS (9.4-12.5) H 08/29/17 11:55 INR 1.16 (0.93-1.08) H 08/29/17 11:55 APTT 23.9 Seconds (25.1-36.5) L 08/29/17 11:55 - Constitutional Appears: No Acute Distress - Head Exam Head Exam: NORMOCEPHALIC - Eye Exam Eye Exam: absent: Scleral icterus (left eye erythema but no purulent discharge, (+) eye infection) - ENT Exam ENT Exam: Mucous Membranes Moist - Neck Exam Neck Exam: Normal Inspection - Respiratory Exam Respiratory Exam: NORMAL BREATHING PATTERN. absent: Respiratory Distress - Cardiovascular Exam Cardiovascular Exam: +S1, +S2 - GI/Abdominal Exam GI & Abdominal Exam: Distended, Soft, Normal Bowel Sounds. absent: Guarding, Tenderness, Rebound - Extremities Exam Extremities Exam: Pedal Edema. absent: Calf Tenderness - Neurological Exam Neurological Exam: Alert, Altered (confused at times), Awake - Skin Skin Exam: Dry, Warm Assessment and Plan - Assessment and Plan (Free Text) Assessment: ASSESSMENT: AMS Left eye infection, positive staph Sepsis Elevated LFT,may likely be secondary to hepatic congestion, improving Positive guaiac, H&H steady CHF Cholelithiasis, now with sludge ARF PLAN: check LFT today avoid if possible hepatotoxic medication cardiology FU on oral antibiotics on Cipro eyedrops on Aspirin on soft diet Monitor H&H, overt GI bleed continue Pepcid 20mg BID Seen and discussed w/ Dr. Rehman <Luiza Rehman V - Last Filed: 09/06/17 23:31> Objective - Vital Signs/Intake and Output Vital Signs (last 24 hours): Temp Pulse Resp BP Pulse Ox 98.1 F 80 18 100/56 L 94 L 09/06/17 18:00 09/06/17 18:00 09/06/17 12:00 09/06/17 18:00 09/06/17 06:00 - Medications Medications: Current Medications Albuterol/Ipratropium (Duoneb 3 Mg/0.5 Mg (3 Ml) Ud) 3 ml IH [id number] [facility] Last Admin: 09/06/17 19:39 Dose: 3 ml Allopurinol (Zyloprim) 100 mg PO BID [facility] Last Admin: 09/06/17 17:31 Dose: 100 mg Aspirin (Aspirin Chewable) 81 mg PO DAILY [facility] Last Admin: 09/06/17 10:59 Dose: 81 mg Atorvastatin Calcium (Lipitor) 40 mg PO DIN [facility] Last Admin: 09/06/17 17:31 Dose: 40 mg Bacitracin (Bacitracin) 1 gm TOP BID [facility] Last Admin: 09/06/17 17:33 Dose: 1 applic Carvedilol (Coreg) 3.125 mg PO BID [facility] Last Admin: 09/06/17 17:32 Dose: Not Given Cefpodoxime Proxetil (Vantin) 200 mg PO DAILY [facility] PRN Reason: Protocol Last Admin: 09/06/17 11:00 Dose: 200 mg Ciprofloxacin (Ciloxan 0.3% Ophth Soln) 1 drop OU BID [facility] Last Admin: 09/06/17 17:33 Dose: 1 drop Doxycycline Hyclate (Doryx) 100 mg PO Q12 [facility] PRN Reason: Protocol Last Admin: 09/06/17 21:48 Dose: 100 mg Famotidine (Pepcid) 20 mg PO 1000,2200 [facility] Last Admin: 09/06/17 21:48 Dose: 20 mg Dextrose (Dextrose 5% In Water 1000 Ml) 1,000 mls @ 30 mls/hr IV .Q24H [facility] Last Admin: 09/06/17 17:49 Dose: Not Given Latanoprost (Xalatan Opht) 0 ml OU HS [facility] Last Admin: 09/06/17 21:49 Dose: 2.5 ml Levothyroxine Sodium (Synthroid) 25 mcg PO DAILY [facility] Last Admin: 09/06/17 10:59 Dose: 25 mcg Tamsulosin HCl (Flomax) 0.4 mg PO DAILY [facility] Last Admin: 09/06/17 10:59 Dose: 0.4 mg - Labs Labs: 09/03/17 06:00 09/06/17 06:00 PT 12.8 SECONDS (9.4-12.5) H 08/29/17 11:55 INR 1.16 (0.93-1.08) H 08/29/17 11:55 APTT 23.9 Seconds (25.1-36.5) L 08/29/17 11:55 Attending/Attestation - Attestation I have personally seen and examined this patient.: Yes I have fully participated in the care of the patient.: Yes I have reviewed all pertinent clinical information, including history, physical exam and plan: Yes Notes (Text): this is an addendum to see a progress report dictated by Cecilia Marcano APN Patient was seen and evaluated earlier Patient's daughter and that at bedside On examination abdomen soft, nontender. Patient was more alert and communicative The LFT the shows downward trend. Would consider cut down the dose of Pepcid to once daily in view of renal dysfunction to further optimize the dose regimen 09/06/17 23:28
[2017-09-06] MEDS: Albuterol-Ipratrop 3 mg / 0.5 (3 ml) UD IH SCH ×2 (13:28→19:39)
--- NOTE | 2017-09-06 14:41 | PN ---
DATE: SUBJECTIVE: The patient is sitting upright in bed. He is rambling on and he appears to be confused. His oral intake has been limited. The patient remains on minimal IV fluid hydration along with diuretic therapy. BUN and creatinine have continued to increase. The patient is felt not to be a candidate for renal replacement therapy. MEDICATIONS: Medication list reviewed. The patient is currently on aspirin, bacitracin, ciprofloxacin eye drops, Coreg, D5W 30 mL an hour, Doryx, DuoNeb, Flomax, Lipitor, Pepcid, Synthroid, Vantin, Xalatan ophthalmic ointment, and allopurinol. OBJECTIVE: INTAKE AND OUTPUT: Intake 860, output 150. VITAL SIGNS: Blood pressure 101/48, temperature 97.9, pulse 98 with respiratory rate of 18, and pulse ox was 94% on 2 liters nasal cannula oxygen therapy. HEENT: Shows him to be normocephalic, atraumatic. Conjunctivae are pink. Sclerae are nonicteric. NECK: Supple. No neck vein distention. CHEST: Clear to auscultation and percussion with decreased breath sounds at the bases and scattered rhonchi. CARDIOVASCULAR: Shows an irregular rate and rhythm with no audible murmurs. He does have /AI/TR seen on previous echocardiogram. No S3. No S4. No rub. ABDOMEN: Abdomen is soft. Bowel sounds normal. No rebound, no guarding or masses. EXTREMITIES: Show 1+ pitting edema of his lower extremity, puffiness of his upper extremity. Diminished lower extremity pulses bilaterally. NEUROLOGIC: Shows him to be alert, but completely disoriented. LABORATORY DATA AND IMAGING STUDIES: Last chest x-ray done on 09/04/2017 shows minimal infiltrate at the right lung base, infiltrate at the left lung base, and small pleural effusions with no significant change. Labs: CBC, white blood cell count 10.0, hemoglobin 11.1, and platelet count is 132,000. Chemistries today showed sodium of 133, potassium 4.4, chloride 96 with CO2 of 27, BUN is up to 79 with creatinine of 3.6, and calcium was 8.3 with glucose of 95. Mild elevation of his ALT. Albumin level is stable at 2.9. Microbiology: Left eye culture is positive for coag-negative Staph and yeast. Urine cultures have been negative. Blood cultures were negative. ASSESSMENT: 1. Acute renal failure superimposed on chronic kidney disease stage III. This is in the setting of pneumonia in the setting of congestive heart failure in the setting of diuretic therapy. At present, his diuretics have been held because of a elevated BUN and creatinine. The patient's family and I discussed the possibility of renal replacement therapy. They did not feel that he is a candidate for this in light of his age. 2. History of possible left lower lobe pneumonia: The patient is completing a course of antibiotic therapy. 3. History of congestive heart failure and hypervolemia: At present, diuretics are on hold because of his elevated BUN and creatinine. 4. 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 5. Mild elevation of liver enzymes. 6. History of hypertension. Blood pressure controlled on present medical therapy. 7. History of hypothyroidism, stable. 8. History of colorectal cancer appears to be stable. 9. History of severe osteoarthritis appears to be stable. PLAN: 1. Explained to family that our options are extremity limited. He can be maintained on very low-dose dextrose infusion. This will minimize any further edema formation. Unfortunately, the patient did diurese appropriately, his BUN and creatinine would be significantly higher and this would be unacceptable. 2. Discussed with the patient's family in the room in great detail. They understand the predicament. 3. Avoid all nephrotoxic agents. 4. Continue Cardiology followup. 5. Continue ID followup. 6. Continue to monitor the patient on telemetry. Oral León MD
[2017-09-06] MEDS: Latanoprost 2.5 ml Opht Soln OU SCH (21:49)
[2017-09-07] MEDS: Albuterol-Ipratrop 3 mg / 0.5 (3 ml) UD IH SCH ×4 (01:39→19:32)
[2017-09-07 06:01] LABS: HEMATOCRIT 31.5 % (42.0-52.0); MEAN CELL VOLUME 90.3 fl (80.0-105.0); MEAN CORPUSCULAR HEMOGLOBIN 27.8 pg (25.0-35.0); MEAN CORPUSCULAR HGB CONC 30.8 g/dl (31.0-37.0); MEAN PLATELET VOLUME 8.5 fl (7.0-11.0); RED CELL DISTRIBUTION WIDTH 16.4 % (11.5-14.5); WHITE BLOOD COUNT 8.4 10^3/ul (4.5-11.0)
[2017-09-07 07:26] LABS: BILIRUBIN,TOTAL 0.5 mg/dL (0.2-1.3); CALCIUM 8.2 mg/dL (8.4-10.5); MAGNESIUM 2.3 mg/dL (1.7-2.2); POTASSIUM 4.3 mmol/L (3.6-5.0); TOTAL PROTEIN 5.4 g/dL (5.8-8.3)
--- NOTE | 2017-09-07 08:12 | CP.PCM.PN ---
Subjective - Date & Time of Evaluation Date of Evaluation: 09/07/17 Time of Evaluation: 07:45 - Subjective Subjective: Patient is seen this morning. He is resting, but he wakes up when his name is called. He says he was coughing last night. Objective - Vital Signs/Intake and Output Vital Signs (last 24 hours): Temp Pulse Resp BP Pulse Ox 98.0 F 76 20 119/54 L 95 09/07/17 06:00 09/07/17 06:00 09/07/17 06:00 09/07/17 06:00 09/07/17 06:00 Intake and Output: 09/07/17 09/07/17 06:59 18:59 Intake Total 520 Output Total 150 Balance 370 - Medications Medications: Current Medications Albuterol/Ipratropium (Duoneb 3 Mg/0.5 Mg (3 Ml) Ud) 3 ml IH [id number] [facility] Last Admin: 09/07/17 07:56 Dose: 3 ml Allopurinol (Zyloprim) 100 mg PO BID [facility] Last Admin: 09/06/17 17:31 Dose: 100 mg Aspirin (Aspirin Chewable) 81 mg PO DAILY [facility] Last Admin: 09/06/17 10:59 Dose: 81 mg Atorvastatin Calcium (Lipitor) 40 mg PO DIN [facility] Last Admin: 09/06/17 17:31 Dose: 40 mg Bacitracin (Bacitracin) 1 gm TOP BID [facility] Last Admin: 09/06/17 17:33 Dose: 1 applic Carvedilol (Coreg) 3.125 mg PO BID [facility] Last Admin: 09/06/17 17:32 Dose: Not Given Cefpodoxime Proxetil (Vantin) 200 mg PO DAILY [facility] PRN Reason: Protocol Last Admin: 09/06/17 11:00 Dose: 200 mg Ciprofloxacin (Ciloxan 0.3% Ophth Soln) 1 drop OU BID [facility] Last Admin: 09/06/17 17:33 Dose: 1 drop Doxycycline Hyclate (Doryx) 100 mg PO Q12 [facility] PRN Reason: Protocol Last Admin: 09/06/17 21:48 Dose: 100 mg Famotidine (Pepcid) 20 mg PO 1000,2200 [facility] Last Admin: 09/06/17 21:48 Dose: 20 mg Furosemide (Lasix) 40 mg IVP ONCE ONE Stop: 09/07/17 08:02 Dextrose (Dextrose 5% In Water 1000 Ml) 1,000 mls @ 10 mls/hr IV .Q24H [facility] Latanoprost (Xalatan Opht) 0 ml OU HS [facility] Last Admin: 09/06/17 21:49 Dose: 2.5 ml Levothyroxine Sodium (Synthroid) 25 mcg PO DAILY [facility] Last Admin: 09/06/17 10:59 Dose: 25 mcg Tamsulosin HCl (Flomax) 0.4 mg PO DAILY [facility] Last Admin: 09/06/17 10:59 Dose: 0.4 mg - Labs Labs: 09/07/17 05:30 09/07/17 05:30 PT 12.8 SECONDS (9.4-12.5) H 08/29/17 11:55 INR 1.16 (0.93-1.08) H 08/29/17 11:55 APTT 23.9 Seconds (25.1-36.5) L 08/29/17 11:55 - Head Exam Head Exam: ATRAUMATIC, NORMOCEPHALIC - Respiratory Exam Respiratory Exam: Decreased Breath Sounds, Rhonchi - Cardiovascular Exam Cardiovascular Exam: +S1, +S2 - GI/Abdominal Exam GI & Abdominal Exam: Soft, Normal Bowel Sounds. absent: Tenderness - Neurological Exam Neurological Exam: Alert, Awake Assessment and Plan - Assessment and Plan (Free Text) Assessment: Acute on chronic kidney disease pneumonia chronic diastolic heart failure severe degenerative arthritis anemia Plan: Patient is awake this morning. He is on antibiotics for pneumonia. Patient has edema in arms and legs. Urine output low despite IV fluids. Patient also with heart failure and short of breath this morning. we will order one dose of Lasix today and reduce fluids to 10ml/hr. Albumin is low. Will give albumin today to see if it will help with diuresis. BUN and creatinine continue to rise. Hemoglobin dropped to 9.7 from 11.1. Will order stool for occult blood. Renal, Cardiology, Infectious disease are following.
[2017-09-07] MEDS ORDERED: Albumin Human 25% (12.5 gm/50 ml) IV ONE (08:15)
[2017-09-07] MEDS: Levothyroxine 25 MCG TAB PO SCH (09:34)
[2017-09-07] MEDS: Ciprofloxacin 0.3% OPTH SOLN OU SCH ×2 (09:36→17:42)
[2017-09-07] MEDS: Bacitracin Ointment 30 GM TUBE TOP SCH ×2 (09:36→17:42)
[2017-09-07] MEDS: Cefpodoxime (Vantin) 200 mg Tab PO SCH (09:37)
--- NOTE | 2017-09-07 10:40 | CP.PCM.PN ---
Subjective - Date & Time of Evaluation Date of Evaluation: 09/07/17 Time of Evaluation: 10:05 - Subjective Subjective: Comfortable in bed, no fevers, not in distress. Objective - Vital Signs/Intake and Output Vital Signs (last 24 hours): Temp Pulse Resp BP Pulse Ox 98.0 F 76 20 119/54 L 95 09/07/17 06:00 09/07/17 06:00 09/07/17 06:00 09/07/17 06:00 09/07/17 06:00 Intake and Output: 09/06/17 09/07/17 18:59 06:59 Intake Total 520 Output Total 150 Balance 370 - Medications Medications: Current Medications Albuterol/Ipratropium (Duoneb 3 Mg/0.5 Mg (3 Ml) Ud) 3 ml IH [id number] [facility] Last Admin: 09/07/17 01:39 Dose: 3 ml Allopurinol (Zyloprim) 100 mg PO BID [facility] Last Admin: 09/06/17 17:31 Dose: 100 mg Aspirin (Aspirin Chewable) 81 mg PO DAILY [facility] Last Admin: 09/06/17 10:59 Dose: 81 mg Atorvastatin Calcium (Lipitor) 40 mg PO DIN [facility] Last Admin: 09/06/17 17:31 Dose: 40 mg Bacitracin (Bacitracin) 1 gm TOP BID [facility] Last Admin: 09/06/17 17:33 Dose: 1 applic Carvedilol (Coreg) 3.125 mg PO BID [facility] Last Admin: 09/06/17 17:32 Dose: Not Given Cefpodoxime Proxetil (Vantin) 200 mg PO DAILY [facility] PRN Reason: Protocol Last Admin: 09/06/17 11:00 Dose: 200 mg Ciprofloxacin (Ciloxan 0.3% Ophth Soln) 1 drop OU BID [facility] Last Admin: 09/06/17 17:33 Dose: 1 drop Doxycycline Hyclate (Doryx) 100 mg PO Q12 [facility] PRN Reason: Protocol Last Admin: 09/06/17 21:48 Dose: 100 mg Famotidine (Pepcid) 20 mg PO 1000,2200 [facility] Last Admin: 09/06/17 21:48 Dose: 20 mg Dextrose (Dextrose 5% In Water 1000 Ml) 1,000 mls @ 30 mls/hr IV .Q24H [facility] Last Admin: 11/29/17 04:47 Dose: 30 mls/hr Latanoprost (Xalatan Opht) 0 ml OU HS [facility] Last Admin: 09/06/17 21:49 Dose: 2.5 ml Levothyroxine Sodium (Synthroid) 25 mcg PO DAILY [facility] Last Admin: 09/06/17 10:59 Dose: 25 mcg Tamsulosin HCl (Flomax) 0.4 mg PO DAILY [facility] Last Admin: 09/06/17 10:59 Dose: 0.4 mg - Labs Labs: 09/03/17 06:00 09/06/17 06:00 PT 12.8 SECONDS (9.4-12.5) H 08/29/17 11:55 INR 1.16 (0.93-1.08) H 08/29/17 11:55 APTT 23.9 Seconds (25.1-36.5) L 08/29/17 11:55 - Constitutional Appears: Non-toxic - Head Exam Head Exam: NORMAL INSPECTION - ENT Exam ENT Exam: Mucous Membranes Moist - Neck Exam Neck Exam: absent: Lymphadenopathy, Meningismus - Respiratory Exam Respiratory Exam: Decreased Breath Sounds - Cardiovascular Exam Cardiovascular Exam: +S1, +S2 - GI/Abdominal Exam GI & Abdominal Exam: Soft. absent: Tenderness Assessment and Plan - Assessment and Plan (Free Text) Plan: asssessment consider sepsis due to left lower lobe community-acquired pneumonia with possible CHF, clinically improving left eye discharge with coagulase negative staph history of left posterior neck mass, sebaceous cyst S/P surgical excision history of left arm cellulitis probably related to venous catheter S/P removal history of asymtpmatic bacteriuria with gram negative bacilli gout history of subarachnoid hemorrhage hypothyroidism colon cancer S/P hemicolectomy HTN osteoarthritis history of healthcare-associated pneumonia osteoporosis Plan on Doxycycline and Cefpodoxime day 8, to complete 7-10 days of therapy; blood cx are negative; PCT is low at 0.16 lcontinue bactroban ointment as well over the left eye will continue to monitor clinically while the patient is in the hospital
[2017-09-07] MEDS ORDERED: Lidocaine 2% Inj (20ml) ONE (11:46)
[2017-09-07] MEDS ORDERED: Iodixanol 320 MG/ML 200 ML BOTTLE IV ONE (12:01)
--- NOTE | 2017-09-07 13:38 | CP.PCM.PN ---
<Cecilia Marcano - Last Filed: 09/07/17 13:37> Subjective - Date & Time of Evaluation Date of Evaluation: 09/07/17 Time of Evaluation: 09:35 - Subjective Subjective: S&E at bedside this am , chart reviewed, patient is awake and less confused this am, no acute overnight events. Denies SOB,CP, N/V or abdominal pain. Objective - Vital Signs/Intake and Output Vital Signs (last 24 hours): Temp Pulse Resp BP Pulse Ox 98.0 F 92 H 20 113/66 95 09/07/17 06:00 09/07/17 09:34 09/07/17 06:00 09/07/17 09:34 09/07/17 06:00 Intake and Output: 09/07/17 09/07/17 06:59 18:59 Intake Total 520 Output Total 150 Balance 370 - Medications Medications: Current Medications Albuterol/Ipratropium (Duoneb 3 Mg/0.5 Mg (3 Ml) Ud) 3 ml IH [id number] [facility] Last Admin: 09/07/17 07:56 Dose: 3 ml Allopurinol (Zyloprim) 100 mg PO BID [facility] Last Admin: 09/07/17 09:34 Dose: 100 mg Aspirin (Aspirin Chewable) 81 mg PO DAILY [facility] Last Admin: 09/07/17 09:33 Dose: 81 mg Atorvastatin Calcium (Lipitor) 40 mg PO DIN [facility] Last Admin: 09/06/17 17:31 Dose: 40 mg Bacitracin (Bacitracin) 1 gm TOP BID [facility] Last Admin: 09/07/17 09:36 Dose: 1 applic Carvedilol (Coreg) 3.125 mg PO BID [facility] Last Admin: 09/07/17 09:34 Dose: 3.125 mg Cefpodoxime Proxetil (Vantin) 200 mg PO DAILY [facility] PRN Reason: Protocol Last Admin: 09/07/17 09:37 Dose: 200 mg Ciprofloxacin (Ciloxan 0.3% Oph Soln) 1 drop OU BID [facility] Last Admin: 09/07/17 09:36 Dose: 1 drop Doxycycline Hyclate (Doryx) 100 mg PO Q12 [facility] PRN Reason: Protocol Last Admin: 09/07/17 09:34 Dose: 100 mg Famotidine (Pepcid) 20 mg PO 1000,2200 [facility] Last Admin: 09/07/17 09:33 Dose: 20 mg Famotidine (Pepcid) 20 mg PO DAILY [facility] Furosemide (Lasix) 40 mg IV DAILY [facility] Dextrose (Dextrose 5% In Water 1000 Ml) 1,000 mls @ 10 mls/hr IV .Q24H [facility] Last Admin: 09/07/17 08:59 Dose: 10 mls/hr Latanoprost (Xalatan Opht) 0 ml OU HS [facility] Last Admin: 09/06/17 21:49 Dose: 2.5 ml Levothyroxine Sodium (Synthroid) 25 mcg PO DAILY [facility] Last Admin: 09/07/17 09:34 Dose: 25 mcg Tamsulosin HCl (Flomax) 0.4 mg PO DAILY [facility] Last Admin: 09/07/17 09:34 Dose: 0.4 mg - Labs Labs: 09/07/17 05:30 09/07/17 05:30 PT 12.8 SECONDS (9.4-12.5) H 08/29/17 11:55 INR 1.16 (0.93-1.08) H 08/29/17 11:55 APTT 23.9 Seconds (25.1-36.5) L 08/29/17 11:55 - Constitutional Appears: No Acute Distress - Head Exam Head Exam: NORMOCEPHALIC - Eye Exam Eye Exam: Normal appearance. absent: Scleral icterus - ENT Exam ENT Exam: Mucous Membranes Moist - Neck Exam Neck Exam: Normal Inspection - Respiratory Exam Respiratory Exam: NORMAL BREATHING PATTERN. absent: Respiratory Distress - Cardiovascular Exam Cardiovascular Exam: +S1, +S2 - GI/Abdominal Exam GI & Abdominal Exam: Soft, Normal Bowel Sounds. absent: Guarding, Tenderness, Rebound - Extremities Exam Extremities Exam: Pedal Edema - Neurological Exam Neurological Exam: Alert, Awake, Oriented x3 (but confused at times) Assessment and Plan - Assessment and Plan (Free Text) Assessment: ASSESSMENT: AMS Anemia Left eye infection, positive staph Sepsis Elevated LFT,may likely be secondary to hepatic congestion, improving Positive guaiac, H&H steady CHF Cholelithiasis, now with sludge ARF PLAN: check LFT today avoid if possible hepatotoxic medication cardiology FU on oral antibiotics on Cipro eyedrops on Aspirin on soft diet Monitor H&H, overt GI bleed decrease Pepcid to 20 mg daily stool guiac Seen and discussed w/ Dr. Rehman <Luiza Rehman V - Last Filed: 09/07/17 21:57> Objective - Vital Signs/Intake and Output Vital Signs (last 24 hours): Temp Pulse Resp BP Pulse Ox 98.2 F 97 H 20 120/59 L 95 09/07/17 17:46 09/07/17 18:00 09/07/17 17:46 09/07/17 17:46 09/07/17 06:00 Intake and Output: 09/07/17 09/08/17 18:59 06:59 Intake Total 240 Output Total 400 Balance -160 - Medications Medications: Current Medications Albuterol/Ipratropium (Duoneb 3 Mg/0.5 Mg (3 Ml) Ud) 3 ml IH [id number] [facility] Last Admin: 09/07/17 19:32 Dose: 3 ml Allopurinol (Zyloprim) 100 mg PO BID [facility] Last Admin: 09/07/17 17:44 Dose: 100 mg Aspirin (Aspirin Chewable) 81 mg PO DAILY [facility] Last Admin: 09/07/17 09:33 Dose: 81 mg Atorvastatin Calcium (Lipitor) 40 mg PO DIN [facility] Last Admin: 09/07/17 17:44 Dose: 40 mg Bacitracin (Bacitracin) 1 gm TOP BID [facility] Last Admin: 09/07/17 17:42 Dose: 1 applic Carvedilol (Coreg) 3.125 mg PO BID [facility] Last Admin: 09/07/17 17:44 Dose: 3.125 mg Cefpodoxime Proxetil (Vantin) 200 mg PO DAILY [facility] PRN Reason: Protocol Last Admin: 09/07/17 09:37 Dose: 200 mg Ciprofloxacin (Ciloxan 0.3% Ophth Soln) 1 drop OU BID [facility] Last Admin: 09/07/17 17:42 Dose: 1 drop Doxycycline Hyclate (Doryx) 100 mg PO Q12 [facility] PRN Reason: Protocol Last Admin: 09/07/17 09:34 Dose: 100 mg Famotidine (Pepcid) 20 mg PO 1000,2200 [facility] Last Admin: 09/07/17 09:33 Dose: 20 mg Famotidine (Pepcid) 20 mg PO DAILY [facility] Furosemide (Lasix) 40 mg IV DAILY [facility] Dextrose (Dextrose 5% In Water 1000 Ml) 1,000 mls @ 10 mls/hr IV .Q24H [facility] Last Admin: 09/07/17 08:59 Dose: 10 mls/hr Latanoprost (Xalatan Opht) 0 ml OU HS [facility] Last Admin: 09/06/17 21:49 Dose: 2.5 ml Levothyroxine Sodium (Synthroid) 25 mcg PO DAILY [facility] Last Admin: 09/07/17 09:34 Dose: 25 mcg Tamsulosin HCl (Flomax) 0.4 mg PO DAILY [facility] Last Admin: 09/07/17 09:34 Dose: 0.4 mg - Labs Labs: 09/07/17 05:30 09/07/17 05:30 PT 12.8 SECONDS (9.4-12.5) H 08/29/17 11:55 INR 1.16 (0.93-1.08) H 08/29/17 11:55 APTT 23.9 Seconds (25.1-36.5) L 08/29/17 11:55 Attending/Attestation - Attestation I have personally seen and examined this patient.: Yes I have fully participated in the care of the patient.: Yes I have reviewed all pertinent clinical information, including history, physical exam and plan: Yes Notes (Text): this patient was seen and evaluated earlier. This is an addendum to the GI progress report dictated by Cecilia Marcano APN patient was comfortable. Abdomen soft no tenderness He left the shows downward trend History of anemia now has significant drop in blood count. No obvious documented melena or bright red blood per rectum. Requested stool first blood Patient is on Pepcid twice daily 20 mg. Follow up of the hemoglobin and hematocrit. 09/07/17 21:54
--- NOTE | 2017-09-07 13:59 | PN ---
DATE: 09/07/2017 SUBJECTIVE: The patient is seen lying in bed. He appears comfortable at present. As per the nursing staff, he had received one dose of stat Lasix earlier today because he was very short of breath. He is still coughing. He denies any chest tightness or palpitations. He is still eating. He is still hypoglycemic. He is receiving D5W at 10 mL an hour. PHYSICAL EXAMINATION: GENERAL: Obese elderly male lying in bed. VITAL SIGNS: Blood pressure 113/66, heart rate 92, respiratory rate 20, and temperature 98. HEENT: Normocephalic, atraumatic. NECK: Supple, no JVD. LUNGS: Bilateral rhonchi, bilateral crackles, poor air entry at bases. CARDIAC: S1 and S2, regular rate and rhythm, no murmur, no rub. ABDOMEN: Obese, distended, soft, and nontender, bowel sounds present. EXTREMITIES: 2+ pitting edema of the lower extremities. INTAKE AND OUTPUT: 520/150. LABORATORY DATA: WBC 8.4, hemoglobin 9.7, hematocrit 31.5, and platelets 166. Sodium 132, potassium 4.3, chloride 97, CO2 27, BUN 78, creatinine 3.7, glucose 92, calcium 8.2, phosphorus 6.0, magnesium 2.3, AST 21, ALT 65, and albumin 2.6. CURRENT MEDICATIONS: Aspirin, bacitracin, Coreg 3.125 b.i.d., D5W at 10, doxycycline 100 q.12 hours, DuoNeb, Flomax, Lipitor, Pepcid, Synthroid, Vantin 200 p.o. daily, and allopurinol 100 b.i.d. ASSESSMENT: 1. Acute kidney injury superimposed on chronic kidney disease stage III, worsening renal function. 2. Pneumonia. 3. History of colon cancer. 4. Anemia. 5. Altered mental status likely secondary to worsening renal function. 6. Hyperphosphatemia. PLAN 1. Lasix 40 IV daily. 2. Antibiotics as per ID recommendations. 3. Keep O's greater than I's. 4. No plans for renal replacement therapy, discussed with family at length. Ave Izquierdo MD [facility] # [phone]
--- NOTE | 2017-09-07 15:31 | PN ---
DATE: 09/07/2017 SUBJECTIVE: The patient is seen lying in bed on telemetry. He is somnolent, but arousable. He is scheduled for a PICC line placement later today. He had some recent increasing dyspnea and was treated with IV Lasix. His current medications include aspirin, carvedilol 3.125 mg b.i.d., doxycycline, albuterol inhaler, Flomax, Lasix 40 mg daily, Lipitor 40 mg daily, Pepcid, Synthroid, Vantin and Zyloprim. OBJECTIVE: GENERAL: He is a very elderly man, who appears comfortable at rest. VITAL SIGNS: His blood pressure is 112/66 with a pulse of 90 and sinus, respirations are 14. He is currently afebrile. HEENT: No JVD. CHEST: Scattered rhonchi with faint rales of the left base. HEART: PMI displaced laterally with systolic murmur in the left sternal border. ABDOMEN: Soft, nontender. Normoactive bowel sounds. EXTREMITIES: 1+ leg edema. DIAGNOSTIC DATA: Potassium is 4.3, BUN and creatinine are 70 and 3.7. Hemoglobin and hematocrit are 9.7 and 31.5 with a white count of 8.4, platelet count 166,000. IMPRESSION: 1. Mildly decompensated congestive heart failure, appears clinically improved. 2. Mild aortic stenosis. 3. Moderate mitral regurgitation. 4. Chronic renal insufficiency. 5. Left lower lobe pneumonia. Remains on antibiotics. RECOMMENDATIONS: Lasix can be switched to oral administration tomorrow. The rest of his medications can continue unchanged. If his blood pressure allows, titrating to a high dose of beta carlito would be reasonable. In general, conservative care will be most appropriate. We will be happy to follow along. We will make further recommendations as appropriate. Kike Arias MD
--- NOTE | 2017-09-07 22:14 | VASCULAR ---
PROCEDURE: Ultrasound and fluoroscopically placed left upper extremity PICC line. HISTORY: Poor venous access. Needs PICC line. Failed right upper extremity PICC line attempt. PHYSICIAN(S): Parth Courtney MD. TECHNIQUE: The relative risks and indications of the procedure were explained to the patient's family and consent obtained. The patient was placed supine on the arteriogram table and the left arm prepped and draped in the usual sterile fashion. A tourniquet was applied to the left axilla. Preliminary fluoroscopy revealed a fractured catheter fragment extending from the left innominate vein to the left axillary vein. 1% Xylocaine was used to anesthetize the skin and soft tissues at the puncture site above the elbow. The left basilic vein was punctured under direct ultrasound guidance with a micropuncture set. A 0.018 guidewire was advanced centrally. 5 [place] catheter was placed and a limited venogram performed. 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 This was easily crossed with a 0.035 angled Glidewire. A 5 [place] single lumen PICC catheter was cut at 47 cm. The catheter was advanced with its tip in the proximal right atrium. The catheter was flushed and secured. The patient tolerated the procedure well IMPRESSION: 1. Ultrasound and fluoroscopically placed left upper extremity PICC line. A 5 [place] single-lumen PICC line 47 cm long was advanced to the SVC/RA junction. 2. Fractured catheter fragment in the left subclavian and innominate veins
[2017-09-07] MEDS: Latanoprost 2.5 ml Opht Soln OU SCH (23:17)
[2017-09-08] MEDS: Albuterol-Ipratrop 3 mg / 0.5 (3 ml) UD IH SCH ×4 (01:23→20:49)
[2017-09-08] MEDS ORDERED: Albumin Human 25% (12.5 gm/50 ml) IV ONE ×4 (07:39→08:00)
--- NOTE | 2017-09-08 07:48 | CP.PCM.PN ---
Subjective - Date & Time of Evaluation Date of Evaluation: 09/08/17 Time of Evaluation: 07:30 - Subjective Subjective: Patient is seen this morning. He is arousable but drowsy. He had PICC line place yesterday. Objective - Vital Signs/Intake and Output Vital Signs (last 24 hours): Temp Pulse Resp BP Pulse Ox 97.9 F 82 19 92/42 L 97 09/08/17 06:00 09/08/17 06:00 09/08/17 06:00 09/08/17 06:00 09/08/17 06:00 Intake and Output: 09/08/17 09/08/17 06:59 18:59 Intake Total 240 Output Total 800 Balance -560 - Medications Medications: Current Medications Albumin Human (Albumin Human 25% (12.5 Gm/50 Ml)) 12.5 gm IV ONCE ONE Stop: 09/08/17 07:40 Albuterol/Ipratropium (Duoneb 3 Mg/0.5 Mg (3 Ml) Ud) 3 ml IH [id number] [facility] Last Admin: 09/08/17 01:23 Dose: 3 ml Allopurinol (Zyloprim) 100 mg PO BID [facility] Last Admin: 09/07/17 17:44 Dose: 100 mg Aspirin (Aspirin Chewable) 81 mg PO DAILY [facility] Last Admin: 09/07/17 09:33 Dose: 81 mg Atorvastatin Calcium (Lipitor) 40 mg PO DIN [facility] Last Admin: 09/07/17 17:44 Dose: 40 mg Bacitracin (Bacitracin) 1 gm TOP BID [facility] Last Admin: 09/07/17 17:42 Dose: 1 applic Carvedilol (Coreg) 3.125 mg PO BID [facility] Last Admin: 09/07/17 17:44 Dose: 3.125 mg Cefpodoxime Proxetil (Vantin) 200 mg PO DAILY [facility] PRN Reason: Protocol Last Admin: 09/07/17 09:37 Dose: 200 mg Ciprofloxacin (Ciloxan 0.3% Oph Soln) 1 drop OU BID [facility] Last Admin: 09/07/17 17:42 Dose: 1 drop Doxycycline Hyclate (Doryx) 100 mg PO Q12 [facility] PRN Reason: Protocol Last Admin: 09/07/17 23:16 Dose: 100 mg Famotidine (Pepcid) 20 mg PO 1000,2200 [facility] Last Admin: 09/07/17 23:16 Dose: 20 mg Famotidine (Pepcid) 20 mg PO DAILY [facility] Furosemide (Lasix) 40 mg IV DAILY [facility] Dextrose (Dextrose 5% In Water 1000 Ml) 1,000 mls @ 10 mls/hr IV .Q24H [facility] Last Admin: 09/07/17 08:59 Dose: 10 mls/hr Latanoprost (Xalatan Opht) 0 ml OU HS [facility] Last Admin: 09/07/17 23:17 Dose: 2.5 ml Levothyroxine Sodium (Synthroid) 25 mcg PO DAILY [facility] Last Admin: 09/07/17 09:34 Dose: 25 mcg Tamsulosin HCl (Flomax) 0.4 mg PO DAILY [facility] Last Admin: 09/07/17 09:34 Dose: 0.4 mg - Labs Labs: 09/07/17 05:30 09/07/17 05:30 PT 12.8 SECONDS (9.4-12.5) H 08/29/17 11:55 INR 1.16 (0.93-1.08) H 08/29/17 11:55 APTT 23.9 Seconds (25.1-36.5) L 08/29/17 11:55 - Constitutional Appears: No Acute Distress - Head Exam Head Exam: ATRAUMATIC, NORMOCEPHALIC - Respiratory Exam Respiratory Exam: Rhonchi - Cardiovascular Exam Cardiovascular Exam: +S1, +S2 - GI/Abdominal Exam GI & Abdominal Exam: Soft, Normal Bowel Sounds. absent: Tenderness - Extremities Exam Extremities Exam: Pedal Edema Assessment and Plan - Assessment and Plan (Free Text) Assessment: Acute Kidney Injury on CKD acute on chronic diastolic heart failure hypoalbuminemia anemia AMS Pneumonia degenerative arthritis hypothyroidism Plan: Patient continues to have swelling of his arms and feet. continue IV Lasix. Albumin is low. Will give another dose of albumin today. Urine output yesterday with albumin and lasix improved. continue antibiotics as per infectious disease for pneumonia. continue respiratory treatments. BUN/Creatinine rising. Nephrology on case.
[2017-09-08 08:43] LABS: HEMATOCRIT 30.1 % (42.0-52.0); MEAN CORPUSCULAR HEMOGLOBIN 28.1 pg (25.0-35.0); MEAN CORPUSCULAR HGB CONC 30.6 g/dl (31.0-37.0); MEAN PLATELET VOLUME 8.4 fl (7.0-11.0); RED CELL DISTRIBUTION WIDTH 16.3 % (11.5-14.5); WHITE BLOOD COUNT 7.9 10^3/ul (4.5-11.0)
[2017-09-08 09:21] LABS: BILIRUBIN,TOTAL 0.5 mg/dL (0.2-1.3); POTASSIUM 4.5 mmol/L (3.6-5.0); TOTAL PROTEIN 5.3 g/dL (5.8-8.3)
[2017-09-08] MEDS: Levothyroxine 25 MCG TAB PO SCH (09:56)
[2017-09-08] MEDS: Cefpodoxime (Vantin) 200 mg Tab PO SCH (09:57)
[2017-09-08] MEDS: Ciprofloxacin 0.3% OPTH SOLN OU SCH ×2 (10:02→17:51)
[2017-09-08] MEDS: Bacitracin Ointment 30 GM TUBE TOP SCH ×2 (10:02→17:52)
--- NOTE | 2017-09-08 11:55 | CP.PCM.PN ---
Subjective - Date & Time of Evaluation Date of Evaluation: 09/08/17 Time of Evaluation: 10:15 - Subjective Subjective: Comfortable in bed, not in distress, afebrile. Objective - Vital Signs/Intake and Output Vital Signs (last 24 hours): Temp Pulse Resp BP Pulse Ox 97.9 F 82 19 92/42 L 97 09/08/17 06:00 09/08/17 06:00 09/08/17 06:00 09/08/17 06:00 09/08/17 06:00 Intake and Output: 09/08/17 09/08/17 06:59 18:59 Intake Total 240 Output Total 800 Balance -560 - Medications Medications: Current Medications Albuterol/Ipratropium (Duoneb 3 Mg/0.5 Mg (3 Ml) Ud) 3 ml IH [id number] [facility] Last Admin: 09/08/17 08:11 Dose: 3 ml Allopurinol (Zyloprim) 100 mg PO BID [facility] Last Admin: 09/07/17 17:44 Dose: 100 mg Aspirin (Aspirin Chewable) 81 mg PO DAILY [facility] Last Admin: 09/07/17 09:33 Dose: 81 mg Atorvastatin Calcium (Lipitor) 40 mg PO DIN [facility] Last Admin: 09/07/17 17:44 Dose: 40 mg Bacitracin (Bacitracin) 1 gm TOP BID [facility] Last Admin: 09/07/17 17:42 Dose: 1 applic Carvedilol (Coreg) 3.125 mg PO BID [facility] Last Admin: 09/07/17 17:44 Dose: 3.125 mg Cefpodoxime Proxetil (Vantin) 200 mg PO DAILY [facility] PRN Reason: Protocol Last Admin: 09/07/17 09:37 Dose: 200 mg Ciprofloxacin (Ciloxan 0.3% [facility]) 1 drop OU BID [facility] Last Admin: 09/07/17 17:42 Dose: 1 drop Doxycycline Hyclate (Doryx) 100 mg PO Q12 [facility] PRN Reason: Protocol Last Admin: 09/07/17 23:16 Dose: 100 mg Famotidine (Pepcid) 20 mg PO 1000,2200 [facility] Last Admin: 09/07/17 23:16 Dose: 20 mg Famotidine (Pepcid) 20 mg PO DAILY [facility] Furosemide (Lasix) 40 mg IV DAILY [facility] Dextrose (Dextrose 5% In Water 1000 Ml) 1,000 mls @ 10 mls/hr IV .Q24H [facility] Last Admin: 09/07/17 08:59 Dose: 10 mls/hr Latanoprost (Xalatan Opht) 0 ml OU HS [facility] Last Admin: 09/07/17 23:17 Dose: 2.5 ml Levothyroxine Sodium (Synthroid) 25 mcg PO DAILY [facility] Last Admin: 09/07/17 09:34 Dose: 25 mcg Tamsulosin HCl (Flomax) 0.4 mg PO DAILY [facility] Last Admin: 09/07/17 09:34 Dose: 0.4 mg - Labs Labs: 09/08/17 08:40 09/08/17 08:40 PT 12.8 SECONDS (9.4-12.5) H 08/29/17 11:55 INR 1.16 (0.93-1.08) H 08/29/17 11:55 APTT 23.9 Seconds (25.1-36.5) L 08/29/17 11:55 - Constitutional Appears: Non-toxic - Head Exam Head Exam: NORMAL INSPECTION - ENT Exam ENT Exam: Mucous Membranes Moist - Neck Exam Neck Exam: absent: Meningismus - Respiratory Exam Respiratory Exam: Decreased Breath Sounds - Cardiovascular Exam Cardiovascular Exam: +S1, +S2 - GI/Abdominal Exam GI & Abdominal Exam: Soft. absent: Tenderness Assessment and Plan - Assessment and Plan (Free Text) Plan: asssessment consider sepsis due to left lower lobe community-acquired pneumonia with possible CHF, clinically improving left eye discharge with coagulase negative staph history of left posterior neck mass, sebaceous cyst S/P surgical excision history of left arm cellulitis probably related to venous catheter S/P removal history of asymptomatic bacteriuria with gram negative bacilli gout history of subarachnoid hemorrhage hypothyroidism colon cancer S/P hemicolectomy HTN osteoarthritis history of healthcare-associated pneumonia osteoporosis Plan on Doxycycline and Cefpodoxime day 9, to complete 7-10 days of therapy; blood cx are negative; PCT is low at 0.16 continue bactroban ointment as well over the left eye will continue to monitor clinically while the patient is in the hospital
--- NOTE | 2017-09-08 13:27 | CP.PCM.PN ---
Subjective - Date & Time of Evaluation Date of Evaluation: 09/08/17 Time of Evaluation: 13:19 - Subjective Subjective: patient seen at bedside for midline removal as ordered. 15mm midline removed from right AC, applied pressure to site x 15 mins then applied occlusive dressing to site. No bleeding and no hematoma noted. Nurse notified of midline removal, dsg to be kept in place x 24 hrs. Callbell left within reach. Jerrica Baker APN Objective - Vital Signs/Intake and Output Vital Signs (last 24 hours): Temp Pulse Resp BP Pulse Ox 97.5 F L 86 18 119/52 L 97 09/08/17 12:00 09/08/17 12:00 09/08/17 12:00 09/08/17 12:00 09/08/17 06:00 Intake and Output: 09/08/17 09/08/17 06:59 18:59 Intake Total 240 Output Total 800 Balance -560 - Medications Medications: Current Medications Albuterol/Ipratropium (Duoneb 3 Mg/0.5 Mg (3 Ml) Ud) 3 ml IH [id number] [facility] Last Admin: 09/08/17 08:11 Dose: 3 ml Allopurinol (Zyloprim) 100 mg PO BID [facility] Last Admin: 09/08/17 09:57 Dose: 100 mg Aspirin (Aspirin Chewable) 81 mg PO DAILY [facility] Last Admin: 09/08/17 09:53 Dose: 81 mg Atorvastatin Calcium (Lipitor) 40 mg PO DIN [facility] Last Admin: 09/07/17 17:44 Dose: 40 mg Bacitracin (Bacitracin) 1 gm TOP BID [facility] Last Admin: 09/08/17 10:02 Dose: 1 applic Carvedilol (Coreg) 3.125 mg PO BID [facility] Last Admin: 09/08/17 10:02 Dose: Not Given Cefpodoxime Proxetil (Vantin) 200 mg PO DAILY [facility] PRN Reason: Protocol Last Admin: 09/08/17 09:57 Dose: 200 mg Ciprofloxacin (Ciloxan 0.3% Ophth Soln) 1 drop OU BID [facility] Last Admin: 09/08/17 10:02 Dose: 1 drop Doxycycline Hyclate (Doryx) 100 mg PO Q12 [facility] PRN Reason: Protocol Last Admin: 09/08/17 10:03 Dose: 100 mg Famotidine (Pepcid) 20 mg PO HS [facility] Furosemide (Lasix) 40 mg IV DAILY [facility] Last Admin: 09/08/17 10:03 Dose: Not Given Dextrose (Dextrose 5% In Water 1000 Ml) 1,000 mls @ 10 mls/hr IV .Q24H [facility] Last Admin: 09/08/17 10:02 Dose: 10 mls/hr Latanoprost (Xalatan Opht) 0 ml OU HS [facility] Last Admin: 09/07/17 23:17 Dose: 2.5 ml Levothyroxine Sodium (Synthroid) 25 mcg PO DAILY [facility] Last Admin: 09/08/17 09:56 Dose: 25 mcg Pantoprazole Sodium (Protonix Ec Tab) 20 mg PO ACB [facility] Tamsulosin HCl (Flomax) 0.4 mg PO DAILY [facility] Last Admin: 09/08/17 09:57 Dose: 0.4 mg - Labs Labs: 09/08/17 08:40 09/08/17 08:40 PT 12.8 SECONDS (9.4-12.5) H 08/29/17 11:55 INR 1.16 (0.93-1.08) H 08/29/17 11:55 APTT 23.9 Seconds (25.1-36.5) L 08/29/17 11:55
--- NOTE | 2017-09-08 16:03 | CP.PCM.PN ---
<Cecilia Marcano - Last Filed: 09/08/17 16:07> Subjective - Date & Time of Evaluation Date of Evaluation: 09/08/17 Time of Evaluation: 10:40 - Subjective Subjective: Seen and examined at the am, chart reviewed, no acute overnight events per nursing staff, as per I&O pt having BM, as per nursing staff no endorsement of BM, melena,or BRBPR. Patient tolerating oral intake, no N/V or reports of abdominal pain. Objective - Vital Signs/Intake and Output Vital Signs (last 24 hours): Temp Pulse Resp BP Pulse Ox 97.5 F L 86 18 90/54 L 97 09/08/17 15:00 09/08/17 15:00 09/08/17 15:00 09/08/17 15:00 09/08/17 06:00 Intake and Output: 09/08/17 09/08/17 06:59 18:59 Intake Total 240 Output Total 800 Balance -560 - Medications Medications: Current Medications Albuterol/Ipratropium (Duoneb 3 Mg/0.5 Mg (3 Ml) Ud) 3 ml IH [id number] [facility] Last Admin: 09/08/17 14:17 Dose: 3 ml Allopurinol (Zyloprim) 100 mg PO BID [facility] Last Admin: 09/08/17 09:57 Dose: 100 mg Aspirin (Aspirin Chewable) 81 mg PO DAILY [facility] Last Admin: 09/08/17 09:53 Dose: 81 mg Atorvastatin Calcium (Lipitor) 40 mg PO DIN [facility] Last Admin: 09/07/17 17:44 Dose: 40 mg Bacitracin (Bacitracin) 1 gm TOP BID [facility] Last Admin: 09/08/17 10:02 Dose: 1 applic Carvedilol (Coreg) 3.125 mg PO BID [facility] Last Admin: 09/08/17 10:02 Dose: Not Given Cefpodoxime Proxetil (Vantin) 200 mg PO DAILY [facility] PRN Reason: Protocol Last Admin: 09/08/17 09:57 Dose: 200 mg Ciprofloxacin (Ciloxan 0.3% Ophth Soln) 1 drop OU BID [facility] Last Admin: 09/08/17 10:02 Dose: 1 drop Doxycycline Hyclate (Doryx) 100 mg PO Q12 [facility] PRN Reason: Protocol Last Admin: 09/08/17 10:03 Dose: 100 mg Famotidine (Pepcid) 20 mg PO HS [facility] Furosemide (Lasix) 40 mg IV DAILY [facility] Last Admin: 09/08/17 10:03 Dose: Not Given Dextrose (Dextrose 5% In Water 1000 Ml) 1,000 mls @ 10 mls/hr IV .Q24H [facility] Last Admin: 09/08/17 10:02 Dose: 10 mls/hr Latanoprost (Xalatan Opht) 0 ml OU HS [facility] Last Admin: 09/07/17 23:17 Dose: 2.5 ml Levothyroxine Sodium (Synthroid) 25 mcg PO DAILY [facility] Last Admin: 09/08/17 09:56 Dose: 25 mcg Pantoprazole Sodium (Protonix Ec Tab) 20 mg PO ACB [facility] Tamsulosin HCl (Flomax) 0.4 mg PO DAILY [facility] Last Admin: 09/08/17 09:57 Dose: 0.4 mg - Labs Labs: 09/08/17 08:40 09/08/17 08:40 PT 12.8 SECONDS (9.4-12.5) H 08/29/17 11:55 INR 1.16 (0.93-1.08) H 08/29/17 11:55 APTT 23.9 Seconds (25.1-36.5) L 08/29/17 11:55 - Constitutional Appears: No Acute Distress - Eye Exam Eye Exam: Normal appearance. absent: Scleral icterus - ENT Exam ENT Exam: Mucous Membranes Moist - Neck Exam Neck Exam: Normal Inspection - Respiratory Exam Respiratory Exam: Decreased Breath Sounds, NORMAL BREATHING PATTERN. absent: Respiratory Distress - Cardiovascular Exam Cardiovascular Exam: +S1, +S2 - GI/Abdominal Exam GI & Abdominal Exam: Distended, Soft, Normal Bowel Sounds. absent: Guarding, Tenderness, Organomegaly, Rebound - Extremities Exam Extremities Exam: Pedal Edema. absent: Calf Tenderness - Neurological Exam Neurological Exam: Alert, Awake, Oriented x3 (confused at times) - Skin Skin Exam: Dry, Warm Assessment and Plan - Assessment and Plan (Free Text) Assessment: ASSESSMENT: AMS Anemia Left eye infection, positive staph Pneumonia Sepsis Elevated LFT,may likely be secondary to hepatic congestion, improving CHF Cholelithiasis, now with sludge ARF on chronic RF PLAN: continue Protonix in AM and give Pepcid in PM on oral antibiotics: Vantin/Doxcycline on Cipro eyedrops on Aspirin on soft diet getting albumin Monitor H&H, overt GI bleed trend LFT pt not optimal candidate for endo at this time, multiple comorbidities, will increase GI prophylaxsis as above, initially concerned w/ renal dysfunction, benefit vs risk Seen and discussed w/ Dr. Rehman <Luiza Rehman V - Last Filed: 09/08/17 22:46> Objective - Vital Signs/Intake and Output Vital Signs (last 24 hours): Temp Pulse Resp BP Pulse Ox 98.2 F 93 H 18 117/60 97 09/08/17 17:46 09/08/17 22:00 09/08/17 17:46 09/08/17 17:46 09/08/17 06:00 Intake and Output: 09/08/17 09/09/17 18:59 06:59 Intake Total 600 Balance 600 - Medications Medications: Current Medications Albuterol/Ipratropium (Duoneb 3 Mg/0.5 Mg (3 Ml) Ud) 3 ml IH [id number] [facility] Last Admin: 09/08/17 20:49 Dose: 3 ml Allopurinol (Zyloprim) 100 mg PO BID [facility] Last Admin: 09/08/17 17:50 Dose: 100 mg Aspirin (Aspirin Chewable) 81 mg PO DAILY [facility] Last Admin: 09/08/17 09:53 Dose: 81 mg Atorvastatin Calcium (Lipitor) 40 mg PO DIN [facility] Last Admin: 09/08/17 17:50 Dose: 40 mg Bacitracin (Bacitracin) 1 gm TOP BID [facility] Last Admin: 09/08/17 17:52 Dose: 1 applic Carvedilol (Coreg) 3.125 mg PO BID [facility] Last Admin: 09/08/17 17:51 Dose: 3.125 mg Cefpodoxime Proxetil (Vantin) 200 mg PO DAILY [facility] PRN Reason: Protocol Last Admin: 09/08/17 09:57 Dose: 200 mg Ciprofloxacin (Ciloxan 0.3% Oph Soln) 1 drop OU BID [facility] Last Admin: 09/08/17 17:51 Dose: 1 drop Doxycycline Hyclate (Doryx) 100 mg PO Q12 [facility] PRN Reason: Protocol Last Admin: 09/08/17 21:10 Dose: 100 mg Famotidine (Pepcid) 20 mg PO HS [facility] Last Admin: 09/08/17 21:10 Dose: 20 mg Furosemide (Lasix) 40 mg IV DAILY [facility] Last Admin: 09/08/17 10:03 Dose: Not Given Dextrose (Dextrose 5% In Water 1000 Ml) 1,000 mls @ 10 mls/hr IV .Q24H [facility] Last Admin: 09/08/17 10:02 Dose: 10 mls/hr Latanoprost (Xalatan Opht) 0 ml OU HS [facility] Last Admin: 09/08/17 21:11 Dose: 2.5 ml Levothyroxine Sodium (Synthroid) 25 mcg PO DAILY [facility] Last Admin: 09/08/17 09:56 Dose: 25 mcg Pantoprazole Sodium (Protonix Ec Tab) 20 mg PO ACB [facility] Tamsulosin HCl (Flomax) 0.4 mg PO DAILY [facility] Last Admin: 09/08/17 09:57 Dose: 0.4 mg - Labs Labs: 09/08/17 08:40 09/08/17 08:40 PT 12.8 SECONDS (9.4-12.5) H 08/29/17 11:55 INR 1.16 (0.93-1.08) H 08/29/17 11:55 APTT 23.9 Seconds (25.1-36.5) L 08/29/17 11:55 Attending/Attestation - Attestation I have personally seen and examined this patient.: Yes I have fully participated in the care of the patient.: Yes I have reviewed all pertinent clinical information, including history, physical exam and plan: Yes Notes (Text): This anaddendum to progress report dictated by Cecilia Marcano APN. This patient was seen and evaluated earlier On examination abdomen soft no tenderness Labs reviewed nearlysignificant drop in hemoglobin further Would recommend to stop the Pepcid a.m. dose and give Protonix 20 mg a morning and in addition to p.m. dose of Pepcid LFTs downward trend Thank your for allowing us to participate in the care of the patient 09/08/17 22:41
--- NOTE | 2017-09-08 17:59 | PN ---
DATE: 09/08/2017 SUBJECTIVE: The patient is seen lying in bed. He is resting. He is agitated at times. Shortness of breath. He ate about half his lunch. PHYSICAL EXAMINATION: GENERAL: Obese elderly male, lying in bed. VITAL SIGNS: Blood pressure 90/54, heart rate 86, respiratory rate 18, temperature 97.5. HEENT: Normocephalic, atraumatic. NECK: Supple, no JVD. LUNGS: Bilateral equal air entry, bilateral rhonchi, bilateral equal expansion. CARDIAC: S1, S2. Regular rate and rhythm. No murmur, no rub. ABDOMEN: Obese, distended, soft, nontender, bowel sounds present. EXTREMITIES: 2+ pitting edema of the lower extremities, 2+ pitting edema of the upper extremities. INTAKE AND OUTPUT: 480/1200. LABORATORY DATA: WBC 7.9, hemoglobin 9.2, hematocrit 30, platelets 167. Sodium 132, potassium 4.5, chloride 100, CO2 of 22, BUN 83, creatinine 3.7, glucose 109, calcium 8.0, albumin 2.7. CURRENT MEDICATIONS: Aspirin; bacitracin; ciprofloxacin eyedrops; Coreg 3.125 b.i.d., on hold; doxycycline 100 q. 12; DuoNeb; Flomax; Lasix 40 IV daily, not given today; Lipitor; Pepcid; Protonix; Synthroid; Vantin; Zyloprim; albumin 12.5 g given this morning. ASSESSMENT: 1. Acute kidney injury superimposed on chronic kidney disease, stage III. 2. Sepsis, pneumonia. 3. Decompensated congestive heart failure. 4. Altered mental status. 5. History of hypertension. 6. History of colon cancer. 7. Clinical deterioration. PLAN: 1. Discussed with daughter and , they would like to explore the option of hospice. 2. Continue current management. 3. Continue comfort care. 4. Continue antibiotics as per ID recommendations. Ave Izquierdo MD
[2017-09-08] MEDS: Latanoprost 2.5 ml Opht Soln OU SCH (21:11)
[2017-09-09] MEDS: Albuterol-Ipratrop 3 mg / 0.5 (3 ml) UD IH SCH ×4 (02:06→21:05)
[2017-09-09 06:20] LABS: HEMATOCRIT 26.6 % (42.0-52.0); MEAN CELL VOLUME 91.4 fl (80.0-105.0); MEAN CORPUSCULAR HEMOGLOBIN 27.8 pg (25.0-35.0); MEAN CORPUSCULAR HGB CONC 30.5 g/dl (31.0-37.0); MEAN PLATELET VOLUME 8.5 fl (7.0-11.0); RED CELL DISTRIBUTION WIDTH 16.2 % (11.5-14.5); WHITE BLOOD COUNT 8.7 10^3/ul (4.5-11.0)
[2017-09-09] MEDS ORDERED: Pantoprazole 20 mg EC Tab PO SCH (07:30)
[2017-09-09] MEDS ORDERED: Pantoprazole 40 mg EC Tab PO SCH (07:30)
[2017-09-09] MEDS ORDERED: Albumin Human 25% (12.5 gm/50 ml) IV ONE ×2 (08:27→08:30)
--- NOTE | 2017-09-09 08:27 | CP.PCM.PN ---
Subjective - Date & Time of Evaluation Date of Evaluation: 09/09/17 Time of Evaluation: 07:50 - Subjective Subjective: Patient is seen this morning in room 271 bed 2. He is awake and receiving respiratory treatment via nebulizer. Objective - Vital Signs/Intake and Output Vital Signs (last 24 hours): Temp Pulse Resp BP Pulse Ox 98.0 F 103 H 20 105/51 L 92 L 09/09/17 06:00 09/09/17 06:00 09/09/17 06:00 09/09/17 06:00 09/09/17 06:00 Intake and Output: 09/09/17 09/09/17 06:59 18:59 Intake Total 280 Output Total 600 Balance -320 - Medications Medications: Current Medications Albuterol/Ipratropium (Duoneb 3 Mg/0.5 Mg (3 Ml) Ud) 3 ml IH [id number] [facility] Last Admin: 09/09/17 08:01 Dose: 3 ml Allopurinol (Zyloprim) 100 mg PO BID [facility] Last Admin: 09/08/17 17:50 Dose: 100 mg Aspirin (Aspirin Chewable) 81 mg PO DAILY [facility] Last Admin: 09/08/17 09:53 Dose: 81 mg Atorvastatin Calcium (Lipitor) 40 mg PO DIN [facility] Last Admin: 09/08/17 17:50 Dose: 40 mg Bacitracin (Bacitracin) 1 gm TOP BID [facility] Last Admin: 09/08/17 17:52 Dose: 1 applic Carvedilol (Coreg) 3.125 mg PO BID [facility] Last Admin: 09/08/17 17:51 Dose: 3.125 mg Cefpodoxime Proxetil (Vantin) 200 mg PO DAILY [facility] PRN Reason: Protocol Last Admin: 09/08/17 09:57 Dose: 200 mg Ciprofloxacin (Ciloxan 0.3% Ophth Soln) 1 drop OU BID [facility] Last Admin: 09/08/17 17:51 Dose: 1 drop Doxycycline Hyclate (Doryx) 100 mg PO Q12 [facility] PRN Reason: Protocol Last Admin: 09/08/17 21:10 Dose: 100 mg Famotidine (Pepcid) 20 mg PO HS [facility] Last Admin: 09/08/17 21:10 Dose: 20 mg Furosemide (Lasix) 40 mg IV DAILY [facility] Last Admin: 09/08/17 10:03 Dose: Not Given Dextrose (Dextrose 5% In Water 1000 Ml) 1,000 mls @ 10 mls/hr IV .Q24H [facility] Last Admin: 09/08/17 10:02 Dose: 10 mls/hr Latanoprost (Xalatan Opht) 0 ml OU HS [facility] Last Admin: 09/08/17 21:11 Dose: 2.5 ml Levothyroxine Sodium (Synthroid) 25 mcg PO DAILY [facility] Last Admin: 09/08/17 09:56 Dose: 25 mcg Pantoprazole Sodium (Protonix Inj) 40 mg IVP Q12 [facility] Tamsulosin HCl (Flomax) 0.4 mg PO DAILY [facility] Last Admin: 09/08/17 09:57 Dose: 0.4 mg - Labs Labs: 09/09/17 05:15 09/08/17 08:40 PT 12.8 SECONDS (9.4-12.5) H 08/29/17 11:55 INR 1.16 (0.93-1.08) H 08/29/17 11:55 APTT 23.9 Seconds (25.1-36.5) L 08/29/17 11:55 - Head Exam Head Exam: ATRAUMATIC, NORMOCEPHALIC - Respiratory Exam Respiratory Exam: Rhonchi - Cardiovascular Exam Cardiovascular Exam: +S1, +S2 - GI/Abdominal Exam GI & Abdominal Exam: Soft, Normal Bowel Sounds. absent: Tenderness - Extremities Exam Extremities Exam: Pedal Edema - Neurological Exam Neurological Exam: Alert, Awake Assessment and Plan - Assessment and Plan (Free Text) Assessment: Acute kidney injury superimposed on Chronic kidney disease hypoalbumemina GI bleed/anemia Pneumonia hypothyroidism arthritis Plan: Patient seen this morning. Swelling of his hands has decreased, but pedal edema still present. Will give one more dose of albumin today and continue Lasix. Hemoglobin has dropped significantly since admission from around 11 to 8 this morning. will give Protonix twice a day. stool for occult blood is positive. no intervention at this time. Will discuss with family.
[2017-09-09 08:37] LABS: BILIRUBIN,TOTAL 0.4 mg/dL (0.2-1.3); CALCIUM 8.4 mg/dL (8.4-10.5); POTASSIUM 4.7 mmol/L (3.6-5.0); TOTAL PROTEIN 5.1 g/dL (5.8-8.3)
[2017-09-09] MEDS: Bacitracin Ointment 30 GM TUBE TOP SCH ×2 (10:06→18:08)
[2017-09-09] MEDS: Levothyroxine 25 MCG TAB PO SCH (10:07)
[2017-09-09] MEDS: Ciprofloxacin 0.3% OPTH SOLN OU SCH ×2 (10:07→18:08)
[2017-09-09] MEDS: Cefpodoxime (Vantin) 200 mg Tab PO SCH (10:11)
--- NOTE | 2017-09-09 10:43 | CP.PCM.CON ---
History of Present Illness - History of Present Illness History of Present Illness: Palliative consult requested by Dr Javan Seymour Reason: Goals of care/hospice discussion 86 year old male with history of CHF,COPD,CAD, HTN , CKD anemia who presented with shortness of breath and altered mental status. Patient confirms dry,non productive cough but denied fever, chills, chest pain, nausea or vomiting.Labs; hyperkalemia,elevate BUN/Creat, elevated LFT's, Troponins 0.46/0.47, BNP 39914. Imaging; CT of abdomen/pelvis stable bilateral renal cysts, cholelithiasis with sludge, bilateral pleural effusions. CT of head consistent with with white matter changes, no acute findings. PMHX: Colon cancer s/p resection and radiation therapy, CKD, CHF,anemia, COPD, HTN,hypothyroidism,degenerative OA, LE cellulitis. Family History:Non contributory. Social History:Non smoker, no alcohol or drug use. , lives with spouse. Advance Care Planning: The patient has an Advance Directive. Review of Systems: As per HPI, all other systems reviewed and are negative Past Patient History - Infectious Disease Hx of Infectious Diseases: None - Tetanus Immunizations Tetanus Immunization: Unknown - Past Social History Smoking Status: Never Smoked - CARDIAC Hx Cardiac Disorders: Yes Hx Congestive Heart Failure: Yes - PULMONARY Hx Chronic Obstructive Pulmonary Disease (COPD): Yes - NEUROLOGICAL Hx Neurological Disorder: (syncope,weakness,hand tremors) HX Cerebrovascular Accident: No - HEENT Hx HEENT Problems: Yes (eyeglasses) Hx Glaucoma: Yes (L) - RENAL Hx Chronic Kidney Disease: Yes Hx Renal Failure: No - ENDOCRINE/METABOLIC Hx Hypothyroidism: Yes - HEMATOLOGICAL/ONCOLOGICAL Hx Cancer: Yes (colon) - INTEGUMENTARY Hx Dermatological Problems: Yes Other/Comment: dry thin eccymotic skin both arms, dry lips to mouth, right great toe points upward, buttocks reddened, dry skin both feet, multiple age spots to back and chest, neck cyst excised and is healed - MUSCULOSKELETAL/RHEUMATOLOGICAL Hx Arthritis: Yes - GASTROINTESTINAL Hx Gastrointestinal Disorders: Yes (obese) Hx Gastroesophageal Reflux: No - GENITOURINARY/GYNECOLOGICAL Hx Incontinence: Yes (urine and stool) Hx Prostate Problems: Yes (bph) - PSYCHIATRIC Hx Substance Use: No - SURGICAL HISTORY Other/Comment: Unspecified neck skin surgery--last week,colon surgery - ANESTHESIA Hx Anesthesia: No Hx Anesthesia Reactions: No Hx Malignant Hyperthermia: No Meds Allergies/Adverse Reactions: Allergies Allergy/AdvReac Type Severity Reaction Status Date / Time No Known Allergies Allergy Verified 03/15/17 18:10 - Medications Medications: Current Medications Albuterol/Ipratropium (Duoneb 3 Mg/0.5 Mg (3 Ml) Ud) 3 ml IH [id number] [facility] Last Admin: 09/09/17 08:01 Dose: 3 ml Allopurinol (Zyloprim) 100 mg PO BID [facility] Last Admin: 09/09/17 10:07 Dose: 100 mg Aspirin (Aspirin Chewable) 81 mg PO DAILY [facility] Last Admin: 09/09/17 10:07 Dose: 81 mg Atorvastatin Calcium (Lipitor) 40 mg PO DIN [facility] Last Admin: 09/08/17 17:50 Dose: 40 mg Bacitracin (Bacitracin) 1 gm TOP BID [facility] Last Admin: 09/09/17 10:06 Dose: 1 applic Carvedilol (Coreg) 3.125 mg PO BID [facility] Last Admin: 09/09/17 10:07 Dose: Not Given Cefpodoxime Proxetil (Vantin) 200 mg PO DAILY [facility] PRN Reason: Protocol Last Admin: 09/09/17 10:11 Dose: 200 mg Ciprofloxacin (Ciloxan 0.3% Ophth Soln) 1 drop OU BID [facility] Last Admin: 09/09/17 10:07 Dose: 1 drop Doxycycline Hyclate (Doryx) 100 mg PO Q12 [facility] PRN Reason: Protocol Last Admin: 09/09/17 10:06 Dose: 100 mg Famotidine (Pepcid) 20 mg PO HS [facility] Last Admin: 09/08/17 21:10 Dose: 20 mg Furosemide (Lasix) 40 mg IV DAILY [facility] Last Admin: 09/09/17 10:06 Dose: Not Given Dextrose (Dextrose 5% In Water 1000 Ml) 1,000 mls @ 10 mls/hr IV .Q24H [facility] Last Admin: 09/09/17 08:05 Dose: Not Given Latanoprost (Xalatan Opht) 0 ml OU HS [facility] Last Admin: 09/08/17 21:11 Dose: 2.5 ml Levothyroxine Sodium (Synthroid) 25 mcg PO DAILY [facility] Last Admin: 09/09/17 10:07 Dose: 25 mcg Pantoprazole Sodium (Protonix Inj) 40 mg IVP Q12 [facility] Last Admin: 09/09/17 10:06 Dose: 40 mg Tamsulosin HCl (Flomax) 0.4 mg PO DAILY [facility] Last Admin: 09/09/17 10:07 Dose: 0.4 mg Physical Exam - Constitutional Appears: Chronically Ill - Head Exam Head Exam: NORMAL INSPECTION - Eye Exam Eye Exam: Normal appearance, PERRL - ENT Exam ENT Exam: Mucous Membranes Moist, Normal Oropharynx - Neck Exam Neck exam: Positive for: Normal Inspection - Respiratory Exam Respiratory Exam: Decreased Breath Sounds, Rhonchi - Cardiovascular Exam Cardiovascular Exam: REGULAR RHYTHM, +S1, +S2 - GI/Abdominal Exam GI & Abdominal Exam: Distended, Hypoactive Bowel Sounds, Soft - Extremities Exam Extremities exam: Positive for: pedal pulses present Additional comments: ecchymotic areas /skin tears of both upper extremities,edema of all extremities - Back Exam Back exam: NORMAL INSPECTION - Neurological Exam Neurological exam: Alert Additional comments: oriented to self - Skin Skin Exam: Dry, Pallor - Additional Findings Additional findings: Palliative performance scale rating 40 % Results - Vital Signs Recent Vital Signs: Last Vital Signs Temp 98.0 F 09/09/17 06:00 Pulse 103 H 09/09/17 06:00 Resp 20 09/09/17 06:00 BP 91/48 L 09/09/17 10:07 Pulse Ox 92 L 09/09/17 06:00 - Labs Result Diagrams: 09/09/17 05:15 09/09/17 05:15 Labs: Laboratory Results - last 24 hr 09/09/17 09/09/17 05:15 05:15 WBC 8.7 RBC 2.91 L Hgb 8.1 L Hct 26.6 L MCV 91.4 MCH 27.8 MCHC 30.5 L RDW 16.2 H Plt Count 188 MPV 8.5 Sodium 134 Potassium 4.7 Chloride 96 L Carbon Dioxide 28 Anion Gap 15 BUN 96 H Creatinine 4.2 H Est GFR ( Amer) 16 Est GFR (Non-Af Amer) 13 Random Glucose 103 Calcium 8.4 Total Bilirubin 0.4 AST 23 ALT 50 Alkaline Phosphatase 45 Total Protein 5.1 L Albumin 2.6 L Globulin 2.5 Albumin/Globulin Ratio 1.0 L Assessment & Plan - Assessment and Plan (Free Text) Assessment: 86 year old male with history of colon cancer,CKD, anemia,HTN who is admitted with sepsis, N STEMI,CHF, hyperkalemia, pneumonia, transaminitis, acute kidney injury and left eye infection(staph). The patient is alert, exhibits some expressive aphasia.Denies pain. He requires assistance with all ADL's I met with patient's and daughter. Family understands the extent of patients medical situation,specifically that his renal functions are failing. Family expresses that the patient does not want dialysis. and daughter also affirm that patient does not want CPR/intubation and is DNR/DNI. Goals of care discussed at length. Hospice services explained in detail, all questions answered. Family considering hospice care. is concerned about providing this care at home. She and daughter were presented with options for hospice services in a facility as well. Family appreciative of information and will discuss options. Psychosocial support given. Time spent in goals of care and advance care planning discussion, 40 minutes Plan: DNR/DNI as discussed with Dr Javan Seymour Palliative assistance in establishing goals of care and end of life planning.
--- NOTE | 2017-09-09 15:41 | PN ---
DATE: 09/09/2017 SUBJECTIVE: The patient is seen lying in bed. He is awake, he is alert. He is confused. He is repetitive. He does not appear to be in any kind of distress. OBJECTIVE: VITAL SIGNS: Blood pressure 91/48, heart rate 90, respiratory rate 20, and temperature 98. HEENT: Normocephalic, atraumatic. NECK: Supple, no JVD. LUNGS: Bilateral rhonchi, bilateral equal expansion. CARDIAC: S1 and S2, regular rate and rhythm, no murmur, no rub. ABDOMEN: Obese, distended, soft, and nontender, bowel sounds present. EXTREMITIES: 2+ pitting edema of the lower extremities. INTAKE AND OUTPUT: 880/600. LABORATORY DATA: WBC 8.7, hemoglobin 8, hematocrit 26.6, and platelets 188. Sodium 134, potassium 4.7, chloride 96, CO2 28, BUN 96, creatinine 4.2, glucose 103, calcium 8.4, and albumin 2.6. CURRENT MEDICATIONS: Aspirin, bacitracin, Coreg 3.125 b.i.d., doxycycline 100 q.12 hours, Flomax, Lasix 40 IV daily, Lipitor 40, Pepcid 20, Protonix 40, Synthroid 25, Vantin 200, Xalatan, and Zyloprim. ASSESSMENT: 1. Acute kidney injury, worsening renal function. 2. Altered mental status. 3. Sepsis, pneumonia. 4. History of hypertension. 5. History of colon cancer. 6. Severe anemia. PLAN 1. Continue comfort care. 2. Continue antibiotics as per ID recommendations. 3. Discussed with family at length, they are interested in exploring the hospice option. 4. Continue Lasix. 5. Not a candidate for dialysis. Ave Izquierdo MD
--- NOTE | 2017-09-09 16:51 | CP.PCM.PN ---
<Cecilia Marcano - Last Filed: 09/09/17 16:49> Subjective - Date & Time of Evaluation Date of Evaluation: 09/09/17 Time of Evaluation: 08:30 - Subjective Subjective: S&E at bedside, chart reviewed, had BM green pasty stool yesterday, no overt GI bleeding reported. Patient no acute overnight events or complaints. No N/V or abdominal pain. Objective - Vital Signs/Intake and Output Vital Signs (last 24 hours): Temp Pulse Resp BP Pulse Ox 98.8 F 106 H 14 102/53 L 92 L 09/09/17 11:48 09/09/17 14:00 09/09/17 11:48 09/09/17 11:48 09/09/17 06:00 Intake and Output: 09/09/17 09/09/17 06:59 18:59 Intake Total 280 300 Output Total 600 600 Balance -320 -300 - Medications Medications: Current Medications Albuterol/Ipratropium (Duoneb 3 Mg/0.5 Mg (3 Ml) Ud) 3 ml IH [id number] [facility] Last Admin: 09/09/17 13:42 Dose: 3 ml Allopurinol (Zyloprim) 100 mg PO BID [facility] Last Admin: 09/09/17 10:07 Dose: 100 mg Aspirin (Aspirin Chewable) 81 mg PO DAILY [facility] Last Admin: 09/09/17 10:07 Dose: 81 mg Atorvastatin Calcium (Lipitor) 40 mg PO DIN [facility] Last Admin: 09/08/17 17:50 Dose: 40 mg Bacitracin (Bacitracin) 1 gm TOP BID [facility] Last Admin: 09/09/17 10:06 Dose: 1 applic Carvedilol (Coreg) 3.125 mg PO BID [facility] Last Admin: 09/09/17 10:07 Dose: Not Given Cefpodoxime Proxetil (Vantin) 200 mg PO DAILY [facility] PRN Reason: Protocol Last Admin: 09/09/17 10:11 Dose: 200 mg Ciprofloxacin (Ciloxan 0.3% [facility] Soln) 1 drop OU BID [facility] Last Admin: 09/09/17 10:07 Dose: 1 drop Doxycycline Hyclate (Doryx) 100 mg PO Q12 [facility] PRN Reason: Protocol Last Admin: 09/09/17 10:06 Dose: 100 mg Famotidine (Pepcid) 20 mg PO HS [facility] Last Admin: 09/08/17 21:10 Dose: 20 mg Furosemide (Lasix) 40 mg IV DAILY [facility] Last Admin: 09/09/17 10:06 Dose: Not Given Dextrose (Dextrose 5% In Water 1000 Ml) 1,000 mls @ 10 mls/hr IV .Q24H [facility] Last Admin: 09/09/17 08:05 Dose: Not Given Latanoprost (Xalatan Opht) 0 ml OU HS [facility] Last Admin: 09/08/17 21:11 Dose: 2.5 ml Levothyroxine Sodium (Synthroid) 25 mcg PO DAILY [facility] Last Admin: 09/09/17 10:07 Dose: 25 mcg Pantoprazole Sodium (Protonix Inj) 40 mg IVP Q12 [facility] Last Admin: 09/09/17 10:06 Dose: 40 mg Tamsulosin HCl (Flomax) 0.4 mg PO DAILY [facility] Last Admin: 09/09/17 10:07 Dose: 0.4 mg - Labs Labs: 09/09/17 05:15 09/09/17 05:15 PT 12.8 SECONDS (9.4-12.5) H 08/29/17 11:55 INR 1.16 (0.93-1.08) H 08/29/17 11:55 APTT 23.9 Seconds (25.1-36.5) L 08/29/17 11:55 - Constitutional Appears: No Acute Distress - Head Exam Head Exam: NORMOCEPHALIC - Eye Exam Eye Exam: Normal appearance. absent: Scleral icterus - ENT Exam ENT Exam: Mucous Membranes Dry - Neck Exam Neck Exam: Normal Inspection - Respiratory Exam Respiratory Exam: Decreased Breath Sounds, NORMAL BREATHING PATTERN. absent: Respiratory Distress - Cardiovascular Exam Cardiovascular Exam: +S1, +S2 - GI/Abdominal Exam GI & Abdominal Exam: Distended, Soft, Normal Bowel Sounds. absent: Guarding, Tenderness, Rebound - Extremities Exam Extremities Exam: Normal Capillary Refill. absent: Calf Tenderness - Neurological Exam Neurological Exam: Alert, Awake, Oriented x3 (confuse at times) Assessment and Plan - Assessment and Plan (Free Text) Assessment: ASSESSMENT: AMS Anemia Left eye infection, positive staph Pneumonia Sepsis Elevated LFT,may likely be secondary to hepatic congestion, improving CHF Cholelithiasis, now with sludge ARF on chronic RF PLAN: GI prophylaxsis : increased to Protonix 40 mg IV BID on oral antibiotics: Vantin/Doxcycline on Cipro eyedrops on Aspirin on puree diet. Monitor H&H, overt GI bleed trend LFT Seen and discussed w/ Dr. Rehman <Luiza Rehman V - Last Filed: 09/09/17 23:35> Objective - Vital Signs/Intake and Output Vital Signs (last 24 hours): Temp Pulse Resp BP Pulse Ox 98.7 F 112 H 16 113/53 L 92 L 09/09/17 17:24 09/09/17 18:08 09/09/17 17:24 09/09/17 18:08 09/09/17 06:00 Intake and Output: 09/09/17 09/10/17 18:59 06:59 Intake Total 460 Output Total 600 Balance -140 - Medications Medications: Current Medications Albuterol/Ipratropium (Duoneb 3 Mg/0.5 Mg (3 Ml) Ud) 3 ml IH [id number] [facility] Last Admin: 09/09/17 21:05 Dose: 3 ml Allopurinol (Zyloprim) 100 mg PO BID [facility] Last Admin: 09/09/17 18:08 Dose: 100 mg Aspirin (Aspirin Chewable) 81 mg PO DAILY [facility] Last Admin: 09/09/17 10:07 Dose: 81 mg Atorvastatin Calcium (Lipitor) 40 mg PO DIN [facility] Last Admin: 09/09/17 18:08 Dose: 40 mg Bacitracin (Bacitracin) 1 gm TOP BID [facility] Last Admin: 09/09/17 18:08 Dose: 1 applic Carvedilol (Coreg) 3.125 mg PO BID [facility] Last Admin: 09/09/17 18:08 Dose: 3.125 mg Ciprofloxacin (Ciloxan 0.3% [facility] Soln) 1 drop OU BID [facility] Last Admin: 09/09/17 18:08 Dose: 1 drop Famotidine (Pepcid) 20 mg PO HS [facility] Last Admin: 09/09/17 22:03 Dose: 20 mg Furosemide (Lasix) 40 mg IV DAILY [facility] Last Admin: 09/09/17 10:06 Dose: Not Given Dextrose (Dextrose 5% In Water 1000 Ml) 1,000 mls @ 10 mls/hr IV .Q24H [facility] Last Admin: 09/09/17 08:05 Dose: Not Given Latanoprost (Xalatan Opht) 0 ml OU HS [facility] Last Admin: 09/09/17 22:04 Dose: 2.5 ml Levothyroxine Sodium (Synthroid) 25 mcg PO DAILY [facility] Last Admin: 09/09/17 10:07 Dose: 25 mcg Pantoprazole Sodium (Protonix Inj) 40 mg IVP Q12 [facility] Last Admin: 09/09/17 22:03 Dose: 40 mg Tamsulosin HCl (Flomax) 0.4 mg PO DAILY [facility] Last Admin: 09/09/17 10:07 Dose: 0.4 mg - Labs Labs: 09/09/17 05:15 09/09/17 05:15 PT 12.8 SECONDS (9.4-12.5) H 08/29/17 11:55 INR 1.16 (0.93-1.08) H 08/29/17 11:55 APTT 23.9 Seconds (25.1-36.5) L 08/29/17 11:55 Attending/Attestation - Attestation I have personally seen and examined this patient.: Yes I have fully participated in the care of the patient.: Yes I have reviewed all pertinent clinical information, including history, physical exam and plan: Yes Notes (Text): this patient was seen and evaluated.. Discussed with the nursing staff. This is an addendum to a progress report dictated by Cecilia Marcano APN. On examination abdomen is soft nontender Anemia and drop in blood, no obvious melena or bright red blood per rectum Patient is here now and family request comfort care Thank you very much for allowing us in participating [facility] care [facility] the [facility] 09/09/17 23:32
--- NOTE | 2017-09-09 19:24 | CP.PCM.PN ---
Subjective - Date & Time of Evaluation Date of Evaluation: 09/09/17 Time of Evaluation: 10:00 - Subjective Subjective: Comfortable in bed, not in distress, afebrile. Objective - Vital Signs/Intake and Output Vital Signs (last 24 hours): Temp Pulse Resp BP Pulse Ox 98.0 F 103 H 20 105/51 L 92 L 09/09/17 06:00 09/09/17 06:00 09/09/17 06:00 09/09/17 06:00 09/09/17 06:00 Intake and Output: 09/08/17 09/09/17 18:59 06:59 Intake Total 600 280 Output Total 600 Balance 600 -320 - Medications Medications: Current Medications Albuterol/Ipratropium (Duoneb 3 Mg/0.5 Mg (3 Ml) Ud) 3 ml IH [id number] [facility] Last Admin: 09/09/17 02:06 Dose: 3 ml Allopurinol (Zyloprim) 100 mg PO BID [facility] Last Admin: 09/08/17 17:50 Dose: 100 mg Aspirin (Aspirin Chewable) 81 mg PO DAILY [facility] Last Admin: 09/08/17 09:53 Dose: 81 mg Atorvastatin Calcium (Lipitor) 40 mg PO DIN [facility] Last Admin: 09/08/17 17:50 Dose: 40 mg Bacitracin (Bacitracin) 1 gm TOP BID [facility] Last Admin: 09/08/17 17:52 Dose: 1 applic Carvedilol (Coreg) 3.125 mg PO BID [facility] Last Admin: 09/08/17 17:51 Dose: 3.125 mg Cefpodoxime Proxetil (Vantin) 200 mg PO DAILY [facility] PRN Reason: Protocol Last Admin: 09/08/17 09:57 Dose: 200 mg Ciprofloxacin (Ciloxan 0.3% Oph Soln) 1 drop OU BID [facility] Last Admin: 09/08/17 17:51 Dose: 1 drop Doxycycline Hyclate (Doryx) 100 mg PO Q12 [facility] PRN Reason: Protocol Last Admin: 09/08/17 21:10 Dose: 100 mg Famotidine (Pepcid) 20 mg PO HS [facility] Last Admin: 09/08/17 21:10 Dose: 20 mg Furosemide (Lasix) 40 mg IV DAILY [facility] Last Admin: 09/08/17 10:03 Dose: Not Given Dextrose (Dextrose 5% In Water 1000 Ml) 1,000 mls @ 10 mls/hr IV .Q24H [facility] Last Admin: 09/08/17 10:02 Dose: 10 mls/hr Latanoprost (Xalatan Opht) 0 ml OU HS [facility] Last Admin: 09/08/17 21:11 Dose: 2.5 ml Levothyroxine Sodium (Synthroid) 25 mcg PO DAILY [facility] Last Admin: 09/08/17 09:56 Dose: 25 mcg Pantoprazole Sodium (Protonix Ec Tab) 20 mg PO ACB [facility] Tamsulosin HCl (Flomax) 0.4 mg PO DAILY [facility] Last Admin: 09/08/17 09:57 Dose: 0.4 mg - Labs Labs: 09/09/17 05:15 09/08/17 08:40 PT 12.8 SECONDS (9.4-12.5) H 08/29/17 11:55 INR 1.16 (0.93-1.08) H 08/29/17 11:55 APTT 23.9 Seconds (25.1-36.5) L 08/29/17 11:55 - Constitutional Appears: Non-toxic, No Acute Distress - Head Exam Head Exam: NORMAL INSPECTION - ENT Exam ENT Exam: Mucous Membranes Moist - Neck Exam Neck Exam: absent: Lymphadenopathy, Meningismus - Respiratory Exam Respiratory Exam: Decreased Breath Sounds - Cardiovascular Exam Cardiovascular Exam: +S1, +S2 - GI/Abdominal Exam GI & Abdominal Exam: Soft. absent: Tenderness Assessment and Plan - Assessment and Plan (Free Text) Plan: asssessment consider sepsis due to left lower lobe community-acquired pneumonia with possible CHF, clinically improved left eye discharge with coagulase negative staph history of left posterior neck mass, sebaceous cyst S/P surgical excision history of left arm cellulitis probably related to venous catheter S/P removal history of asymptomatic bacteriuria with gram negative bacilli gout history of subarachnoid hemorrhage hypothyroidism colon cancer S/P hemicolectomy HTN osteoarthritis history of healthcare-associated pneumonia osteoporosis Plan on Doxycycline and Cefpodoxime day 10 - will d/c today blood cx are negative; PCT is low at 0.16 continue bactroban ointment as well over the left eye will continue to monitor clinically while the patient is in the hospital
[2017-09-09] MEDS: Latanoprost 2.5 ml Opht Soln OU SCH (22:04)
[2017-09-10] MEDS: Albuterol-Ipratrop 3 mg / 0.5 (3 ml) UD IH SCH ×4 (02:22→20:38)
[2017-09-10 06:50] LABS: HEMATOCRIT 25.1 % (42.0-52.0); MEAN CELL VOLUME 93.3 fl (80.0-105.0); MEAN CORPUSCULAR HEMOGLOBIN 28.3 pg (25.0-35.0); MEAN CORPUSCULAR HGB CONC 30.3 g/dl (31.0-37.0); MEAN PLATELET VOLUME 8.4 fl (7.0-11.0); RED CELL DISTRIBUTION WIDTH 16.2 % (11.5-14.5); WHITE BLOOD COUNT 8.4 10^3/ul (4.5-11.0)
[2017-09-10 07:57] LABS: ALB/GLOB RATIO 1.1 (1.1-1.8); BILIRUBIN,TOTAL 0.3 mg/dL (0.2-1.3); CALCIUM 8.4 mg/dL (8.4-10.5); POTASSIUM 5.3 mmol/L (3.6-5.0); TOTAL PROTEIN 5.4 g/dL (5.8-8.3)
--- NOTE | 2017-09-10 08:07 | CP.PCM.PN ---
Subjective - Date & Time of Evaluation Date of Evaluation: 09/10/17 Time of Evaluation: 07:45 - Subjective Subjective: Patient is seen this morning while receiving nebulizer respiratory treatment. Objective - Vital Signs/Intake and Output Vital Signs (last 24 hours): Temp Pulse Resp BP Pulse Ox 98.3 F 97 H 20 101/48 L 97 09/10/17 06:00 09/10/17 06:00 09/10/17 06:00 09/10/17 06:00 09/10/17 06:00 Intake and Output: 09/10/17 09/10/17 06:59 18:59 Intake Total 120 Output Total 100 Balance 20 - Medications Medications: Current Medications Albuterol/Ipratropium (Duoneb 3 Mg/0.5 Mg (3 Ml) Ud) 3 ml IH [id number] [facility] Last Admin: 09/10/17 07:35 Dose: 3 ml Allopurinol (Zyloprim) 100 mg PO BID [facility] Last Admin: 09/09/17 18:08 Dose: 100 mg Aspirin (Aspirin Chewable) 81 mg PO DAILY [facility] Last Admin: 09/09/17 10:07 Dose: 81 mg Atorvastatin Calcium (Lipitor) 40 mg PO DIN [facility] Last Admin: 09/09/17 18:08 Dose: 40 mg Bacitracin (Bacitracin) 1 gm TOP BID [facility] Last Admin: 09/09/17 18:08 Dose: 1 applic Carvedilol (Coreg) 3.125 mg PO BID [facility] Last Admin: 09/09/17 18:08 Dose: 3.125 mg Ciprofloxacin (Ciloxan 0.3% Oph Soln) 1 drop OU BID [facility] Last Admin: 09/09/17 18:08 Dose: 1 drop Famotidine (Pepcid) 20 mg PO HS [facility] Last Admin: 09/09/17 22:03 Dose: 20 mg Furosemide (Lasix) 40 mg IV DAILY [facility] Last Admin: 09/09/17 10:06 Dose: Not Given Latanoprost (Xalatan Opht) 0 ml OU HS [facility] Last Admin: 09/09/17 22:04 Dose: 2.5 ml Levothyroxine Sodium (Synthroid) 25 mcg PO DAILY [facility] Last Admin: 09/09/17 10:07 Dose: 25 mcg Pantoprazole Sodium (Protonix Inj) 40 mg IVP Q12 [facility] Last Admin: 09/09/17 22:03 Dose: 40 mg Tamsulosin HCl (Flomax) 0.4 mg PO DAILY [facility] Last Admin: 09/09/17 10:07 Dose: 0.4 mg - Labs Labs: 09/09/17 05:15 09/10/17 05:30 PT 12.8 SECONDS (9.4-12.5) H 08/29/17 11:55 INR 1.16 (0.93-1.08) H 08/29/17 11:55 APTT 23.9 Seconds (25.1-36.5) L 08/29/17 11:55 - Cardiovascular Exam Cardiovascular Exam: +S1, +S2 - GI/Abdominal Exam GI & Abdominal Exam: Soft, Normal Bowel Sounds. absent: Tenderness - Extremities Exam Extremities Exam: Pedal Edema - Neurological Exam Neurological Exam: Awake Assessment and Plan - Assessment and Plan (Free Text) Assessment: Acute on chronic kidney disease GI Bleed/ anemia Hyperkalemia AMS hypothyroidism Plan: Patient awake. Potassium is high this morning. Will order 1 dose of kayexelate. continue respiratory treatments BUN and creatinine rising; family not interest in dialysis Stool for occult blood positive. Will continue Protonix 40mg IV BID no GI procedure
[2017-09-10] MEDS: Levothyroxine 25 MCG TAB PO SCH (10:33)
[2017-09-10] MEDS: Bacitracin Ointment 30 GM TUBE TOP SCH ×2 (11:16→18:00)
[2017-09-10] MEDS: Ciprofloxacin 0.3% OPTH SOLN OU SCH ×2 (11:16→18:00)
--- NOTE | 2017-09-10 18:35 | PN ---
DATE: 09/10/2017 SUBJECTIVE: The patient is in bed in no acute distress, nontoxic. The patient was seen early this morning in room 271, bed 2. No fevers and no chills. Chronically ill. PHYSICAL EXAMINATION: VITAL SIGNS: Temperature is 98, blood pressure is 103/40, and respiratory rate is 18. HEENT: Unremarkable. NECK: Supple. LUNGS: Decreased breath sounds. HEART: Normal S1 and S2. ABDOMEN: Soft and nontender. No organomegaly. No rebound. No guarding. LABORATORY DATA: Reveals a white count of 8.4, hemoglobin of 7, and platelets of 161. Chemistry reveals a BUN of 108 and creatinine of 4.6. Review of orders reveals the patient to be on no antibiotics. Microbiology reveals the patient's left eye has a coag-negative staph and Cristy albicans. Blood cultures and urine cultures are negative. ASSESSMENT AND PLAN: An 86-year-old male who was seen earlier this morning with sepsis due to a left lower lobe community-acquired pneumonia and possible congestive heart failure with left eye discharge, coag-negative staphylococcus, history of left posterior neck mass, sebaceous cyst status post surgical excision, history of left arm cellulitis probably related to the venous catheter, gout, and history of subarachnoid hemorrhage. Completed doxycycline and cefpodoxime for 10 days. Currently off antibiotics. Afebrile. He is at risk for developing nosocomial infections. We will follow closely with you. Jonathan Wilkins MD
[2017-09-10] MEDS: Latanoprost 2.5 ml Opht Soln OU SCH (23:22)
[2017-09-11] MEDS: Albuterol-Ipratrop 3 mg / 0.5 (3 ml) UD IH SCH ×4 (01:09→19:24)
--- NOTE | 2017-09-11 08:00 | CP.PCM.PN ---
Subjective - Date & Time of Evaluation Date of Evaluation: 09/11/17 Time of Evaluation: 07:40 - Subjective Subjective: Patient off telemetry. He was transferred to the 5th floor yesterday. Blood count decreasing. Objective - Vital Signs/Intake and Output Vital Signs (last 24 hours): Temp Pulse Resp BP Pulse Ox 97.6 F 67 18 109/47 L 97 09/10/17 15:58 09/10/17 18:01 09/10/17 15:58 09/10/17 18:01 09/10/17 15:58 Intake and Output: 09/11/17 09/11/17 06:59 18:59 Intake Total 360 Output Total 225 Balance 135 - Medications Medications: Current Medications Albuterol/Ipratropium (Duoneb 3 Mg/0.5 Mg (3 Ml) Ud) 3 ml IH [id number] [facility] Last Admin: 09/11/17 07:09 Dose: 3 ml Allopurinol (Zyloprim) 100 mg PO BID [facility] Last Admin: 09/10/17 18:09 Dose: Not Given Aspirin (Aspirin Chewable) 81 mg PO DAILY [facility] Last Admin: 09/10/17 10:32 Dose: Not Given Atorvastatin Calcium (Lipitor) 40 mg PO DIN [facility] Last Admin: 09/10/17 18:02 Dose: Not Given Bacitracin (Bacitracin) 1 gm TOP BID [facility] Last Admin: 09/10/17 18:00 Dose: 1 applic Carvedilol (Coreg) 3.125 mg PO BID [facility] Last Admin: 09/10/17 18:01 Dose: Not Given Ciprofloxacin (Ciloxan 0.3% Oph Soln) 1 drop OU BID [facility] Last Admin: 09/10/17 18:00 Dose: 1 drop Famotidine (Pepcid) 20 mg PO HS [facility] Last Admin: 09/10/17 23:20 Dose: 20 mg Furosemide (Lasix) 40 mg IV DAILY [facility] Last Admin: 09/10/17 11:09 Dose: Not Given Latanoprost (Xalatan Opht) 0 ml OU HS [facility] Last Admin: 09/10/17 23:22 Dose: 2.5 ml Levothyroxine Sodium (Synthroid) 25 mcg PO DAILY [facility] Last Admin: 09/10/17 10:33 Dose: Not Given Pantoprazole Sodium (Protonix Inj) 40 mg IVP Q12 [facility] Last Admin: 09/10/17 23:20 Dose: 40 mg Tamsulosin HCl (Flomax) 0.4 mg PO DAILY [facility] Last Admin: 09/10/17 10:32 Dose: Not Given - Labs Labs: 09/10/17 05:30 09/10/17 05:30 PT 12.8 SECONDS (9.4-12.5) H 08/29/17 11:55 INR 1.16 (0.93-1.08) H 08/29/17 11:55 APTT 23.9 Seconds (25.1-36.5) L 08/29/17 11:55 - Head Exam Head Exam: ATRAUMATIC, NORMOCEPHALIC - Respiratory Exam Respiratory Exam: Rhonchi - Cardiovascular Exam Cardiovascular Exam: +S1, +S2 - GI/Abdominal Exam GI & Abdominal Exam: Soft, Normal Bowel Sounds. absent: Tenderness - Extremities Exam Extremities Exam: Pedal Edema Assessment and Plan - Assessment and Plan (Free Text) Assessment: Anemia/ GI bleed Acute on Chronic kidney disease Acute on chronic diastolic heart failure degenerative arthritis hypothyroidism Pneumonia Plan: Patient more awake and alert this morning. Patient's hemoglobin decreased to 7.6 yesterday. GI on case. Stool for occult blood was positive. Family does not want any endoscopic procedures at this time. continue IV Protonix twice a day. will order 1 unit of blood to be transfused. continue Lasix 40 mg IV daily. BUN and creatinine rising, but patient with fluid overload. Liver enzymes have normalized. Patient has completed course of antibiotics for pneumonia.
[2017-09-11 09:18] LABS: MEAN CELL VOLUME 90.9 fl (80.0-105.0); MEAN CORPUSCULAR HEMOGLOBIN 28.1 pg (25.0-35.0); MEAN CORPUSCULAR HGB CONC 30.9 g/dl (31.0-37.0); MEAN PLATELET VOLUME 7.7 fl (7.0-11.0); RED CELL DISTRIBUTION WIDTH 15.8 % (11.5-14.5); WHITE BLOOD COUNT 8.3 10^3/ul (4.5-11.0)
[2017-09-11] MEDS: Levothyroxine 25 MCG TAB PO SCH (09:33)
[2017-09-11] MEDS: Ciprofloxacin 0.3% OPTH SOLN OU SCH ×2 (09:33→17:15)
[2017-09-11] MEDS: Bacitracin Ointment 30 GM TUBE TOP SCH ×2 (09:33→17:15)
[2017-09-11 09:45] LABS: ALB/GLOB RATIO 1.1 (1.1-1.8); BILIRUBIN,TOTAL 0.4 mg/dL (0.2-1.3); CALCIUM 8.3 mg/dL (8.4-10.5); POTASSIUM 5.4 mmol/L (3.6-5.0); TOTAL PROTEIN 5.1 g/dL (5.8-8.3)
[2017-09-11] MEDS ORDERED: Sod Polystyrene Sulf 15 gm/60 ml Susp PO ONE (10:55)
--- NOTE | 2017-09-11 13:04 | PN ---
DATE: 09/11/2017 SUBJECTIVE: The patient is in bed in no acute distress, nontoxic. No fevers and chills. PHYSICAL EXAMINATION: VITAL SIGNS: Temperature is 97, blood pressure is 100/60, respiratory rate of 18. HEENT: Examination of HEENT is unremarkable. NECK: Supple. LUNGS: Have decreased breath sounds. HEART: Normal S1, S2. ABDOMEN: Soft, nontender. LABORATORY DATA: Reveals a white count of 8.3, hemoglobin of 6, platelets of 152. BUN of 121, creatinine of 5.1, procalcitonin 0.16. Urinalysis is noted. Urine for Legionella antigen is negative. Microbiology reveals blood cultures are no growth. Review of orders reveals the patient to be off of antibiotics. ASSESSMENT AND PLAN: Reveals the patient to be 86-year-old male, was seen earlier. Has a diagnosis of sepsis due to a left lower lobe community-acquired pneumonia and congestive heart failure, left eye discharge with a staph, history of left posterior neck mass, sebaceous cyst, status post surgical excision, currently off of antibiotics, has completed the treatment with doxycycline, cefpodoxime for 10 days. Off of antibiotics now. The patient is at risk for developing nosocomial infection. Jonathan Wilkins MD
[2017-09-11] MEDS: Nystatin 100,000 Units/gm Topical Pow(15 gm) TOP SCH ×2 (14:40→17:17)
[2017-09-11] MEDS: Latanoprost 2.5 ml Opht Soln OU SCH (21:16)
--- NOTE | 2017-09-12 01:15 | PN ---
DATE: 09/11/2017 SUBJECTIVE: This patient was seen and evaluated today. The patient was lethargic. PHYSICAL EXAMINATION: GENERAL: The patient was lying on the bed, not in acute distress. VITAL SIGNS: Temperature is afebrile, blood pressure 100/60, and respirations 18. HEENT: Atraumatic, anicteric. NECK: Supple. HEART: S1, S2 heard. LUNGS: Bilateral air entry present. ABDOMEN: Soft. There was no tenderness. LABORATORY DATA: His hemoglobin is 6, WBC 8.3. IMPRESSION: This is an 86-year-old patient with pneumonia, sepsis, congestive heart failure, chronic kidney disease, has episodes of dark stools, melena. The patient is being now transfused. Family does not want an endoscopy or aggressive measures. Supportive care. Continue proton pump inhibitor. The patient is on Protonix 40 mg q.12 hourly. Prognosis is poor. The patient is DNR/DNI. Thank you very much for allowing us to participate in the care of the patient. Luiza Rehman MD
[2017-09-12] MEDS: Albuterol-Ipratrop 3 mg / 0.5 (3 ml) UD IH SCH ×4 (01:29→20:46)
[2017-09-12 06:23] LABS: BASO # 0.01 K/mm3 (0.0-2.0); BASO % 0.1 % (0.0-3.0); EOS # 0.2 (0.0-0.7); EOS % 1.8 % (1.5-5.0); GRAN # 6.73 (1.4-6.5); GRAN % 81.4 % (50.0-68.0); HEMATOCRIT 26.4 % (42.0-52.0); LYMPH # 0.9 (1.2-3.4); MEAN CELL VOLUME 89.5 fl (80.0-105.0); MEAN CORPUSCULAR HEMOGLOBIN 28.8 pg (25.0-35.0); MEAN CORPUSCULAR HGB CONC 32.2 g/dl (31.0-37.0); MEAN PLATELET VOLUME 8.4 fl (7.0-11.0); MONO # 0.5 (0.1-0.6); MONO % 5.7 % (1.0-6.0); RED CELL DISTRIBUTION WIDTH 15.7 % (11.5-14.5); WHITE BLOOD COUNT 8.3 10^3/ul (4.5-11.0)
[2017-09-12 06:43] LABS: CALCIUM 8.2 mg/dL (8.4-10.5); POTASSIUM 4.4 mmol/L (3.6-5.0)
--- NOTE | 2017-09-12 08:33 | CP.PCM.PN ---
Subjective - Date & Time of Evaluation Date of Evaluation: 09/12/17 Time of Evaluation: 08:00 - Subjective Subjective: Patient seen this morning in room 563 bed 1. He is awake and alert, answering questions appropriately. Objective - Vital Signs/Intake and Output Vital Signs (last 24 hours): Temp Pulse Resp BP Pulse Ox 98.5 F 92 H 20 115/51 L 96 09/12/17 07:30 09/12/17 07:30 09/12/17 07:30 09/12/17 07:30 09/12/17 07:30 Intake and Output: 09/12/17 09/12/17 06:59 18:59 Intake Total 805 Output Total 700 Balance 105 - Medications Medications: Current Medications Albuterol/Ipratropium (Duoneb 3 Mg/0.5 Mg (3 Ml) Ud) 3 ml IH O4DCATE [facility] Last Admin: 09/12/17 06:59 Dose: 3 ml Aspirin (Aspirin Chewable) 81 mg PO DAILY [facility] Last Admin: 09/11/17 09:32 Dose: 81 mg Atorvastatin Calcium (Lipitor) 40 mg PO DIN [facility] Last Admin: 09/11/17 17:19 Dose: 40 mg Bacitracin (Bacitracin) 1 gm TOP BID [facility] Last Admin: 09/11/17 17:15 Dose: 1 applic Carvedilol (Coreg) 3.125 mg PO BID [facility] Last Admin: 09/11/17 17:16 Dose: Not Given Ciprofloxacin (Ciloxan 0.3% Oph Soln) 1 drop OU BID [facility] Last Admin: 09/11/17 17:15 Dose: 1 drop Furosemide (Lasix) 40 mg IV DAILY [facility] Last Admin: 09/11/17 09:34 Dose: 40 mg Latanoprost (Xalatan Opht) 0 ml OU HS [facility] Last Admin: 09/11/17 21:16 Dose: 2.5 ml Levothyroxine Sodium (Synthroid) 25 mcg PO DAILY [facility] Last Admin: 09/11/17 09:33 Dose: 25 mcg Nystatin (Nystop Topical Powder) 0 gm TOP TID [facility] Last Admin: 09/11/17 17:17 Dose: 1 appl Pantoprazole Sodium (Protonix Inj) 40 mg IVP Q12 [facility] Last Admin: 09/11/17 21:16 Dose: 40 mg Tamsulosin HCl (Flomax) 0.4 mg PO DAILY [facility] Last Admin: 09/11/17 09:34 Dose: 0.4 mg - Labs Labs: 09/12/17 06:00 09/12/17 06:00 PT 12.8 SECONDS (9.4-12.5) H 08/29/17 11:55 INR 1.16 (0.93-1.08) H 08/29/17 11:55 APTT 23.9 Seconds (25.1-36.5) L 08/29/17 11:55 - Constitutional Appears: No Acute Distress - Head Exam Head Exam: ATRAUMATIC, NORMOCEPHALIC - Respiratory Exam Respiratory Exam: Decreased Breath Sounds, NORMAL BREATHING PATTERN - Cardiovascular Exam Cardiovascular Exam: +S1, +S2 - GI/Abdominal Exam GI & Abdominal Exam: Soft, Normal Bowel Sounds. absent: Tenderness - Extremities Exam Extremities Exam: Pedal Edema - Neurological Exam Neurological Exam: Alert, Awake Assessment and Plan - Assessment and Plan (Free Text) Assessment: Acute on chronic kidney disease Anemia secondary to GI Bleed Sepsis secondary to pneumonia Arthritis acute on chronic diastolic heart failure Plan: Patient is more awake and alert this morning. He denies shortness of breath. Hemoglobin 8.5 after receiving 2 units PRBCs yesterday. continue IV Protonix BID for suspected GI Bleed. follow H&H. BUN and creatinine rising. Family does not want dialysis at this time. continue IV Lasix for edema, heart failure.
[2017-09-12] MEDS: Levothyroxine 25 MCG TAB PO SCH (10:59)
[2017-09-12] MEDS: Ciprofloxacin 0.3% OPTH SOLN OU SCH ×2 (11:00→17:00)
[2017-09-12] MEDS: Bacitracin Ointment 30 GM TUBE TOP SCH ×2 (11:00→19:00)
[2017-09-12] MEDS: Nystatin 100,000 Units/gm Topical Pow(15 gm) TOP SCH ×3 (11:00→17:00)
--- NOTE | 2017-09-12 13:07 | CP.PCM.PN ---
Subjective - Date & Time of Evaluation Date of Evaluation: 09/12/17 Time of Evaluation: 12:00 - Subjective Subjective: Alert, offers no complaints. Appetite fair. Objective - Vital Signs/Intake and Output Vital Signs (last 24 hours): Temp Pulse Resp BP Pulse Ox 98.5 F 92 H 20 115/92 H 96 09/12/17 07:30 09/12/17 10:59 09/12/17 07:30 09/12/17 10:59 09/12/17 07:30 Intake and Output: 09/12/17 09/12/17 06:59 18:59 Intake Total 805 Output Total 700 Balance 105 - Medications Medications: Current Medications Albuterol/Ipratropium (Duoneb 3 Mg/0.5 Mg (3 Ml) Ud) 3 ml IH [id number] [facility] Last Admin: 09/12/17 06:59 Dose: 3 ml Aspirin (Aspirin Chewable) 81 mg PO DAILY [facility] Last Admin: 09/12/17 10:59 Dose: 81 mg Atorvastatin Calcium (Lipitor) 40 mg PO DIN [facility] Last Admin: 09/11/17 17:19 Dose: 40 mg Bacitracin (Bacitracin) 1 gm TOP BID [facility] Last Admin: 09/12/17 11:00 Dose: 1 applic Carvedilol (Coreg) 3.125 mg PO BID [facility] Last Admin: 09/12/17 10:59 Dose: 3.125 mg Ciprofloxacin (Ciloxan 0.3% Oph Soln) 1 drop OU BID [facility] Last Admin: 09/12/17 11:00 Dose: 1 drop Furosemide (Lasix) 40 mg IV DAILY [facility] Last Admin: 09/12/17 10:58 Dose: 40 mg Latanoprost (Xalatan Opht) 0 ml OU HS [facility] Last Admin: 09/11/17 21:16 Dose: 2.5 ml Levothyroxine Sodium (Synthroid) 25 mcg PO DAILY [facility] Last Admin: 09/12/17 10:59 Dose: 25 mcg Nystatin (Nystop Topical Powder) 0 gm TOP TID [facility] Last Admin: 09/12/17 11:00 Dose: 1 appl Pantoprazole Sodium (Protonix Inj) 40 mg IVP Q12 [facility] Last Admin: 09/12/17 10:58 Dose: 40 mg Tamsulosin HCl (Flomax) 0.4 mg PO DAILY [facility] Last Admin: 09/12/17 10:59 Dose: 0.4 mg - Labs Labs: 09/12/17 06:00 09/12/17 06:00 PT 12.8 SECONDS (9.4-12.5) H 08/29/17 11:55 INR 1.16 (0.93-1.08) H 08/29/17 11:55 APTT 23.9 Seconds (25.1-36.5) L 08/29/17 11:55 - Constitutional Appears: Chronically Ill - Head Exam Head Exam: NORMAL INSPECTION - Eye Exam Eye Exam: Normal appearance, PERRL - ENT Exam ENT Exam: Mucous Membranes Moist - Respiratory Exam Respiratory Exam: Decreased Breath Sounds, NORMAL BREATHING PATTERN - Cardiovascular Exam Cardiovascular Exam: +S1, +S2 - GI/Abdominal Exam GI & Abdominal Exam: Distended, Soft - Extremities Exam Additional comments: 2+ edema of both lower extremities - Neurological Exam Neurological Exam: Alert - Skin Skin Exam: Dry, Pallor Assessment and Plan - Assessment and Plan (Free Text) Assessment: 86 year old male with history of HTN, CAD,CHF,CKD who was admitted with LLL pneumonia, N STEMI, CHF, JENNIFER,anemia and staff infection of left eye. The patient states he wants to go home. Asking for his otherwise in no a distress. Last Tuesday I had an extensive discussion with patient's and daughter regarding goals of care. Family aware that patient's kidney functions are deteriorating. Family does not intend to pursue dialysis treatment. Hospice services discussed in detail. Family was considering options for future care. Today, I tried to reach the via phone, but was unable to leave a message. Intent to discuss decision regarding future goals of care. Plan: Palliative support in establishing goals of care
--- NOTE | 2017-09-12 17:58 | CP.PCM.PN ---
Subjective - Date & Time of Evaluation Date of Evaluation: 09/12/17 Time of Evaluation: 11:55 - Subjective Subjective: Comfortable, no fevers, non-toxic. Objective - Vital Signs/Intake and Output Vital Signs (last 24 hours): Temp Pulse Resp BP Pulse Ox 98.5 F 92 H 20 115/51 L 96 09/12/17 07:30 09/12/17 07:30 09/12/17 07:30 09/12/17 07:30 09/12/17 07:30 Intake and Output: 09/12/17 09/12/17 06:59 18:59 Intake Total 805 Output Total 700 Balance 105 - Medications Medications: Current Medications Albuterol/Ipratropium (Duoneb 3 Mg/0.5 Mg (3 Ml) Ud) 3 ml IH [id number] [facility] Last Admin: 09/12/17 06:59 Dose: 3 ml Aspirin (Aspirin Chewable) 81 mg PO DAILY [facility] Last Admin: 09/11/17 09:32 Dose: 81 mg Atorvastatin Calcium (Lipitor) 40 mg PO DIN [facility] Last Admin: 09/11/17 17:19 Dose: 40 mg Bacitracin (Bacitracin) 1 gm TOP BID [facility] Last Admin: 09/11/17 17:15 Dose: 1 applic Carvedilol (Coreg) 3.125 mg PO BID [facility] Last Admin: 09/11/17 17:16 Dose: Not Given Ciprofloxacin (Ciloxan 0.3% Oph Soln) 1 drop OU BID [facility] Last Admin: 09/11/17 17:15 Dose: 1 drop Furosemide (Lasix) 40 mg IV DAILY [facility] Last Admin: 09/11/17 09:34 Dose: 40 mg Latanoprost (Xalatan Opht) 0 ml OU HS [facility] Last Admin: 09/11/17 21:16 Dose: 2.5 ml Levothyroxine Sodium (Synthroid) 25 mcg PO DAILY [facility] Last Admin: 09/11/17 09:33 Dose: 25 mcg Nystatin (Nystop Topical Powder) 0 gm TOP TID [facility] Last Admin: 09/11/17 17:17 Dose: 1 appl Pantoprazole Sodium (Protonix Inj) 40 mg IVP Q12 [facility] Last Admin: 09/11/17 21:16 Dose: 40 mg Tamsulosin HCl (Flomax) 0.4 mg PO DAILY [facility] Last Admin: 09/11/17 09:34 Dose: 0.4 mg - Labs Labs: 09/12/17 06:00 09/12/17 06:00 PT 12.8 SECONDS (9.4-12.5) H 08/29/17 11:55 INR 1.16 (0.93-1.08) H 08/29/17 11:55 APTT 23.9 Seconds (25.1-36.5) L 08/29/17 11:55 - Constitutional Appears: Non-toxic, No Acute Distress - Head Exam Head Exam: NORMAL INSPECTION - Cardiovascular Exam Cardiovascular Exam: +S1, +S2 - GI/Abdominal Exam GI & Abdominal Exam: Soft. absent: Tenderness Assessment and Plan - Assessment and Plan (Free Text) Plan: asssessment S/P sepsis due to left lower lobe community-acquired pneumonia with possible CHF , clinically improved and S/P treatment left eye discharge with coagulase negative staph history of left posterior neck mass, sebaceous cyst S/P surgical excision history of left arm cellulitis probably related to venous catheter S/P removal history of asymptomatic bacteriuria with gram negative bacilli gout history of subarachnoid hemorrhage hypothyroidism colon cancer S/P hemicolectomy HTN osteoarthritis history of healthcare-associated pneumonia osteoporosis Plan completed 10 days of Doxycycline and Cefpodoxime - continue to monitor off antibiotics since he is at risk for nosocomial infections continue bactroban ointment as well over the left eye
[2017-09-12] MEDS: Latanoprost 2.5 ml Opht Soln OU SCH (21:41)
[2017-09-13] MEDS: Albuterol-Ipratrop 3 mg / 0.5 (3 ml) UD IH SCH ×4 (01:45→21:00)
[2017-09-13] MEDS ORDERED: Albumin Human 25% (12.5 gm/50 ml) IV ONE (08:07)
--- NOTE | 2017-09-13 08:13 | CP.PCM.PN ---
Subjective - Date & Time of Evaluation Date of Evaluation: 09/13/17 Time of Evaluation: 07:45 - Subjective Subjective: Patient is seen this morning. He is awake and alert. Objective - Vital Signs/Intake and Output Vital Signs (last 24 hours): Temp Pulse Resp BP Pulse Ox 98.6 F 81 20 114/47 L 95 09/13/17 00:00 09/13/17 00:00 09/13/17 00:00 09/12/17 19:22 09/13/17 00:00 - Medications Medications: Current Medications Albumin Human (Albumin Human 25% (12.5 Gm/50 Ml)) 12.5 gm IV ONCE ONE Stop: 09/13/17 08:08 Albuterol/Ipratropium (Duoneb 3 Mg/0.5 Mg (3 Ml) Ud) 3 ml IH [id number] [facility] Last Admin: 09/13/17 07:32 Dose: 3 ml Aspirin (Aspirin Chewable) 81 mg PO DAILY [facility] Last Admin: 09/12/17 10:59 Dose: 81 mg Atorvastatin Calcium (Lipitor) 40 mg PO DIN [facility] Last Admin: 09/12/17 19:21 Dose: 40 mg Bacitracin (Bacitracin) 1 gm TOP BID [facility] Last Admin: 09/12/17 19:00 Dose: 1 applic Bumetanide (Bumex) 1 mg PO BID [facility] Carvedilol (Coreg) 3.125 mg PO BID [facility] Last Admin: 09/12/17 19:21 Dose: 3.125 mg Ciprofloxacin (Ciloxan 0.3% Ophth Soln) 1 drop OU BID [facility] Last Admin: 09/12/17 17:00 Dose: 1 drop Furosemide (Lasix) 40 mg IV BID [facility] Last Admin: 09/12/17 19:22 Dose: 40 mg Latanoprost (Xalatan Opht) 0 ml OU HS [facility] Last Admin: 09/12/17 21:41 Dose: 1 ml Levothyroxine Sodium (Synthroid) 25 mcg PO DAILY [facility] Last Admin: 09/12/17 10:59 Dose: 25 mcg Nystatin (Nystop Topical Powder) 0 gm TOP TID [facility] Last Admin: 09/12/17 17:00 Dose: 1 appl Pantoprazole Sodium (Protonix Inj) 40 mg IVP Q12 [facility] Last Admin: 09/12/17 21:39 Dose: 40 mg Tamsulosin HCl (Flomax) 0.4 mg PO DAILY [facility] Last Admin: 09/12/17 10:59 Dose: 0.4 mg - Labs Labs: 09/12/17 06:00 09/12/17 06:00 PT 12.8 SECONDS (9.4-12.5) H 08/29/17 11:55 INR 1.16 (0.93-1.08) H 08/29/17 11:55 APTT 23.9 Seconds (25.1-36.5) L 08/29/17 11:55 - Constitutional Appears: No Acute Distress - Head Exam Head Exam: ATRAUMATIC, NORMOCEPHALIC - Respiratory Exam Respiratory Exam: Rhonchi, NORMAL BREATHING PATTERN - Cardiovascular Exam Cardiovascular Exam: +S1, +S2 - GI/Abdominal Exam GI & Abdominal Exam: Soft, Normal Bowel Sounds. absent: Tenderness - Extremities Exam Extremities Exam: Pedal Edema - Neurological Exam Neurological Exam: Alert, Awake Assessment and Plan - Assessment and Plan (Free Text) Assessment: Acute on chronic kidney disease - BUN and creatinine rising, continue diuresis Acute on chronic diastolic heart failure/ elevate troponin - Elevated troponin most likely secondary to kidney disease; Patient diuresing little with Lasix; will hold Lasix and try Bumex; upper and lower extremities are swollen hypothyroidism sepsis secondary to pneumonia - patient has completed course of antibiotics degenerative arthritis - PT to mobilize patient
--- NOTE | 2017-09-13 08:20 | PN ---
DATE: 09/12/2017 SUBJECTIVE: The patient is seen lying in bed. He is awake. He is alert. He does not appear to be in any kind of distress. PHYSICAL EXAMINATION: VITAL SIGNS: Blood pressure 115/92, heart rate 92, respiratory rate 20, temperature 98.5. HEENT: Normocephalic, atraumatic. NECK: Supple, no JVD. LUNGS: Bilateral equal air entry, bilateral rhonchi. CARDIAC: S1 and S2, regular rate and rhythm, no murmur, no rub. ABDOMEN: Obese, distended, soft, nontender, bowel sounds present. EXTREMITIES: 3+ pitting edema of the lower extremities. INTAKE AND OUTPUT: 1280/700. LABORATORY DATA: WBC 8.3, hemoglobin 8.5, hematocrit 26, platelets 155. Sodium 139, potassium 4.4, chloride 100, CO2 of 30, BUN 127, creatinine 5.2, glucose 99, calcium 8.2. CURRENT MEDICATIONS: Aspirin, bacitracin, Coreg 3.125 b.i.d., Flomax, Lasix 40 IV daily, Lipitor, Protonix, Synthroid. ASSESSMENT AND PLAN: 1. Acute kidney injury superimposed on chronic kidney disease stage III. Worsening renal function. Worsening BUN, creatinine and potassium. 2. Severe anemia, status post 2 units of blood transfusion yesterday! 3. History of hypertension. 4. Pneumonia, sepsis. 5. Morbid obesity. 6. History of colorectal cancer. PLAN: 1. Change Lasix to 40 IV q. 12. 2. Continue antibiotics. 3. Avoid use of Kayexalate. 4. Monitor urine output. 5. Hospice eval in progress. 6. Avoid nephrotoxins. Ave Izquierdo MD
--- NOTE | 2017-09-13 10:06 | CP.PCM.PN ---
Subjective - Date & Time of Evaluation Date of Evaluation: 09/13/17 Time of Evaluation: 10:00 - Subjective Subjective: Alert. Complains of back discomfort,requests repositioning.Otherwise, in no distress. Objective - Vital Signs/Intake and Output Vital Signs (last 24 hours): Temp Pulse Resp BP Pulse Ox 97.6 F 85 20 106/57 L 94 L 09/13/17 07:30 09/13/17 07:30 09/13/17 07:30 09/13/17 07:30 09/13/17 07:30 - Medications Medications: Current Medications Albuterol/Ipratropium (Duoneb 3 Mg/0.5 Mg (3 Ml) Ud) 3 ml IH [id number] [facility] Last Admin: 09/13/17 07:32 Dose: 3 ml Aspirin (Aspirin Chewable) 81 mg PO DAILY [facility] Last Admin: 09/12/17 10:59 Dose: 81 mg Atorvastatin Calcium (Lipitor) 40 mg PO DIN [facility] Last Admin: 09/12/17 19:21 Dose: 40 mg Bacitracin (Bacitracin) 1 gm TOP BID [facility] Last Admin: 09/12/17 19:00 Dose: 1 applic Bumetanide (Bumex) 1 mg PO BID [facility] Carvedilol (Coreg) 3.125 mg PO BID [facility] Last Admin: 09/12/17 19:21 Dose: 3.125 mg Ciprofloxacin (Ciloxan 0.3% Oph Soln) 1 drop OU BID [facility] Last Admin: 09/12/17 17:00 Dose: 1 drop Furosemide (Lasix) 40 mg IV BID [facility] Last Admin: 09/12/17 19:22 Dose: 40 mg Latanoprost (Xalatan Opht) 0 ml OU HS [facility] Last Admin: 09/12/17 21:41 Dose: 1 ml Levothyroxine Sodium (Synthroid) 25 mcg PO DAILY [facility] Last Admin: 09/12/17 10:59 Dose: 25 mcg Nystatin (Nystop Topical Powder) 0 gm TOP TID [facility] Last Admin: 09/12/17 17:00 Dose: 1 appl Pantoprazole Sodium (Protonix Inj) 40 mg IVP Q12 [facility] Last Admin: 09/12/17 21:39 Dose: 40 mg Tamsulosin HCl (Flomax) 0.4 mg PO DAILY [facility] Last Admin: 09/12/17 10:59 Dose: 0.4 mg - Labs Labs: 09/12/17 06:00 09/12/17 06:00 PT 12.8 SECONDS (9.4-12.5) H 08/29/17 11:55 INR 1.16 (0.93-1.08) H 08/29/17 11:55 APTT 23.9 Seconds (25.1-36.5) L 08/29/17 11:55 - Constitutional Appears: Chronically Ill - Eye Exam Eye Exam: Normal appearance, PERRL - ENT Exam ENT Exam: Mucous Membranes Moist - Respiratory Exam Respiratory Exam: Decreased Breath Sounds, NORMAL BREATHING PATTERN - Cardiovascular Exam Cardiovascular Exam: REGULAR RHYTHM, +S1, +S2 - GI/Abdominal Exam GI & Abdominal Exam: Distended, Soft, Normal Bowel Sounds - Extremities Exam Additional comments: 2 + bilateral lower extremity edema - Skin Skin Exam: Dry, Warm Assessment and Plan - Assessment and Plan (Free Text) Assessment: 86 year old male with history of CAD, HTN,CKD who is admitted with anemia, N STEMI,JENNIFER, sepsis, and pneumonia. Patients and daughter met with Ollie Roach CM and myself. Family interested in hospice care and met with [place] community relations liaison.Hpsice services explained in detail. Questions answered. Family has signed on to [facility] services. Intent is to discharge home with hospice care. Time spent in goals of care discussion and end of life counselling, 20 minutes Plan: Goals of care discussion. Hospice evaluation. End of life counselling.
[2017-09-13] MEDS: Levothyroxine 25 MCG TAB PO SCH (12:41)
[2017-09-13] MEDS: Ciprofloxacin 0.3% OPTH SOLN OU SCH ×2 (12:50→18:45)
[2017-09-13] MEDS: Bacitracin Ointment 30 GM TUBE TOP SCH ×2 (12:52→18:44)
--- NOTE | 2017-09-13 14:38 | CP.PCM.PN ---
<Cecilia Marcano - Last Filed: 09/13/17 14:37> Subjective - Date & Time of Evaluation Date of Evaluation: 09/13/17 Time of Evaluation: 10:50 - Subjective Subjective: S&E at bedside, no acute overnight events reported. Patient denies N/V or abdominal pain. No reports of melena or BRBPR. Objective - Vital Signs/Intake and Output Vital Signs (last 24 hours): Temp Pulse Resp BP Pulse Ox 97.6 F 85 20 106/57 L 94 L 09/13/17 07:30 09/13/17 12:43 09/13/17 07:30 09/13/17 12:43 09/13/17 07:30 - Medications Medications: Current Medications Albuterol/Ipratropium (Duoneb 3 Mg/0.5 Mg (3 Ml) Ud) 3 ml IH [id number] [facility] Last Admin: 09/13/17 13:08 Dose: 3 ml Aspirin (Aspirin Chewable) 81 mg PO DAILY [facility] Last Admin: 09/13/17 12:43 Dose: 81 mg Atorvastatin Calcium (Lipitor) 40 mg PO DIN [facility] Last Admin: 09/12/17 19:21 Dose: 40 mg Bacitracin (Bacitracin) 1 gm TOP BID [facility] Last Admin: 09/13/17 12:52 Dose: 1 applic Bumetanide (Bumex) 1 mg PO BID [facility] Last Admin: 09/13/17 12:43 Dose: 1 mg Carvedilol (Coreg) 3.125 mg PO BID [facility] Last Admin: 09/13/17 12:43 Dose: 3.125 mg Ciprofloxacin (Ciloxan 0.3% [facility]) 1 drop OU BID [facility] Last Admin: 09/13/17 12:50 Dose: 1 drop Furosemide (Lasix) 40 mg IV BID [facility] Last Admin: 09/12/17 19:22 Dose: 40 mg Latanoprost (Xalatan Opht) 0 ml OU HS [facility] Last Admin: 09/12/17 21:41 Dose: 1 ml Levothyroxine Sodium (Synthroid) 25 mcg PO DAILY [facility] Last Admin: 09/13/17 12:41 Dose: 25 mcg Nystatin (Nystop Topical Powder) 0 gm TOP TID [facility] Last Admin: 09/12/17 17:00 Dose: 1 appl Pantoprazole Sodium (Protonix Inj) 40 mg IVP Q12 [facility] Last Admin: 09/13/17 12:41 Dose: 40 mg Tamsulosin HCl (Flomax) 0.4 mg PO DAILY [facility] Last Admin: 09/13/17 12:43 Dose: 0.4 mg - Labs Labs: 09/12/17 06:00 09/12/17 06:00 PT 12.8 SECONDS (9.4-12.5) H 08/29/17 11:55 INR 1.16 (0.93-1.08) H 08/29/17 11:55 APTT 23.9 Seconds (25.1-36.5) L 08/29/17 11:55 - Constitutional Appears: No Acute Distress - Head Exam Head Exam: NORMOCEPHALIC - Eye Exam Eye Exam: Normal appearance. absent: Scleral icterus - ENT Exam ENT Exam: Mucous Membranes Moist - Respiratory Exam Respiratory Exam: NORMAL BREATHING PATTERN. absent: Respiratory Distress - Cardiovascular Exam Cardiovascular Exam: +S1, +S2 - GI/Abdominal Exam GI & Abdominal Exam: Soft, Normal Bowel Sounds. absent: Guarding, Tenderness, Rebound - Extremities Exam Extremities Exam: Pedal Edema. absent: Calf Tenderness - Neurological Exam Neurological Exam: Alert, Awake, Oriented x3 (confused at times) - Skin Skin Exam: Dry, Warm Assessment and Plan - Assessment and Plan (Free Text) Assessment: ASSESSMENT: AMS Anemia s/p blood transfusion Pneumonia Sepsis Resolved Elevated LFT,may likely be secondary to hepatic congestion ,low flow state CHF Cholelithiasis, now with sludge ARF on chronic RF PLAN: on Protonix 40 mg IV BID on Cipro eyedrops on Aspirin on puree diet Monitor H&H, overt GI bleed trend LFT Seen and discussed w/ Dr. Rehman <Luiza Rehman V - Last Filed: 09/13/17 22:13> Objective - Vital Signs/Intake and Output Vital Signs (last 24 hours): Temp Pulse Resp BP Pulse Ox 97.9 F 88 20 168/54 H 95 09/13/17 16:00 09/13/17 18:46 09/13/17 16:00 09/13/17 18:46 09/13/17 16:00 Intake and Output: 09/13/17 09/14/17 18:59 06:59 Intake Total 300 360 Output Total 300 250 Balance 0 110 - Medications Medications: Current Medications Albuterol/Ipratropium (Duoneb 3 Mg/0.5 Mg (3 Ml) Ud) 3 ml IH [id number] [facility] Last Admin: 09/13/17 21:00 Dose: 3 ml Aspirin (Aspirin Chewable) 81 mg PO DAILY [facility] Last Admin: 09/13/17 12:43 Dose: 81 mg Atorvastatin Calcium (Lipitor) 40 mg PO DIN [facility] Last Admin: 09/13/17 18:46 Dose: 40 mg Bacitracin (Bacitracin) 1 gm TOP BID [facility] Last Admin: 09/13/17 18:44 Dose: 1 applic Bumetanide (Bumex) 1 mg PO BID [facility] Last Admin: 09/13/17 18:46 Dose: 1 mg Carvedilol (Coreg) 3.125 mg PO BID [facility] Last Admin: 09/13/17 18:46 Dose: 3.125 mg Ciprofloxacin (Ciloxan 0.3% Ophth Soln) 1 drop OU BID [facility] Last Admin: 09/13/17 18:45 Dose: 1 drop Furosemide (Lasix) 40 mg IV BID [facility] Last Admin: 09/12/17 19:22 Dose: 40 mg Latanoprost (Xalatan Opht) 0 ml OU HS [facility] Last Admin: 09/13/17 21:42 Dose: 1 ml Levothyroxine Sodium (Synthroid) 25 mcg PO DAILY [facility] Last Admin: 09/13/17 12:41 Dose: 25 mcg Nystatin (Nystop Topical Powder) 0 gm TOP TID [facility] Last Admin: 09/12/17 17:00 Dose: 1 appl Pantoprazole Sodium (Protonix Inj) 40 mg IVP Q12 [facility] Last Admin: 09/13/17 21:42 Dose: 40 mg Tamsulosin HCl (Flomax) 0.4 mg PO DAILY [facility] Last Admin: 09/13/17 12:43 Dose: 0.4 mg - Labs Labs: 09/12/17 06:00 09/12/17 06:00 PT 12.8 SECONDS (9.4-12.5) H 08/29/17 11:55 INR 1.16 (0.93-1.08) H 08/29/17 11:55 APTT 23.9 Seconds (25.1-36.5) L 08/29/17 11:55 Attending/Attestation - Attestation Notes (Text): This is an addendum to GI progress report dictated by Cecilia Marcano APN.The patient was seen and examined earlier. Medical records, lab studies, imagings were reviewed. Last 24 hours events reviewed. Agreed with the above treatment plan as outlined in Cecilia Marcano APN's notes the with the addition of the following status post transfusion. Hemoglobin stable now on PPI Abdomen soft no tenderness Patient is DNR DNI Patient is being considered for hospice care 09/13/17 22:13
--- NOTE | 2017-09-13 16:59 | PN ---
DATE: 09/13/2017 SUBJECTIVE: The patient is in bed, in no acute distress. PHYSICAL EXAMINATION: VITAL SIGNS: Temperature is 97, blood pressure is 106/70, respiratory rate 16. HEENT: Unremarkable. NECK: Supple. LUNGS: Have decreased breath sounds. HEART: Normal S1, S2. ABDOMEN: Soft. Laboratory examination reveals a white count of 8.3, hemoglobin of 8, platelets of 155. Chemistries reveal a BUN of 127, creatinine of 5.2. Review of orders reveals the patient to be off of antibiotics. ASSESSMENT AND PLAN: An 86-year-old male seen in 563/bed 1 today with sepsis due to left lower lobe community-acquired pneumonia, possible congestive heart failure, clinically improved with history of left posterior neck mass, sebaceous cyst, and currently has completed 10 days of antibiotics; off of antibiotics, afebrile. Supportive care. He is at risk for developing nosocomial infection. Jonathan Wilkins MD
--- NOTE | 2017-09-13 19:55 | PN ---
DATE: SUBJECTIVE: The patient is currently seen on 5-R. He appears to be short of breath, eyes are closed, he is not responding to my verbal communication. As per the nursing staff, the patient is preparing to start on hospice tomorrow. MEDICATIONS: Medication list reviewed. The patient is currently on; aspirin, bacitracin, Bumex, eyedrops, Coreg, DuoNeb, Flomax, IV Lasix, Lipitor, nystatin, Protonix, Levoxyl, and Xalatan ophthalmic ointment. OBJECTIVE: INTAKE/OUTPUT: Intake 361, output 250. Weight is up in the last 3 days from 174 pounds 11 ounces to 182 pounds 3 ounces on the bed scale. VITAL SIGNS: Blood pressure 106/57, pulse is 85, temperature is 97.6, respiratory rate is 20 with an oxygen saturation of 94%. HEENT: Exam shows him to be normocephalic, atraumatic. Conjunctivae are pink. Sclerae are nonicteric. NECK: Supple. No neck vein distention. CHEST: Clear to auscultation and percussion with decreased breath sounds at the bases with scattered rhonchi. CARDIOVASCULAR: Shows an irregular rate and rhythm with no audible murmurs. He does have a aortic stenosis, aortic insufficiency, tricuspid regurgitation. No S3. No S4. No rub. Abdomen is soft. Bowel sounds normal. No rebound, no guarding, no masses. EXTREMITIES: Show 2 to 3+ pitting edema of both upper and lower extremity. Diminished lower extremity pulses bilaterally. NEUROLOGIC: Shows him to be non-communicative and nonverbal. LABORATORY DATA AND IMAGING STUDIES: CBC; white blood cell count 8.3, hemoglobin 8.5, platelet count is 155,000. Chemistry showed normal electrolytes. BUN 127 with a creatinine of 5.2. Glucose is 99. Calcium is 8.2. Liver enzymes are normal. Albumin is 2.7. The patient is status post transfusion 2 units of packed red blood cells. Microbiology, no recent cultures. ASSESSMENT: 1. Acute renal failure superimposed on chronic kidney disease stage III. The patient is severely prerenal on diuretic therapy once again. There is no role here for renal replacement therapy as per multiple discussions with family. The patient will be placed on hospice care starting tomorrow. 2. Anemia. Status post transfusion 2 units packed red blood cells. 3. Congestive heart failure and hypervolemia. No choice, but to continue diuretic therapy. 4. 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 Last ejection fraction was 57%. 5. History of hypertension. Blood pressure is controlled on present medication the patient is borderline hypotensive. 6. History of hypothyroidism, stable. 7. Past history of colorectal cancer. 8. History of severe osteoarthritis. PLAN: 1. Discussed with staff on 5-R and more likely the patient will enter hospice starting tomorrow. My suggestion would be is to discontinue any further lab drawing. The patient is currently both on oral and IV diuretic therapy. He only requires diuretic therapy through intravenous. Oral diuretics can be discontinued. 2. Continue comfort measures. An agree with decision for hospice placement. Oral León MD
[2017-09-13] MEDS: Latanoprost 2.5 ml Opht Soln OU SCH (21:42)
[2017-09-14] MEDS: Albuterol-Ipratrop 3 mg / 0.5 (3 ml) UD IH SCH ×2 (07:29→13:47)
[2017-09-14 07:34] LABS: BASO # 0.01 K/mm3 (0.0-2.0); BASO % 0.1 % (0.0-3.0); EOS # 0.2 (0.0-0.7); EOS % 2.5 % (1.5-5.0); GRAN # 6.07 (1.4-6.5); GRAN % 80.8 % (50.0-68.0); HEMATOCRIT 26.5 % (42.0-52.0); LYMPH # 0.9 (1.2-3.4); LYMPH % 11.4 % (22.0-35.0); MEAN CELL VOLUME 91.7 fl (80.0-105.0); MEAN CORPUSCULAR HEMOGLOBIN 28.7 pg (25.0-35.0); MEAN CORPUSCULAR HGB CONC 31.3 g/dl (31.0-37.0); MONO # 0.4 (0.1-0.6); MONO % 5.2 % (1.0-6.0); RED CELL DISTRIBUTION WIDTH 15.9 % (11.5-14.5); WHITE BLOOD COUNT 7.5 10^3/ul (4.5-11.0)
[2017-09-14 08:11] LABS: ALB/GLOB RATIO 1.1 (1.1-1.8); BILIRUBIN,TOTAL 0.5 mg/dL (0.2-1.3); CALCIUM 7.8 mg/dL (8.4-10.5)
--- NOTE | 2017-09-14 09:39 | PN ---
DATE: LOCATION: The patient is in [facility] in [place], room 563, bed 1. SUBJECTIVE: The patient was admitted with infection, non-STEMI. The patient had sepsis. The patient is in the hospital, currently is awake and oriented in person, place and time. The patient is being treated for renal insufficiency. The patient is on treatment for his cardiac condition, prostate and thyroid. The patient also has history of glaucoma. PHYSICAL EXAMINATION: GENERAL: The patient is lying in bed. The patient is responding to questions. He is grossly edematous with renal failure. VITAL SIGNS: The vital signs this morning, the patient's pulse is 75, blood pressure 113/66, respirations are 19, O2 sat is 95% on room air, temperature 97.6. HEENT: His head is normocephalic. Sparsity of hair on the scalp. LUNGS: Crepitations, scattered. HEART: Normal sinus rhythm. S1, S2 present. ABDOMEN: Soft, nontender. There are no masses. CENTRAL NERVOUS SYSTEM: The patient is conscious. The patient has nonfunctional lower extremities due to severe degenerative arthritis. The patient has not been able to walk for several months. MEDICATIONS: The patient's medications consists of aspirin. The patient is on carvedilol, which is Coreg 3.125 mg b.i.d. The patient is on albuterol inhalation therapy, Flomax 0.4 mg daily, Lasix 40 mg IV b.i.d. The patient is also on Lipitor 40 mg daily, pantoprazole 40 mg daily. He is on puree thickened diet because of difficulty in swallowing. ASSESSMENT AND PLAN: The patient's condition has been chronically sick. The patient will be placed on hospice when he goes home. He is planned for discharge today. The Hospice Services will contact me to place the patient on hospice. Ju Seymour MD
[2017-09-14] MEDS: Levothyroxine 25 MCG TAB PO SCH (10:39)
[2017-09-14] MEDS: Bacitracin Ointment 30 GM TUBE TOP SCH (10:43)
[2017-09-14] MEDS: Ciprofloxacin 0.3% OPTH SOLN OU SCH (10:44)
[2017-09-14] MEDS: Nystatin 100,000 Units/gm Topical Pow(15 gm) TOP SCH (10:45)
--- NOTE | 2017-09-14 11:27 | CP.PCM.PN ---
<Cecilia Marcano - Last Filed: 09/14/17 11:27> Subjective - Date & Time of Evaluation Date of Evaluation: 09/14/17 Time of Evaluation: 11:23 - Subjective Subjective: S&E at bedside, chart reviewed, no overt GI bleeding reported. Patient fed himself this am, no reports of BM. Patient denies SOB, CP, N/V or abdominal pain. Objective - Vital Signs/Intake and Output Vital Signs (last 24 hours): Temp Pulse Resp BP Pulse Ox 97.6 F 75 19 113/66 95 09/14/17 07:30 09/14/17 10:38 09/14/17 07:30 09/14/17 10:38 09/14/17 07:30 Intake and Output: 09/14/17 09/14/17 06:59 18:59 Intake Total 360 Output Total 550 Balance -190 - Medications Medications: Current Medications Albuterol/Ipratropium (Duoneb 3 Mg/0.5 Mg (3 Ml) Ud) 3 ml IH [id number] [facility] Last Admin: 09/14/17 07:29 Dose: 3 ml Aspirin (Aspirin Chewable) 81 mg PO DAILY [facility] Last Admin: 09/14/17 10:39 Dose: 81 mg Atorvastatin Calcium (Lipitor) 40 mg PO DIN [facility] Last Admin: 09/13/17 18:46 Dose: 40 mg Bacitracin (Bacitracin) 1 gm TOP BID [facility] Last Admin: 09/14/17 10:43 Dose: 1 applic Bumetanide (Bumex) 1 mg PO BID [facility] Last Admin: 09/14/17 10:38 Dose: 1 mg Carvedilol (Coreg) 3.125 mg PO BID [facility] Last Admin: 09/14/17 10:38 Dose: 3.125 mg Ciprofloxacin (Ciloxan 0.3% Ophth Soln) 1 drop OU BID [facility] Last Admin: 09/14/17 10:44 Dose: 1 drop Furosemide (Lasix) 40 mg IV BID [facility] Last Admin: 09/12/17 19:22 Dose: 40 mg Latanoprost (Xalatan Opht) 0 ml OU HS [facility] Last Admin: 09/13/17 21:42 Dose: 1 ml Levothyroxine Sodium (Synthroid) 25 mcg PO DAILY [facility] Last Admin: 09/14/17 10:39 Dose: 25 mcg Nystatin (Nystop Topical Powder) 0 gm TOP TID [facility] Last Admin: 09/14/17 10:45 Dose: 1 appl Pantoprazole Sodium (Protonix Inj) 40 mg IVP Q12 [facility] Last Admin: 09/14/17 10:39 Dose: 40 mg Tamsulosin HCl (Flomax) 0.4 mg PO DAILY [facility] Last Admin: 09/14/17 10:38 Dose: 0.4 mg - Labs Labs: 09/14/17 05:00 09/14/17 05:00 PT 12.8 SECONDS (9.4-12.5) H 08/29/17 11:55 INR 1.16 (0.93-1.08) H 08/29/17 11:55 APTT 23.9 Seconds (25.1-36.5) L 08/29/17 11:55 - Constitutional Appears: No Acute Distress - Eye Exam Eye Exam: Normal appearance. absent: Scleral icterus - ENT Exam ENT Exam: Mucous Membranes Moist - Neck Exam Neck Exam: Normal Inspection - Respiratory Exam Respiratory Exam: NORMAL BREATHING PATTERN. absent: Respiratory Distress - Cardiovascular Exam Cardiovascular Exam: +S1, +S2 - GI/Abdominal Exam GI & Abdominal Exam: Soft, Normal Bowel Sounds. absent: Guarding, Tenderness, Rebound - Extremities Exam Extremities Exam: Pedal Edema. absent: Calf Tenderness - Neurological Exam Neurological Exam: Alert, Awake, Oriented x3 - Skin Skin Exam: Dry, Warm Assessment and Plan - Assessment and Plan (Free Text) Assessment: ASSESSMENT: AMS Anemia s/p blood transfusion Pneumonia Sepsis Resolved Elevated LFT,may likely be secondary to hepatic congestion ,low flow state CHF Cholelithiasis, now with sludge ARF on chronic RF PLAN: on Protonix 40 mg IV BID on Cipro eyedrops on Aspirin on puree diet Monitor H&H, overt GI bleed trend LFT family decide on Hospice care when DC to home. Seen and discussed w/ Dr. Rehman <Luiza Rehman V - Last Filed: 09/14/17 21:11> Objective - Vital Signs/Intake and Output Vital Signs (last 24 hours): Temp Pulse Resp BP Pulse Ox 98.3 F 76 16 85/46 L 97 09/14/17 16:00 09/14/17 16:00 09/14/17 16:00 09/14/17 16:00 09/14/17 16:00 Intake and Output: 09/14/17 09/15/17 18:59 06:59 Intake Total 240 Output Total 200 Balance 40 - Labs Labs: 09/14/17 05:00 09/14/17 05:00 PT 12.8 SECONDS (9.4-12.5) H 08/29/17 11:55 INR 1.16 (0.93-1.08) H 08/29/17 11:55 APTT 23.9 Seconds (25.1-36.5) L 08/29/17 11:55 Attending/Attestation - Attestation I have personally seen and examined this patient.: Yes I have fully participated in the care of the patient.: Yes I have reviewed all pertinent clinical information, including history, physical exam and plan: Yes Notes (Text): This is an addendum to GI progress report dictated by Cecilia Marcano APN.The patient was seen and examined earlier. Medical records, lab studies, imagings were reviewed. Last 24 hours events reviewed. Agreed with the above treatment plan as outlined in Cecilia Marcano APN's notes the with the addition of the following patient is comfortable Planned to be discharged today for hospice care 09/14/17 21:10
--- NOTE | 2017-09-14 14:49 | PN ---
DATE: 09/14/2017 SUBJECTIVE: The patient is seen earlier this morning. No fevers. No chills. No nausea. PHYSICAL EXAMINATION: VITAL SIGNS: Temperature is 97, blood pressure is 113/60, and respiratory rate of 18. HEENT: Unremarkable. NECK: Supple. LUNGS: Decreased breath sounds. HEART: Normal S1 and S2. ABDOMEN: Soft and nontender. LABORATORY DATA: Reveals a white count of 7.5, hemoglobin of 8, and platelets of 134. Chemistry reveals BUN of 124 and creatinine of 5.5. Urinalysis is noted and serology is negative. Microbiology is noted. Review of orders reveals the patient to be off antibiotics. ASSESSMENT AND PLAN: An 86-year-old male with sepsis due to left lower lobe community-acquired pneumonia, possible congestive heart failure, left posterior neck mass, and sebaceous cyst. Continue antibiotic therapy. Currently off antibiotics. Afebrile. Jonathan Wilkins MD
[2017-09-14 17:34] VITALS: BP 85/46; PULSE 76; RESP 16; TEMP 98.3; O2SAT 97
--- NOTE | 2017-09-14 18:53 | PN ---
DATE: 09/14/2017 SUBJECTIVE: The patient is seen lying in bed. He is awake. He is alert. He reports use the bathroom. CURRENT MEDICATIONS: Aspirin, bacitracin, Bumex 1 b.i.d., Coreg 3.125 b.i.d., DuoNeb, Flomax, IV Lasix on hold, Lipitor 40, Protonix 40 IV q.12 hours, Synthroid. PHYSICAL EXAMINATION: GENERAL: Obese elderly male lying in bed. VITAL SIGNS: Blood pressure 113/66, heart rate 75, respiratory rate 18, temperature 97.6. Intake and output 660/850. HEENT: Normocephalic, atraumatic, positive pallor. NECK: Supple, no JVD. LUNGS: Bilateral equal air entry, bilateral equal expansion, no rales. CARDIAC: S1, S2, regular rate and rhythm, no murmur, no rub. ABDOMEN: Obese, distended, soft, nontender, bowel sounds present. EXTREMITIES: 2+ pitting edema of the lower extremities. LABORATORY DATA: WBC 7.5, hemoglobin 8.3, hematocrit 27, platelets 134. Sodium 139, potassium 4.0, chloride 100, CO2 24, BUN 124, creatinine 5.5, glucose 88, calcium 7.8, albumin 2.6, corrected calcium is 8.7. Stool occults positive. ASSESSMENT: 1. Acute kidney injury superimposed on chronic kidney disease stage 3, worsening renal parameters. 2. Severe anemia, stool occults positive, gastrointestinal bleed, status post 2 units of blood transfusion. 3. Congestive heart failure, edema, anasarca, 4. Coronary artery disease. 5. Hypertension. 6. History of colorectal cancer. 7. Osteoarthritis. PLAN: 1. Continue current management. 2. Focus on comfort care. 3. Continue diuretics. 4. Hospice evaluation underway. Ave Izquierdo MD
== END 2017-09-14 17:35 | disposition hospice, home (50) | DRG 871 ==
LOC: ED 10:09 → ERH 13:48 → 2RSO 21:34 → 5RNO 09-10 12:31
PROVIDERS: ADMIT Internal Medicine; ATTEND Internal Medicine
PROC: 0T9B70Z Drainage of Bladder with Drainage Device, Via Natural or Artificial Opening (ICD-10-PCS; 2017-08-31)
PROC: 0T7D7ZZ Dilation of Urethra, Via Natural or Artificial Opening (ICD-10-PCS; 2017-08-31)
PROC: 02HV33Z Insertion of Infusion Device into Superior Vena Cava, Percutaneous Approach (ICD-10-PCS; principal; 2017-09-07)
PROC: B54NZZA Ultrasonography of Left Upper Extremity Veins, Guidance (ICD-10-PCS; 2017-09-07)
PROC: 30233N1 Transfusion of Nonautologous Red Blood Cells into Peripheral Vein, Percutaneous Approach (ICD-10-PCS; 2017-09-11)
DX: A41.9 Sepsis, unspecified organism (principal); J18.9 Pneumonia, unspecified organism; I21.4 Non-ST elevation (NSTEMI) myocardial infarction; I50.33 Acute on chronic diastolic (congestive) heart failure; N17.9 Acute kidney failure, unspecified; E87.0 Hyperosmolality and hypernatremia; I08.3 Combined rheumatic disorders of mitral, aortic and tricuspid valves; I13.0 Hypertensive heart and chronic kidney disease with heart failure and stage 1 through stage 4 chronic kidney disease, or unspecified chronic kidney disease; J44.0 Chronic obstructive pulmonary disease with (acute) lower respiratory infection; E87.1 Hypo-osmolality and hyponatremia; K92.1 Melena; H44.002 Unspecified purulent endophthalmitis, left eye; N18.3 Chronic kidney disease, stage 3 (moderate); E87.5 Hyperkalemia; E83.39 Other disorders of phosphorus metabolism; D50.0 Iron deficiency anemia secondary to blood loss (chronic); E66.01 Morbid (severe) obesity due to excess calories; I25.10 Atherosclerotic heart disease of native coronary artery without angina pectoris; D63.1 Anemia in chronic kidney disease; K80.20 Calculus of gallbladder without cholecystitis without obstruction; E03.9 Hypothyroidism, unspecified; M19.90 Unspecified osteoarthritis, unspecified site; N26.1 Atrophy of kidney (terminal); M10.9 Gout, unspecified; H40.9 Unspecified glaucoma; K76.1 Chronic passive congestion of liver; R13.10 Dysphagia, unspecified; N40.0 Benign prostatic hyperplasia without lower urinary tract symptoms; N35.9 Urethral stricture, unspecified; E86.0 Dehydration; L72.3 Sebaceous cyst; M81.0 Age-related osteoporosis without current pathological fracture; B95.8 Unspecified staphylococcus as the cause of diseases classified elsewhere; N47.1 Phimosis; E88.09 Other disorders of plasma-protein metabolism, not elsewhere classified; Z66 Do not resuscitate; Z51.5 Encounter for palliative care; Z86.73 Personal history of transient ischemic attack (TIA), and cerebral infarction without residual deficits; Z92.21 Personal history of antineoplastic chemotherapy; Z92.3 Personal history of irradiation; Z85.048 Personal history of other malignant neoplasm of rectum, rectosigmoid junction, and anus; Z68.38 Body mass index [BMI] 38.0-38.9, adult; Z74.01 Bed confinement status